=== PATIENT | female | born 1940 | race Caucasian/White ===

== ENCOUNTER 2018-02-20 18:04 | Emergency (ER) | payer OTHER ==
--- NOTE | 2018-02-20 20:07 | ER ---
Nurse's Notes [facility] Name: Faiza Pete Age: 77 yrs Sex: Female : 1940 Arrival Date: 02/20/2018 Time: 18:07 Bed 17 Private MD: Debbie Bah Diagnosis: Extended spectrum beta lactamase (ESBL) resistance;Acute cystitis Presentation: 02/20 18:13 Presenting complaint: Child states: she had a SOB last Friday and its getting worse; hj Rx with amoxycillin for UTI and culture showed E coli; denies fever and chills;. Transition of care: patient was not received from another setting of care. Onset of symptoms was February 20, 2018. Initial Sepsis Screen: Does the patient meet any 2 criteria? No. Patient's initial sepsis screen is negative. Does the patient have a suspected source of infection? No. Patient's initial sepsis screen is negative. Care prior to arrival: None. 18:13 Method Of Arrival: Ambulatory 18:13 Acuity: KATHI 3 hj Triage Assessment: 18:19 General: Appears in no apparent distress. uncomfortable, Behavior is calm, cooperative, hj appropriate for age. Pain: Denies pain. Respiratory: Reports shortness of breath Onset: The symptoms/episode began/occurred the patient has moderate shortness of breath. Historical: - Allergies: 18:19 Macrobid; hj 18:19 Bactrim; hj - Home Meds: 18:19 montelukast 10 mg oral tab 1 tab once daily [Active]; pantoprazole 40 mg oral TbEC 1 hj tab once daily [Active]; Lexapro 20 mg Oral tab 1 tab once daily [Active]; carvedilol 25 mg oral tab 1 tab 2 times per day [Active]; Lipitor 10 mg Oral tab 1 tab once daily [Active]; Diovan HCT 80-12.5 mg Oral tab 1 tab once daily [Active]; aspirin 81 mg Oral TbEC 1 tab once daily [Active]; Potassium Chloride Oral [Active]; lorazepam 0.5 mg Oral tab 1 tab 3 times per day [Active]; Claritin 10 mg Oral tab 1 tab once daily [Active]; Advair Diskus 100-50 mcg/dose Inhl dsdv 1 puff 2 times per day [Active]; levabuterol [Active]; - PMHx: 18:19 Aneurysm; Cancer, Breast; COPD; hemmorhoids; Hyperlipidemia; Hypertension; SVT; hj - PSHx: 18:19 Lumpectomy; heart cath-07/04/15; - Immunization history:: Adult Immunizations unknown. - Social history:: Smoking status: unknown. Screenin:43 Abuse screen: Denies threats or abuse. Nutritional screening: No deficits noted. jd3 Tuberculosis screening: No symptoms or risk factors identified. Fall Risk Ambulatory Aid- Crutches/Cane/Walker (15 pts). Mental Status- Oriented to own ability (0 pts). Total Quintana Fall Scale indicates No Risk (0-24 pts). Assessment: 18:19 Cardiovascular: Rhythm is. Respiratory: Airway is patent Respiratory effort is even, hj unlabored, Respiratory pattern is regular, 19:42 General: Appears in no apparent distress. uncomfortable, Behavior is calm, cooperative, jd3 appropriate for age. Pain: Denies pain. Neuro: Level of Consciousness is awake, alert, obeys commands, Oriented to person, place, time, situation. Cardiovascular: Capillary refill < 3 seconds Patient's skin is warm and dry. Respiratory: Airway is patent Respiratory effort is even, unlabored, Respiratory pattern is regular, symmetrical, Breath sounds are clear bilaterally. GI: Abdomen is round Patient currently denies nausea, vomiting. : Reports burning with urination. EENT: No signs and/or symptoms were reported regarding the EENT system. Derm: Skin is intact, Skin is dry, Skin is normal, Skin temperature is warm. Musculoskeletal: Circulation, motion, and sensation intact. Range of motion: intact in all extremities. 20:20 Reassessment: Patient appears in no apparent distress at this time. Patient and/or jd3 family updated on plan of care and expected duration. Pain level reassessed. Patient is alert, oriented x 3, equal unlabored respirations, skin warm/dry/pink. pt reported understanding of discharge instructions. Vital Signs: 18:20 BP 128 / 116; Pulse 74; Resp 18; Temp 97.9(TE); Pulse Ox 94% on R/A; Weight 79.38 kg; hj Height 5 ft. 9 in. (175.26 cm); Pain 0/10; 18:20 Body Mass Index 25.84 (79.38 kg, 175.26 cm) ED Course: 18:07 Patient arrived in ED. mr 18:07 Debbie Bah MD is Private Physician. mr 18:16 Triage completed. hj 18:20 Arm band placed on right wrist. hj 19:29 Alex Singleton MD is Attending Physician. ps1 19:41 Tony Hurt RN is Primary Nurse. jd3 19:44 Patient has correct armband on for positive identification. Bed in low position. Call jd3 light in reach. Adult w/ patient. 20:06 Debbie Bah MD is Referral Physician. ps1 20:19 No provider procedures requiring assistance completed. Patient did not have IV access jd3 during this emergency room visit. Administered Medications: No medications were administered Outcome: 20:07 Discharge ordered by MD. ps1 20:19 Discharged to home ambulatory, with family. jd3 20:19 Condition: stable 20:19 Discharge instructions given to patient, family, Instructed on discharge instructions, follow up and referral plans. medication usage, Demonstrated understanding of instructions, follow-up care, medications, Prescriptions given X 1. 20:20 Patient left the ED. jd3 Signatures: Marilynn Sampson AddisonJoselito, RN RN Tony Deng, JESÚS RN Alex Bass MD MD ps1
--- NOTE | 2018-02-20 20:07 | EDPHYS ---
Physician Documentation [facility] Name: Faiza Pete Age: 77 yrs Sex: Female : 1940 Arrival Date: 02/20/2018 Time: 18:07 Bed 17 Private MD: Debbie Bah ED Physician Alex Singleton HPI: 02/20 20:00 This 77 yrs old Female presents to ER via Ambulatory with complaints of ps1 Shortness Of Breath, Urinary Problem. 20:00 The patient has shortness of breath chronic hx of COPD. Onset: The symptoms/episode ps1 began/occurred 10 year(s) ago. Duration: The symptoms are continuous, are intermittent. The patient's shortness of breath is alleviated by inhaler, nebulizer treatment. Associated signs and symptoms: The patient has no apparent associated signs or symptoms. Associated signs and symptoms: Pertinent positives: urinary frequency. not really here for shortness of breath. Attests to it as she has COPD. States that it is otherwise well managed at home. Went to urgent care on Friday and was called 2/2 antibiotic resistant. Sensitivity report demonstrated ESBL and E.coli. Sensitivity to cipro but patient had it listed as an allergy because she said it didn't work, not a true physiologic allergy. . Historical: - Allergies: 18:19 Macrobid; hj 18:19 Bactrim; hj - Home Meds: 18:19 montelukast 10 mg oral tab 1 tab once daily [Active]; pantoprazole 40 mg oral TbEC 1 hj tab once daily [Active]; Lexapro 20 mg Oral tab 1 tab once daily [Active]; carvedilol 25 mg oral tab 1 tab 2 times per day [Active]; Lipitor 10 mg Oral tab 1 tab once daily [Active]; Diovan HCT 80-12.5 mg Oral tab 1 tab once daily [Active]; aspirin 81 mg Oral TbEC 1 tab once daily [Active]; Potassium Chloride Oral [Active]; lorazepam 0.5 mg Oral tab 1 tab 3 times per day [Active]; Claritin 10 mg Oral tab 1 tab once daily [Active]; Advair Diskus 100-50 mcg/dose Inhl dsdv 1 puff 2 times per day [Active]; levabuterol [Active]; - PMHx: 18:19 Aneurysm; Cancer, Breast; COPD; hemmorhoids; Hyperlipidemia; Hypertension; SVT; hj - PSHx: 18:19 Lumpectomy; heart cath-07/04/15; hj - Immunization history:: Adult Immunizations unknown. - Social history:: Smoking status: unknown. ROS: 20:00 Constitutional: Negative for fever, chills, and weight loss, Eyes: Negative for injury, ps1 pain, redness, and discharge, ENT: Negative for injury, pain, and discharge, Cardiovascular: Negative for chest pain, palpitations, and edema. 20:00 Abdomen/GI: Negative for abdominal pain, nausea, vomiting, diarrhea, and constipation, Back: Negative for injury and pain. 20:00 MS/Extremity: Negative for injury and deformity, Skin: Negative for injury, rash, and discoloration, Neuro: Negative for headache, weakness, numbness, tingling, and seizure. 20:00 Respiratory: Positive for shortness of breath, at rest. 20:00 : Positive for urinary symptoms. Exam: 20:00 Constitutional: This is a well developed, well nourished patient who is awake, alert, ps1 and in no acute distress. Head/Face: Normocephalic, atraumatic. Eyes: Pupils equal round and reactive to light, extra-ocular motions intact. Lids and lashes normal. Conjunctiva and sclera are non-icteric and not injected. Neck: Trachea midline, no thyromegaly or masses palpated, and no cervical lymphadenopathy. Supple, full range of motion without nuchal rigidity, or vertebral point tenderness. No Meningismus. Chest/axilla: Normal chest wall appearance and motion. Nontender with no deformity. No lesions are appreciated. Cardiovascular: Regular rate and rhythm. No gallops, murmurs, or rubs. Normal PMI, no JVD. No pulse deficits. 20:00 Abdomen/GI: Soft, non-tender, with normal bowel sounds. No distension or tympany. No guarding or rebound. No evidence of tenderness throughout. Skin: Warm, dry with normal turgor. Normal color with no rashes, no lesions, and no evidence of cellulitis. MS/ Extremity: Pulses equal, no cyanosis. Neurovascular intact. Full, normal range of motion. Neuro: Awake and alert, GCS 15, oriented to person, place, time, and situation. Cranial nerves II-XII grossly intact. Sensory grossly intact. 20:00 Respiratory: the patient does not display signs of respiratory distress, Respirations: normal, Breath sounds: bronchial sounds, that are mild, wheezing: that is mild, is heard in the left posterior lower lobe and right posterior lower lobe. Vital Signs: 18:20 BP 128 / 116; Pulse 74; Resp 18; Temp 97.9(TE); Pulse Ox 94% on R/A; Weight 79.38 kg; hj Height 5 ft. 9 in. (175.26 cm); Pain 0/10; 18:20 Body Mass Index 25.84 (79.38 kg, 175.26 cm) hj MDM: 20:00 Data reviewed: vital signs, nurses notes, diagnostic data from outside facility, ps1 urinalysis, bacteruria, culture. ED course: patient to be started on cipro as it is sensitive on both e.coli and e.faecalis. Will have patient follow up with PCP for recheck and consideration of other medication regimens. . 20:07 Patient medically screened. ps1 Administered Medications: No medications were administered Disposition: 02/20/18 20:07 Discharged to Home. Impression: Extended spectrum beta lactamase (ESBL) resistance, Acute cystitis. - Condition is Stable. - Discharge Instructions: Antibiotic Resistance. - Prescriptions for Cipro 500 mg Oral Tablet - take 1 tablet by ORAL route every 12 hours for 10 days; 20 tablet. - Medication Reconciliation Form, Thank You Letter, Antibiotic Education, Prescription Opioid Use form. - Follow up: Debbie Bah MD; When: 5 - 6 days; Reason: Recheck today's complaints, Continuance of care. Follow up: Emergency Department; When: As needed; Reason: Fever > 102 F, Worsening of condition. - Problem is an ongoing problem. - Symptoms are unchanged. Signatures: Joselito Jaime RN Tony Chu RN RN Alex Bass MD MD ps1
[2018-02-20 20:30] VITALS: BP 128/116; TEMP 97.9; O2SAT 94
== END 2018-02-20 20:20 | disposition home or self-care (01) ==
LOC: ER 18:04
DX: N30.00 Acute cystitis without hematuria (principal); E78.5 Hyperlipidemia, unspecified; I10 Essential (primary) hypertension; J44.9 Chronic obstructive pulmonary disease, unspecified; Z88.1 Allergy status to other antibiotic agents; Z16.12 Extended spectrum beta lactamase (ESBL) resistance
CPT/HCPCS: 99282

== ENCOUNTER 2020-03-26 09:55 | Observation (INO) | payer OTHER ==
--- OUTSIDE RECORDS SUMMARY | 2020-03-26 10:04 | XMS REPORT ---
:1940 Author Organization [facility] t Address [address] [place] [address] [address] [place] [address] Care Team Providers Name Role Phone Unavailable Unavailable Unavailable Problems Condition Condition Condition Status Onset Resolution Last Treating Co mments Source Name Details Category Date Date Treatment Clinician Date HTN HTN Problem Active [facility] (hypertens (hypertens Catrachita kes - ion), ion), Memoria benign benign l [facility] Mixed Mixed Problem Active [facility] hyperlipid hyperlipid Cat[facility]achita kes - emia emia Memoria l [facility] Urinary Urinary Problem Active [facility] tract tract [facility] - infection, infection, Me moria site not site not l specified specified Outp ati ent Clinics Chronic Chronic Problem Active [facility] bronchitis bronchitis Catrachita kes - , , Memoria unspecifie unspecifie l d chronic d chronic Outp ati bronchitis bronchitis en t type type Clinics Dysuria Dysuria Problem Active [facility] Anxiety Anxiety Problem Active [facility] Seasonal Seasonal Problem [facility] allergic allergic [facility] - rhinitis, rhinitis, Lino samaria unspecifie unspecifie l d trigger d trigger Outp ati ent Clinics Primary Primary Problem Active [facility] insomnia insomnia [facility]ics Mild Mild Problem Active [facility] intermitte intermitte Catrachita kes - nt asthma nt asthma Lino samaria without without l complicati complicati Ou tpati on on ent Clinics Other Other Problem Active [facility] chronic chronic [facility] - pain pain [facility] Vitamin D Vitamin D Problem Active [facility] deficiency deficiency [facility]ita kes - [facility]oria l [facility] Other Other Problem Active [facility] specified specified Luke s - bacterial bacterial Lino samaria agents as agents as l the cause the cause Outp ati of of ent diseases diseases Clinic s classified classified elsewhere elsewhere Acute Acute Problem Active [facility] bacterial bacterial Luke s - conjunctiv conjunctiv Me moria itis of itis of l left eye left eye Outpat i ent Clinics Acute Acute Problem Active [facility] sinusitis, sinusitis, Catrachita kes - unspecifie unspecifie Me moria d d [facility] CKD CKD Problem Active [facility] (chronic (chronic [facility] - kidney kidney [facility] disease), disease), l stage III stage III Outp ati ent Clinics Encounter Encounter Problem Active [facility] for for [facility] adult adult l medical medical [facility] examinatio examinatio en t n with n with Clinics abnormal abnormal findings findings Mucopurule Mucopurule Problem Active [facility] nt chronic nt chronic Catrachita kes - bronchitis bronchitis Me moria l [facility] Clinics Allergies, Adverse Reactions, Alerts Allergy Allergy Status Severity Reaction(s) Onset Inactive Treating Comm ents Source Name Type Date Date Clinician Nitrofur Adverse Active Info Not [facility] Macrobid Adverse Active Info Not [facility] Reaction Available [facility] Bactrim Adverse Active Info Not [facility] Reaction Available [facility] Levaquin Adverse Active Info Not [facility] Reaction Available [facility] Medications Ordered Filled Start Stop Current Ordering Indication Dosage Frequency Signature Comments Components Source Medication Medication Date Date Medication? Clinician (SIG) Name Name Benzonatate Benzonatate 2019- No Na Bah [address] [facility] 2-05 03-06 as needed [facility] - 00:00: 00:00 Memoria 00 :00 [facility] Cefdinir Cefdinir 2019- No Na Bah [address] [facility] 2-05 02-15 [facility] - 00:[facility]: 00:00 Memoria 00 :00 [facility] Trimethopri Trimethopri 2018-10- No Na Bah [address] [facility] m m 0-28 04-25 [facility] - 00:[facility]: 00:00 Memoria 00 :00 [facility] Tobramycin Tobramycin Yes Na Bah [address] [facility] 8-21 into [facility] - 00:00: affected Memoria 00 eye [facility] Singulair Singulair Yes Na Bah TAKE [address] [facility] TABLET BY [facility] - MOUTH Memoria EVERY DAY [facility] Loratadine Loratadine Yes Na Bah [address] [facility] Protonix Protonix Yes Na Bah TAKE [address] TABLET BY [facility] - MOUTH [facility]oria EVERY DAY l [facility] Lisinopril- Lisinopril- Yes Na Bah [address] [facility] Hydrochloro Hydrochloro L ukes - thiazide thiazide [facility]oria l [facility] Montelukast Montelukast Yes Na Bah [address] [facility] Sodium Sodium in the [facility] - evening [facility]oria l [facility] Combivent Combivent Yes Na Bah [address] [facility] Respimat Respimat [facility] - [facility] Levalbutero Levalbutero Yes Na Bah [address] [facility] l HCl l HCl [facility] Flonase Flonase Yes Na Bah [address] [facility] each [facility] - nostril [facility] Aspir-81 Aspir-81 Yes Na Bah [address] [facility] Lipitor Lipitor Yes Na Bah [address] [facility] Lexapro Lexapro Yes Na Bah [address] [facility] Ativan Ativan Yes Na Bah [address] [facility] as needed [facility] Loratadine Loratadine Yes Na Bah [address] [facility] Symbicort Symbicort Yes Na Bah [address] [facility] Coreg Coreg Yes Na Bah [address] [facility] Escitalopra Escitalopra Yes Na Bah TAKE [facility] m Oxalate m Oxalate TABLET BY [facility] - MOUTH Memoria EVERY DAY l [facility] Potassium Potassium Yes Na Bah [address] [facility] Coreg Coreg Yes Na Bah TAKE [address] [facility] TABLET BY [facility] - MOUTH Memoria TWICE A l DAY [facility] Atorvastati Atorvastati Yes Na Bah TAKE [address] [facility] n Calcium n Calcium TABLET BY [facility] - MOUTH Memoria EVERY DAY l [facility] Trimethopri Trimethopri Yes Na Bah [address] [facility] m [facility] Outpati ent Clinics Folic Acid Folic Acid Yes Na Bah [address] [facility] Pantoprazol Pantoprazol Yes Na Bah TAKE [address] [facility] e Sodium e Sodium TABLET BY Catrachita kes - MOUTH Memoria EVERY DAY l Outpati ent Clinics Losartan Losartan Yes Na Bah [address] [facility] Potassium-H Potassium-H L ukes - CTZ CTZ Memoria l Outpati ent Clinics Doxycycline Doxycycline 2019- No Na Bah [address] [facility] Hyclate Hyclate 02-15 [facility] - 00:00 Memoria :00 l Outpati ent Clinics PredniSONE PredniSONE 2019- Na Bah [address] [facility] 02-15 daily x 5 [facility] - 00:00 days then Memoria :00 one tablet l daily x 5 Outpati days ent Clinics Immunizations Ordered Filled Immunization Date Status Comments Sour e Immunization Name Name Prevnar 13 Prevnar 13 2019-07-[address] [facility] - -Pneumonia Vaccine -Pneumonia Vaccine 00:00:00 [facility] FluAD FluAD 2019-07-[address] [facility] - 00:[facility]00 [facility] Procedures This patient has no known procedures. Encounters Start End Encounter Admission Attending Care Care Encounter Source Date/Time Date/Time Type Type Clinicians Facility Department ID 2020-03-22 2020-03-22 Outpatient Renetta Jacksont [id number] [address] 09:29:00 09:29:00 t [employer] [facility] Medicine Outpati ent Clinics 2020-02-14 2020-02-14 [facility] [id number] 08:52:00 08:52:00 t [employer] [facility] Medicine Medicine Outpati ent Clinics 2019-12-22 2019-12-22 [facility] [id number] 09:00:00 09:00:00 t Specialty/U Catrachita kes - Specialty rology [facility] a /Urology Clinic l Clinic Outpati ent Clinics 2019-12-01 2019-12-01 [facility] [id number] 10:00:00 10:00:00 t [employer] [facility] Medicine Medicine Outpati ent Clinics 2019-09-20 2019-09-20 [facility] [id number] [facility] 15:55:00 15:55:00 t [place] [employer] - Drive [facility] Medicine Outpati ent Clinics 2019-09-08 2019-09-08 [facility] [id number] 09:00:00 09:00:00 t [place] [employer] - Drive [facility] Medicine Outpati ent Clinics 2019-08-23 2019-08-23 [facility] [id number] 09:28:00 09:28:00 t Specialty/U Catrachita kes - Specialty rology Memori a /Urology Clinic l Clinic Outpati ent Clinics 2019-07-28 2019-07-28 [facility] [id number] 09:00:00 09:00:00 t [place] [employer] - Drive [facility] Medicine Outpati ent Clinics 2019-06-22 2019-06-22 [facility] [id number] [address] 08:45:00 08:45:00 t Specialty/U Catrachita kes - Specialty rology Memori a /Urology Clinic l Clinic Outpati ent Clinics 2019-06-16 2019-06-16 [facility] [id number] 09:00:00 09:00:00 t [place] [employer] - Drive [facility] Medicine Outpati ent Clinics 2019-06-15 2019-06-15 [facility] [id number] 10:34:00 10:34:00 t [place] [employer] s - Drive [facility] Medicine Outpati ent Clinics 2019-03-24 2019-03-24 [facility] [id number] [address] 10:40:00 10:40:00 t [place] [employer] s - Drive [facility] Medicine Outpati ent Clinics 2019-03-09 2019-03-09 [facility] [id number] 10:08:00 10:08:00 t Specialty/U Catrachita kes - Specialty rology Memori a /Urology Clinic l Clinic Outpati ent Clinics 2018-12-24 2018-12-24 [facility] [id number] [address] 09:45:00 09:45:00 t Specialty/U Catrachita kes - Specialty rology Mem[facility] a /Urology Clinic l Clinic Outpati ent Clinics 2018-12-17 2018-12-17 [facility] [id number] 08:30:00 08:30:00 t [place] [employer] [facility] Medicine Outpati ent Clinics 2018-11-17 2018-11-17 [facility] [id number] 11:32:00 11:32:00 t [place] [employer] - [employer] [facility] Medicine Outpati ent Clinics 2018-10-14 2018-10-14 [facility] [id number] 09:44:00 09:44:00 t [employer] [facility] Outpati ent Clinics 2018-09-10 2018-09-10 [facility] [id number] [facility] 08:30:00 08:30:00 t [employer] [facility] Outpati ent Clinics 2018-08-04 2018-08-04 [facility] [id number] 09:30:00 09:30:00 t Specialty/U Catrachita kes - Specialty rology Memori a /Urology Clinic l Clinic Outpati ent Clinics 2018-07-30 2018-07-30 [facility] [id number] 09:15:00 09:15:00 t Specialty/U Catrachita kes - Specialty rology Mem[facility] a /Urology Clinic l Clinic Outpati ent Clinics 2018-07-01 2018-07-01 [facility] [id number] 09:45:00 09:45:00 t Specialty/U Catrachita kes - Specialty rology Memori a /Urology Clinic l Clinic Outpati ent Clinics 2018-06-18 2018-06-18 [facility] [id number] 09:00:00 09:00:00 t [employer] [facility] Medicine Outpati ent Clinics 2018-06-17 2018-06-17 [facility] [id number] [address] 08:15:00 08:15:00 t [employer] [facility] ent [facility] 2018-05-28 2018-05-28 Outpatient Renetta Jacksont [id number] 09:46:00 09:46:00 t [employer] [facility] ent [facility] 2018-03-17 2018-03-17 Outpatient Braz[facility]a Jacksont [id number] [facility] 09:30:00 09:30:00 [employer] [facility] Results This patient has no known results.
--- OUTSIDE RECORDS SUMMARY | 2020-03-26 10:04 | XMS REPORT ---
:1940 Author Organization [employer] Care Team Providers Name Role Phone Bah, Na Provider Role Unavailable Allergies No Known Allergies Problems Problem Type Condition Code Onset Dates Condition Statu s Problem Urinary tract infection, site not N39.0 Active specified Problem Other chronic pain G89.29 Active Problem Mild intermittent asthma without J45.20 Active complication Problem Encounter for general adult medical Z00.01 Active examination with abnormal findings Problem CKD (chronic kidney disease), stage N18.3 Active III Problem Mucopurulent chronic bronchitis J41.1 Active Problem Acute bacterial conjunctivitis of H10.32 Active left eye Problem Vitamin D deficiency E55.9 Active Problem Other specified bacterial agents as B96.89 Active the cause of diseases classified elsewhere Problem Acute sinusitis, unspecified J01.90 Active Problem Mixed hyperlipidemia E78.2 Active Problem Seasonal allergic rhinitis, J30.2 Active unspecified trigger Problem Primary insomnia F51.01 Active Problem HTN (hypertension), benign I10 A ctive Problem Chronic bronchitis, unspecified J42 Active chronic bronchitis type Problem Anxiety F41.9 Active Problem Dysuria R30.0 Active Medications No Known Medications Results No Known Results Summary Purpose eClinicalWorks Submission
--- OUTSIDE RECORDS SUMMARY | 2020-03-26 10:04 | XMS REPORT ---
:1940 Author Organization [employer] Care Team Providers Name Role Phone Bah, Na Provider Role Unavailable Allergies, Adverse Reactions, Alerts Substance Reaction Event Type Nitrofurantoin Info Not Available Drug Allergy Macrobid Info Not Available Drug Allergy Levaquin Info Not Available Drug Allergy Bactrim Info Not Available Drug Allergy Problems Problem Type Condition Code Onset Dates Condition Statu s Problem Urinary tract infection, site not N39.0 Active specified Problem Other chronic pain G89.29 Active Problem Mild intermittent asthma without J45.20 Active complication Problem Encounter for general adult medical Z00.01 Active examination with abnormal findings Assessment Mucopurulent chronic bronchitis J41.1 Active Problem CKD (chronic kidney disease), stage N18.3 Active III Assessment Cough productive of yellow sputum R05 Active Assessment Acute allergic rhinitis J30.9 Acti ve Problem Mucopurulent chronic bronchitis J41.1 Active Problem Acute bacterial conjunctivitis of H10.32 Active left eye Problem Vitamin D deficiency E55.9 Active Problem Other specified bacterial agents as B96.89 Active the cause of diseases classified elsewhere Problem Acute sinusitis, unspecified J01.90 Active Problem Mixed hyperlipidemia E78.2 Active Assessment Acute sinusitis, unspecified J01.90 Active Assessment Acute bronchitis, unspecified J20.9 Active organism Problem Seasonal allergic rhinitis, J30.2 Active unspecified trigger Problem Primary insomnia F51.01 Active Problem HTN (hypertension), benign I10 A ctive Problem Chronic bronchitis, unspecified J42 Active chronic bronchitis type Assessment Other specified bacterial agents as B96.89 Active the cause of diseases classified elsewhere Problem Anxiety F41.9 Active Problem Dysuria R30.0 Active Medications Medication Code Code Instructions Start End Date Status Dosage System Date Benzonatate [facility] 17840055459 100 MG Orally Dec 01December Active 1 capsule two times a day 2019 as need ed prn cough Losartan ND 12610455412 50-12.5 MG Active 1 tablet Potassium-HCTZ Orally Once a day Cefdinir ND 71392689339 300 MG Orally Dec 01, Dec 11, Active 1 cap anastacio every 12 hours 2019 2019 Tobramycin [facility] 04889699932 0.3 % Jun 16, Active 1 drop in to Ophthalmic 2018 affected every 4 hrs eye Atorvastatin [facility] 64042716097 10 MG Active TAKE 1 Calcium TABLET BY MOUTH EVERY DAY Escitalopram [facility] 72948088821 20 MG Active TAKE 1 Oxalate TABLET BY MOUTH EVERY DAY Lisinopril-Hydr [facility] 42734913117 10-12.5 MG Active 1 tablet ochlorothiazide Orally Once a day Potassium [facility] 37897683942 99 MG Orally Active 1 tab let Once a day Coreg [facility] 48928992468 25 MG Active TAKE 1 TABLET BY MOUTH TWICE A DAY Flonase [facility] 00186772446 50 MCG/ACT Active 2 spray i n Nasally Once a each day nostril Ativan [facility] 76776785065 0.5 MG Orally Active 1 tabl et as once a day needed Levalbuterol [facility] 47376843806 1.25 MG/3ML Active 3 m l HCl Inhalation every 8 hrs Protonix [facility] 38832568717 40 MG Active TAKE 1 TABLET BY MOUTH EVERY DAY Loratadine [facility] 13040855703 10 MG Orally Active 1 ta blet Once a day Doxycycline ND 93557602069 100 MG Orally Dec 11, Active 1 capsule Hyclate twice a day 2019 Pantoprazole [facility] 85631382230 40 MG Active TAKE 1 Sodium TABLET BY MOUTH EVERY DAY Folic Acid [facility] 41396623558 1 MG Orally Active 1 tab let twice a day Loratadine [facility] 17079970803 10 MG Orally Active 1 ta blet Once a day Symbicort [facility] 33196994420 160-4.5 MCG/ACT Active TA KE 2 PUFFS BY MOUTH TWICE A DAY Trimethoprim [facility] 08471951204 100 mg Orally Active 1 tablet Once a day PredniSONE ND 00778289400 20 MG Orally Dec 11, Active 2 ta blet Once a day 2019 daily x 5 days then one tablet daily x 5 days Trimethoprim [facility] 90803613630 100 MG Orally Aug 23January Active 1 tablet Once a day 2018 Montelukast [facility] 99967099777 10 MG Orally Active 1 t ablet in Sodium Once a day the evening Singulair [facility] 29615730320 10 MG Active TAKE 1 TABLET BY MOUTH EVERY DAY Aspir-81 [facility] 88836329501 81 MG Orally Active 1 tabl et Once a day Symbicort [facility] 15479614439 160-4.5 MCG/ACT Active 2 puffs Inhalation Twice a day Coreg [facility] 62612655209 25 MG Orally Active 1 table t twice a day Lexapro [facility] 55988512623 20 MG Orally Active 1 tabl et Once a day Lipitor [facility] 18192242990 10 MG Orally Active 1 table t Once a day Combivent [facility] 40905266604 20MCG /100 MCG Active 1 p uff Respimat Oral Inhalation 4 times daily, not to exceed 6 in 24 hrs Results Name Result Date Reference Range Unit Abnormali ty Flag FLU TEST A/B ----A neg [id number] ----B neg [id number] Summary Purpose eClinicalWorks Submission
[2020-03-26] MEDS ORDERED: predniSONE 20 MG TAB ONE (11:26)
--- NOTE | 2020-03-26 11:53 | RAD REPORT ---
EXAM DESCRIPTION: RAD - Chest Single View - 03/26/2020 11:40 am CLINICAL HISTORY: Chest pain COMPARISON: 2017 FINDINGS: The left base is hazy compatible with a diaphragmatic hernia Lungs appear clear of acute infiltrate. The heart is normal size IMPRESSION: No acute abnormality displayed
[2020-03-26 12:00] LABS: Absolute Lymphocytes (CBC) 1.1 K/uL (0.7-4.9); Basophils % 0.3 % (0-1.3); Hematocrit 39.6 % (36.0-45.0); Lymphocytes % 11.3 % (15.3-44.8); MPV 9.1 fL (7.6-11.3); RBC Red Blood Cell Count 4.32 M/uL (3.86-4.86)
[2020-03-26 12:20] LABS: ALT/SGPT 25 U/L (12-78); AST/SGOT 20 U/L (15-37); Albumin 3.8 g/dL (3.4-5.0); Alkaline Phosphatase 54 U/L (45-117); BUN Blood Urea Nitrogen 17 mg/dL (7-18); Bicarbonate 28 mmol/L (21-32); Bilirubin Direct 0.2 mg/dL (0-0.2); Bilirubin Total 0.5 mg/dL (0.2-1.0); Glucose Level 95 mg/dL (74-106); NT PRO-BNP 1115 pg/mL (<450); Potassium 4.2 mmol/L (3.5-5.1); Protein, Total 7.7 g/dL (6.4-8.2); Sodium Level 141 mmol/L (136-145); Troponin (Emerg Dept Use Only) < 0.02 ng/mL (0.0-0.045)
[2020-03-26] MEDS ORDERED: ESCITALOPRAM 20 MG TAB PO ONE (13:00)
[2020-03-26] MEDS ORDERED: hydroCHLOROthiazide 25 MG TAB ONE (13:05)
[2020-03-26] MEDS ORDERED: lisinopriL 10 MG TAB ONE (13:05)
[2020-03-26] MEDS ORDERED: ONDANSETRON 4 MG/2 ML VIAL ONE (13:16)
--- NOTE | 2020-03-26 13:58 | RAD REPORT ---
EXAM DESCRIPTION: CT - Chest Abd Pelvis Wo Con - 03/26/2020 1:42 pm CLINICAL HISTORY: Cough and abdominal pain COMPARISON: 2016 CT chest TECHNIQUE: Computed axial tomography of the chest, abdomen and pelvis was obtained. Oral contrast wa s given. IV contrast was not requested. All CT scans are performed using dose optimization technique as appropriate and may include automated exposure control or mA/KV adjustment according to patient size. FINDINGS: The evaluation of mediastinum, claudy, vessels and solid organs is limited secondary to the lack of IV contrast administration Mild tree-in-bud opacities right middle lobe Mild additional chronic lung opacities bilaterally. No mediastinal or hilar lymphadenopathy is seen. A pleural effusion is not present. A pericardial effusion is not seen. Large left diaphragmatic hernia contains nondilated bowel. The gastric body lies superior to the tami erika fundus within the hernia. It is unchanged in appearance from the prior exam. There is no strandin g within the adjacent fat to suggest inflammation. Hepatic granulomata. Pancreas, adrenals and kidneys appear grossly normal Diverticula stem from the colon without evidence of diverticulitis. 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
[2020-03-26] MEDS ORDERED: ACETAMINOPHEN 500 MG TAB PO PRN (14:26)
[2020-03-26] MEDS: D5 0.45 NS 1,000 ML IV SCH (15:00)
[2020-03-26] MEDS ORDERED: IBUPROFEN 400 MG TAB ONE (16:18)
[2020-03-26] MEDS: ALBUTEROL 2.5 MG/3 ML NEB SOL IH SCH ×2 (16:19→20:00)
[2020-03-26] MEDS ORDERED: CEFTRIAXONE/SWI 1gm 1 GM/10 ML SYR ONE (16:19)
[2020-03-26] MEDS: IPRATROPIUM BROM 0.5MG/2.5ML NEB SCH ×2 (16:19→20:00)
--- NOTE | 2020-03-26 16:19 | P.HP ---
Certification for Inpatient Patient admitted to: Observation Patient will require the following post-hospital care: None Practitioner: I am a practitioner with admitting privileges, knowledge of patient current condition, hospital course, and medical plan of care. Services: Services provided to patient in accordance with Admission requirements found in Title 42 Section 412.3 of the Code of Federal Regulations Patient History Date of Service: 03/26/20 Reason for admission: Shortness of breath cough congestion History of Present Illness: Patient is 80 years of age with a history of COPD although she has never smoked has been sick for the past 3 weeks complaining of cough congestion worsening shortness of breath denies any fever chills chest pain patient uses Combivent and Xopenex at home Symbicort often makes her worse she has not followed up with me for a number of years denies any chest pain has some nausea vomiting not eating very well in very weak Allergies levofloxacin [From Levaquin] Allergy (Verified 03/04/16 21:48) Itching/Hives/Rash sulfamethoxazole [From Bactrim] Allergy (Unverified 02/20/18 20:24) Unknown trimethoprim [From Bactrim] Allergy (Unverified 02/20/18 20:24) Unknown nitrofurantoin macrocrystal [From Macrobid] Adverse Reaction (Intermediate, Verified 03/04/16 21:48) vomiting nitrofurantoin [From Macrobid] Adverse Reaction (Verified 03/04/16 21:48) vomiting Home Medications: Atorvastatin Calcium [Lipitor] 10 mg PO DAILY 03/25/12 Folic Acid 1 mg PO BID 03/25/12 Aspirin 81 mg PO DAILY #90 tab.chew 06/30/14 Budesonide/Formoterol Fumarate [Symbicort 160-4.5 Mcg Inhaler] 2 puff IH BID 07/12/15 Cyanocobalamin [Vitamin B-12] 1,000 mcg PO DAILY 07/12/15 Esomeprazole Mag Trihydrate [Nexium] 40 mg PO DAILY 07/12/15 Pnv95/Ferrous Fumarate/FA [ Tablet] 1 each PO DAILY 07/12/15 Valsartan/Hydrochlorothiazide [Diovan Hct 80-12.5 mg Tablet] 1 each PO DAILY 07/12/15 LORazepam [Lorazepam] 1 tab PO DAILY PRN 03/04/16 Amox/Clavulanate [Augmentin 500-125 mg Tab*] 500 mg PO BID #30 tab 03/05/16 Escitalopram [Lexapro*] 60 mg PO DAILY 03/05/16 Levalbuterol [Xopenex*] 0.63 mg NEB [id number] #90 vial 03/05/16 carvediloL [Coreg] 25 mg PO BID #60 tab 03/05/16 - Past Medical/Surgical History Diabetic: No -: Brain aneurysm -: HTN -: History of Breast Cancer -: Hyperlipidemia -: Depression with anxiety -: Diverticulosis -: GERD with hiatal hernia -: History of back pain and possible DDD/DJD. -: History of TIAs -: lumpectomy Psychosocial/ Personal History: unknown - Social History Alcohol use: No CD- Drugs: No Caffeine use: No Review of Systems 10-point ROS is otherwise unremarkable General: Weakness ENT: As per HPI Respiratory: Cough, Shortness of Breath Physical Examination - Physical Exam General: Alert, Oriented x3, Cachectic Neck: Supple Respiratory: Expiratory wheezes Cardiovascular: No edema, Regular rate/rhythm, Normal S1 S2 Gastrointestinal: Normal bowel sounds, Soft and benign Musculoskeletal: No clubbing, No swelling, No warmth Integumentary: No breakdown - Studies Laboratory Data (last 24 hrs) 03/26/20 11:52: WBC 9.8, Hgb 13.1, Hct 39.6, Plt Count 222 03/26/20 11:52: Sodium 141, Potassium 4.2, BUN 17, Creatinine 1.56 H, Glucose 95, Magnesium 2.0, Total Bilirubin 0.5, AST 20, ALT 25, Alkaline Phosphatase 54 Assessment and Plan - Problems (Diagnosis) (1) COPD (chronic obstructive pulmonary disease) Current Visit: Yes Status: Acute Plan: Patient is 80 years of age admitted with cough congestion shortness of breath the past 3 weeks most likely COPD exacerbation chest x-ray shows chronic gastric volvulus elevated lie left hemidiaphragm chest x-rays clear admit for observation treat with bronchodilators steroids send some sputum off for cultures check room air saturation can be discharged home probably tomorrow on prednisone 10 mg twice a day for 10 days consider an Anoro or trilogy follow with me in 2 weeks (2) Renal failure Current Visit: Yes Status: Acute Plan: Patient's kidney function is elevated start on IV fluids check urinalysis Qualifiers: Chronic kidney disease stage: unspecified stage (3) Chronic gastric volvulus Current Visit: Yes Status: Acute Plan: Patient has a chronic gastric volvulus Consul general surgery Discharge Plan: Home Plan to discharge in: 24 Hours - Advance Directives Does patient have a Living Will: Yes Does patient have a Durable POA for Healthcare: Yes
[2020-03-26 17:20] VITALS: BMI 25.1
[2020-03-26] MEDS: HYDROCODONE/APAP 5/325 MG TAB PO PRN (20:55)
[2020-03-26] MEDS: predniSONE 20 MG TAB PO SCH (20:55)
[2020-03-27] MEDS: D5 0.45 NS 1,000 ML IV SCH ×3 (00:11→20:50)
[2020-03-27] MEDS: ALBUTEROL 2.5 MG/3 ML NEB SOL IH SCH ×3 (00:59→14:00)
[2020-03-27] MEDS: IPRATROPIUM BROM 0.5MG/2.5ML NEB SCH ×3 (00:59→14:00)
[2020-03-27] MEDS: HYDROCODONE/APAP 5/325 MG TAB PO PRN ×4 (02:57→20:51)
[2020-03-27 06:46] LABS: Absolute Lymphocytes (CBC) 1.3 K/uL (0.7-4.9); Basophils % 0.2 % (0-1.3); Hematocrit 37.6 % (36.0-45.0); MPV 9.2 fL (7.6-11.3); RBC Red Blood Cell Count 4.06 M/uL (3.86-4.86)
[2020-03-27 07:05] LABS: Albumin 3.7 g/dL (3.4-5.0); Bilirubin Total 0.3 mg/dL (0.2-1.0); Potassium 4.1 mmol/L (3.5-5.1); Protein, Total 7.7 g/dL (6.4-8.2)
[2020-03-27] MEDS ORDERED: LORAZEPAM 0.5 MG TABLET PO PRN (07:38)
[2020-03-27] MEDS: ASPIRIN 81 MG CHEWABLE TABLET PO SCH (08:31)
[2020-03-27] MEDS: lisinopriL 10 MG TAB PO SCH (08:32)
[2020-03-27] MEDS: carvediloL 25 MG TAB PO SCH (08:32)
[2020-03-27] MEDS: PANTOPRAZOLE 40MG TABLET PO SCH (08:32)
[2020-03-27] MEDS: ESCITALOPRAM 20 MG TAB PO SCH (08:33)
[2020-03-27] MEDS: LORATADINE 10 MG TAB PO SCH (08:33)
[2020-03-27] MEDS: ATORVASTATIN 10 MG TAB PO SCH (08:33)
[2020-03-27] MEDS: predniSONE 20 MG TAB PO SCH ×2 (08:33→20:51)
[2020-03-27] MEDS: hydroCHLOROthiazide 12.5 MG CAP PO SCH (08:34)
[2020-03-27] MEDS: CEFTRIAXONE/SWI 1gm 1 GM/10 ML SYR IV SCH (08:34)
[2020-03-27] MEDS: AZITHROMYCIN IV 500 MG in NA CHLORIDE 0.9% 250 ML IVPB SCH (08:50)
[2020-03-27] MEDS ORDERED: HOME MED 1 EA UNK (Lisinopril/Hydrochlorothiazide [Lisinopril-Hctz 10-12.5 Mg Tab] 1 TAB) PO SCH (09:00)
[2020-03-27] MEDS ORDERED: HOME MED 1 EA UNK (Budesonide/Formoterol Fumarate [Symbicort 160-4.5 Mcg Inhaler] 2 PUFF) IH SCH (09:00)
[2020-03-27] MEDS: CYCLOSPORINE OP SCH ×2 (09:00→20:52)
--- NOTE | 2020-03-27 18:55 | ER ---
Nurse's Notes [facility] Name: Faiza Pete Age: 80 yrs Sex: Female : 1940 Arrival Date: 03/26/2020 Time: 09:[address] Private MD: Diagnosis: Weakness;Dehydration;Vomiting;Adult failure to thrive;Pneumonia, unspecified organism Presentation: 03/26 10:25 Chief complaint: Patient states: just feels real bad, daughter states on Fri she called iw Dr. Bah bc her mom said she had fever, cough, ear pain, had a COVID test done but was told she probably has allergies, daughter states pain comes and goes, has pain behind eyes, has hx of COPD , COVID results pending. Coronavirus screen: Surgical mask placed on patient. Patient moved to private room, placed in contact and droplet isolation with eye protection until further assessment. Patient reports a cough. Patient reports shortness of breath or difficulty breathing. Patient denies measured and/or subjective temperature greater than 100.4F prior to today's visit. Patient denies travel on a cruise ship or to a country the [facility] currently lists as an affected area. Patient denies contact with known and/or suspected case of COVID-19. Ebola Screen: Patient negative for fever greater than or equal to 101.5 degrees Fahrenheit, and additional compatible Ebola Virus Disease symptoms Patient denies exposure to infectious person. Patient denies travel to an Ebola-affected area in the 21 days before illness onset. No symptoms or risks identified at this time. Initial Sepsis Screen: Does the patient meet any 2 criteria? No. Patient's initial sepsis screen is negative. Does the patient have a suspected source of infection? No. Patient's initial sepsis screen is negative. Risk Assessment: Do you want to hurt yourself or someone else? Patient reports no desire to harm self or others. Onset of symptoms was February 2020. 10:25 Method Of Arrival: Ambulatory iw 10:25 Acuity: KATHI 3 iw Historical: - Allergies: 10:32 Bactrim; iw 10:32 Macrobid; iw - Home Meds: 10:32 Symbicort 80-4.5 mcg/actuation inhalation HFAA 2 puffs 2 times per day [Active]; iw loratadine 10 mg oral tab 1 tab once daily [Active]; trimethoprim 100 mg Oral tab once daily [Active]; carvedilol 25 mg oral tab daily [Active]; pantoprazole 40 mg oral TbEC 1 tab once daily [Active]; lisinopril-hydrochlorothiazide 10-12.5 mg oral tab 1 tab once daily [Active]; atorvastatin 10 mg oral tab 1 tab once daily [Active]; AREDS [Active]; aspirin 81 mg Oral TbEC 1 tab once daily [Active]; Restasis 0.05 % ophthalmic dpet 1 drop every 12 hours [Active]; lorazepam 0.5 mg Oral tab daily [Active]; levalbuterol HCl inhalation inhalation every 6 hours [Active]; - PMHx: 10:32 Aneurysm; Cancer, Breast; COPD; hemmorhoids; Hyperlipidemia; Hypertension; SVT; iw - PSHx: 10:32 Lumpectomy; heart cath-07/04/15; iw - Immunization history:: Adult Immunizations up to date. - Social history:: Smoking status: Patient denies any tobacco usage or history of. Screenin:45 Abuse screen: Denies threats or abuse. Denies injuries from another. Nutritional ca1 screening: No deficits noted. Tuberculosis screening: No symptoms or risk factors identified. Fall Risk Fall in past 12 months (25 points). IV access (20 points). Ambulatory Aid- Crutches/Cane/Walker (15 pts). Total Quintana Fall Scale indicates High Risk Score (45 or more points). Fall prevention measures have been instituted. Side Rails Up X 2 As available patient and family educated on Fall Prevention Program and Strategies. Assessment: 10:45 General: Appears in no apparent distress. uncomfortable, Behavior is calm, cooperative, ca1 appropriate for age. General: Reports chills for >3 days. Pain: Denies pain. Neuro: Level of Consciousness is awake, alert, obeys commands, Oriented to person, place, time, situation. Cardiovascular: Heart tones S1 S2 present Capillary refill < 3 seconds Patient's skin is warm and dry. Rhythm is sinus rhythm. Respiratory: Reports shortness of breath on exertion cough that is productive, since a week ago Airway is patent Respiratory effort is even, unlabored, Respiratory pattern is regular, symmetrical, Breath sounds are clear bilaterally. GI: Abdomen is round non-distended, Bowel sounds present X 4 quads. Abd is soft and non tender X 4 quads. : No signs and/or symptoms were reported regarding the genitourinary system. EENT: No signs and/or symptoms were reported regarding the EENT system. Derm: Skin is intact, is healthy with good turgor, Skin is pink, warm \\T\\ dry. Musculoskeletal: Circulation, motion, and sensation intact. Capillary refill < 3 seconds. 12:25 Reassessment: Patient appears in no apparent distress at this time. Family at the [facility] bedside Patient denies pain at this time. 12:51 Reassessment:. General: Behavior is anxious, pt states, "I am not in pain but I can't ca1 get comfortable. I did not take my Escitalopram this morning". Notified provider. VO to give med.. 13:15 Reassessment: Pt coughed and reported nausea. Notified provider. VO med and given. ca1 13:37 Reassessment: Patient appears in no apparent distress at this time. Patient is alert, ca1 oriented x 3, equal unlabored respirations, skin warm/dry/pink. PT wheeled to CT via stretcher. 14:30 Reassessment: Patient appears in no apparent distress at this time. Patient and/or ls4 family updated on plan of care and expected duration. Pain level reassessed. Patient is alert, oriented x 3, equal unlabored respirations, skin warm/dry/pink. 15:30 Reassessment: Patient appears in no apparent distress at this time. Patient and/or ls4 family updated on plan of care and expected duration. Pain level reassessed. Patient is alert, oriented x 3, equal unlabored respirations, skin warm/dry/pink. DR RAZO IN ROOM. . 16:15 Reassessment: Patient appears in no apparent distress at this time. Patient and/or ls4 family updated on plan of care and expected duration. Pain level reassessed. Patient is alert, oriented x 3, equal unlabored respirations, skin warm/dry/pink. FAMILY AT BEDSIDE. D5 1/2 NS AND IBUPROFEN GIVEN TO PATIENT. D51/2 CHARTED IN Apos Therapy. PT IN NO DISTRESS. Vital Signs: 10:25 BP 158 / 109; Pulse 84; Resp 18 S; Temp 97.7; Pulse Ox 94% on R/A; Weight 77.11 kg; iw 11:41 BP 152 / 91; Pulse 73; Resp 20; Pulse Ox 93% on R/A; mh5 12:00 BP 161 / 74; Pulse 76; Resp 15 S; Pulse Ox 93% on R/A; ca1 13:00 BP 164 / 92; Pulse 76; Resp 16 S; Pulse Ox 94% on R/A; ca1 13:15 Pulse Ox 88% on R/A; ca1 13:17 Pulse Ox 97% on 2 lpm NC; ca1 ED Course: 09:57 Patient arrived in ED. as 10:10 Cheko Marroquin MD is Attending Physician. kdr 10:29 Triage completed. iw 10:32 Arm band placed on. iw 10:36 Melania Posada, JESÚS is Primary Nurse. ca1 10:45 No provider procedures requiring assistance completed. ca1 11:40 Patient has correct armband on for positive identification. Bed in low position. Call mh5 light in reach. Side rails up X2. Adult w/ patient. Warm blanket given. electronic data interchange specialist on. Pulse ox on. NIBP on. 11:40 EKG done, by ED staff, reviewed by Cheko Marroquin MD. mh5 11:41 XRAY Chest (1 view) In Process Unspecified. EDMS 11:45 Missed attempt(s): 22 gauge in right antecubital area. Bleeding controlled, band aid ca1 applied, catheter tip intact. 11:52 Initial lab(s) drawn, by me, sent to lab. Inserted saline lock: 22 gauge in right ca1 forearm, using aseptic technique. Blood collected. 13:13 Jorge Calero MD is Hospitalizing Provider. kdr 13:25 Asad Feliz is Hospitalizing Provider. kdr 13:42 CT Chest Abdomen Pelvis W/O Contrast In Process Unspecified. EDMS 13:43 CT completed. Patient tolerated procedure well. Patient moved back from CT. bq 14:00 Report given to JESÚS [place]. ca1 14:16 Rivera Razo MD is Hospitalizing Provider. kdr 16:23 Patient admitted, IV remains in place. ls4 Administered Medications: 11:22 Drug: predniSONE 40 mg Route: PO; ca1 12:42 Follow up: Response: No adverse reaction ca1 13:00 Drug: Lisinopril 10 mg Route: PO; ca1 15:46 Follow up: Response: No adverse reaction; Blood pressure is lowered ca1 13:02 Drug: Hydrochlorothiazide 12.5 mg Route: PO; ca1 14:00 Follow up: Response: No adverse reaction; Blood pressure is lowered ca1 13:20 Drug: Zofran (Ondansetron) 4 mg Route: IVP; Site: right forearm; ca1 14:00 Follow up: Response: No adverse reaction; Nausea is decreased ca1 13:29 Drug: Escitalopram 20 mg Route: PO; ca1 15:00 Follow up: Response: No adverse reaction; Marked relief of symptoms ca1 16:15 Drug: Rocephin - (cefTRIAXone) 1 grams Route: IVPB; Infused Over: 10 mins; Site: right ls4 antecubital; 16:25 Follow up: Response: No adverse reaction ls4 16:15 Drug: Ibuprofen 400 mg Route: PO; ls4 16:30 Follow up: Response: No adverse reaction; Marked relief of symptoms ls4 Outcome: 13:15 Decision to Hospitalize by Provider. kdr 16:23 Patient left the ED. ls4 16:23 Condition: stable ls4 16:23 Admitted to accompanied by tech, family with patient, via stretcher, with chart, Report ls4 called to ROSALBA ESPINOSA 16:23 Instructed on the need for admit. Signatures: Dispatcher [employer] EDMS Cheko Marroquin MD MD kdr Quilty, Betty bq Martinez, Amelia as Mitzi Thacker RN RN Venecia Agee, JESÚS RN Marilynn Isaac Padmini Roman RN RN ls4 Melania Posada RN RN ca1 Corrections: (The following items were deleted from the chart) 13:36 13:15 Reassessment: Pt coughed and reported nausea. Notified provider. VO med and ca1 given. ca1 15:01 13:15 Reassessment: Pt coughed and reported nausea. Notified provider. VO med and ca1 given. ca1
--- NOTE | 2020-03-27 18:55 | EDPHYS ---
Physician Documentation [facility] Name: Faiza Pete Age: 80 yrs Sex: Female : 1940 Arrival Date: 03/26/2020 Time: 09:[address] Private MD: ED Physician Cheko Marroquin HPI: 03/26 11:42 This 80 yrs old Female presents to ER via Ambulatory with complaints of kdr Shortness Of Breath, Congestion, Cough. 11:42 The patient has shortness of breath at rest, with light activity. Onset: The kdr symptoms/episode began/occurred gradually, 1 week(s) ago. Duration: The symptoms are continuous, and are steadily getting worse. The patient's shortness of breath is aggravated by exertion, light activity, talking. Associated signs and symptoms: Pertinent positives: productive cough, WEAKNESS. Severity of symptoms: At their worst the symptoms were mild moderate just prior to arrival, in the emergency department the symptoms are unchanged. The patient has experienced similar episodes in the past, a few times. The patient has been recently seen by a physician: Spoke with Dr. Bah's office on Friday about the same. She had a COVID test at that time - result is unknown. The patient is otherwise without focal c/o. Historical: - Allergies: 10:32 Bactrim; iw 10:32 Macrobid; iw - Home Meds: 10:32 Symbicort 80-4.5 mcg/actuation inhalation HFAA 2 puffs 2 times per day [Active]; iw loratadine 10 mg oral tab 1 tab once daily [Active]; trimethoprim 100 mg Oral tab once daily [Active]; carvedilol 25 mg oral tab daily [Active]; pantoprazole 40 mg oral TbEC 1 tab once daily [Active]; lisinopril-hydrochlorothiazide 10-12.5 mg oral tab 1 tab once daily [Active]; atorvastatin 10 mg oral tab 1 tab once daily [Active]; AREDS [Active]; aspirin 81 mg Oral TbEC 1 tab once daily [Active]; Restasis 0.05 % ophthalmic dpet 1 drop every 12 hours [Active]; lorazepam 0.5 mg Oral tab daily [Active]; levalbuterol HCl inhalation inhalation every 6 hours [Active]; - PMHx: 10:32 Aneurysm; Cancer, Breast; COPD; hemmorhoids; Hyperlipidemia; Hypertension; SVT; iw - PSHx: 10:32 Lumpectomy; heart cath-07/04/15; iw - Immunization history:: Adult Immunizations up to date. - Social history:: Smoking status: Patient denies any tobacco usage or history of. ROS: 11:42 Constitutional: Negative for fever, chills, and weight loss, (The patient had kdr repoerted an fever (99.6) earlier in the week) Eyes: Negative for injury, pain, redness, and discharge, ENT: Negative for injury, pain, and discharge, Neck: Negative for injury, pain, and swelling, Cardiovascular: Negative for chest pain, palpitations, and edema, Abdomen/GI: Negative for abdominal pain, nausea, vomiting, diarrhea, and constipation, Back: Negative for injury and pain, : Negative for injury, bleeding, discharge, and swelling, MS/Extremity: Negative for injury and deformity, Skin: Negative for injury, rash, and discoloration, Neuro: Negative for headache, weakness, numbness, tingling, and seizure activity. Psych: Negative for depression, anxiety, suicide ideation, homicidal ideation, and hallucinations, Allergy/Immunology: Negative for hives, rash, and allergies, Endocrine: Negative for neck swelling, polydipsia, polyuria, polyphagia, and marked weight changes, Hematologic/Lymphatic: Negative for swollen nodes, abnormal bleeding, and unusual bruising. 11:42 Respiratory: Positive for cough, with clear sputum, Negative for dyspnea on exertion, hemoptysis, orthopnea, pleurisy, shortness of breath, sputum production, wheezing. Exam: 11:42 Constitutional: This is a well developed, well nourished patient who is awake, alert, kdr and in no acute distress. Head/Face: Normocephalic, atraumatic. Eyes: Pupils equal round and reactive to light, extra-ocular motions intact. Lids and lashes normal. Conjunctiva and sclera are non-icteric and not injected. Cornea within normal limits. Periorbital areas with no swelling, redness, or edema. Neck: Trachea midline, no thyromegaly or masses palpated, and no cervical lymphadenopathy. Supple, full range of motion without nuchal rigidity, or vertebral point tenderness. No Meningismus. Chest/axilla: Normal chest wall appearance and motion. Nontender with no deformity. No lesions are appreciated. Cardiovascular: Regular rate and rhythm with a normal S1 and S2. No gallops, murmurs, or rubs. Normal PMI, no JVD. No pulse deficits. Respiratory: Lungs have equal breath sounds bilaterally, clear to auscultation and percussion. No rales, rhonchi or wheezes noted. No increased work of breathing, no retractions or nasal flaring. Abdomen/GI: Soft, non-tender, with normal bowel sounds. No distension or tympany. No guarding or rebound. No evidence of tenderness throughout. Back: No spinal tenderness. No costovertebral tenderness. Full range of motion. Skin: Warm, dry with normal turgor. Normal color with no rashes, no lesions, and no evidence of cellulitis. MS/ Extremity: Pulses equal, no cyanosis. Neurovascular intact. Full, normal range of motion. Neuro: Awake and alert, GCS 15, oriented to person, place, time, and situation. Cranial nerves II-XII grossly intact. Motor strength 5/5 in all extremities. Sensory grossly intact. Cerebellar exam normal. Normal gait. Psych: Awake, alert, with orientation to person, place and time. Behavior, mood, and affect are within normal limits. Vital Signs: 10:25 BP 158 / 109; Pulse 84; Resp 18 S; Temp 97.7; Pulse Ox 94% on R/A; Weight 77.11 kg; iw 11:41 BP 152 / 91; Pulse 73; Resp 20; Pulse Ox 93% on R/A; mh5 12:00 BP 161 / 74; Pulse 76; Resp 15 S; Pulse Ox 93% on R/A; ca1 13:00 BP 164 / 92; Pulse 76; Resp 16 S; Pulse Ox 94% on R/A; ca1 13:15 Pulse Ox 88% on R/A; ca1 13:17 Pulse Ox 97% on 2 lpm NC; ca1 MDM: 13:15 Patient medically screened. kdr 13:16 Data reviewed: vital signs, nurses notes, lab test result(s), radiologic studies. kdr Counseling: I had a detailed discussion with the patient and/or guardian regarding: the historical points, exam findings, and any diagnostic results supporting the discharge/admit diagnosis, lab results, radiology results, the need for further work-up and treatment in the hospital. 03/26 11:10 Order name: Basic Metabolic Panel; Complete Time: 12:39 [facility] 03/26 12:46 Interpretation: GFR 32. kdr 03/26 11:10 Order name: CBC with Diff; Complete Time: 12:39 [facility] 03/26 11:10 Order name: LFT's; Complete Time: 12:39 [facility] 03/26 11:10 Order name: Magnesium; Complete Time: 12:39 [facility] 03/26 11:10 Order name: NT PRO-BNP; Complete Time: 12:39 [facility] 03/26 11:10 Order name: Troponin (emerg Dept Use Only); Complete Time: 12:39 [facility] 03/26 11:10 Order name: XRAY Chest (1 view); Complete Time: 12:39 [facility] 03/26 13:19 Order name: CT Chest Abdomen Pelvis W/O Contrast; Complete Time: 15:49 [facility] 03/26 14:30 Order name: CBC with Automated Diff [facility] 03/26 14:30 Order name: CBC with Automated Diff [facility] 03/26 14:30 Order name: Comprehensive Metabolic Panel [facility] 03/26 14:30 Order name: Comprehensive Metabolic Panel [facility] 03/26 11:10 Order name: EKG; Complete Time: 11:11 [facility] 03/26 11:10 Order name: Cardiac monitoring; Complete Time: 11:40 [facility] 03/26 11:10 Order name: EKG - Nurse/Tech; Complete Time: 11:41 [facility] 03/26 11:10 Order name: IV Saline Lock; Complete Time: 11:54 [facility] 03/26 11:10 Order name: Labs collected and sent; Complete Time: 11:54 [facility] 03/26 11:10 Order name: O2 Per Protocol; Complete Time: 11:54 [facility] 03/26 11:10 Order name: O2 Sat Monitoring; Complete Time: 11:54 [facility] 03/26 14:30 Order name: CONS Pharmacy Consult [facility] 03/26 14:30 Order name: Regular EDMS Administered Medications: 11:22 Drug: predniSONE 40 mg Route: PO; ca1 12:42 Follow up: Response: No adverse reaction ca1 13:00 Drug: Lisinopril 10 mg Route: PO; ca1 15:46 Follow up: Response: No adverse reaction; Blood pressure is lowered ca1 13:02 Drug: Hydrochlorothiazide 12.5 mg Route: PO; ca1 14:00 Follow up: Response: No adverse reaction; Blood pressure is lowered ca1 13:20 Drug: Zofran (Ondansetron) 4 mg Route: IVP; Site: right forearm; ca1 14:00 Follow up: Response: No adverse reaction; Nausea is decreased ca1 13:29 Drug: Escitalopram 20 mg Route: PO; ca1 15:00 Follow up: Response: No adverse reaction; Marked relief of symptoms ca1 16:15 Drug: Rocephin - (cefTRIAXone) 1 grams Route: IVPB; Infused Over: 10 mins; Site: right ls4 antecubital; 16:25 Follow up: Response: No adverse reaction ls4 16:15 Drug: Ibuprofen 400 mg Route: PO; ls4 16:30 Follow up: Response: No adverse reaction; Marked relief of symptoms ls4 Disposition: 03/26/20 13:15 Hospitalization ordered by Rivera Razo for Observation. Preliminary diagnosis are Weakness, Dehydration, Vomiting, Adult failure to thrive, Pneumonia, unspecified organism. - Bed requested for Telemetry/MedSurg (observation). - Status is Observation. ls4 - Condition is Fair. - Problem is new. - Symptoms are unchanged. Signatures: Dispatcher [employer] EDMS Cheko Marroquin MD MD kdr Mitzi Thacker RN RN iw Padmini Agarwal RN RN ls4 Melania Posada RN RN ca1 Corrections: (The following items were deleted from the chart) 13:16 13:15 Hospitalization Ordered by Jorge Calero MD for Observation. Preliminary kdr diagnosis is Weakness; Dehydration; Vomiting. Bed requested for Telemetry/MedSurg (observation). Status is Observation. Condition is Fair. Problem is new. Symptoms are unchanged. kdr 13:25 13:16 03/26/2020 13:15 Hospitalization Ordered by Jorge Calero MD for Observation. kdr Preliminary diagnosis is Weakness; Dehydration; Vomiting; Adult failure to thrive. Bed requested for Telemetry/MedSurg (observation). Status is Observation. Condition is Fair. Problem is new. Symptoms are unchanged. kdr 14:16 13:25 03/26/2020 13:15 Hospitalization Ordered by Asad Feliz for Observation. kdr Preliminary diagnosis is Weakness; Dehydration; Vomiting; Adult failure to thrive. Bed requested for Telemetry/MedSurg (observation). Status is Observation. Condition is Fair. Problem is new. Symptoms are unchanged. kdr 14:52 14:16 03/26/2020 13:15 Hospitalization Ordered by Rivera Razo MD for Observation. iw Preliminary diagnosis is Weakness; Dehydration; Vomiting; Adult failure to thrive. Bed requested for Telemetry/MedSurg (observation). Status is Observation. Condition is Fair. Problem is new. Symptoms are unchanged. kdr 15:21 14:52 03/26/2020 13:15 Hospitalization Ordered by Rivera Razo MD for Observation. ca1 Preliminary diagnosis is Weakness; Dehydration; Vomiting; Adult failure to thrive. Bed requested for Telemetry/MedSurg (observation). Status is Observation. Condition is Fair. Problem is new. Symptoms are unchanged. iw 15:53 15:21 03/26/2020 13:15 Hospitalization Ordered by Rivera Razo MD for Observation. kdr Preliminary diagnosis is Weakness; Dehydration; Vomiting; Adult failure to thrive. Bed requested for Telemetry/MedSurg (observation). Status is Observation. Condition is Fair. Problem is new. Symptoms are unchanged. ca1 16:09 15:53 03/26/2020 13:15 Hospitalization Ordered by Rivera Razo MD for Observation. ls4 Preliminary diagnosis is Weakness; Dehydration; Vomiting; Adult failure to thrive; Pneumonia, unspecified organism. Bed requested for Telemetry/MedSurg (observation). Status is Observation. Condition is Fair. Problem is new. Symptoms are unchanged. kdr 16:23 16:09 03/26/2020 13:15 Hospitalization Ordered by Rivera Razo MD for Observation. ls4 Preliminary diagnosis is Weakness; Dehydration; Vomiting; Adult failure to thrive; Pneumonia, unspecified organism. Bed requested for Telemetry/MedSurg (observation). Status is Observation. Condition is Fair. Problem is new. Symptoms are unchanged. ls4
--- NOTE | 2020-03-27 19:01 | P.PN ---
Subjective Date of Service: 03/27/20 Chief Complaint: Shortness of breath cough congestion Subjective: Improving, Other ( still feels weak.) Physical Examination - Vital Signs Temperature: 98.6 F Blood Pressure: 167/74 Pulse: 18 Respirations: 18 Pulse Ox (%): 95 - Physical Exam General: Alert HEENT: Atraumatic Neck: Supple Respiratory: Expiratory wheezes Cardiovascular: Normal pulses, Regular rate/rhythm Gastrointestinal: Normal bowel sounds, Soft and benign, Non-distended, No tenderness, No masses, No rebound, No guarding Neurological: Normal speech, Normal strength at 5/5 x4 extr, Normal tone, Normal affect Assessment & Plan Discharge Plan: Home Plan to discharge in: 24 Hours Physician Review Additional Text: Impression: COPD exacerbation with possible right-sided pneumonia Acute on chronic renal disease stage III Hypertension Depression with anxiety Plan: Continue antibiotic therapy. Continue COPD treatment. Will monitor renal function closely. Continue IV fluids. Will have physical therapy assess ambulation. Patient may require oxygen at discharge. Will also evaluate for home health and physical therapy. Will recheck tomorrow. Obtain and restart home medication. Time Spent Managing Pts Care (In Minutes): 55
[2020-03-27] MEDS: HEPARIN 5000 UNIT/ML 1 ML VIAL SQ SCH (20:51)
[2020-03-28] MEDS: IPRATROPIUM BROM 0.5MG/2.5ML NEB PRN ×2 (02:40→08:36)
[2020-03-28] MEDS: ALBUTEROL 2.5 MG/3 ML NEB SOL IH PRN ×2 (02:40→08:36)
[2020-03-28 08:23] LABS: Absolute Lymphocytes (CBC) 0.8 K/uL (0.7-4.9); Basophils % 0.3 % (0-1.3); Lymphocytes % 8.2 % (15.3-44.8); RBC Red Blood Cell Count 3.77 M/uL (3.86-4.86)
[2020-03-28 08:35] LABS: Magnesium 2.2 mg/dL (1.8-2.4); Potassium 4.3 mmol/L (3.5-5.1)
[2020-03-28] MEDS: ESCITALOPRAM 20 MG TAB PO SCH (08:41)
[2020-03-28] MEDS: LORATADINE 10 MG TAB PO SCH (08:41)
[2020-03-28] MEDS: CEFTRIAXONE/SWI 1gm 1 GM/10 ML SYR IV SCH (08:41)
[2020-03-28] MEDS: carvediloL 25 MG TAB PO SCH (08:42)
[2020-03-28] MEDS: ASPIRIN 81 MG CHEWABLE TABLET PO SCH (08:42)
[2020-03-28] MEDS: lisinopriL 10 MG TAB PO SCH (08:43)
[2020-03-28] MEDS: hydroCHLOROthiazide 12.5 MG CAP PO SCH (08:43)
[2020-03-28] MEDS: predniSONE 20 MG TAB PO SCH (08:43)
[2020-03-28] MEDS: PANTOPRAZOLE 40MG TABLET PO SCH (08:43)
[2020-03-28] MEDS: ATORVASTATIN 10 MG TAB PO SCH (08:44)
[2020-03-28] MEDS: HEPARIN 5000 UNIT/ML 1 ML VIAL SQ SCH (08:44)
[2020-03-28] MEDS: CYCLOSPORINE OP SCH (08:48)
[2020-03-28] MEDS: FLUTICASONE 50MCG NASAL SPRAY NAS SCH ×2 (09:00→14:13)
[2020-03-28] MEDS: AZITHROMYCIN IV 500 MG in NA CHLORIDE 0.9% 250 ML IVPB SCH (09:09)
[2020-03-28] MEDS: D5 0.45 NS 1,000 ML IV SCH (09:20)
--- NOTE | 2020-03-28 11:08 | P.DS ---
Admission Date: 03/26/20 Discharge Date: 03/28/20 Primary Care Provider: Dr. Bah Disposition: ROUTINE DISCHARGE Discharge Condition: GOOD Reason for Admission: Shortness of breath cough congestion Consultations: Pulmonary-Dr. Razo Procedures: CT Scan: FINDINGS: The evaluation of mediastinum, claudy, vessels and solid organs is limited secondary to the lack of IV contrast administration Mild tree-in-bud opacities right middle lobe Mild additional chronic lung opacities bilaterally. No mediastinal or hilar lymphadenopathy is seen. A pleural effusion is not present. A pericardial effusion is not seen. Large left diaphragmatic hernia contains nondilated bowel. The gastric body lies superior to the gastric fundus within the hernia. It is unchanged in appearance from the prior exam. There is no stranding within the adjacent fat to suggest inflammation. Hepatic granulomata. Pancreas, adrenals and kidneys appear grossly normal Diverticula stem from the colon without evidence of diverticulitis. 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 Patient found have COPD exacerbation with right middle lobe pneumonia. Patient was admitted for further evaluation and treatment. Hospital Course: Patient presented with shortness of breath secondary to COPD exacerbation with right middle lobe atypical pneumonia. Patient was admitted for treatment. During the course of her stay, condition improved. Patient seen by pulmonology who has seen her in the past. Patient reported that her Symbicort was causing some cough and congestion. Patient was given steroids and COPD treatment. At discharge his without significant shortness of breath. Pulmonology recommended changes in her medication. At discharge patient will continue with prednisone 20 mg 1 pill twice daily for 5 days then 1 pill once daily for 5 days. For her COPD patient will discontinue Symbicort. She will continue with new medication- Anoro 1 puff daily and Xopenex 1 unit dose 3 times a day as needed for shortness of breath. If she is not able to take Anoro in the future then will need to consider Brovana or Performist in the future. For her pneumonia are patient will continue with Augmentin 500 mg 1 pill twice daily for 7 days. Recommend to recheck chest x-ray in 2-4 weeks to monitor resolution. Patient will follow up with pulmonology in 1 week to fall was hospitalization. Further adjustment in medication can be done by pulmonology. Patient also had acute on chronic renal disease stage III with mild dehydration. Patient was given IV fluids. Her condition improved. Patient now back to baseline. Recommend no further use of nonsteroidal anti-inflammatories. Future medications will need to be renally dosed. Recommend follow up with Nephrology in the future to monitor her progress. Recommend recheck BMP in 1 week to further monitor. Patient with hypertension. This has remained stable. At discharge she will continue with her medications including carvedilol 25 mg 1 pill twice daily and lisinopril hydrochlorothiazide 10/12.5 mg daily. Recommend to maintain blood pressure last 150/80. Further adjustment to be done by her PCP. The patient has underlying depression with anxiety. This has remained stable. At discharge she will continue with Lexapro 20 mg daily and lorazepam 0.5 mg at bedtime as needed for anxiety. Further adjustment can be done by her PCP. Patient with GERD. At discharge she will continue with Protonix 40 mg daily. Patient with chronic nasal allergies. At discharge she will continue with Claritin 10 mg daily and Flonase 1 spray per nostril daily. Patient may benefit with consultation with learning coordinator as an outpatient to further address. 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 This can be further monitored by surgery. Recommend follow up with surgery to further address. Patient with hyperlipidemia. At discharge she will continue with Lipitor 10 mg daily. Prior to discharge patient will be evaluated by physical therapy. Will help arrange for home health and physical therapy at discharge. Patient may also virgen efit with caregiver services. This will be also arranged. Vital Signs/Physical Exam: Temp Pulse Resp BP Pulse Ox 97.5 F 91 H 21 H 180/77 H 94 03/28/20 08:00 03/28/20 08:43 03/28/20 08:00 03/28/20 08:43 03/28/20 08:00 General: Alert, In no apparent distress, Oriented x3, Cooperative HEENT: Atraumatic Neck: Supple Respiratory: Clear to auscultation bilaterally, Normal air movement Cardiovascular: Normal pulses, Regular rate/rhythm Gastrointestinal: Normal bowel sounds, Soft and benign, Non-distended, No tenderness, No masses, No rebound, No guarding Musculoskeletal: No erythema, No tenderness, No warmth Integumentary: No tenderness/swelling, No erythema, No warmth, No cyanosis Neurological: Normal speech, Normal strength at 5/5 x4 extr, Normal tone, Normal affect Laboratory Data at Discharge: WBC 10.0 K/uL (4.3-10.9) D 03/28/20 07:58 Hgb 11.4 g/dL (12.0-15.0) L 03/28/20 07:58 Hct 35.0 % (36.0-45.0) L 03/28/20 07:58 Plt Count 184 K/uL (152-406) 03/28/20 07:58 Sodium 140 mmol/L (136-145) 03/28/20 07:58 Potassium 4.3 mmol/L (3.5-5.1) 03/28/20 07:58 BUN 14 mg/dL (7-18) 03/28/20 07:58 Creatinine 1.21 mg/dL (0.55-1.3) 03/28/20 07:58 Glucose 125 mg/dL (74-106) H 03/28/20 07:58 Magnesium 2.2 mg/dL (1.8-2.4) 03/28/20 07:58 Total Bilirubin 0.3 mg/dL (0.2-1.0) 03/27/20 06:05 AST 29 U/L (15-37) 03/27/20 06:05 ALT 26 U/L (12-78) 03/27/20 06:05 Alkaline Phosphatase 48 U/L (45-117) 03/27/20 06:05 Home Medications: Atorvastatin Calcium [Lipitor] 10 mg PO DAILY 03/25/12 Aspirin 81 mg PO DAILY #90 tab.chew 06/30/14 LORazepam [Lorazepam] 1 tab PO DAILY PRN 03/04/16 Escitalopram [Lexapro*] 20 mg PO DAILY 03/05/16 Ascorbic Acid [Vitamin C*] 500 mg PO DAILY 03/26/20 Calcium Carbonate [Calcium] 500 mg PO DAILY 03/26/20 Cholecalciferol (Vitamin D3) [Vitamin D3] 1,000 unit PO DAILY 03/26/20 Cyclosporine [Restasis Multidose] 2 drop OP BID 03/26/20 Lisinopril/Hydrochlorothiazide [Lisinopril-Hctz 10-12.5 mg Tab] 1 tab PO DAILY 03/26/20 Loratadine [Claritin*] 10 mg PO DAILY 03/26/20 Multivitamin [Daily Multiple Vitamin] 1 each PO DAILY 03/26/20 Pantoprazole [Protonix Tab*] 40 mg PO DAILY 03/26/20 Vitc/E/Zinc/Copper/Lutein/Zeax [Icaps Areds2 Tablet] 2 each PO DAILY 03/26/20 carvediloL [Coreg*] 25 mg PO DAILY 03/26/20 Amoxicillin/Potassium Clav [Augmentin 500-125 Tablet] 1 each PO BID #14 tablet 03/28/20 Fluticasone [Flonase 50MCG Nasal [place]*] 1 sprays SB BID #1 btl 03/28/20 Levalbuterol [Xopenex*] 3 ml IH TID PRN #90 vial 03/28/20 Umeclidinium Brm/Vilanterol Tr [Anoro Ellipta 62.5-25 Mcg INH] 1 each IH DAILY #1 blst.w.dev 03/28/20 predniSONE [Prednisone*] 20 mg PO SEECOM #15 tab 03/28/20 New Medications: Umeclidinium Brm/Vilanterol Tr [Anoro Ellipta 62.5-25 Mcg INH] 1 each IH DAILY #1 blst.w.dev Amoxicillin/Potassium Clav [Augmentin 500-125 Tablet] 1 each PO BID #14 tablet Fluticasone [Flonase 50MCG Nasal [place]*] 1 sprays SB BID #1 btl predniSONE [Prednisone*] 20 mg PO SEECOM #15 tab Levalbuterol [Xopenex*] 3 ml IH TID PRN #90 vial PRN Reason: Shortness Of Breath Patient Discharge Instructions: 1. Recommend follow up with PCP in 1 week to follow up this hospitalization. 2. Patient presented with shortness of breath secondary to COPD exacerbation with right middle lobe atypical pneumonia. Patient was admitted for treatment. During the course of her stay, condition improved. Patient seen by pulmonology who has seen her in the past. Patient reported that her Symbicort was causing some cough and congestion. Patient was given steroids and COPD treatment. At discharge his without significant shortness of breath. Pulmonology recommended changes in her medication. At discharge patient will continue with prednisone 20 mg 1 pill twice daily for 5 days then 1 pill once daily for 5 days. For her COPD patient will discontinue Symbicort. She will continue with new medication-Anoro 1 puff daily and Xopenex 1 unit dose 3 times a day as needed for shortness of breath. If she is not able to take Anoro in the future then will need to consider Brovana or Performist in the future. For her pneumonia are patient will continue with Augmentin 500 mg 1 pill twice daily for 7 days. Recommend to recheck chest x-ray in 2-4 weeks to monitor resolution. Patient will follow up with pulmonology in 1 week to fall was hospitalization. Further adjustment in medication can be done by pulmonology. 3. Patient also had acute on chronic renal disease stage III with mild dehydration. Patient was given IV fluids. Her condition improved. Patient now back to baseline. Recommend no further use of nonsteroidal anti- inflammatories. Future medications will need to be renally dosed. Recommend follow up with Nephrology in the future to monitor her progress. Recommend recheck BMP in 1 week to further monitor. 4. Patient with hypertension. This has remained stable. At discharge she will continue with her medications in cluding carvedilol 25 mg 1 pill twice daily and lisinopril hydrochlorothiazide 10/12.5 mg daily. Recommend to maintain blood pressure last 150/80. Further adjustment to be done by her PCP. 5. The patient has underlying depression with anxiety. This has remained stable. At discharge she will continue with Lexapro 20 mg daily and lorazepam 0.5 mg at bedtime as needed for anxiety. Further adjustment can be done by her PCP. 6. Patient with GERD. At discharge she will continue with Protonix 40 mg daily. 7. Patient with chronic nasal allergies. At discharge she will continue with Claritin 10 mg daily and Flonase 1 spray per nostril daily. Patient may benefit with consultation with learning coordinator as an outpatient to further address. 8. 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 This can be further monitored by surgery. Recommend follow up with surgery to further address. 9. Patient with hyperlipidemia. At discharge she will continue with Lipitor 10 mg daily. 10. Prior to discharge patient will be evaluated by physical therapy. Will help arrange for home health and physical therapy at discharge. Patient may also benefit with caregiver services. This will be also arranged. Diet: AHA Activity: Fall precautions Time spent managing pt's care (in minutes): 55
[2020-03-28 11:49] VITALS: O2SAT 92
[2020-03-28 12:09] VITALS: BP 126/79; TEMP 97.6
--- NOTE | 2020-03-28 14:05 | CON ---
Date of Consultation: 03/27/2020 Reason For Consultation: Possible gastric volvulus. Brief History Of Present Illness: Patient is an 80-year-old female with a history of COPD and chroni c paraesophageal hernia with large hiatal hernia component known for many years. She has been compla ining of cough and congestion and worsening shortness of breath for the past 3 weeks, as such came to the emergency room with the above stated complaint. She states she has known she has had a large hi atal hernia. She denies any chest pain. She has had shortness of breath. She denies any gastrointe stinal symptoms. No epigastric abdominal pain. No difficulty with meals or swallowing. No nausea, vomiting, constipation, diarrhea, abdominal bloating, or chronic abdominal pain. Past Medical History: Significant for hiatal hernia as well as brain aneurysm, hypertension, breast cancer, hyperlipidemia, depression, anxiety, diverticulosis, GERD, history of back pain, possible deg enerative disk disease, degenerative joint disease, history of TIAs. Past Surgical History: Includes a lumpectomy. Habits: She denies smoking, alcohol, or recreational drug use her. Home Medications: Include Diovan, lorazepam, Augmentin, Lexapro, Xopenex, Coreg, Lipitor, folic acid , aspirin, Symbicort, B12, omeprazole, vitamin. Allergies: LEVAQUIN, BACTRIM, MACROBID. Review of Systems: Ten-point review of systems other than HPI, denies. Physical Examination: Vital Signs: Her blood pressure at the time of my examination was 141/80, pulse 91, respiratory rate 22, temperature was 99.61. General: At the time of my examination, she is awake, alert, oriented. Psychiatric: She is appropriate conversive. HEENT: She is normocephalic. Sclerae icteric. Mucous membranes are moist. Oropharynx clear. Neck: Supple. No JVD. Chest: Normal expansion and excursion. Cardiovascular: Regular rate and rhythm. Pulmonary: Clear to auscultation bilaterally. Abdomen: Soft, nontender, nondistended. No rebound. No guarding. No focal peritonitis. Extremities: No clubbing, cyanosis, or edema. Skin: Warm and dry. Laboratory Data: At the time of my examination was a white blood count of 12.6, hemoglobin is 12.3 o eva hematocrit 37.6, platelet count is 228, neutrophils are 84%. Her sodium was 137, potassium 4.1, chloride 103, carbon dioxide 28, BUN 17, creatinine 1.5, glucose is 126, magnesium was not checked. Total bilirubin 0.3, AST was 29, ALT 26, alkaline phosphatase is 48. She had imaging performed which included a CT chest and pelvis, which showed a large left diaphragmat ic hernia containing a chronic gastric volvulus and mild tree-in-bud opacities right middle lobe may indicate a mild atypical pneumonia. Assessment And Plan: This is an 80-year-old woman with a known history of a large hiatal hernia. 1.Continue medical management. 2.This is a nonemergent finding as this patient has had this for a long period of time and does not have any symptomatology which could be attributable to this, however, with her respiratory concerns, a large hiatal hernia can contribute to an overall pulmonary condition, as such I do recommend workup in an outpatient setting for possible hiatal hernia repair to help improve her lung capacity going f orward should this continue to be a problem. I have explained the risks, benefits, and alternatives of the above stated plan, the patient agrees to proceed as indicated. EMILE/BARB Voice ID: [id number] Report ID: [id number]
== END 2020-03-28 16:21 | disposition home health service (06) ==
LOC: ER 09:55 → SUPCPDRO 09:55 → ERHOLD 14:28 → 4TH 16:09
PROVIDERS: ADMIT Internal Medicine Sleep Medicine; ATTEND Family Medicine
DX: J44.1 Chronic obstructive pulmonary disease with (acute) exacerbation (principal); J44.0 Chronic obstructive pulmonary disease with (acute) lower respiratory infection; J18.9 Pneumonia, unspecified organism; N17.9 Acute kidney failure, unspecified; E86.0 Dehydration; R62.7 Adult failure to thrive; K31.89 Other diseases of stomach and duodenum; I12.9 Hypertensive chronic kidney disease with stage 1 through stage 4 chronic kidney disease, or unspecified chronic kidney disease; N18.3 Chronic kidney disease, stage 3 (moderate); E78.5 Hyperlipidemia, unspecified; F41.8 Other specified anxiety disorders; K57.90 Diverticulosis of intestine, part unspecified, without perforation or abscess without bleeding; K21.9 Gastro-esophageal reflux disease without esophagitis; K44.9 Diaphragmatic hernia without obstruction or gangrene; J30.1 Allergic rhinitis due to pollen; Z85.3 Personal history of malignant neoplasm of breast; Z68.25 Body mass index [BMI] 25.0-25.9, adult
CPT/HCPCS: 93005; 85025 ×3; 80048 ×2; 36415 ×2; 83735 ×2; 82947 ×8; 80076; 84484; 80053; 83880; 71250; 74176; 71045; 97116; 97161; 94640; 99285; J1644 ×2; J0456 ×2; J0696 ×3; G0378 ×5; J7799 ×4; J7030 ×2; J2405; J7512

== ENCOUNTER 2021-04-26 10:46 | Inpatient (IN) | payer OTHER ==
--- OUTSIDE RECORDS SUMMARY | 2021-04-26 10:52 | XMS REPORT | Continuity of Care Document ---
:1940 Author Organization [facility] t Address [address] [place] [address] Care Team Providers Name Role Phone Jaison STEVE Attending Clinician Problems This patient has no known problems. Allergies, Adverse Reactions, Alerts Allergy Allergy Status Severity Reaction(s) Onset Inactive Treating Comm ents Source Name Type Date Date Clinician Nitrofur Adverse Active Info Not [facility] Available [facility] Macrobid Adverse Active Info Not [facility] Reaction Available [facility] Bactrim Adverse Active Info Not [facility] Reaction Available [facility] Levaquin Adverse Active Info Not [facility] Reaction Available [facility] Medications Ordered Filled Start Stop Current Ordering Indication Dosage Frequency Signature Comments Components Source Medication Medication Date Date Medication? Clinician (SIG) Name Name Geovany Armenta Yes Lucie [address] [facility] [place] as needed [facility] ent Clinics Tobramycin Tobramycin Yes Lucie [address] [facility] [place] into [facility]: affected [facility] 00 eye [facility] Singulair Singulair Yes Lucie TAKE [address] [facility] TABLET BY [facility] M[facility]TH [facility] EVERY DAY l [facility] Protonix Protonix Yes Lucie TAKE [facility] [place] TABLET BY [facility] EVERY DAY [facility] Yes Lucie [address] [facility] Sodium Sodium [place] in the [facility] evening [facility] Combivent Combivent Yes Lucie [address] Respimat Respimat [facility] Levalbutero Levalbutero Yes Lucie [address] [facility] l HCl l HCl [facility] Aspir-81 Aspir-81 Yes Lucie [address] [facility] Lipitor Lipitor Yes Lucie [address] [facility] Lexapro Lexapro Yes Lucie [address] [facility] Ativan Ativan Yes Lucie [address] [facility] [place] [facility] needed [facility] Loratadine Loratadine Yes Lucie [address] [facility] Symbicort Symbicort Yes Lucie [address] [facility] Coreg Coreg Yes Lucie [address] [facility] [place] [facility] Escitalopra Escitalopra Yes Lucie TAKE [facility] Oxalate m Oxalate [facility] TABLET BY [facility] EVERY DAY [facility] Potassium Potassium Yes Lucie [address] [facility] Coreg Coreg Yes Lucie TAKE [address] [facility] [place] TABLET BY [facility] - M[facility]TH [facility] TWICE A l DAY Outpati ent Clinics Folic Acid Folic Acid Yes Lucie [address] [facility] Pantoprazol Pantoprazol Yes Lucie TAKE [address] [facility] [facility] e Sodium e Sodium Kendra TABLET BY [facility] EVERY DAY l [facility] Trimethopri Trimethopri Yes Lucie [address] [facility] [address] m m [facility]ra [facility] Flonase Flonase Yes Lucie [address] [facility] each [facility] - nostril [facility] Amoxicillin Amoxicillin Yes Lucie [address] [facility] -Pot -Pot [place] [facility] - Clavulanate Clavulanate M emoria l [facility] PredniSONE PredniSONE Yes Lucie [address] [facility] [place] [facility] Spiriva Spiriva Yes Lucie 2 puffs [facility] Respimat Respimat [facility] Losartan Losartan Yes Lucie TAKE [address] [facility] Potassium-H Potassium-H Kendra TABLET BY [facility] - CTZ CTZ MOUTH Memoria EVERY DAY l [facility] Atorvastati Atorvastati Yes Lucie TAKE [address] [facility] n Calcium n Calcium [place] TABLET BY [facility] M[facility]TH [facility] EVERY DAY l [facility] Immunizations Ordered Filled Immunization Date Status Comments [facility] Immunization Name Name Prevnar 13 Prevnar 13 2019-07-[address] [facility] - -Pneumonia Vaccine -Pneumonia Vaccine 00:00:[address] [facility] FluAD FluAD 2019-07-[address] [facility] [facility] Procedures This patient has no known procedures. Encounters Start End Encounter Admission Attending Care Care Encounter Source Date/Time Date/Time Type Type Clinicians Facility Department ID 2021-02-22 2021-02-22 Office [facility] [id number] 10:20:08 11:21:56 Visit Victoria Vega [id number] Sheryl [id number] Radha [id number] [address] 2021-02-12 2021-02-12 Outpatient [facility] [id number] [facility] 2021-01-26 2021-01-26 Outpatient [facility] [id number] [facility] 2020-12-27 2020-12-27 Out[facility] [id number] [facility] 2020-12-07 2020-12-07 Outpatient [facility] [id number] [facility] 2020-11-14 2020-11-14 Outpatient [facility] [id number] [facility] 2020-10-06 2020-10-06 Outpatient [facility] [id number] [facility] 2020-09-13 2020-09-13 Outpatient [facility] [id number] [facility] 2020-07-07 2020-07-07 [facility] [id number] 10[facility]30:00 10:30:00 t Specialty/U [facility] - Specialty rology [facility] /Urology Clinic l Clinic Outpati ent Clinics 2020-05-02 2020-05-02 [facility] [id number] 15:08:00 15:08:00 t [employer] [facility] Medicine l Medicine Outpati ent Clinics 2020-04-10 2020-04-10 [facility] [id number] 10:30:00 10:30:00 t Specialty/U [facility] - Specialty rology Memori a /Urology Clinic l Clinic Outpati ent Clinics 2020-04-04 2020-04-04 [facility] [id number] 14:03:00 14:03:00 t [employer] [facility] Medicine l Medicine Outpati ent Clinics 2020-04-03 2020-04-03 [facility] [id number] 10:00:00 10:00:00 t [employer] [facility] Family Medicine l Medicine Outpati ent Clinics 2020-03-29 2020-03-29 [facility] [id number] 10:30:00 10:30:00 t Specialty/U [facility] kes - Specialty rology Memori a /Urology Clinic l Clinic Outpati ent Clinics 2020-03-27 2020-03-27 [facility] [id number] 15:47:00 15:47:00 t [facility] Language[employer] [facility] Medicine l Medicine Outpati ent Clinics 2020-03-27 2020-03-27 [facility] [id number] 11:08:00 11:08:00 t [place] tread[employer] s - Drive [facility] Medicine Outpati ent Clinics 2020-03-22 2020-03-22 [facility] [id number] 14:20:00 14:20:00 t [facility] [address] [facility] Medicine Outpati ent Clinics 2020-03-22 2020-03-22 [facility] [id number] 09:29:00 09:29:00 t [place] [employer] - DGTS [facility] Medicine Outpati ent Clinics 2020-02-14 2020-02-14 [facility] [id number] 08:52:00 08:52:00 t [employer] s - Drive [facility] Medicine Outpati ent Clinics 2019-12-22 2019-12-22 [facility] [id number] [address] 09:00:00 09:00:00 t Specialty/U [facility] kes - Specialty rology Memori a /Urology Clinic l Clinic Outpati ent Clinics 2019-12-01 2019-12-01 [facility] [id number] 10:00:00 10:00:00 t [employer] - DGTS [facility] Medicine Outpati ent Clinics 2019-09-20 2019-09-20 [facility] [id number] 15:55:00 15:55:00 t [place] tread[employer] s - Drive [facility] Medicine l Medicine Outpati ent Clinics 2019-09-08 2019-09-08 [facility] [id number] 09:00:00 09:00:00 t [employer] s - Drive [facility] Medicine Outpati ent Clinics 2019-08-23 2019-08-23 [facility] [id number] 09:28:00 09:28:00 t Specialty/[facility] - Specialty rology Memori a /Urology Clinic l Clinic Outpati ent Clinics 2019-07-28 2019-07-28 [facility] [id number] 09:00:00 09:00:00 t [place] tread[employer] s - Drive [facility] Medicine l Medicine Outpati ent Clinics 2019-06-22 2019-06-22 [facility] [id number] 08:45:00 08:45:00 t Specialty/U [facility] kes - Specialty rology Memori a /Urology Clinic l Clinic Outpati ent Clinics 2019-06-16 2019-06-16 [facility] [id number] 09:00:00 09:00:00 t [place] tread[employer] s - Drive [facility] Medicine Outpati ent Clinics 2019-06-15 2019-06-15 [facility] [id number] 10:34:00 10:34:00 t [place] tread[employer] s - Drive [facility] Medicine Outpati ent Clinics 2019-03-24 2019-03-24 [facility] [id number] 10:40:00 10:40:00 t [place] [employer] s - Drive [facility] Medicine Outpati ent Clinics 2019-03-09 2019-03-09 [facility] [id number] 10:08:00 10:08:00 t Specialty/U [facility] kes - Specialty rology Memori a /Urology Clinic l Clinic Outpati ent Clinics 2018-12-24 2018-12-24 [facility] [id number] 09:45:00 09:45:00 t Specialty/U [facility] kes - Specialty rology Memori a /Urology Clinic l Clinic Outpati ent Clinics 2018-12-17 2018-12-17 [facility] [id number] 08:30:00 08:30:00 t [place] tread[employer] s - Drive [facility] Medicine Outpati ent Clinics 2018-11-17 2018-11-17 [facility] [id number] 11[facility]32:00 11:32:00 t [place] [employer] [facility] Medicine Outpati ent Clinics 2018-10-14 2018-10-14 [facility] [id number] 09:44:00 09:44:00 t [place] [employer] [address] [facility] Medicine Medicine Outpati ent Clinics 2018-09-10 2018-09-10 [facility] [id number] 08:30:00 08:30:00 t [place] [employer] - Drive [facility] Medicine Outpati ent Clinics 2018-08-04 2018-08-04 [facility] [id number] 09:30:00 09:30:00 t Specialty/U [facility] kes - Specialty rology Memori a /Urology Clinic l Clinic Outpati ent Clinics 2018-07-30 2018-07-30 [facility] [id number] 09:15:00 09:15:00 t Specialty/U [facility] kes - Specialty rology Memori a /Urology Clinic l Clinic Outpati ent Clinics 2018-07-01 2018-07-01 [facility] [id number] 09:45:00 09:45:00 t Specialty/U [facility] kes - Specialty rology Memori a /Urology Clinic l Clinic Outpati ent Clinics 2018-06-18 2018-06-18 [facility] [id number] 09:00:00 09:00:00 t [employer] - DGTS [facility] Medicine Outpati ent Clinics 2018-06-17 2018-06-17 [facility] [id number] 08:15:00 08:15:00 t [employer] - DGTS [facility] Medicine Outpati ent Clinics 2018-05-28 2018-05-28 [facility] [id number] 09:46:00 09:46:00 t [employer] - DGTS [facility] Medicine Outpati ent Clinics 2018-03-17 2018-03-17 [facility] [id number] 09:30:00 09:30:00 t [employer] - DGTS [facility] Medicine Outpati ent Clinics Results This patient has no known results.
[2021-04-26 11:30] LABS: Absolute Lymphocytes (CBC) 1.3 K/uL (0.7-4.9)
[2021-04-26] MEDS ORDERED: METOPROLOL TARTRATE 5 MG/5 ML INJ IV ONE (11:36)
[2021-04-26] MEDS ORDERED: dilTIAZem HCL 25 MG/5 ML VIAL IV ONE (11:37)
[2021-04-26 11:39] LABS: Basophils % 0.3 % (0-1.3); Hematocrit 37.5 % (36.0-45.0); Lymphocytes % 10.3 % (15.3-44.8); MPV 9.8 fL (7.6-11.3); RBC Red Blood Cell Count 4.11 M/uL (3.86-4.86)
[2021-04-26 11:53] LABS: ALT/SGPT 19 U/L (12-78); AST/SGOT 16 U/L (15-37); Albumin 3.7 g/dL (3.4-5.0); Alkaline Phosphatase 57 U/L (45-117); BUN Blood Urea Nitrogen 18 mg/dL (7-18); Bicarbonate 30 mmol/L (21-32); Bilirubin Direct 0.3 mg/dL (0-0.2); Bilirubin Total 1.1 mg/dL (0.2-1.0); Glucose Level 111 mg/dL (74-106); Magnesium 1.9 mg/dL (1.8-2.4); NT PRO-BNP 5492 pg/mL (<450); Potassium 3.8 mmol/L (3.5-5.1); Protein, Total 7.5 g/dL (6.4-8.2); Sodium Level 143 mmol/L (136-145); Troponin (Emerg Dept Use Only) < 0.02 ng/mL (0.0-0.045)
--- NOTE | 2021-04-26 11:56 | RAD REPORT ---
EXAM DESCRIPTION: RAD - Chest Single View - 04/26/2021 11:48 am CLINICAL HISTORY: SOB Chest pain. COMPARISON: Chest Single View dated 03/26/2020; Chest Pa And Lat (2 Views) dated 11/05/2016; Chest Sin gle View dated 03/04/2016; CHEST SINGLE VIEW dated 10/04/2015 FINDINGS: Portable technique limits examination quality. Chronic elevation of the left hemidiaphragm likely related to a large diaphragmatic hernia. Mild inte rstitial pulmonary edema suspected with this trace bilateral pleural effusions. The heart is likely m ildly enlarged. IMPRESSION: Mild CHF.
[2021-04-26 12:02] LABS: Protime INR 1.25
--- NOTE | 2021-04-26 12:10 | EDPHYS ---
Physician Documentation [facility] Name: Faiza Pete Age: 81 yrs Sex: Female : 1940 Arrival Date: 04/26/2021 Time: 10:48 Bed 19 Private MD: ED Physician Rasta Diggs HPI: 04/26 11:05 This 81 yrs old Female presents to ER via Wheelchair with complaints of jmm Breathing Difficulty. 11:05 The patient has shortness of breath at rest. Onset: The symptoms/episode began/occurred jmm this morning. Duration: The symptoms are continuous. The patient's shortness of breath is aggravated by nothing, is alleviated by nothing. This is an 81 year old female with a history of breast cancer, COPD, hemorrhoids, that presents to the ED with complaints of shortness of breath beginning earlier this morning around 1 am. Denies chest pain. Denies cough. . Historical: - Allergies: 11:05 Bactrim; ph 11:05 Macrobid; ph 11:05 Levaquin; ph - PMHx: 11:05 Aneurysm; Cancer, Breast; COPD; hemmorhoids; Hyperlipidemia; Hypertension; SVT; ph - Immunization history:: Client reports receiving the 2nd dose of the Covid vaccine. - Social history:: Smoking status: Patient denies any tobacco usage or history of. ROS: 11:05 Constitutional: Negative for fever, chills, and weight loss, Cardiovascular: Negative jmm for chest pain, palpitations, and edema. 11:05 Respiratory: Positive for shortness of breath. 11:05 All other systems are negative. Exam: 11:05 Head/Face: atraumatic. Eyes: EOMI, no conjunctival erythema appreciated ENT: Moist jmm Mucus Membranes Neck: Trachea midline, Supple Chest/axilla: Normal chest wall appearance and motion. 11:05 Abdomen/GI: Non distended, soft Back: Normal ROM Skin: General appearance color normal MS/ Extremity: Moves all extremities, no obvious deformities appreciated, no edema noted to the lower extremities Neuro: Awake and alert, normal gait Psych: Behavior is normal, Mood is normal, Patient is cooperative and pleasant 11:05 Constitutional: The patient appears alert, anxious, uncomfortable. 11:05 Cardiovascular: Rate: tachycardic. 11:05 Respiratory: mild respiratory distress is noted, Respirations: tachypnea. Vital Signs: 11:04 BP 132 / 120; Pulse 153; Resp 24; Temp 97.7; Pulse Ox 98% on 3 lpm NC; Weight 78.93 kg; ph Height 5 ft. 7 in. (170.18 cm); 12:00 BP 94 / 83; Pulse 74; Resp 17; Pulse Ox 97% ; rb3 13:00 BP 137 / 99; Pulse 114; Resp 21; Pulse Ox 97% on 3 lpm NC; rb3 14:00 BP 105 / 56; Pulse 94; Resp 21; Pulse Ox 99% ; rb3 15:00 BP 119 / 80; Pulse 115; Resp 23; Pulse Ox 97% on 3 lpm NC; rb3 16:00 BP 144 / 82; Pulse 109; Resp 22; Pulse Ox 99% on 3 lpm NC; rb3 17:40 BP 131 / 97; Pulse 91; Resp 19; Temp 98.0; Pulse Ox 95% on 4 lpm NC; rb3 11:04 Body Mass Index 27.25 (78.93 kg, 170.18 cm) ph MDM: 11:05 Patient medically screened. [facility] 04/26 11:05 Order name: Basic Metabolic Panel; Complete Time: 11:58 [facility] 04/26 11:05 Order name: CBC with Diff; Complete Time: 11:49 [facility] 04/26 11:05 Order name: LFT's; Complete Time: 11:58 [facility] 04/26 11:05 Order name: Magnesium; Complete Time: 11:58 [facility] 04/26 11:05 Order name: NT PRO-BNP; Complete Time: 11:58 [facility] 04/26 11:05 Order name: PT-INR; Complete Time: 12:03 [facility] 04/26 11:05 Order name: Troponin (emerg Dept Use Only); Complete Time: 11:58 [facility] 04/26 11:05 Order name: XRAY Chest (1 view); Complete Time: 11:58 [facility] 04/26 12:31 Order name: Ptt, Activated ph 04/26 12:32 Order name: PTT, Activated Partial Thromb; Complete Time: 12:51 [facility] 04/26 14:12 Order name: COVID-19 : Document "Date of Symptom Onset" if Symptomatic. iw 04/26 16:13 Order name: Ptt, Activated: Draw at 1630 rb3 04/26 17:57 Order name: PTT, Activated Partial Thromb; Complete Time: 18:10 [facility] 04/26 11:05 Order name: EKG; Complete Time: 11:06 [facility] 04/26 11:05 Order name: Cardiac monitoring; Complete Time: 11:16 [facility] 04/26 11:05 Order name: EKG - Nurse/Tech; Complete Time: 11:16 [facility] 04/26 11:05 Order name: IV Saline Lock; Complete Time: 11: [facility] 04/26 11:05 Order name: Labs collected and sent; Complete Time: : [facility] 04/26 11:05 Order name: O2 Per Protocol; Complete Time: 11: [facility] 04/26 11:05 Order name: O2 Sat Monitoring; Complete Time: : [facility] 04/26 17:07 Order name: Labs - recollect needed: blue top only please; Complete Time: 17:40 em1 Administered Medications: 11:29 Drug: Metoprolol 5 mg Route: IVP; Site: right forearm; rb3 12:00 Follow up: Response: Blood pressure is lowered; Heart rate decreased rb3 11:29 Drug: Diltiazem 20 mg Route: IVP; Site: right forearm; rb3 12:00 Follow up: Response: No adverse reaction; Blood pressure is lowered rb3 12:05 Drug: SOLU-Medrol (methylPrednisoLONE) 125 mg Route: IVP; Site: right wrist; rb3 12:30 Follow up: Response: No adverse reaction rb3 12:05 Drug: NS 0.9% 1000 ml Route: IV; Rate: 75 ml/hr; Site: right wrist; rb3 18:04 Follow up: IV Status: Infusion continued upon admission rb3 12:35 Drug: Heparin (DVT/PE- Bolus per protocol) - HEParin 80 units/kg {Co-Signature: ph rb3 (Dinorah Zavala RN).} Route: IVP; Site: right forearm; 12:50 Follow up: Response: No adverse reaction rb3 12:38 Drug: Heparin (DVT/PE Drip) 18 units/kg/hr - (HEParin 53830 units, D5W 500 ml) rb3 {Co-Signature: ph (Dinorah Zavala RN).} Route: IV; Rate: calculated rate; Site: right wrist; 18:03 Follow up: Rate change Titrate; PTT = 225.5, infusion stopped for 60 minutes. rb3 18:04 Follow up: Heparin drip was sent to the floor with pt. Stopped at 1755 for 60 minutes. rb3 Disposition: 04/27 07:34 Co-signature as Attending Physician, Rasta Diggs MD I agree with the assessment and verito plan of care. Disposition Summary: 04/26/21 12:09 Hospitalization Ordered Hospitalization Status: Observation [facility] Provider: Asad Feliz Location: Telemetry/MedSurg (observation) jm Condition: Stable jmm Problem: new jmm Symptoms: have improved jmm Bed/Room Type: Standard [facility] Room Assignment: 216(04/26/21 16:48) iw Diagnosis - Unspecified atrial fibrillation jmm - Dyspnea [facility] Forms: - Medication Reconciliation Form jmm - SBAR form jmm Signatures: Dispatcher [employer] EDRasta Martinez MD MD cha Mickail, Joel, PA PA m Mitzi Thacker RN RN iw Ben Mahajan em1 Dinorah Zavala RN RN ph Venecia Agee RN RN rb3 Dinorah Zavala RN ph Corrections: (The following items were deleted from the chart) 04/26 16:48 12:09 [facility] iw
--- NOTE | 2021-04-26 12:10 | ER ---
Nurse's Notes [facility] Name: Faiza Pete Age: 81 yrs Sex: Female : 1940 Arrival Date: 04/26/2021 Time: 10:48 Bed 19 Private MD: Diagnosis: Unspecified atrial fibrillation;Dyspnea Presentation: 04/26 10:54 Chief complaint: Patient states: Difficulty breathing since early this morning, hx of ph COPD, on 3L NC, SpO2 99%, labored breathing noted, denies fever. 11:04 Coronavirus screen: At this time, the client does not indicate any symptoms associated ph with coronavirus-19. Ebola Screen: No symptoms or risks identified at this time. Initial Sepsis Screen: Does the patient meet any 2 criteria? RR > 20 per min. HR > 90 bpm. Does the patient have a suspected source of infection? No. Patient's initial sepsis screen is negative. Risk Assessment: Do you want to hurt yourself or someone else? Patient reports no desire to harm self or others. Onset of symptoms was April 26, 2021. 11:04 Method Of Arrival: Wheelchair ph 11:04 Acuity: KATHI 2 ph Triage Assessment: 11:00 Respiratory: Onset: The symptoms/episode began/occurred this morning, the patient has rb3 moderate shortness of breath. Historical: - Allergies: 11:05 Bactrim; ph 11:05 Macrobid; ph 11:05 Levaquin; ph - PMHx: 11:05 Aneurysm; Cancer, Breast; COPD; hemmorhoids; Hyperlipidemia; Hypertension; SVT; ph - Immunization history:: Client reports receiving the 2nd dose of the Covid vaccine. - Social history:: Smoking status: Patient denies any tobacco usage or history of. Screenin:00 Abuse screen: Denies threats or abuse. Nutritional screening: No deficits noted. rb3 Tuberculosis screening: No symptoms or risk factors identified. Fall Risk None identified. Assessment: 11:00 General: Appears in no apparent distress. Behavior is calm, cooperative. Neuro: Level rb3 of Consciousness is awake, alert, obeys commands, Oriented to person, place, time, situation. Cardiovascular: Patient's skin is warm and dry. Rhythm is atrial fibrillation. Respiratory: Airway is patent Respiratory effort is even, labored, Respiratory pattern is regular. GI: No signs and/or symptoms were reported involving the gastrointestinal system. : No signs and/or symptoms were reported regarding the genitourinary system. Musculoskeletal: Range of motion: intact in all extremities. 11:00 Respiratory: Reports shortness of breath. rb3 12:00 Reassessment: Patient appears in no apparent distress at this time. Patient and/or rb3 family updated on plan of care and expected duration. Pain level reassessed. Patient is alert, oriented x 3, equal unlabored respirations, skin warm/dry/pink. 13:00 Reassessment: Patient appears in no apparent distress at this time. No changes from rb3 previously documented assessment. Family at the bedside. 14:00 Reassessment: Patient appears in no apparent distress at this time. Patient and/or rb3 family updated on plan of care and expected duration. Pain level reassessed. Patient is alert, oriented x 3, equal unlabored respirations, skin warm/dry/pink. Assisted to the BSC. 15:00 Reassessment: Patient appears in no apparent distress at this time. No changes from rb3 previously documented assessment. 16:00 Reassessment: Patient appears in no apparent distress at this time. Patient and/or rb3 family updated on plan of care and expected duration. Pain level reassessed. Patient is alert, oriented x 3, equal unlabored respirations, skin warm/dry/pink. Patient denies pain at this time. 17:00 Reassessment: Patient appears in no apparent distress at this time. No changes from rb3 previously documented assessment. Family at the bedside. 17:47 Reassessment: Gave report to JESÚS Guajardo. Information from the SBAR was given. Informed rb3 that a PTT has been sent to lab and to be watching for the results to determine if the Heparin Drip needs to be titrated. Verbalized understanding. All questions asked and answered. 18:08 Reassessment: Called JESÚS Guajardo to inform her of a PTT 225.5, and that the Heparin rb3 Drip was stopped at 1755 for 60 minutes. Verbalized understanding. Sent a copy of the Heparin protocol to the floor with the pt. Vital Signs: 11:04 BP 132 / 120; Pulse 153; Resp 24; Temp 97.7; Pulse Ox 98% on 3 lpm NC; Weight 78.93 kg; ph Height 5 ft. 7 in. (170.18 cm); 12:00 BP 94 / 83; Pulse 74; Resp 17; Pulse Ox 97% ; rb3 13:00 BP 137 / 99; Pulse 114; Resp 21; Pulse Ox 97% on 3 lpm NC; rb3 14:00 BP 105 / 56; Pulse 94; Resp 21; Pulse Ox 99% ; rb3 15:00 BP 119 / 80; Pulse 115; Resp 23; Pulse Ox 97% on 3 lpm NC; rb3 16:00 BP 144 / 82; Pulse 109; Resp 22; Pulse Ox 99% on 3 lpm NC; rb3 17:40 BP 131 / 97; Pulse 91; Resp 19; Temp 98.0; Pulse Ox 95% on 4 lpm NC; rb3 11:04 Body Mass Index 27.25 (78.93 kg, 170.18 cm) ph ED Course: 10:48 Patient arrived in ED. wm 10:56 Mynor Donovan PA is PHCP. jmm 10:56 Rasta Diggs MD is Attending Physician. jmm 11:00 Arm band placed on right wrist. rb3 11:05 Triage completed. ph 11:05 Patient has correct armband on for positive identification. Placed in gown. Bed in low mh5 position. Call light in reach. Side rails up X 1. Adult w/ patient. Pillow given. patient monitor on. Pulse ox on. NIBP on. 11:06 EKG done, by ED staff, reviewed by Mynor COLLINS. mh5 11:19 Venecia Agee, RN is Primary Nurse. rb3 11:48 XRAY Chest (1 view) In Process Unspecified. EDMS 12:08 Asad Feliz is Hospitalizing Provider. [facility] 13:56 Inserted saline lock: 18 gauge in right forearm, using aseptic technique. tr6 13:56 Inserted saline lock: 20 gauge in right hand, using aseptic technique. tr6 14:17 COVID-19 : Document "Date of Symptom Onset" if Symptomatic. Sent. 5 14:17 COVID swab sent to lab. 5 17:46 Ptt, Activated: Draw at 1630 Sent. rb3 17:55 No provider procedures requiring assistance completed. Patient admitted, IV remains in rb3 place. Administered Medications: 11:29 Drug: Metoprolol 5 mg Route: IVP; Site: right forearm; rb3 12:00 Follow up: Response: Blood pressure is lowered; Heart rate decreased rb3 11:29 Drug: Diltiazem 20 mg Route: IVP; Site: right forearm; rb3 12:00 Follow up: Response: No adverse reaction; Blood pressure is lowered rb3 12:05 Drug: SOLU-Medrol (methylPrednisoLONE) 125 mg Route: IVP; Site: right wrist; rb3 12:30 Follow up: Response: No adverse reaction rb3 12:05 Drug: NS 0.9% 1000 ml Route: IV; Rate: 75 ml/hr; Site: right wrist; rb3 18:04 Follow up: IV Status: Infusion continued upon admission rb3 12:35 Drug: Heparin (DVT/PE- Bolus per protocol) - HEParin 80 units/kg {Co-Signature: ph rb3 (Dinorah Zavala RN).} Route: IVP; Site: right forearm; 12:50 Follow up: Response: No adverse reaction rb3 12:38 Drug: Heparin (DVT/PE Drip) 18 units/kg/hr - (HEParin 72217 units, D5W 500 ml) rb3 {Co-Signature: ph (Dinorah Zavala RN).} Route: IV; Rate: calculated rate; Site: right wrist; 18:03 Follow up: Rate change Titrate; PTT = 225.5, infusion stopped for 60 minutes. rb3 18:04 Follow up: Heparin drip was sent to the floor with pt. Stopped at 1755 for 60 minutes. rb3 Intake: Output: 14:00 Urine: 1ml (Voided); Total: 1ml. rb3 Outcome: 12:09 Decision to Hospitalize by Provider. shaq 18:04 Admitted to Med/surg accompanied by tech, family with patient, via wheelchair, room rb3 216, with oxygen, with chart, Report called to JESÚS Guajardo. 18:04 Condition: stable 18:04 Instructed on the need for admit. 18:10 Patient left the ED. rb3 Signatures: Dispatcher [employer] EDMS Mynor Donovan PA PA jmm Hall, Patricia, RN RN ph Marilynn Mahajan [facility] Venecia Agee RN RN rb3 Edith Cheatham RN RN 6 Sheri Leon Dinorah Zavala RN ph
[2021-04-26] MEDS ORDERED: METHYLPREDNISOLONE 125 MG INJ ONE (12:22)
[2021-04-26] MEDS ORDERED: NA CHLORIDE 0.9% 1,000 ML ONE (12:22)
[2021-04-26] MEDS ORDERED: HEPARIN/D5W 25,000 UNIT/500 ML BAG IV ONE (12:38)
[2021-04-26] MEDS ORDERED: HEPARIN 5000 UNIT/ML 1 ML VIAL ONE (12:46)
--- NOTE | 2021-04-26 17:35 | P.HP ---
Certification for Inpatient Patient admitted to: Inpatient With expected LOS: >2 Midnights Practitioner: I am a practitioner with admitting privileges, knowledge of patient current condition, hospital course, and medical plan of care. Services: Services provided to patient in accordance with Admission requirements found in Title 42 Section 412.3 of the Code of Federal Regulations Patient History Date of Service: 04/26/21 Reason for admission: Shortness of breath History of Present Illness: 81-year-old woman with a history of SVT, follows with Dr. Wood and on Coreg presented to the emergency department due to sudden onset of shortness of breath last night. Patient stated she has experienced SVT for close to 1 year now. She also endorsed palpitation and chest tightness. She denied any fever or nausea or vomiting. Patient noted to be in rapid atrial fibrillation in the ED with heart rate as high as 150. He was given a dose of Cardizem and metoprolol which brought her heart rate down to the high 90s but remained in AFib. Initial troponin is negative, BNP is elevated. Chest x-ray shows mild CHF. Creatinine mildly elevated. Patient hospitalized for further management. Allergies levofloxacin [From Levaquin] Allergy (Verified 03/26/20 18:24) Itching/Hives/Rash sulfamethoxazole [From Bactrim] Allergy (Verified 03/26/20 18:24) Unknown trimethoprim [From Bactrim] Allergy (Verified 03/26/20 18:24) Unknown nitrofurantoin macrocrystal [From Macrobid] Adverse Reaction (Intermediate, Verified 03/26/20 18:24) vomiting nitrofurantoin [From Macrobid] Adverse Reaction (Verified 03/26/20 18:24) vomiting Home Medications: Atorvastatin Calcium [Lipitor] 10 mg PO DAILY 03/25/12 Aspirin 81 mg PO DAILY #90 tab.chew 06/30/14 LORazepam [Lorazepam] 1 tab PO DAILY PRN 03/04/16 Escitalopram [Lexapro*] 20 mg PO DAILY 03/05/16 Ascorbic Acid [Vitamin C*] 500 mg PO DAILY 03/26/20 Calcium Carbonate [Calcium] 500 mg PO DAILY 03/26/20 Cholecalciferol (Vitamin D3) [Vitamin D3] 1,000 unit PO DAILY 03/26/20 Cyclosporine [Restasis Multidose] 2 drop OP BID 03/26/20 Lisinopril/Hydrochlorothiazide [Lisinopril-Hctz 10-12.5 mg Tab] 1 tab PO DAILY 03/26/20 Loratadine [Claritin*] 10 mg PO DAILY 03/26/20 Multivitamin [Daily Multiple Vitamin] 1 each PO DAILY 03/26/20 Pantoprazole [Protonix Tab*] 40 mg PO DAILY 03/26/20 Vitc/E/Zinc/Copper/Lutein/Zeax [Icaps Areds2 Tablet] 2 each PO DAILY 03/26/20 carvediloL [Coreg*] 25 mg PO DAILY 03/26/20 Amoxicillin/Potassium Clav [Augmentin 500-125 Tablet] 1 each PO BID #14 tablet 03/28/20 Fluticasone [Flonase 50MCG Nasal [place]*] 1 sprays SB BID #1 btl 03/28/20 Levalbuterol [Xopenex*] 3 ml IH TID PRN #90 vial 03/28/20 Umeclidinium Brm/Vilanterol Tr [Anoro Ellipta 62.5-25 Mcg INH] 1 each IH DAILY #1 blst.w.dev 03/28/20 predniSONE [Prednisone*] 20 mg PO SEECOM #15 tab 03/28/20 - Past Medical/Surgical History Diabetic: No -: Brain aneurysm -: HTN -: History of Breast Cancer -: Hyperlipidemia -: Depression with anxiety -: Diverticulosis -: GERD with hiatal hernia -: History of back pain and possible DDD/DJD. -: History of TIAs -: SVT -: hemmorhoids -: lumpectomy Psychosocial/ Personal History: unknown - Family History Father -: Heart disease Mother -: Heart disease - Social History Smoking Status: Never smoker Alcohol use: No CD- Drugs: No Caffeine use: No Review of Systems Other: Except as documented, all other systems reviewed and negative. Physical Examination - Physical Exam General: Alert, Oriented x3, Mild distress (Respiratory distress) HEENT: Atraumatic, Normocephalic, PERRLA, Mucous membr. moist/pink Neck: Supple, JVD not distended Respiratory: Normal air movement, Other (Mild bibasilar crackles) Cardiovascular: No edema, Normal S1 S2, Irregular heart rate/rhythm Gastrointestinal: Normal bowel sounds, Soft and benign, Non-distended, No tenderness Musculoskeletal: No swelling, No erythema Integumentary: No rashes, No erythema Neurological: Normal strength at 5/5 x4 extr, Cranial nerves 3-12 intact Lymphatics: No axilla or inguinal lymphadenopathy - Studies Laboratory Data (last 24 hrs) 04/26/21 11:42: PT 14.4 H, INR 1.25 04/26/21 11:17: APTT 23.2 L 04/26/21 11:17: WBC 12.60 H, Hgb 12.3, Hct 37.5, Plt Count 205 04/26/21 11:17: Sodium 143, Potassium 3.8, BUN 18, Creatinine 1.38 H, Glucose 111 H, Magnesium 1.9, Total Bilirubin 1.1 H, AST 16, ALT 19, Alkaline Phosphatase 57 Assessment and Plan - Problems (Diagnosis) (1) Rapid atrial fibrillation Current Visit: Yes Status: Acute (2) Acute diastolic heart failure Current Visit: Yes Status: Acute (3) Chronic kidney disease, stage 3 Current Visit: Yes Status: Acute (4) History of GI bleed Current Visit: Yes Status: Acute (5) COPD exacerbation Current Visit: Yes Status: Acute (6) Chronic respiratory failure with hypoxia Current Visit: Yes Status: Acute - Plan Admit patient to the medical floor. Continue to trend troponin. Obtain echocardiogram Atrial fibrillation rate controlled with Coreg. Will increase her home dose from 25 mg daily to 25 mg b.i.d. Check TSH. Consult to cardiology Treat acute diastolic heart failure with IV Lasix. Treat COPD exacerbation with scheduled bronchodilators and IV steroid. No indication for antibiotics. Monitor intake and output. Check stool for occult blood. Anticoagulation per Cardiology. - Advance Directives Does patient have a Living Will: No Does patient have a Durable POA for Healthcare: Yes
[2021-04-26] MEDS ORDERED: ONDANSETRON 4 MG/2 ML VIAL IV PRN (18:11)
[2021-04-26] MEDS: carvediloL 25 MG TAB PO SCH (19:00)
[2021-04-26] MEDS: HEPARIN/D5W 25,000 UNIT/500 ML BAG IV SCH (19:00)
[2021-04-26] MEDS: METHYLPREDNISOLONE 40 MG INJ IV SCH (19:00)
[2021-04-26 19:27] LABS: Urine Appearance CLEAR (Clear); Urine Bilirubin NEGATIVE (Negative); Urine Blood NEGATIVE (Negative); Urine Color YELLOW (Yellow); Urine Glucose NEGATIVE (Negative); Urine Protein NEGATIVE (Negative); Urine Specific Gravity 1.025 (1.005-1.030); Urine Urobilinogen 0.2 mg/dL (0.2-1.0); Urine pH 5.5 (5.0-7.0)
[2021-04-26 19:28] LABS: Urine Microscopic Reflex NO UMIC
[2021-04-26] MEDS ORDERED: LEVALBUTEROL 0.63 MG/3 ML NEB NEB SCH (20:00)
[2021-04-26] MEDS ORDERED: ALBUTEROL 2.5 MG/3 ML NEB SOL NEB SCH (20:00)
[2021-04-26] MEDS: LEVALBUTEROL 0.63 MG/3 ML NEB NEB SCH (20:02)
[2021-04-26] MEDS: IPRATROPIUM BROM 0.5MG/2.5ML NEB SCH (20:02)
[2021-04-27] MEDS: IPRATROPIUM BROM 0.5MG/2.5ML NEB SCH ×4 (02:20→19:40)
[2021-04-27] MEDS: LEVALBUTEROL 0.63 MG/3 ML NEB NEB SCH ×4 (02:20→19:40)
[2021-04-27 04:21] LABS: Absolute Lymphocytes (CBC) 0.6 K/uL (0.7-4.9); Basophils % 0.1 % (0-1.3); Hematocrit 36.5 % (36.0-45.0); Lymphocytes % 7.1 % (15.3-44.8); MPV 10.3 fL (7.6-11.3); RBC Red Blood Cell Count 3.97 M/uL (3.86-4.86)
[2021-04-27 04:47] LABS: Magnesium 1.9 mg/dL (1.8-2.4); Phosphorus 4.4 mg/dL (2.5-4.9); Potassium 3.6 mmol/L (3.5-5.1); Thyroid Stimulating Hormone 0.193 uIU/mL (0.360-3.740)
[2021-04-27 04:54] VITALS: BMI 27.2
[2021-04-27] MEDS: METHYLPREDNISOLONE 40 MG INJ IV SCH ×4 (06:05→17:49)
[2021-04-27] MEDS: carvediloL 25 MG TAB PO SCH ×2 (06:05→17:50)
--- NOTE | 2021-04-27 06:20 | EKG ---
Test Date: 2021-04-26 Test Time: 11:12:44 Assembly Lead Person: TED MEASUREMENT RESULTS: Intervals: Rate: 141 WY: QRSD: 68 QT: 318 QTc: 487 [place]: P: [place]: QRS: 56 T: 50 INTERPRETIVE STATEMENTS: Atrial fibrillation with rapid ventricular response Septal infarct, age undetermined Abnormal ECG Compared to ECG 03/26/2020 11:35:44 Sinus rhythm no longer present Myocardial infarct finding still present Electronically Signed On 04-27-21 06:17:51 CDT by Wally Wood
--- NOTE | 2021-04-27 08:14 | CON ---
Date of Consultation: 04/27/2021 Reason For Consultation: New-onset atrial fibrillation. History Of Present Illness: Ms. Pete is an 81-year-old, has had a history of abdominal aortic aneur ysm in the past. Details are unavailable. She has had a history of COPD, SVT, status post what soun ded like an ablation or cardioversion in the past. That was about 6 years ago. She has a history of hypertension, dyslipidemia, and history of remote breast cancer. She comes in with atrial fibrillat ion, rapid ventricular response, heart rate of 133 with shortness of breath and chest pain, but no na usea, vomiting, diaphoresis, PND, orthopnea, or syncope. Denied any fever or chills. Past Medical History: As stated above. Allergies: SHE IS ALLERGIC TO BACTRIM AND LEVAQUIN. Review of Systems: Negative. Social History: Negative. Family History: Noncontributory. Medications: At home include aspirin, Lipitor, inhalers, Coreg, losartan with hydrochlorothiazide, P rotonix, potassium, and Lexapro. Physical Examination: General: She appeared her stated age, alert and oriented x3. Vital Signs: Stable. Atrial fibrillation at 130. Afebrile. HEENT: Negative. Neck: Supple. No bruit. Chest: Clear. Cardiac: Atrial fibrillation. No murmurs, gallops, or rubs. Abdomen: Benign. Extremities: Trace edema. Neurologic: She was nonfocal. Skin: Dry and intact. Pulses were present distally bilaterally. Diagnostic Data: Chest x-ray showed mild CHF. EKG showed rapid atrial fibrillation. Creatinine is 1.38. BNP was 5492. TSH was 0.193. Impression And Plan: Recurrent atrial fibrillation with rapid ventricular response. She is on hepar in. She is on carvedilol. I think we need to add Betapace 80 mg 1 p.o. b.i.d. to her regimen. I th ink we need to assess her thyroid status. Echocardiogram is pending. Continue her inhalers and ster oids for now. I agree with IV Lasix. I agree with heparin drip. Ms. Pete may need to have a cardi oversion sometime down the road, but I would wait at least 3 weeks on anticoagulants such as Xarelto or Eliquis and we will deal with that depending how she does with the Betapace in [facility]. She nee ds to have at least 3 dosages of the Betapace before she goes home. I would still continue the Coreg considering her heart rate still being fast. Her other problems including hypertension, dyslipidemi a, chronic obstructive pulmonary disease, history of abdominal aortic aneurysm, and breast cancer see m to be stable at this point. JAZLYN/BARB Voice ID: [id number] Report ID: [id number]
[2021-04-27] MEDS: FUROSEMIDE 40 MG/4 ML VIAL IV SCH ×2 (08:44→16:46)
[2021-04-27] MEDS ORDERED: POTASSIUM CL SA 10 MEQ TAB PO ONE (09:00)
--- NOTE | 2021-04-27 14:24 | P.PN ---
Subjective Date of Service: 04/27/21 Chief Complaint: Shortness of breath Patient states she feels a lot better. Heart rate is still rapid. She stated shortness of breath has significantly improved. Physical Examination - Vital Signs Temperature: 97.2 F Blood Pressure: 127/85 Pulse: 128 Respirations: 19 Pulse Ox (%): 95 - Physical Exam General: Alert, In no apparent distress, Oriented x3 HEENT: Mucous membr. moist/pink Neck: JVD not distended Respiratory: Clear to auscultation bilaterally, Normal air movement Cardiovascular: No edema, Normal S1 S2, Irregular heart rate/rhythm Gastrointestinal: Normal bowel sounds, Soft and benign, Non-distended, No tenderness Musculoskeletal: No swelling Integumentary: No rashes Neurological: Normal speech, Normal strength at 5/5 x4 extr, Cranial nerves 3-12 intact - Studies Laboratory Data (last 24 hrs) 04/26/21 10:55: APTT Cancelled Assessment And Plan - Current Problems (Diagnosis) (1) Rapid atrial fibrillation Current Visit: Yes Status: Acute (2) Acute diastolic heart failure Current Visit: Yes Status: Acute (3) Chronic kidney disease, stage 3 Current Visit: Yes Status: Acute (4) History of GI bleed Current Visit: Yes Status: Acute (5) COPD exacerbation Current Visit: Yes Status: Acute (6) Chronic respiratory failure with hypoxia Current Visit: Yes Status: Acute - Plan Troponin trended negative. Echocardiogram is pending. Cardiology input appreciated. Dr. Wood recommend adding sotalol to Coreg. Continue Coreg 25 mg b.i.d. TSH is slightly low. Check free T4 Continue IV Lasix for CHF. Treat COPD exacerbation with scheduled bronchodilators and IV steroid. No indication for antibiotics. Monitor intake and output. Start Eliquis 2.5 mg b.i.d. and Dc heparin drip. Monitor for active bleeding. Monitor hemoglobin.
[2021-04-27 15:44] LABS: T3 Free 2.09 pg/mL (2.18-3.98)
[2021-04-27] MEDS: HEPARIN/D5W 25,000 UNIT/500 ML BAG IV SCH (16:48)
[2021-04-27] MEDS: SOTALOL HCL 80 MG TAB PO SCH (17:49)
[2021-04-27] MEDS: GUAIFENESIN 600 MG SA TAB PO SCH (20:02)
[2021-04-27] MEDS: APIXABAN 2.5 MG TABLET PO SCH (20:02)
[2021-04-27] MEDS ORDERED: ACETAMINOPHEN 500 MG TAB PO PRN (21:29)
[2021-04-28] MEDS: LEVALBUTEROL 0.63 MG/3 ML NEB NEB SCH ×2 (01:15→08:45)
[2021-04-28] MEDS: IPRATROPIUM BROM 0.5MG/2.5ML NEB SCH ×2 (01:15→08:45)
[2021-04-28] MEDS: carvediloL 25 MG TAB PO SCH (05:28)
[2021-04-28] MEDS: SOTALOL HCL 80 MG TAB PO SCH (05:29)
[2021-04-28] MEDS: METHYLPREDNISOLONE 40 MG INJ IV SCH ×3 (05:29→11:36)
[2021-04-28 07:10] LABS: Absolute Lymphocytes (CBC) 0.5 K/uL (0.7-4.9); Hematocrit 33.6 % (36.0-45.0); Lymphocytes % 3.7 % (15.3-44.8); MPV 9.8 fL (7.6-11.3); RBC Red Blood Cell Count 3.68 M/uL (3.86-4.86)
[2021-04-28 07:28] LABS: Potassium 3.9 mmol/L (3.5-5.1)
[2021-04-28] MEDS ORDERED: POTASSIUM CL SA 10 MEQ TAB PO ONE (09:00)
[2021-04-28] MEDS: FUROSEMIDE 40 MG/4 ML VIAL IV SCH (09:28)
[2021-04-28] MEDS: GUAIFENESIN 600 MG SA TAB PO SCH (09:28)
[2021-04-28] MEDS: APIXABAN 2.5 MG TABLET PO SCH (09:29)
[2021-04-28 09:48] LABS: Blood Morphology Comment NOT SEEN (NOT SEEN); Platelet Estimate ADEQ; White Blood Cell Scan OK (OK)
--- NOTE | 2021-04-28 10:30 | EKG ---
Test Date: 2021-04-26 Test Time: 11:14:01 Special Effects Makeup Artist: TED MEASUREMENT RESULTS: Intervals: Rate: 147 WY: QRSD: 78 QT: 314 QTc: 491 [place]: P: WY: QRS: 63 T: 55 INTERPRETIVE STATEMENTS: Atrial fibrillation with rapid ventricular response Abnormal ECG Compared to ECG 04/26/2021 11:12:44 Myocardial infarct finding no longer present Electronically Signed On 04-28-21 10:26:01 CDT by Wally Wood
--- NOTE | 2021-04-28 10:30 | EKG ---
Test Date: 2021-04-26 Test Time: 11:28:56 Dental Equipment Repairer: TED MEASUREMENT RESULTS: Intervals: Rate: 67 [place]: QRSD: 72 QT: 408 QTc: 431 [place]: P: [place]: QRS: 47 T: 59 INTERPRETIVE STATEMENTS: Atrial fibrillation with premature ventricular or aberrantly conducted complexes Septal infarct, age undetermined Abnormal ECG Compared to ECG 04/26/2021 11:14:01 Ventricular premature complex(es) now present Myocardial infarct finding now present Electronically Signed On 04-28-21 10:26:00 CDT by Wally Wood
--- NOTE | 2021-04-28 11:03 | PN ---
The patient has been seen and followed for atrial fibrillation. She was on carvedilol at home. We a dded sotalol. Today, remains in atrial fibrillation rate of 90, has received a total of 3 doses of s otalol. I am comfortable with her going home on carvedilol and sotalol and a low-dose Eliquis 2.5 mg b.i.d. I will see her in the office in the near future. She will need a Lexiscan eventually. If s he remains in atrial fibrillation for the next 2 weeks or so, we will schedule a cardioversion. JAZLYN/BARB Voice ID: [id number] Report ID: [id number]
--- NOTE | 2021-04-28 12:00 | P.DS ---
Admission Date: 04/26/21 Discharge Date: 04/28/21 Disposition: [place]/HOME HEALTH CARE Discharge Condition: FAIR Reason for Admission: Shortness of breath - Problems (1) Rapid atrial fibrillation Current Visit: Yes Status: Acute (2) Acute diastolic heart failure Current Visit: Yes Status: Acute (3) Chronic kidney disease, stage 3 Current Visit: Yes Status: Acute (4) History of GI bleed Current Visit: Yes Status: Acute (5) COPD exacerbation Current Visit: Yes Status: Acute (6) Chronic respiratory failure with hypoxia Current Visit: Yes Status: Acute Brief History of Present Illness: 81-year-old woman with a history of SVT, follows with Dr. Wood and on Coreg presented to the emergency department due to sudden onset of shortness of breath last night. Patient stated she has experienced SVT for close to 1 year now. She also endorsed palpitation and chest tightness. She denied any fever or nausea or vomiting. Patient noted to be in rapid atrial fibrillation in the ED with heart rate as high as 150. He was given a dose of Cardizem and metoprolol which brought her heart rate down to the high 90s but remained in AFib. Initial troponin is negative, BNP is elevated. Chest x-ray shows mild CHF. Creatinine mildly elevated. Patient hospitalized for further management. Hospital Course: Patient admitted to the medical floor, placed on Coreg 25 mg b.i.d. Her heart rate was still rapid on the Coreg. She was seen by cardiology-Dr. Wood recommended adding sotalol. Her heart rate is now controlled with Coreg 25 mg b.i.d. and sotalol 80 mg b.i.d. she was also treated for COPD exacerbation with IV steroids, scheduled bronchodilators, no antibiotics. Also given a couple of dose of IV Lasix for CHF exacerbation. Patient symptoms has significantly improved. Her TSH was low indicating hyperthyroid state but free T4 and free T3 were all in normal range. She was also placed on Eliquis 2.5 mg b.i.d. she has a history of melena, has anemia and then maybe risk of bleeding. Aspirin has been discontinued. Patient is discharged to follow with Dr. Wood within 1 week. Vital Signs/Physical Exam: Temp Pulse Resp BP Pulse Ox 97.0 F 94 H 20 132/93 H 99 04/28/21 08:00 04/28/21 09:28 04/28/21 08:00 04/28/21 09:28 04/28/21 08:00 General: Alert, In no apparent distress, Oriented x3 HEENT: Mucous membr. moist/pink Neck: JVD not distended Respiratory: Clear to auscultation bilaterally, Normal air movement Cardiovascular: No edema, Normal S1 S2, Irregular heart rate/rhythm Gastrointestinal: Normal bowel sounds, Soft and benign, Non-distended, No tenderness Musculoskeletal: No swelling Integumentary: No rashes Neurological: Normal strength at 5/5 x4 extr Laboratory Data at Discharge: WBC 14.60 K/uL (4.3-10.9) H D 04/28/21 06:57 Hgb 11.0 g/dL (12.0-15.0) L 04/28/21 06:57 Hct 33.6 % (36.0-45.0) L 04/28/21 06:57 Plt Count 170 K/uL (152-406) 04/28/21 06:57 PT 14.4 SECONDS (9.5-12.5) H 04/26/21 11:42 INR 1.25 04/26/21 11:42 APTT 27.3 SECONDS (24.3-36.9) 04/28/21 06:57 Sodium 140 mmol/L (136-145) 04/28/21 06:57 Potassium 3.9 mmol/L (3.5-5.1) 04/28/21 06:57 BUN 30 mg/dL (7-18) H 04/28/21 06:57 Creatinine 1.40 mg/dL (0.55-1.3) H 04/28/21 06:57 Glucose 135 mg/dL (74-106) H 04/28/21 06:57 Phosphorus 4.4 mg/dL (2.5-4.9) 04/27/21 03:49 Magnesium 1.9 mg/dL (1.8-2.4) 04/27/21 03:49 Total Bilirubin 1.1 mg/dL (0.2-1.0) H 04/26/21 11:17 AST 16 U/L (15-37) 04/26/21 11:17 ALT 19 U/L (12-78) 04/26/21 11:17 Alkaline Phosphatase 57 U/L (45-117) 04/26/21 11:17 Troponin I < 0.02 ng/mL (0.0-0.045) 04/26/21 22:10 Triglycerides 84 mg/dL (<150) 04/27/21 03:49 Cholesterol 118 mg/dL (<200) 04/27/21 03:49 HDL Cholesterol 53 mg/dL (40-60) 04/27/21 03:49 Cholesterol/HDL Ratio 2.23 04/27/21 03:49 Home Medications: Atorvastatin Calcium [Lipitor*] 10 mg PO BEDTIME 04/26/21 Budesonide/Formoterol Fumarate [Symbicort 160-4.5 Mcg Inhaler] 2 puff IH BID 04/26/21 Cyclosporine [Restasis] 2 drop EACH EYE BID 04/26/21 Escitalopram [Lexapro*] 20 mg PO DAILY 04/26/21 Levalbuterol [Xopenex*] 1 puff IH Q6H PRN 04/26/21 Loratadine [Claritin*] 10 mg PO DAILY 04/26/21 Pantoprazole [Protonix Tab*] 40 mg PO DAILY 04/26/21 Potassium Gluconate [Potassium] 99 mg PO SEECOM 04/26/21 Trimethoprim [Primsol] 50 mg PO DAILY 04/26/21 Apixaban [Eliquis *] 2.5 mg PO BID #60 tablet 04/28/21 Ipratropium Neb [Atrovent*] 0.5 mg NEB [id number] #120 amp 04/28/21 Levalbuterol [Xopenex*] 0.63 mg NEB [id number] #120 vial 04/28/21 Nebulizer [Truneb Nebulizer] 1 each MC Q6H #1 each 04/28/21 Sotalol HCl [Betapace*] 80 mg PO BID 6AM 6PM #60 tab 04/28/21 carvediloL [Coreg*] 25 mg PO BID 6AM 6PM #60 tab 04/28/21 predniSONE [Deltasone] 40 mg PO DAILY #5 tab 04/28/21 New Medications: Ipratropium Neb [Atrovent*] 0.5 mg NEB [id number] #120 amp Levalbuterol [Xopenex*] 0.63 mg NEB [id number] #120 vial Sotalol HCl [Betapace*] 80 mg PO BID 6AM 6PM #60 tab carvediloL [Coreg*] 25 mg PO BID 6AM 6PM #60 tab Apixaban [Eliquis *] 2.5 mg PO BID #60 tablet predniSONE [Deltasone] 40 mg PO DAILY #5 tab Nebulizer [Truneb Nebulizer] 1 each MC Q6H #1 each Diet: AHA Activity: Ad christ Followup: Wally Wood MD [ACTIVE - CAN ADMIT] - 1 Week Debbie Bah DO [Primary Care Provider] - 1-2 Weeks Time spent managing pt's care (in minutes): 36
[2021-04-28 12:58] VITALS: BP 133/80; TEMP 97.5
[2021-04-28 13:20] VITALS: O2SAT 93
[2021-04-28] MEDS ORDERED: FAMOTIDINE 20 MG TAB PO SCH (21:29)
--- NOTE | 2021-05-01 08:58 | ECHO ---
HEIGHT: 5 ft 7 in WEIGHT: 174 lb 0 oz DATE OF STUDY: 04/27/[address]: oscar curry 2-DIMENSIONAL: YES M.MODE: YES DOPPLER: YES COLOR FLOW: YES TDS: NO PORTABLE: NO DEFINITY: NO BUBBLE STUDY: NO DIAGNOSIS: ATRIAL FIBRILLATION WITH RAPID VENTRICULAR RESPONSE CARDIAC HISTORY: CATHERIZATION: NO SURGERY: NO PROSTHETIC VALVE: NO PACEMAKER: NO MEASUREMENTS (cm) DIASTOLIC (NORMALS) SYSTOLIC (NORMALS) IVSd 0.9 (0.6-1.2) LA Diam 2.5 (1.9-4.0) LVEF 58% LVIDd 3.7 (3.5-5.7) LVIDs 2.6 (2.0-3.5) %FS 30% LVPWd 1.0 (0.6-1.2) Ao Diam 2.1 (2.0-3.7) 2 DIMENSIONAL ASSESSMENT: RIGHT ATRIUM: NORMAL LEFT ATRIUM: NORMAL RIGHT VENTRICLE: NORMAL LEFT VENTRICLE: NORMAL TRICUSPID VALVE: NORMAL MITRAL VALVE: NORMAL PULMONIC VALVE: NORMAL AORTIC VALVE: NORMAL PERICARDIAL EFFUSION: NONE AORTIC ROOT: NORMAL LEFT VENTRICULAR WALL MOTION: NORMAL LEFT VENTRICULAR EJECTION FRACTION. DOPPLER/COLOR FLOW: MILD TRICUSPID REGURGITATION. COMMENTS: ATRIAL FIBRILLATION WITH RAPID VENTRICULAR RESPONSE. NORMAL LEFT VENTRICULAR SIZE AND FUNCTION. NO THROMBUS. NORMAL LEFT ATRIAL SIZE. TECHNOLOGIST: Stacey ATWOOD
== END 2021-04-28 14:15 | disposition home or self-care (01) | DRG 308 ==
LOC: ER 10:46 → ERHOLD 14:02 → 2ND 17:50
PROVIDERS: ADMIT Internal Medicine; ATTEND Internal Medicine
DX: I48.91 Unspecified atrial fibrillation (principal); I50.31 Acute diastolic (congestive) heart failure; I13.0 Hypertensive heart and chronic kidney disease with heart failure and stage 1 through stage 4 chronic kidney disease, or unspecified chronic kidney disease; J44.1 Chronic obstructive pulmonary disease with (acute) exacerbation; J96.11 Chronic respiratory failure with hypoxia; I47.1 Supraventricular tachycardia; N18.30 Chronic kidney disease, stage 3 unspecified; E78.5 Hyperlipidemia, unspecified; F41.8 Other specified anxiety disorders; K57.90 Diverticulosis of intestine, part unspecified, without perforation or abscess without bleeding; K21.9 Gastro-esophageal reflux disease without esophagitis; K44.9 Diaphragmatic hernia without obstruction or gangrene; Z86.73 Personal history of transient ischemic attack (TIA), and cerebral infarction without residual deficits; Z85.3 Personal history of malignant neoplasm of breast; Z20.828 Contact with and (suspected) exposure to other viral communicable diseases
CPT/HCPCS: 36415; 71045; 80048; 80061; 80076; 81003; 83735; 83880; 84100; 84439; 84443; 84481; 84484; 85025; 85610; 85730; 93005; 93306; 94760; 99285; J1644; J1940; J2920; J2930; J7030; U0003

== ENCOUNTER 2021-06-27 12:14 | Observation (INO) | payer OTHER ==
--- OUTSIDE RECORDS SUMMARY | 2021-06-27 12:17 | XMS REPORT | Continuity of Care Document ---
:1940 Author Organization [facility] t Address [address] [place] [address] Care Team Providers Name Role Phone [place] Attending Clinician Problems This patient has no known problems. Allergies, Adverse Reactions, Alerts Allergy Allergy Status Severity Reaction(s) Onset Inactive Treating Comm ents Source Name Type Date Date Clinician Nitrofur Adverse Active Info Not [facility] Reaction Available [facility] Macrobid Adverse Active Info Not [facility] Reaction Available [facility] Bactrim Adverse Active Info Not [facility] Reaction Available [facility] Levaquin Adverse Active Info Not [facility] Reaction Available [facility] Medications Ordered Filled Start Stop Current Ordering Indication Dosage Frequency Signature Comments Components Source Medication Medication Date Date Medication? Clinician (SIG) Name Name Geovany Geovany Yes Lucie [address] [facility] Tobramycin Tobramycin Yes Lucie [address] [facility] into [facility] affected [facility] 00 eye l [facility] Singulair Singulair Yes Lucie TAKE [address] Kendra TABLET BY [facility] Protonix Protonix Yes Lucie TAKE [address] [facility] Kamaili TABLET BY [facility] Lucie [address] [facility] Sodium Sodium Kendra in the [facility] evening [facility] Combivent Combivent Yes Lucie [address] Respimat Respimat Kendra Pr[facility]anna es - [facility] Levalbutero Levalbutero Yes Lucie [address] [facility] l HCl l HCl [facility] Aspir-81 Aspir-81 Yes Lucie [address] [facility] Lipitor Lipitor Yes Lucie [address] [facility] Lexapro Lexapro Yes Lucie [address] [facility] Ativan Ativan Yes Lucie [address] [facility] Kamaili as needed [facility] Loratadine Loratadine Yes Lucie [address] [facility] Symbicort Symbicort Yes Lucie [address] [facility] Coreg Coreg Yes Lucie [address] [facility]ra [facility] Escitalopra Escitalopra Yes Lucie TAKE [address] [facility] m Oxalate m Oxalate Kamaili TABLET BY [facility] EVERY DAY [facility] Potassium Potassium Yes Lucie [address] [facility] Coreg Coreg Yes Lucie TAKE [address] [facility] Kendra TABLET BY [facility] TWICE A l DAY [facility] Folic Acid Folic Acid Yes Lucie [address] [facility] Pantoprazol Pantoprazol Yes Lucie TAKE [address] [facility] Sodium e Sodium Kamaili TABLET BY [facility] EVERY DAY [facility] Trimethopri Trimethopri Yes Lucie [address] [facility] m m Kendra [facility] Flonase Flonase Yes Lucie [address] [facility] each [facility] nostril [facility] Amoxicillin Amoxicillin Yes Lucie [address] [facility] -Pot -Pot Kendra [facility] - Clavulanate Clavulanate M [facility] PredniSONE PredniSONE Yes Lucie [address] [facility]ra [facility] Spiriva Spiriva Yes Lucie [facility]uffs [facility] Respimat Respimat Kendra Prasanna es - Memoria l [facility] Losartan Losartan Yes Lucie TAKE [address] [facility] Potassium-H Potassium-H Kamaili TABLET BY [facility] - CTZ CTZ MOUTH [facility] EVERY DAY l [facility] Atorvastati Atorvastati Yes Lucie TAKE [address] [facility] n Calcium n Calcium Kamaili TABLET BY [facility] Immunizations Ordered Filled Immunization Date Status Comments [facility] e Immunization Name Name Prevnar 13 Prevnar 13 2019-07-[address] [facility] - -Pneumonia Vaccine -Pneumonia Vaccine 00:00:00 [facility] FluAD FluAD 2019-07-[address] [facility]00 [facility] Procedures This patient has no known procedures. Encounters Start End Encounter Admission Attending Care Care Encounter Source Date/Time Date/Time Type Type Clinicians Facility Department ID 2021-06-12 2021-06-12 [facility] [id number] 2021-05-30 2021-05-30 [facility] [id number] [facility] 2021-05-24 2021-05-24 [facility] [id number] [facility] 2021-05-15 2021-05-15 [facility] [id number] 2021-05-03 2021-05-03 [facility] [id number] [facility] 2021-02-22 2021-02-22 Office Jaison CODARIN [id number] 10:20:08 11:21:56 Visit Victoria Vega [id number] [place] [phone] [address] 2021-02-12 2021-02-12 [facility] [id number] [facility] 2021-01-26 2021-01-26 [facility] [id number] [facility] 2020-12-27 2020-12-27 [facility] [id number] [facility] 2020-12-07 2020-12-07 [facility] [id number] [facility] 2020-11-14 2020-11-14 Out[facility] [id number] [facility] 2020-10-06 2020-10-06 [facility] [id number] [facility] 2020-09-13 2020-09-13 Out[facility] [id number] [facility] 2020-07-07 2020-07-07 [facility] [id number] 10:30:00 10:30:00 t Specialty/U Cat[place] kes - Specialty rology [facility] a /Urology Clinic l Clinic Outpati ent Clinics 2020-05-02 2020-05-02 [facility] [id number] 15:08:00 15:08:00 t [facility] l Medicine Outpati ent Clinics 2020-04-10 2020-04-10 [facility] [id number] 10:30:00 10:30:00 t Specialty/U Catr[place] kes - Specialty rology [facility] /Urology Clinic l Clinic Outpati ent Clinics 2020-04-04 2020-04-04 [facility] [id number] [address] 14:03:00 14:03:00 t [place] [facility] Medicine l Medicine Outpati ent Clinics 2020-04-03 2020-04-03 [facility] [id number] 10:00:00 10:00:00 t [place] [facility] Medicine l Medicine Outpati ent Clinics 2020-03-29 2020-03-29 [facility] [id number] 10:30:00 10:30:00 t Specialty/U [place] kes - Specialty rology [facility] a /Urology Clinic l Clinic Outpati ent Clinics 2020-03-27 2020-03-27 [facility] [id number] 15:47:00 15:47:00 [facility] [employer] [facility] l Medicine Outpati ent Clinics 2020-03-27 2020-03-27 [facility] [id number] 11:08:00 11:08:00 [facility] l Medicine Outpati ent Clinics 2020-03-22 2020-03-22 [facility] [id number] 14:20:00 14:20:00 [facility] [employer] [facility] Medicine Outpati ent Clinics 2020-03-22 2020-03-22 [facility] [id number] 09:29:00 09:29:00 [facility] Medicine Outpati ent Clinics 2020-02-14 2020-02-14 [facility] [id number] 08:52:00 08:52:00 [facility] Medicine Outpati ent Clinics 2019-12-22 2019-12-22 [facility] [id number] 09:00:00 09:00:00 t Specialty/U [place] kes - Specialty rology [facility] a /Urology Clinic l Clinic Outpati ent Clinics 2019-12-01 2019-12-01 [facility] [id number] [address] 10:00:00 10:00:00 [place] [employer] [place] [facility] Medicine l Medicine Outpati ent Clinics 2019-09-20 2019-09-20 [facility] [id number] 15:55:00 15:55:00 [place] [employer] [facility] l Medicine Outpati ent Clinics 2019-09-08 2019-09-08 [facility] [id number] 09:00:00 09:00:00 [place] [facility] l Medicine Outpati ent Clinics 2019-08-23 2019-08-23 [facility] [id number] 09:28:00 09:28:00 t Specialty/U [place] kes - Specialty rology [facility] a /Urology Clinic l Clinic Outpati ent Clinics 2019-07-28 2019-07-28 [facility] [id number] 09:00:00 09:00:00 [place] [facility] l Medicine Outpati ent Clinics 2019-06-22 2019-06-22 [facility] [id number] 08:45:00 08:45:00 t Specialty/U [place] kes - Specialty rology [facility] /Urology Clinic l Clinic Outpati ent Clinics 2019-06-16 2019-06-16 [facility] [id number] 09:00:00 09:00:00 [place] [facility] l Medicine Outpati ent Clinics 2019-06-15 2019-06-15 [facility] [id number] 10:34:00 10:34:00 [place] [address] [facility] l Medicine Outpati ent Clinics 2019-03-24 2019-03-24 [facility] [id number] 10:40:00 10:40:00 [place] [facility] l Medicine Outpati ent Clinics 2019-03-09 2019-03-09 [facility] [id number] 10:08:00 10:08:00 t Specialty/U [place] kes - Specialty rology [facility] a /Urology Clinic l Clinic Outpati ent Clinics 2018-12-24 2018-12-24 [facility] [id number] [address] 09:45:00 09:45:00 t Specialty/U [place] kes - Specialty rology [facility] /Urology Clinic l Clinic Outpati ent Clinics 2018-12-17 2018-12-17 [facility] [id number] [address] 08:30:00 08:30:00 t [place] [facility] Medicine Medicine Outpati ent Clinics 2018-11-17 2018-11-17 [facility] [id number] 11:32:00 11:32:00 t [facility] [facility] Outpati ent Clinics 2018-10-14 2018-10-14 [facility] [id number] 09:44:00 09:44:00 t [place] [facility] Medicine Outpati ent Clinics 2018-09-10 2018-09-10 [facility] [id number] [address] 08:30:00 08:30:00 t [place] [facility] Medicine Outpati ent Clinics 2018-08-04 2018-08-04 [facility] [id number] 09:30:00 09:30:00 t Specialty/U [place] kes - Specialty rology Mem[facility] a /Urology Clinic l Clinic Outpati ent Clinics 2018-07-30 2018-07-30 [facility] [id number] 09:15:00 09:15:00 t Specialty/U [place] kes - Specialty rology Mem[facility] a /Urology Clinic l Clinic Outpati ent Clinics 2018-07-01 2018-07-01 [facility] [id number] 09:45:00 09:45:00 t Specialty/U [place] kes - Specialty rology [facility] /Urology Clinic l Clinic Outpati ent Clinics 2018-06-18 2018-06-18 [facility] [id number] [address] 09:00:00 09:00:00 t [place] [facility] Outpati ent Clinics 2018-06-17 2018-06-17 [facility] [id number] 08:15:00 08:15:00 t [facility] [facility] Outpati ent Clinics 2018-05-28 2018-05-28 [facility] [id number] 09:46:00 09:46:00 t [place] [facility] Outpati ent Clinics 2018-03-17 2018-03-17 [facility] [id number] 09:30:00 09:30:00 t [facility] Results This patient has no known results.
--- NOTE | 2021-06-27 13:09 | RAD REPORT ---
EXAM DESCRIPTION: CT - Head Brain Wo Cont - 06/27/2021 12:59 pm CLINICAL HISTORY: speech problem, fall, head injury, slurred speech COMPARISON: HEAD BRAIN W O CONTRAST dated 07/07/2015 TECHNIQUE: Axial 5 mm thick images of the head were obtained without IV contrast. All CT scans are performed using dose optimization technique as appropriate and may include automated exposure control or mA/KV adjustment according to patient size. FINDINGS: No intracranial hemorrhage, mass, edema or shift of mid-line structures. No acute cortical based infarction identifiable. No cortical edema or sulcal effacement. Mild to moderate atrophy nova ges are present showing mild progression from 2014. Moderate chronic ischemic change in the cerebral white matter are also show similar progression. No abnormal extra-axial fluid collections. Ventricles are in proportion to volume loss. Arterial and physiologic calcifications are present. Mastoid air cells and visualized portions of the paranasal sinuses are clear. No acute bony findings. IMPRESSION: Atrophy and chronic ischemic changes are present showing progression from 2014 compariso n. No acute intracranial finding identifiable.
[2021-06-27 13:27] LABS: Absolute Lymphocytes (CBC) 1.4 K/uL (0.7-4.9); Basophils % 0.9 % (0-1.3); Hematocrit 39.2 % (36.0-45.0); Lymphocytes % 17.4 % (15.3-44.8); MPV 8.9 fL (7.6-11.3); RBC Red Blood Cell Count 4.31 M/uL (3.86-4.86)
[2021-06-27 13:31] LABS: Protime INR 1.38
[2021-06-27 13:39] LABS: Potassium 3.8 mmol/L (3.5-5.1)
[2021-06-27 13:49] LABS: Urine Blood Trace-intact (Negative); Urine Glucose Negative (Negative); Urine Protein 1+ (Negative); Urine Specific Gravity 1.025 (1.005-1.030)
[2021-06-27 14:04] LABS: Urine Bacteria 20-50 /HPF (<20); Urine Mucus MOD /HPF (NONE SEEN)
--- NOTE | 2021-06-27 14:19 | RAD REPORT ---
EXAM DESCRIPTION: RAD - Chest Single View - 06/27/2021 1:51 pm CLINICAL HISTORY: fall, left rib pain COMPARISON: Portable April 26 TECHNIQUE: AP portable chest image was obtained 06/27/2021 1:51 pm . FINDINGS: Lung volumes are normal. Baseline interstitial pattern matches the comparison. Left base p leural effusion is present obscuring the left hemidiaphragm and portions of the left heart border. Le ft base atelectasis is present. Lung base mass or infiltrate could be masked. No gross change from e April imaging. Heart and vasculature are normal. No pneumothorax is present. No gross left-side rib abnormality see n. No acute aortic findings suspected. IMPRESSION: Left-side pleural effusion without pneumothorax. Left base atelectasis and/or infiltrate unchanged from April 26. No gross rib abnormality seen. Concerns for rib fracture can be further addressed with dedicated rib films as warranted.
--- NOTE | 2021-06-27 15:15 | RAD REPORT ---
EXAM DESCRIPTION: MRI - Brain Wo Cont - 06/27/2021 2:40 pm CLINICAL HISTORY: SLURRED SPEECH COMPARISON: MRI BRAIN WITHOUT CONTRAST dated 07/07/2015; Head Brain Wo Cont dated 06/27/2021 TECHNIQUE: Sagittal T1-weighted images were obtained along with axial PD, heavily T2-weighted and T2 -FLAIR images. Axial DWI and ADC mapping sequences were also obtained along with coronal heavily T2-w eighted images. FINDINGS: Diffusion sequence shows no acute infarction. Intracranial hemorrhage is not suspected. Th e punctate T1 hyperintensity in the right-sided ari is not believed to be a brainstem hemorrhage. No mass lesion or edema identified. No shift of midline structures. Moderate severity atrophy changes a re present progressive from 2014. Ventricles are in proportion to the amount of volume loss. Prominen t chronic ischemic changes in the cerebral white matter are present also progressive. Punctate brains tem chronic ischemic changes are seen. Curry-matter/white matter junction is preserved. Signal voids a re seen as a normal finding in the major intracranial vessels. No globe or orbital content abnormality. Mastoid air cells are clear. Mucosal thickening is seen in the left side sphenoid sinus. No air-fluid level. IMPRESSION: No intracranial hemorrhage is confirmed. No acute infarction, mass or other abnormality that may be a trigger for fall. Chronic ischemic change and atrophy changes are present, moderate in severity and progressive from .
[2021-06-27] MEDS ORDERED: CEFTRIAXONE/SWI 1gm 1 GM/10 ML SYR ONE (15:49)
[2021-06-27] MEDS ORDERED: NA CHLORIDE 0.9% 500 ML ONE (15:49)
--- NOTE | 2021-06-27 15:50 | EDPHYS ---
[facility] Name: Faiza Pete Age: 81 yrs Sex: Female : 1940 Arrival Date: 06/27/2021 Time: 12:24 Bed 25 Private MD: ED Physician Jose J Love HPI: 06/27 13:10 This 81 yrs old Female presents to ER via EMS with complaints of Slurred rn speech. 13:10 The patient presents to the emergency department with a speech or higher order brain rn function problem. Onset: The symptoms/episode began/occurred 2 day(s) ago. Context: occurred at home, occurred while the patient was at rest. Associated signs and symptoms: Pertinent positives: Slurred speech, Pertinent negatives: fever, headache, neck stiffness, seizure, syncope, loss of vision. Severity of symptoms: At their worst the symptoms were mild in the emergency department the symptoms are unchanged. Current symptoms: Slurred speech. The patient has not experienced similar symptoms in the past. The patient has not recently seen a physician. Patient and family report 2 days of slurred speech, not improving, not related with any focal neurological deficits otherwise. Also reports fall today thinks hit head, on anticoagulation. Denies loss of consciousness or vomiting. No seizure. Historical: - Allergies: 12:27 Bactrim; kg 12:27 Levaquin; kg 12:27 Macrobid; kg - Home Meds: 12:27 Advair Diskus 100-50 mcg/dose Inhl dsdv 1 puff 2 times per day [Active]; atorvastatin kg 10 mg Oral tab 1 tab once daily [Active]; carvedilol 25 mg Oral tab daily [Active]; Claritin 10 mg Oral tab 1 tab once daily [Active]; Lexapro 20 mg Oral tab 1 tab once daily [Active]; pantoprazole 40 mg Oral TbEC 1 tab once daily [Active]; Potassium Chloride Oral [Active]; Symbicort 80-4.5 mcg/actuation inhalation HFAA 2 puffs 2 times per day [Active]; trimethoprim 100 mg Oral tab once daily [Active]; Lexapro Oral [Active]; Eliquis oral [Active]; clonazepam Oral [Active]; - PMHx: 12:35 Aneurysm; Cancer, Breast; COPD; hemmorhoids; Hyperlipidemia; Hypertension; SVT; TIA; kg - Immunization history:: Adult Immunizations up to date, Client reports receiving the 2nd dose of the Covid vaccine, Date received: December 22, 2020 [employer] Client reports receiving the 1st dose of the Covid vaccine, November 24, 2020 [employer]. - Social history:: Smoking status: Patient/guardian denies using tobacco, but has a distant history of tobacco abuse. - Family history:: not pertinent. - Hospitalizations: : No recent hospitalization is reported. ROS: 13:10 Constitutional: Negative for fever, chills, and weight loss, Eyes: Negative for injury, rn pain, redness, and discharge, ENT: Negative for injury, pain, and discharge, Neck: Negative for injury, pain, and swelling, Cardiovascular: Negative for chest pain, palpitations, and edema, Respiratory: Negative for shortness of breath, cough, wheezing, and pleuritic chest pain, Abdomen/GI: Negative for abdominal pain, nausea, vomiting, diarrhea, and constipation, Back: Negative for injury and pain, : Negative for injury, bleeding, discharge, and swelling, MS/Extremity: Negative for injury and deformity, Skin: Negative for injury, rash, and discoloration, Neuro: Negative for snumbness, tingling, and seizure. Exam: 13:10 Constitutional: This is a well developed, well nourished patient who is awake, alert, rn and in no acute distress. Head/Face: Normocephalic, atraumatic. Eyes: Periorbital areas with no swelling, redness, or edema. ENT: Moist mucous membranes Cardiovascular: Regular rate and rhythm. No pulse deficits. Respiratory: No increased work of breathing, no retractions or nasal flaring. Abdomen/GI: Soft, non-tender Skin: Warm, dry MS/ Extremity: Pulses equal, no cyanosis. Neuro: Awake and alert, GCS 15, oriented to person, place, time, and situation. Cranial nerves II-XII grossly intact. Motor strength 4/5 in all extremities. Sensory grossly intact. Cerebellar exam normal. Positive slurred speech 17:14 ECG was reviewed by the Attending Physician. rn Vital Signs: 12:25 BP 141 / 78; Pulse 88; Resp 20; Temp 97.7(TE); Pulse Ox 99% on 4 lpm NC; Weight 77.11 kg kg (R); Height 5 ft. 7 in. (170.18 cm) (R); Pain 0/10; 12:41 BP 96 / 82; Pulse 83; Resp 20; Temp 99.0(O); Pulse Ox 100% on 3 lpm NC; vg1 13:15 BP 141 / 82; Pulse 75; Resp 18; Pulse Ox 100% on 3 lpm NC; vg1 14:54 BP 136 / 86; Pulse 78; Resp 20; Pulse Ox 100% on 3 lpm NC; vg1 15:45 BP 111 / 76; Pulse 86; Resp 22; Pulse Ox 100% on 3 lpm NC; vg1 16:30 BP 161 / 97; Pulse 75; Resp 22; Pulse Ox 100% ; vg1 19:30 BP 153 / 77; Pulse 76; Resp 20; Pulse Ox 100% ; vg1 20:00 BP 161 / 79; Pulse 75; Resp 22; Pulse Ox 100% ; vg1 12:25 Body Mass Index 26.63 (77.11 kg, 170.18 cm) kg MDM: 12:26 Patient medically screened. rn 15:47 Data reviewed: vital signs, nurses notes, lab test result(s), EKG, radiologic studies, rn CT scan, MRI, plain films, and as a result, I will admit patient. Data interpreted: mine foreman: rate is 78 beats/min, rhythm is normal sinus rhythm, regular, with no ectopy, Interpretation: normal rate, normal rhythm, Pulse oximetry: on room air is 100 %. Interpretation: normal. Test interpretation: by ED physician or midlevel provider: ECG, plain radiologic studies, Chest x-ray with pleural effusion and mild pulmonary edema, no pneumothorax or pneumonia. Counseling: I had a detailed discussion with the patient and/or guardian regarding: the historical points, exam findings, and any diagnostic results supporting the discharge/admit diagnosis, lab results, radiology results, the need for further work-up and treatment in the hospital. Response to treatment: the patient's symptoms have mildly improved after treatment, and as a result, I will admit patient. Admission orders: after a detailed discussion of the patient's condition and case, the admit orders are written by me. ED course: Patient seems okay, CT no acute findings MRI without contrast without evidence of acute infarction. Daughter here states still acting confused and not at baseline. Diagnosed with possible UTI and dehydration here, daughter not comfortable taking her home at this point because not at baseline, will admit to hospitalist service.. 06/27 12:32 Order name: CBC with Diff; Complete Time: 15:21 rn 06/27 12:32 Order name: Basic Metabolic Panel; Complete Time: 15:21 rn 06/27 12:32 Order name: Protime (+inr); Complete Time: 15:21 rn 06/27 12:32 Order name: Ptt, Activated; Complete Time: 15:21 rn 06/27 12:32 Order name: Urine Microscopic Only; Complete Time: 15:21 rn 06/27 13:48 Order name: Urine Dipstick-Ancillary; Complete Time: 15:21 EDWI 06/27 12:30 Order name: CT Head Brain wo Cont; Complete Time: 15:21 rn 06/27 12:32 Order name: MRI - Brain Wo Cont; Complete Time: 15:21 rn 06/27 13:10 Order name: XRAY Chest (1 view); Complete Time: 15:21 rn 06/27 14:05 Order name: Urine Culture [facility] 06/27 17:57 Order name: SARS-COV-2 RT PCR EDWI 06/27 12:32 Order name: IV Start; Complete Time: 13:18 rn 06/27 12:32 Order name: Urine Dipstick-Ancillary (obtain specimen); Complete Time: 15:34 rn 06/27 12:32 Order name: EKG; Complete Time: 12:32 rn 06/27 12:32 Order name: EKG - Nurse/Tech; Complete Time: 13:27 rn EC:14 Rate is 75 beats/min. Rhythm is regular. QRS [place] is Normal. GA interval is normal. QRS rn interval is normal. QT interval is prolonged at 500 msec. No Q waves. T waves are Normal. No ST changes noted. Clinical impression: NSR w/ Non-specific ST/T Changes and Prolonged QT, PVCs. Interpreted by me. Reviewed by me. Administered Medications: 15:28 Drug: NS 0.9% 500 ml Route: IV; Rate: bolus; Site: right wrist; vg1 16:15 Follow up: IV Status: Completed infusion; IV Intake: 500ml vg1 15:29 Drug: Rocephin (cefTRIAXone) 1 grams Route: IV; Rate: calculated rate; Site: right vg1 wrist; 16:00 Follow up: IV Status: Completed infusion vg1 15:35 CANCELLED (Physician Discretion): NS 0.9% 500 ml IV at bolus once vg1 Disposition Summary: 06/27/21 15:49 Hospitalization Ordered Hospitalization Status: Observation rn Provider: Vipul Ordonez rn Condition: Stable rn Problem: new rn Symptoms: have improved rn Bed/Room Type: Standard rn Location: Telemetry/MedSurg (observation)(06/27/21 19:58) tl1 Room Assignment: 202(06/27/21 20:35) tl1 Diagnosis - Slurred speech rn - Altered mental status, unspecified rn - UTI/ Urinary tract infection, site not specified rn - Dehydration rn Forms: - Medication Reconciliation Form rn - SBAR form rn Signatures: Dispatcher [employer] EDMS Lorene Jimenes Roman, MD MD rn [place]agna, Tonya RN RN tl1 Tonia Brown RN RN vg1 Ingrid Hughes, RN RN kg Corrections: (The following items were deleted from the chart) 15:35 15:34 NS 0.9% 500 ml IV at bolus once ordered. rn vg1 15:35 15:35 NS 0.9% 500 ml IV at bolus once ordered. vg1 vg1 16:57 15:48 CORONAVIRUS+MR.LAB.BRZ ordered. EDMS EDMS 18:35 15:49 Telemetry/MedSurg (observation) rn bd 18:35 15:49 rn bd 19:58 18:35 [facility] ER HOLD bd tl1 19:58 18:35 ERHOLD- bd tl1 20:35 19:58 231 tl1 tl1
--- NOTE | 2021-06-27 15:50 | ER ---
Nurse's Notes [facility] Name: Faiza Pete Age: 81 yrs Sex: Female : 1940 Arrival Date: 06/27/2021 Time: 12:24 Bed 25 Private MD: Diagnosis: Slurred speech;Altered mental status, unspecified;UTI/ Urinary tract infection, site not specified;Dehydration Presentation: 06/27 12:25 Chief complaint: EMS states: Slurred speech x 2 days per son. Pt feel and hit her head kg this morning and is on Eliquis. Coronavirus screen:. Ebola Screen: Patient negative for fever greater than or equal to 101.5 degrees Fahrenheit, and additional compatible Ebola Virus Disease symptoms Patient denies exposure to infectious person. Patient denies travel to an Ebola-affected area in the 21 days before illness onset. Initial Sepsis Screen: Does the patient meet any 2 criteria? No. Patient's initial sepsis screen is negative. Does the patient have a suspected source of infection? No. Patient's initial sepsis screen is negative. Risk Assessment: Do you want to hurt yourself or someone else? Patient reports no desire to harm self or others. Onset of symptoms was June 25, 2021. 12:25 Method Of Arrival: EMS: [facility] kg 12:25 Acuity: KATHI 3 kg Triage Assessment: 12:33 General: Appears in no apparent distress. Behavior is calm, cooperative, appropriate kg for age, quiet. Pain: Denies pain. Historical: - Allergies: 12:27 Bactrim; kg 12:27 Levaquin; kg 12:27 Macrobid; kg - Home Meds: 12:27 Advair Diskus 100-50 mcg/dose Inhl dsdv 1 puff 2 times per day [Active]; atorvastatin kg 10 mg Oral tab 1 tab once daily [Active]; carvedilol 25 mg Oral tab daily [Active]; Claritin 10 mg Oral tab 1 tab once daily [Active]; Lexapro 20 mg Oral tab 1 tab once daily [Active]; pantoprazole 40 mg Oral TbEC 1 tab once daily [Active]; Potassium Chloride Oral [Active]; Symbicort 80-4.5 mcg/actuation inhalation HFAA 2 puffs 2 times per day [Active]; trimethoprim 100 mg Oral tab once daily [Active]; Lexapro Oral [Active]; Eliquis oral [Active]; clonazepam Oral [Active]; - PMHx: 12:35 Aneurysm; Cancer, Breast; COPD; hemmorhoids; Hyperlipidemia; Hypertension; SVT; TIA; kg - Immunization history:: Adult Immunizations up to date, Client reports receiving the 2nd dose of the Covid vaccine, Date received: December 22, 2020 [employer] Client reports receiving the 1st dose of the Covid vaccine, November 24, 2020 [employer]. - Social history:: Smoking status: Patient/guardian denies using tobacco, but has a distant history of tobacco abuse. - Family history:: not pertinent. - Hospitalizations: : No recent hospitalization is reported. Screenin:40 Abuse screen: Denies threats or abuse. Denies injuries from another. Nutritional kg screening: No deficits noted. Tuberculosis screening: No symptoms or risk factors identified. Fall Risk None identified. Assessment: 12:39 General: Appears in no apparent distress. uncomfortable, Behavior is calm, cooperative. vg1 Pain: Complains of pain in head and lower back Pain currently is 3 out of 10 on a pain scale. Pain began earlier this morning Noted to be grimacing. Neuro: Level of Consciousness is awake, alert, obeys commands, Oriented to person, place, time, situation, [employer] are equal bilaterally Facial symmetry appears normal, Intact Reports slurred speech for a couple of days. Cardiovascular: Patient's skin is warm and dry. Respiratory: Airway is patent Respiratory effort is even, unlabored. GI: Reports nausea. : No signs and/or symptoms were reported regarding the genitourinary system. EENT: No signs and/or symptoms were reported regarding the EENT system. Derm: Skin is intact, Skin is pink, warm \T\ dry. No bruising noted on pt back. No bruising on pt forehead nor laceration. Musculoskeletal: Circulation, motion, and sensation intact. 13:33 Reassessment: Patient appears in no apparent distress at this time. No changes from vg1 previously documented assessment. Patient and/or family updated on plan of care and expected duration. Pain level reassessed. Patient is alert, oriented x 3, equal unlabored respirations, skin warm/dry/pink. 14:03 Reassessment: pt transported via stretcher to MRI. vg1 14:54 Reassessment: Patient appears in no apparent distress at this time. No changes from vg1 previously documented assessment. Patient and/or family updated on plan of care and expected duration. Pain level reassessed. Patient is alert, oriented x 3, equal unlabored respirations, skin warm/dry/pink. 15:52 Reassessment: Patient appears in no apparent distress at this time. Patient and/or vg1 family updated on plan of care and expected duration. Pain level reassessed. Patient is alert, oriented x 3, equal unlabored respirations, skin warm/dry/pink. 17:00 Reassessment: Patient appears in no apparent distress at this time. Patient and/or vg1 family updated on plan of care and expected duration. Pain level reassessed. Patient is alert, oriented x 3, equal unlabored respirations, skin warm/dry/pink. Patient denies pain at this time. 18:00 Reassessment: Patient appears in no apparent distress at this time. No changes from vg1 previously documented assessment. Patient is alert, oriented x 3, equal unlabored respirations, skin warm/dry/pink. Pt requesting to sit in bedside recliner. Pt assisted to chair. 19:15 Reassessment: Patient appears in no apparent distress at this time. Patient and/or vg1 family updated on plan of care and expected duration. Pain level reassessed. Patient is alert, oriented x 3, equal unlabored respirations, skin warm/dry/pink. Pt placed back into bed with assistance. Patient denies pain at this time. 20:24 Reassessment: attempted to call report. vg1 Vital Signs: 12:25 BP 141 / 78; Pulse 88; Resp 20; Temp 97.7(TE); Pulse Ox 99% on 4 lpm NC; Weight 77.11 kg kg (R); Height 5 ft. 7 in. (170.18 cm) (R); Pain 0/10; 12:41 BP 96 / 82; Pulse 83; Resp 20; Temp 99.0(O); Pulse Ox 100% on 3 lpm NC; vg1 13:15 BP 141 / 82; Pulse 75; Resp 18; Pulse Ox 100% on 3 lpm NC; vg1 14:54 BP 136 / 86; Pulse 78; Resp 20; Pulse Ox 100% on 3 lpm NC; vg1 15:45 BP 111 / 76; Pulse 86; Resp 22; Pulse Ox 100% on 3 lpm NC; vg1 16:30 BP 161 / 97; Pulse 75; Resp 22; Pulse Ox 100% ; vg1 19:30 BP 153 / 77; Pulse 76; Resp 20; Pulse Ox 100% ; vg1 20:00 BP 161 / 79; Pulse 75; Resp 22; Pulse Ox 100% ; vg1 12:25 Body Mass Index 26.63 (77.11 kg, 170.18 cm) kg ED Course: 12:24 Patient arrived in ED. kg 12:26 Jose J Love MD is Attending Physician. rn 12:27 Triage completed. kg 12:33 Arm band placed on left wrist. kg 12:34 Maintain EMS IV. Dressing intact. Good blood return noted. Site clean \T\ dry. Gauge \T\ kg site: 20 Right wrist. 12:38 Tonia Brown, RN is Primary Nurse. vg1 12:40 Patient has correct armband on for positive identification. kg 12:58 CT Head Brain wo Cont In Process Unspecified. EDMS 13:19 Initial lab(s) drawn, by nd, sent to lab. vg1 13:51 XRAY Chest (1 view) In Process Unspecified. EDMS 14:40 MRI - Brain Wo Cont In Process Unspecified. EDMS 15:49 Vipul Ordonez DO is Hospitalizing Provider. rn 15:52 COVID swab sent to lab. vg1 18:04 No provider procedures requiring assistance completed. Patient admitted, IV remains in vg1 place. Administered Medications: 15:28 Drug: NS 0.9% 500 ml Route: IV; Rate: bolus; Site: right wrist; vg1 16:15 Follow up: IV Status: Completed infusion; IV Intake: 500ml vg1 15:29 Drug: Rocephin (cefTRIAXone) 1 grams Route: IV; Rate: calculated rate; Site: right vg1 wrist; 16:00 Follow up: IV Status: Completed infusion vg1 15:35 CANCELLED (Physician Discretion): NS 0.9% 500 ml IV at bolus once vg1 Intake: 16:15 IV: 500ml; Total: 500ml. vg1 Outcome: 15:49 Decision to Hospitalize by Provider. rn 18:04 Admitted to ER Hold. Please see [facility] for further documentation. vg1 18:04 Condition: stable 18:04 Instructed on the need for admit. 20:52 Admitted to Tele accompanied by tech, via stretcher, room 202, with oxygen, with chart, vg1 Report called to Anusha ESPINOSA 20:52 Condition: stable 20:52 Instructed on the need for admit. 21:46 Patient left the ED. mw2 Signatures: Dispatcher [employer] EDMS Jose J Love MD MD rn [place], MyKena mw2 Tonia Brown RN RN vg1 Ingrid Hughes RN RN kg Corrections: (The following items were deleted from the chart) 20:13 18:00 Reassessment: Patient appears in no apparent distress at this time. No changes vg1 from previously documented assessment. Patient is alert, oriented x 3, equal unlabored respirations, skin warm/dry/pink. vg1 20:13 20:12 Reassessment: Patient appears in no apparent distress at this time. Patient vg1 and/or family updated on plan of care and expected duration. Pain level reassessed. Patient is alert, oriented x 3, equal unlabored respirations, skin warm/dry/pink. vg1
--- NOTE | 2021-06-27 18:26 | P.HP ---
Certification for Inpatient Patient admitted to: Observation With expected LOS: <2 Midnights Patient will require the following post-hospital care: Home Health Services Practitioner: I am a practitioner with admitting privileges, knowledge of patient current condition, hospital course, and medical plan of care. Services: Services provided to patient in accordance with Admission requirements found in Title 42 Section 412.3 of the Code of Federal Regulations Patient History Date of Service: 06/27/21 Primary Care Provider: Dr. Bah Reason for admission: slurred speech, UTI, delirium History of Present Illness: This is a 81 y/o F with history of afib, TIA, COPD, HTN, breast cancer s/p lumpectomy, chronic UTI on trimethoprim, who presents today with worsening confusion and slurred speech. Patient reports falling into a wall today and hitting her rib cage. Denies hitting head or falling to floor or loss of consciousness. Daughter is at beside and reports patient has been confused for the past several days and started slurring her speech today. head CT: IMPRESSION: Atrophy and chronic ischemic changes are present showing progression from 2015 comparison. No acute intracranial finding identifiable. brain MRI: IMPRESSION: No intracranial hemorrhage is confirmed. No acute infarction, mass or other abnormality that may be a trigger for fall. Chronic ischemic change and atrophy changes are present, moderate in severity and progressive from 2015. CXR: IMPRESSION: Left-side pleural effusion without pneumothorax. Left base atelectasis and/or infiltrate unchanged from April 26. No gross rib abnormality seen. Concerns for rib fracture can be further addressed with dedicated rib films as warranted. Allergies levofloxacin [From Levaquin] Allergy (Verified 04/26/21 23:07) Itching/Hives/Rash sulfamethoxazole [From Bactrim] Allergy (Verified 04/26/21 23:07) Unknown trimethoprim [From Bactrim] Allergy (Verified 04/26/21 23:07) Unknown nitrofurantoin macrocrystal [From Macrobid] Adverse Reaction (Intermediate, Verified 04/26/21 23:07) vomiting nitrofurantoin [From Macrobid] Adverse Reaction (Verified 04/26/21 23:07) vomiting Home Medications: Atorvastatin Calcium [Lipitor*] 10 mg PO BEDTIME 04/26/21 Budesonide/Formoterol Fumarate [Symbicort 160-4.5 Mcg Inhaler] 2 puff IH BID 04/26/21 Cyclosporine [Restasis] 2 drop EACH EYE BID 04/26/21 Escitalopram [Lexapro*] 20 mg PO DAILY 04/26/21 Levalbuterol [Xopenex*] 1 puff IH Q6H PRN 04/26/21 Loratadine [Claritin*] 10 mg PO DAILY 04/26/21 Pantoprazole [Protonix Tab*] 40 mg PO DAILY 04/26/21 Potassium Gluconate [Potassium] 99 mg PO SEECOM 04/26/21 Trimethoprim [Primsol] 50 mg PO DAILY 04/26/21 Apixaban [Eliquis *] 2.5 mg PO BID #60 tablet 04/28/21 Ipratropium Neb [Atrovent*] 0.5 mg NEB [id number] #120 amp 04/28/21 Levalbuterol [Xopenex*] 0.63 mg NEB [id number] #120 vial 04/28/21 Nebulizer [Truneb Nebulizer] 1 each MC Q6H #1 each 04/28/21 Sotalol HCl [Betapace*] 80 mg PO BID 6AM 6PM #60 tab 04/28/21 carvediloL [Coreg*] 25 mg PO BID 6AM 6PM #60 tab 04/28/21 predniSONE [Deltasone] 40 mg PO DAILY #5 tab 04/28/21 - Past Medical/Surgical History Diabetic: No -: Brain aneurysm -: HTN -: History of Breast Cancer -: Hyperlipidemia -: Depression with anxiety -: Diverticulosis -: GERD with hiatal hernia -: History of back pain and possible DDD/DJD. -: History of TIAs -: SVT -: hemmorhoids -: lumpectomy Psychosocial/ Personal History: unknown - Family History Father -: Heart disease Mother -: Heart disease - Social History Alcohol use: No CD- Drugs: No Caffeine use: No Review of Systems 10-point ROS is otherwise unremarkable Physical Examination - Physical Exam General: Alert, In no apparent distress, Oriented x3, Cooperative HEENT: Atraumatic, Normocephalic, EOMI Neck: Supple Respiratory: Diminished, Inspiratory wheezes Cardiovascular: No edema, Regular rate/rhythm Capillary refill: <2 Seconds Gastrointestinal: Normal bowel sounds, Soft and benign, Non-distended Musculoskeletal: No swelling, No warmth Integumentary: No erythema, No cyanosis Neurological: Normal speech, Normal tone, Normal affect - Studies Laboratory Data (last 24 hrs) 06/27/21 13:15: PT 15.9 H, INR 1.38, APTT 23.7 L 06/27/21 13:15: Sodium 143, Potassium 3.8, BUN 15, Creatinine 0.96, Glucose 130 H 06/27/21 13:15: WBC 7.80, Hgb 12.9, Hct 39.2, Plt Count 204 Assessment and Plan - Plan impression: slurred speech and confusion likely secondary to UTI afib, on chronic anticoagulation history of TIA HTN GERD COPD plan: -pt alert and oriented with clear speech on exam today -daughter remains concerned that patient has not returned to baseline -will admit for observation -imaging negative for acute processes -UA positive. cultures pending -IV antibiotics -monitor on telemetry -PT consult -SW consult -restart home meds -anticipate improvement in 24h DVT prophylaxis: eliquis Discharge Plan: Home Plan to discharge in: 24 Hours - Advance Directives Does patient have a Living Will: No Does patient have a Durable POA for Healthcare: Yes Time Spent Managing Pts Care (In Minutes): 70
[2021-06-27] MEDS ORDERED: ACETAMINOPHEN 500 MG TAB PO PRN (19:56)
[2021-06-27] MEDS ORDERED: clonazePAM 0.5 MG TAB PO PRN (19:56)
[2021-06-27] MEDS ORDERED: ATORVASTATIN 10 MG TAB PO SCH (21:00)
[2021-06-27] MEDS: DULERA 100/5 (MOMETASONE/FORMOTEROL) INHALER IH SCH (21:00)
[2021-06-27] MEDS: IPRATROPIUM BROM 0.5MG/2.5ML NEB SCH (21:17)
[2021-06-27] MEDS: ALBUTEROL 2.5 MG/3 ML NEB SOL NEB SCH (21:17)
[2021-06-27] MEDS ORDERED: ALBUTEROL 2.5 MG/3 ML NEB SOL ONE (21:35)
[2021-06-27] MEDS ORDERED: IPRATROPIUM BROM 0.5MG/2.5ML ONE (21:36)
[2021-06-27 21:54] VITALS: BMI 25.1
[2021-06-27] MEDS: APIXABAN 2.5 MG TABLET PO SCH (22:44)
[2021-06-27] MEDS: SOTALOL HCL 80 MG TAB PO SCH (22:44)
[2021-06-28 00:25] LABS: Urine Appearance CLEAR (Clear); Urine Blood TRACE (Negative); Urine Color DK YELLOW (Yellow); Urine Glucose NEGATIVE (Negative); Urine Protein 1+ (Negative); Urine Urobilinogen 0.2 mg/dL (0.2-1.0); Urine pH 5.5 (5.0-7.0)
[2021-06-28 00:33] LABS: Urine Microscopic Reflex ORDER UMIC
[2021-06-28 00:50] LABS: Urine Bilirubin NEGATIVE (Negative)
[2021-06-28 00:57] LABS: Urine Bacteria <20 /HPF (<20); Urine RBC <5 /HPF (NONE SEEN)
[2021-06-28] MEDS: IPRATROPIUM BROM 0.5MG/2.5ML NEB SCH ×2 (01:25→08:00)
[2021-06-28] MEDS: ALBUTEROL 2.5 MG/3 ML NEB SOL NEB SCH ×2 (01:25→08:00)
[2021-06-28] MEDS: SOTALOL HCL 80 MG TAB PO SCH (05:33)
--- NOTE | 2021-06-28 05:54 | P.PN ---
Subjective Date of Service: 06/28/21 Primary Care Provider: Dr. Bah Chief Complaint: slurred speech, UTI, delirium Subjective: Improving (Patient doing well. No slurred speech noted.) Physical Examination - Vital Signs Temperature: 97.6 F Blood Pressure: 157/70 Pulse: 74 Respirations: 16 Pulse Ox (%): 96 - Studies Laboratory Data (last 24 hrs) 06/27/21 13:15: PT 15.9 H, INR 1.38, APTT 23.7 L 06/27/21 13:15: Sodium 143, Potassium 3.8, BUN 15, Creatinine 0.96, Glucose 130 H 06/27/21 13:15: WBC 7.80, Hgb 12.9, Hct 39.2, Plt Count 204 Assessment & Plan Discharge Plan: Home (With home health and physical therapy) Plan to discharge in: 24 Hours Physician Review Additional Text: COVID: Negative CT Head: IMPRESSION: Atrophy and chronic ischemic changes are present showing progression from 2015 comparison. No acute intracranial finding identifiable. Brain MRI: IMPRESSION: No intracranial hemorrhage is confirmed. No acute infarction, mass or other abnormality that may be a trigger for fall. Chronic ischemic change and atrophy changes are present, moderate in severity and progressive from 2015. CXR: IMPRESSION: Left-side pleural effusion without pneumothorax. Left base atelectasis and/or infiltrate unchanged from April 26. No gross rib abnormality seen. Concerns for rib fracture can be further addressed with dedicated rib films as warranted. Physical exam: General: Alert, In no apparent distress, Oriented x3, Cooperative HEENT: Atraumatic, Normocephalic, EOMI Neck: Supple Respiratory: Diminished, Inspiratory wheezes Cardiovascular: No edema, Regular rate/rhythm Capillary refill: <2 Seconds Gastrointestinal: Normal bowel sounds, Soft and benign, Non-distended Musculoskeletal: No swelling, No warmth Integumentary: No erythema, No cyanosis Neurological: Normal speech, Normal tone, Normal affect Impression: Slurred speech with acute encephalopathy secondary to UTI and possible TIA with history of TIA Atrial fibrillation on chronic anticoagulation HTN GERD COPD Plan: Patient remained stable. Patient alert and with clear speech. Patient appears to be at her baseline level. While physical therapy assess ambulation. Social work to help arrange for home health and physical therapy at discharge. Continue antibiotic. Await urine culture results. Likely discharge as early as today with oral antibiotics. UTI prevention will be provided. Continue medication for atrial fibrillation, hypertension, GERD, and COPD. This includes Eliquis 2.5 mg 1 pill twice daily, Lipitor 10 mg daily, sotalol 80 mg 1 pill twice daily, Lexapro 20 mg daily, clonazepam 0.5 mg at bedtime, Protonix 40 mg daily, folic acid daily, thiamine daily, and Dulera. Patient takes Symbicort at home. Wean off oxygen. Patient may require home oxygen at discharge. Will help arrange. Will discuss with patient and family about plan of care. DVT prophylaxis: eliquis Code Status: Full code Discharge Plan: Home with home health Time Spent Managing Pts Care (In Minutes): 55
[2021-06-28 06:09] LABS: Absolute Lymphocytes (CBC) 1.4 K/uL (0.7-4.9); Basophils % 0.8 % (0-1.3); Hematocrit 35.3 % (36.0-45.0); Lymphocytes % 20.3 % (15.3-44.8); MPV 8.7 fL (7.6-11.3); RBC Red Blood Cell Count 3.87 M/uL (3.86-4.86)
[2021-06-28 06:21] LABS: Phosphorus 4.5 mg/dL (2.5-4.9)
[2021-06-28] MEDS ORDERED: PANTOPRAZOLE 40MG TABLET PO SCH (06:30)
[2021-06-28 06:33] LABS: Potassium 3.9 mmol/L (3.5-5.1); Thyroid Stimulating Hormone 0.439 uIU/mL (0.360-3.740)
[2021-06-28] MEDS ORDERED: IPRATROPIUM BROM 0.5MG/2.5ML NEB PRN (08:17)
[2021-06-28] MEDS ORDERED: THIAMINE HCL 100 MG TABLET PO SCH (09:00)
[2021-06-28] MEDS ORDERED: FOLIC ACID 1 MG TABLET PO SCH (09:00)
[2021-06-28] MEDS ORDERED: CEFTRIAXONE 1 GM/NS 50 ML 1 GM/50 ML BAG IV SCH (09:00)
[2021-06-28] MEDS ORDERED: CEFTRIAXONE/SWI 1gm 1 GM/10 ML SYR IV SCH (09:00)
[2021-06-28] MEDS ORDERED: ESCITALOPRAM 20 MG TAB PO SCH (09:00)
[2021-06-28] MEDS: DULERA 100/5 (MOMETASONE/FORMOTEROL) INHALER IH SCH (09:00)
[2021-06-28] MEDS: APIXABAN 2.5 MG TABLET PO SCH (10:34)
[2021-06-28 12:18] VITALS: O2SAT 95
--- NOTE | 2021-06-28 12:51 | P.DS ---
Admission Date: 06/27/21 Discharge Date: 06/28/21 Primary Care Provider: Dr. Bah Disposition: ROUTINE DISCHARGE Discharge Condition: GOOD Reason for Admission: slurred speech, UTI, delirium Consultations: none Procedures: COVID: Negative CT Head: IMPRESSION: Atrophy and chronic ischemic changes are present showing progression from 2015 comparison. No acute intracranial finding identifiable. Brain MRI: IMPRESSION: No intracranial hemorrhage is confirmed. No acute infarction, mass or other abnormality that may be a trigger for fall. Chronic ischemic change and atrophy changes are present, moderate in severity and progressive from 2014. CXR: IMPRESSION: Left-side pleural effusion without pneumothorax. Left base atelectasis and/or infiltrate unchanged from April 26. No gross rib abnormality seen. Concerns for rib fracture can be further addressed with dedicated rib films as warranted. Medical problem list: Slurred speech with acute encephalopathy secondary to UTI and possible TIA with history of TIA Atrial fibrillation on chronic anticoagulation HTN GERD COPD on chronic home oxygen Vascular dementia Brief History of Present Illness: 81-year-old female with history of atrial fibrillation on chronic anticoagulation therapy, history of TIA, COPD, hypertension, chronic UTI. Patient came in with some mild confusion and slurred speech. Patient also had reported a fall. The patient was evaluated in the emergency room. Patient appeared to be at her baseline. Initial CT head unremarkable. MRI unremarkable. Patient found to have mild UTI. Patient admitted for observation. Hospital Course: Patient presented with confusion and slurred speech. By the time she arrived at the hospital this appeared to be unremarkable. Patient was admitted for observation. CT head showed no acute changes. MRI brain showed no acute changes. Chronic ischemic changes noted. Patient with history of TIA and likely underlying vascular dementia. Patient also found to have a UTI. Patient with history of chronic UTIs on chronic antibiotic therapytrimethoprim. Patient is seen by urology as an outpatient. The patient was observed overnight. Patient has done well. Physical therapy evaluated the patient. Physical therapy recommends to continue home health and physical therapy at discharge. No evidence of severe infection at this time. White count within normal range. Patient afebrile. Patient appears to be at her baseline level. At discharge patient will continue with home health and physical therapy. This will be arranged. Recommend caregiver services which licensed clinical social worker will provide information on. Spoke to the daughter at length concerning the possibility of future long-term placement carenursing home for the patient. For her UTI will recommend to discontinue trimethoprim. Will discharge home with Ceftin 250 mg 1 pill twice daily for 7 days. Recommend to follow-up with urology within 1 week. Recommend to recheck urine culture at that time to monitor resolution. Recommend follow-up with PCP within 1 week to follow-up urine culture and to follow-up this hospitalization. Patient with history of TIA. CT head and MRI shows no acute changes. Chronic ischemic changes noted. Likely underlying vascular dementia. As recommended above recommend daughter to look into the possibility of long-term placement care for the patient. For now home health and physical therapy with caregiver services. Recommend to continue folic acid 1 mg daily. Patient with underlying atrial fibrillation on chronic anticoagulation therapy and CAD. At discharge patient will continue with her medications including Eliquis 2.5 mg 1 pill twice daily, Lipitor 10 mg daily, sotalol 80 mg 1 pill twice daily. Follow-up with cardiology as directed. Patient with depression with anxiety. At discharge she will continue with Lexapro 20 mg daily and clonazepam 0.5 mg at bedtime. May need to hold clonazepam if with increase sedation. Patient with GERD. At discharge patient will continue with Protonix 40 mg daily. Patient with COPD on chronic oxygen. Patient will continue with oxygen to maintain sats above 93%. Patient has home oxygen. Currently on 3 L per nasal cannula. Patient will continue with her medications at home including Symbicort 2 puffs twice daily. Recommend follow-up with pulmonology to further monitor. Vital Signs/Physical Exam: Temp Pulse Resp BP Pulse Ox 97.6 F 74 16 157/70 H 96 06/28/21 08:16 06/28/21 08:16 06/28/21 08:16 06/28/21 08:16 06/28/21 08:16 General: Alert, In no apparent distress, Cooperative, Other (Patient cooperative and follows commands. No slurred speech noted) HEENT: Atraumatic Neck: Supple Respiratory: Clear to auscultation bilaterally, Normal air movement Cardiovascular: Normal pulses, Regular rate/rhythm Gastrointestinal: Normal bowel sounds, No tenderness, No masses, No rebound, No guarding Musculoskeletal: No erythema, No tenderness, No warmth Integumentary: No tenderness/swelling Neurological: Normal speech, Normal strength at 5/5 x4 extr, Normal tone, Normal affect Laboratory Data at Discharge: WBC 6.90 K/uL (4.3-10.9) 06/28/21 05:54 Hgb 11.8 g/dL (12.0-15.0) L 06/28/21 05:54 Hct 35.3 % (36.0-45.0) L 06/28/21 05:54 Plt Count 179 K/uL (152-406) 06/28/21 05:54 PT 15.9 SECONDS (9.5-12.5) H 06/27/21 13:15 INR 1.38 06/27/21 13:15 APTT 23.7 SECONDS (24.3-36.9) L 06/27/21 13:15 Sodium 143 mmol/L (136-145) 06/28/21 05:54 Potassium 3.9 mmol/L (3.5-5.1) 06/28/21 05:54 BUN 17 mg/dL (7-18) 06/28/21 05:54 Creatinine 0.87 mg/dL (0.55-1.3) 06/28/21 05:54 Glucose 96 mg/dL (74-106) 06/28/21 05:54 Phosphorus 4.5 mg/dL (2.5-4.9) 06/28/21 05:54 Magnesium 2.0 mg/dL (1.8-2.4) 06/28/21 05:54 Triglycerides 94 mg/dL (<150) 06/28/21 05:54 Cholesterol 135 mg/dL (<200) 06/28/21 05:54 HDL Cholesterol 43 mg/dL (40-60) 06/28/21 05:54 Cholesterol/HDL Ratio 3.14 06/28/21 05:54 Home Medications: Cefuroxime [Ceftin] 250 mg PO BID #14 tab 06/28/21 New Medications: Cefuroxime [Ceftin] 250 mg PO BID #14 tab Physician Discharge Instructions: Patient presented with confusion and slurred speech. By the time she arrived at the hospital this appeared to be unremarkable. Patient was admitted for observation. CT head showed no acute changes. MRI brain showed no acute changes. Chronic ischemic changes noted. Patient with history of TIA and likely underlying vascular dementia. Patient also found to have a UTI. Patient with history of chronic UTIs on chronic antibiotic therapytrimethoprim. Patient is seen by urology as an outpatient. The patient was observed overnight. Patient has done well. Physical therapy evaluated the patient. Physical therapy recommends to continue home health and physical therapy at discharge. No evidence of severe infection at this time. White count within normal range. Patient afebrile. Patient appears to be at her baseline level. At discharge patient will continue with home health and physical therapy. This will be arranged. Recommend caregiver services which licensed clinical social worker will provide information on. Spoke to the daughter at length concerning the possibility of future long-term placement carenursing home for the patient. For her UTI will recommend to discontinue trimethoprim. Will discharge home with Ceftin 250 mg 1 pill twice daily for 7 days. Recommend to follow-up with urology within 1 week. Recommend to recheck urine culture at that time to monitor resolution. Recommend follow-up with PCP within 1 week to follow-up urine culture and to follow-up this hospitalization. Patient with history of TIA. CT head and MRI shows no acute changes. Chronic ischemic changes noted. Likely underlying vascular dementia. As recommended above recommend daughter to look into the possibility of long-term placement care for the patient. For now home health and physical therapy with caregiver services. Recommend to continue folic acid 1 mg daily. Patient with underlying atrial fibrillation on chronic anticoagulation therapy and CAD. At discharge patient will continue with her medications including Eliquis 2.5 mg 1 pill twice daily, Lipitor 10 mg daily, sotalol 80 mg 1 pill twice daily. Follow-up with cardiology as directed. Patient with depression with anxiety. At discharge she will continue with Lexapro 20 mg daily and clonazepam 0.5 mg at bedtime. May need to hold clonazepam if with increase sedation. Patient with GERD. At discharge patient will continue with Protonix 40 mg daily. Patient with COPD on chronic oxygen. Patient will continue with oxygen to maintain sats above 93%. Patient has home oxygen. Currently on 3 L per nasal cannula. Patient will continue with her medications at home including Symbicort 2 puffs twice daily. Recommend follow-up with pulmonology to further monitor. Diet: AHA Activity: Fall precautions Followup: Unknown,U [Primary Care Provider] - Time spent managing pt's care (in minutes): 55
[2021-06-28 17:38] VITALS: BP 178/88; TEMP 97.7
== END 2021-06-28 17:25 | disposition home health service (06) ==
LOC: ER 12:14 → ERHOLD 17:56 → 2ND 20:53
PROVIDERS: ADMIT Family Medicine; ATTEND Family Medicine
DX: N39.0 Urinary tract infection, site not specified (principal); G93.40 Encephalopathy, unspecified; R47.81 Slurred speech; I48.91 Unspecified atrial fibrillation; I10 Essential (primary) hypertension; K21.9 Gastro-esophageal reflux disease without esophagitis; J44.9 Chronic obstructive pulmonary disease, unspecified; F01.50 Vascular dementia, unspecified severity, without behavioral disturbance, psychotic disturbance, mood disturbance, and anxiety; E86.0 Dehydration; F41.8 Other specified anxiety disorders; Z79.01 Long term (current) use of anticoagulants; Z86.73 Personal history of transient ischemic attack (TIA), and cerebral infarction without residual deficits; Z85.3 Personal history of malignant neoplasm of breast; Z88.3 Allergy status to other anti-infective agents; Z20.822 Contact with and (suspected) exposure to COVID-19
CPT/HCPCS: 96365; 93005; 87088; 85025 ×2; 87086; 80048 ×2; 36415; 83735; 84100; 85610; 80061; 85730; 84443; 87077; 87186; 84439; 70450; 71045; 70551; 97112; 97162; 97530; 94640; 99285; U0003; J0696 ×2; J7040; G0378 ×3; 81003; 81015; J7606

== ENCOUNTER 2021-11-02 15:55 | Emergency (ER) | payer OTHER ==
--- OUTSIDE RECORDS SUMMARY | 2021-11-02 16:00 | XMS REPORT | Continuity of Care Document ---
:1940 Author Organization [facility] t Address [address] [place] [place] [address] Care Team Providers Name Role Phone Sandi Bah Primary Care Physician ISABEL Attending Clinician Unavailable BRENNA Attending Clinician Unavailable BRENNA Attending Clinician Unavailable Doctor Unassigned, Name Attending Clinician Unavailable Brenna STEVE Attending Clinician Mariya GARRISON Attending Clinician Unavailable Bobbi ESPINOSA, A Attending Clinician Unavailable Isabel GONZALEZ Attending Clinician ISABEL Admitting Clinician Unavailable Isabel GONZALEZ Admitting Clinician Payers Payer Name Policy Type Policy Number Effective Date Expiration Date S ourpriscilla [employer] MEDICARE ADV [id number] 2019 00:00:00 Problems Condition Condition Condition Status Onset Resolution Last Treating Co mments Source Name Details Category Date Date Treatment Clinician Date Acute Acute Disease Active 2019-10 [facility] diastolic diastolic 1-13 [place] [place] congestive [place]ive [place] heart heart 00 Medical failure failure Branch COPD COPD Disease Active 2019-10 Univers exacerbati exacerbati 1-12 it y of on on 00:00: [place] 00 Medical Branch Elevated Elevated Disease Active 2019-10 Unive rs brain brain 1-12 ity of natriureti natriureti 00:[place] c peptide c peptide 00 Medi mari (BNP) (BNP) Branch level level SVT 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 Univers (supravent (supravent 1-12 it y of ricular ricular 00:00: [place] tachycardi tachycardi 00 Me dical a) a) Branch Essential Essential Disease Active 2019-10 Uni vers hypertensi hypertensi -12 it y of on on 00:00: [place] 00 Medical Branch Dyslipidem Dyslipidem Disease Active 2019-10 U nivers ia ia 11-07 ity of 00:00: [place] 00 Medical Branch Allergies, Adverse Reactions, Alerts Allergy Allergy Status Severity Reaction(s) Onset Inactive Treating Comm ents Source Name Type Date Date Clinician Levoflox Propensi Active Shortness of 2019-10 Univers acin ty to Breath 11-07 ity of adverse 00:00: [place] reaction 00 Medical s Branch Nitrofur Propensi Active Unknown - 2019-10 Uni vers antoin ty to See comments 11-07 ity of Monohyd/ adverse 00:00: [place] M-Cryst reaction 00 Medical s Branch Nitrofur Propensi Active Unknown - 2019-10 Uni vers antoin ty to See comments 11-07 ity of adverse 00:00: [place] reaction 00 Medical s Branch LEVOFLOX DRUG Active SOB 2019-10 Univers ACIN INGREDI 11-07 ity of 00:00: [place] 00 Medical Branch NITROFUR DRUG Active Unknown-Cmnt 2019-10 Un [facility] ANTOIN 11-07 ity of MONOHYD/ 00:00: [place] M-CRYST 00 Medical Branch NITROFUR DRUG Active Unknown-Cmnt 2019-10 [place] ANTOIN INGREDI 11-07 ity of 00:00: [place] 00 Medical Branch Nitrofur Adverse Active Info Not [facility] Macrobid Adverse Active Info Not [facility] Reaction Available [facility] Bactrim Adverse Active Info Not [facility] Reaction Available [facility] Levaquin Adverse Active Info Not [facility] Reaction Available [facility] Social History Social Habit Start Date Stop Date Quantity Comments Source Exposure to Not sure [facility] SARS-CoV-2 (event) Medica l Branch Tobacco use and 2020-11-24 2020-11-24 Never used [facility] exposure 00:00:00 00:00:00 Medical Branch Sex Ass[birth year] At [birth year] [facility] 00:00:00 00:00:00 Medical Branch Smoking Status Start Date Stop Date Source Unknown if ever smoked [facility] Never smoker [facility] Medications Ordered Filled Start Stop Current Ordering Indication Dosage Frequency Signature Comments Components Source Medication Medication Date Date Medication? Clinician (SIG) Name Name budesonide/ Yes Inhale. Uni vers formoterol 4-29 ity of fumarate 15:56: [place] (SYMBICORT 16 Medical INHALE) [place] budesonide/ Yes Inhale. Uni vers formoterol 4-29 ity of fumarate 15:56: [place] (SYMBICORT 16 Medical INHALE) [place] budesonide/ Yes Inhale. Uni vers formoterol 4-29 ity of fumarate 15:56: [place] (SYMBICORT 16 Medical INHALE) [place] budesonide/ Yes Inhale. Uni vers formoterol 4-29 ity of fumarate 10:56: [place] (SYMBICORT 16 Medical INHALE) [place] ASPIRIN Yes 81mg Take 81 mg Univ ers ORAL 1-29 by mouth ity of 17:20: daily. [address] atorvastati Yes 10mg Take 10 mg Univers n calcium 1-29 by mouth ity of (ATORVASTAT 17:20: [place] [address] [place] [address] MULTIVITAMI Yes Take by Un jessica N ORAL 1-29 mouth ity of 17:20: daily. [address] POTASSIUM Yes 99mg Take 99 mg [place] ORAL 1-29 by mouth ity of 17:20: every [place] [address] Friday, Medical Friday Branch and Friday. cyclosporin Yes 2[drp] Place 2 U nivers e (RESTASIS 1-29 Drops in ity of OPHTHALMIC) 17:20: each eye 2 [place] [address] (two) Medical times Branch daily. calcium Yes 1{capsu Take 1 Unive rs carbonate/v 1-29 le} capsule by it y of itamin D3 17:20: mouth [place] (CALCIUM 56 daily. Medical 600 + D,3, Branch ORAL) ASPIRIN Yes 81mg Take 81 mg Univ ers ORAL 1-29 by mouth ity of 17:20: daily. [address] atorvastati Yes 10mg Take 10 mg Univers n calcium 1-29 by mouth ity of (ATORVASTAT 17:20: [place]. [place] [address] [place] [address] MULTIVITAMI Yes Take by Un jess[place] N ORAL 1-29 mouth ity of 17:20: daily. [address] POTASSIUM Yes 99mg Take 99 mg [place] ORAL 1-29 by mouth ity of 17:20: every [place] [address] Friday, Medical Friday Branch and Friday. cyclosporin Yes 2[drp] Place 2 U nivers e (RESTASIS 1-29 Drops in ity of OPHTHALMIC) 17:20: each eye 2 [place] [address] (two) Medical times [place] daily. calcium 0 Yes 1{capsu Take 1 Unive rs carbonate/v 1-29 le} capsule by it y of itamin D3 17:20: mouth [place] (CALCIUM 56 daily. Medical 600 + D,3, Branch ORAL) ASPIRIN Yes 81mg Take 81 mg Univ ers ORAL 1-29 by mouth ity of 17:20: daily. [address] atorvastati Yes 10mg Take 10 mg Univers n calcium 1-29 by mouth ity of (ATORVASTAT 17:20: [place]. [place] [address] [place] [address] MULTIVITAMI Yes Take by Un jessica N ORAL 1-29 mouth ity of 17:20: daily. [address] POTASSIUM Yes 99mg Take 99 mg Un [place] ORAL 1-29 by mouth ity of 17:20: every [place] [address] Friday, Medical Friday Branch and Friday. cyclosporin Yes 2[drp] Place 2 U nivers e (RESTASIS 1-29 Drops in ity of OPHTHALMIC) 17:20: each eye 2 [place] [address] (two) Medical times [place] daily. calcium 0 Yes 1{capsu Take 1 Unive rs carbonate/v 1-29 le} capsule by it y of itamin D3 17:20: mouth [place] (CALCIUM 56 daily. Medical 600 + D,3, Branch ORAL) ASPIRIN 0 Yes 81mg Take 81 mg Univ ers ORAL 1-29 by mouth ity of 17:20: daily. [address] atorvastati Yes 10mg Take 10 mg Univers n calcium 1- by mouth ity of (ATORVASTAT 17:20: [place]. [place] [address] [place] [address] MULTIVITAMI Yes Take by Un jessica N ORAL - mouth ity of 17:20: daily. [address] POTASSIUM Yes 99mg Take 99 mg Un [place] ORAL 1-29 by mouth ity of 17:20: every [place] [address] Friday, Medical Friday Branch and Friday. cyclosporin Yes 2[drp] Place 2 U nivers e (RESTASIS 1-29 Drops in ity of OPHTHALMIC) 17:20: each eye 2 [place] [address] (two) Medical times [place] daily. calcium 0 Yes 1{capsu Take 1 Unive rs carbonate/v 1-29 le} capsule by it y of itamin D3 17:20: mouth [place] (CALCIUM 56 daily. Medical 600 + D,3, Branch ORAL) ASPIRIN 0 Yes 81mg Take 81 mg Univ ers ORAL 1- by mouth ity of 17:20: daily. [address] atorvastati Yes 10mg Take 10 mg Univers n calcium 11-24 by mouth ity of (ATORVASTAT 17:20: [place]. [place] [address] [place] [address] MULTIVITAMI Yes Take by Un jessica N ORAL - mouth ity of 17:20: daily. [address] POTASSIUM Yes 99mg Take 99 mg Un j[place] ORAL 1-29 by mouth ity of 17:20: every [place] [address] Friday, Medical Friday Branch and Friday. cyclosporin Yes 2[drp] Place 2 U nivers e (RESTASIS 1-29 Drops in ity of OPHTHALMIC) 17:20: each eye 2 [place] [address] (two) Medical times Branch daily. calcium 0 Yes 1{capsu Take 1 Unive rs carbonate/v 1-29 le} capsule by it y of itamin D3 17:20: mouth [place] (CALCIUM 56 daily. Medical 600 + D,3, Branch ORAL) escitalopra 0 Yes 20mg Take 20 mg Univers m oxalate 1-29 by mouth ity of (LEXAPRO 17:20: daily. [place] ORAL) Medical Branch loratadine/ 0 Yes 10mg Take 10 mg Univers pseudoephed 1-29 by mouth ity of rine 17:20: daily. [place] (LORATADINE 03 Medical -D ORAL) Branch pantoprazol 0 Yes 40mg Take 40 mg Univers e sodium 1-29 by mouth ity of (PANTOPRAZO 17:20: daily. [place] LE ORAL) Medical Branch TRIMETHOPRI 0 Yes 100mg Take 100 U nivers M ORAL 1-29 mg by ity of 17:20: mouth [place] 03 daily. Medical Takes 1/2 Branch tablet daily for frequent UTI's carvediloL 0 Yes 25mg Take 25 mg U nivers 25 mg 1-29 by mouth 2 ity of tablet 17:20: (two) [place] 03 times Medical daily. Branch escitalopra 0 Yes 20mg Take 20 mg Univers m oxalate 1-29 by mouth ity of (LEXAPRO 17:20: daily. [place] ORAL) Medical Branch loratadine/ 0 Yes 10mg Take 10 mg Univers pseudoephed 1-29 by mouth ity of rine 17:20: daily. [place] (LORATADINE Medical -D ORAL) Branch pantoprazol Yes 40mg Take 40 mg Univers e sodium 1-29 by mouth ity of (PANTOPRAZO 17:20: daily. [place] LE ORAL) Medical Branch TRIMETHOPRI 0 Yes 100mg Take 100 U nivers M ORAL 1-29 mg by ity of 17:20: mouth [place] 03 daily. Medical Takes 1/2 Branch tablet daily for frequent UTI's carvediloL 0 Yes 25mg Take 25 mg U nivers 25 mg 1-29 by mouth 2 ity of tablet 17:20: (two) [place] 03 times Medical daily. Branch escitalopra 0 Yes 20mg Take 20 mg Univers m oxalate 1-29 by mouth ity of (LEXAPRO 17:20: daily. [place] ORAL) 03 Medical Branch loratadine/ 0 Yes 10mg Take 10 mg Univers pseudoephed 1-29 by mouth ity of rine 17:20: daily. [place] (LORATADINE Medical -D ORAL) Branch pantoprazol Yes 40mg Take 40 mg Univers e sodium 1-29 by mouth ity of (PANTOPRAZO 17:20: daily. [place] LE ORAL) Medical Branch TRIMETHOPRI Yes 100mg Take 100 U nivers M ORAL 1-29 mg by ity of 17:20: mouth [place] 03 daily. Medical Takes 1/2 Branch tablet daily for frequent UTI's carvediloL Yes 25mg Take 25 mg U nivers 25 mg 1-29 by mouth 2 ity of tablet 17:20: (two) [place] 03 times Medical daily. Branch escitalopra Yes 20mg Take 20 mg Univers m oxalate 1-29 by mouth ity of (LEXAPRO 17:20: daily. [place] ORAL) Medical Branch loratadine/ Yes 10mg Take 10 mg Univers pseudoephed 1- by mouth ity of rine 17:20: daily. [place] (LORATADINE Medical -D ORAL) Branch pantoprazol Yes 40mg Take 40 mg Univers e sodium 1-29 by mouth ity of (PANTOPRAZO 17:20: daily. [place] LE ORAL) Medical Branch TRIMETHOPRI Yes 100mg Take 100 U nivers M ORAL 1-29 mg by ity of 17:20: mouth [place] daily. Medical Takes 1/2 Branch tablet daily for frequent UTI's carvediloL Yes 25mg Take 25 mg U nivers 25 mg 1-29 by mouth 2 ity of tablet 17:20: (two) [place] 03 times Medical daily. Branch escitalopra Yes 20mg Take 20 mg Univers m oxalate 1-29 by mouth ity of (LEXAPRO 17:20: daily. [place] ORAL) Medical Branch loratadine/ Yes 10mg Take 10 mg Univers pseudoephed 1-29 by mouth ity of rine 17:20: daily. [place] (LORATADINE Medical -D ORAL) Branch pantoprazol Yes 40mg Take 40 mg Univers e sodium 1-29 by mouth ity of (PANTOPRAZO 17:20: daily. [place] LE ORAL) Medical Branch TRIMETHOPRI Yes 100mg Take 100 U nivers M ORAL 1-29 mg by ity of 17:20: mouth [place] 03 daily. Medical Takes 1/2 Branch tablet daily for frequent UTI's carvediloL Yes 25mg Take 25 mg U nivers 25 mg - by mouth 2 ity of tablet 17:20: (two) [place] 03 times Medical daily. Branch ASPIRIN Yes 81mg Take 81 mg Univ ers ORAL - by mouth ity of 11:20: daily. [place] [address] Medical Branch atorvastati Yes 10mg Take 10 mg Univers n calcium 11-24 by mouth ity of (ATORVASTAT 11:20: daily. [place] IN ORAL) Medical Branch MULTIVITAMI Yes Take by Un jessica N ORAL 11-24 mouth ity of 11:20: daily. [place] [address] Medical Branch POTASSIUM Yes 99mg Take 99 mg Un jess[place] ORAL - by mouth ity of 11:20: every [place] [address] Friday, Medical Friday Branch and Friday. cyclosporin Yes 2[drp] Place 2 U nivers e (RESTASIS - Drops in ity of OPHTHALMIC) 11:20: each eye 2 [place] [address] (two) Medical times Branch daily. calcium Yes 1{capsu Take 1 Unive rs carbonate/v 11-24 le} capsule by it y of itamin D3 11:20: mouth [place] (CALCIUM 56 daily. Medical 600 + D,3, Branch ORAL) escitalopra Yes 20mg Take 20 mg Univers m oxalate 11-24 by mouth ity of (LEXAPRO 11:20: daily. [place] ORAL) 03 Medical Branch loratadine/ Yes 10mg Take 10 mg Univers pseudoephed 11-24 by mouth ity of rine 11:20: daily. [place] (LORATADINE 03 Medical -D ORAL) Branch pantoprazol Yes 40mg Take 40 mg Univers e sodium 11-24 by mouth ity of (PANTOPRAZO 11:20: daily. [place] LE ORAL) 03 Medical Branch TRIMETHOPRI Yes 100mg Take 100 U nivers M ORAL 1-29 mg by ity of 11:20: mouth [place] 03 daily. Medical Takes 1/2 Branch tablet daily for frequent UTI's carvediloL Yes 25mg Take 25 mg U nivers 25 mg 1-29 by mouth 2 ity of tablet 11:20: (two) [place] 03 times Medical daily. Branch losartan-hy 2019-10 Yes 1{tbl} Take 1 Un jessica drochloroth 2-01 tablet by ity of iazide 00:00: mouth [place] 50-12.5 mg 00 daily. Medical per tablet Branch losartan-hy 2019-10 Yes 1{tbl} Take 1 Un [place] drochloroth 2-01 tablet by ity of iazide 00:00: mouth [place] 50-12.5 mg 00 daily. Medical per tablet Branch losartan-hy 2019-10 Yes 1{tbl} Take 1 Un [place] drochloroth 2-01 tablet by ity of iazide 00:00: mouth [place] 50-12.5 mg 00 daily. Medical per tablet Branch losartan-hy 2019-10 Yes 1{tbl} Take 1 Un [place] drochloroth 2-01 tablet by ity of iazide 00:00: mouth [place] 50-12.5 mg 00 daily. Medical per tablet Branch losartan-hy 2019-10 Yes 1{tbl} Take 1 Un [place] drochloroth 2-01 tablet by ity of iazide 00:00: mouth [place] 50-12.5 mg 00 daily. Medical per tablet Branch losartan-hy 2019-10 Yes 1{tbl} Take 1 Un [place] drochloroth 2-01 tablet by ity of iazide 00:00: mouth [place] 50-12.5 mg 00 daily. Medical per tablet Branch predniSONE 2019-10 2020- No [id number] 40mg Take 2 Univers 20 mg 1-14 11-20 tablets by ity of tablet 00:00: 05:59 mouth [place] 00 :00 daily for Medical 5 days. Branch predniSONE 2019-10 2020- No [id number] 40mg Take 2 Univers 20 mg 1-14 11-20 tablets by ity of tablet 00:00: 05:59 mouth [place] 00 :00 daily for Medical 5 days. Branch atorvastati 2019-10 Yes 10mg Take 10 mg Univers n calcium 1-13 by mouth ity of (ATORVASTAT 22:36: daily. [place] IN ORAL) Medical Branch escitalopra 2020-1 Yes 20mg Take 20 mg Univers m oxalate 1-13 by mouth ity of (LEXAPRO 22:36: daily. [place] ORAL) Medical Branch loratadine/ 2019-10 Yes 10mg Take 10 mg Univers pseudoephed 1-13 by mouth ity of rine 22:36: daily. [place] (LORATADINE 01 Medical -D ORAL) Branch MULTIVITAMI 2019-10 Yes Take by Un jessica N ORAL 1-13 mouth ity of 22:36: daily. [place] Medical Branch pantoprazol 2019-10 Yes 40mg Take 40 mg Univers e sodium 1-13 by mouth ity of (PANTOPRAZO 22:36: daily. [place] LE ORAL) Medical Branch POTASSIUM 2019-10 Yes 99mg Take 99 mg Un [place] ORAL 1-13 by mouth ity of 22:36: every Friday, Medical Friday Branch and Friday. cyclosporin 2019-10 Yes 2[drp] Place 2 U nivers e (RESTASIS 1-13 Drops in ity of OPHTHALMIC) 22:36: each eye 2 (two) Medical times Branch daily. TRIMETHOPRI 2019-10 Yes 100mg Take 100 U nivers M ORAL 1-13 mg by ity of 22:36: mouth [place] daily. Medical Takes 1/2 Branch tablet daily for frequent UTI's calcium 2019-10 Yes 1{capsu Take 1 Unive rs carbonate/v 1-13 le} capsule by it y of itamin D3 22:36: mouth [place] (CALCIUM daily. Medical 600 + D,3, Branch ORAL) carvediloL 2019-10 Yes 25mg Take 25 mg U nivers 25 mg 1-13 by mouth 2 ity of tablet 22:36: (two) [place] times Medical daily. Branch ASPIRIN 2019-10 Yes 81mg Take 81 mg Univ ers ORAL 1-13 by mouth ity of 22:36: daily. [place] Medical Branch atorvastati 2019-10 Yes 10mg Take 10 mg Univers n calcium 1-13 by mouth ity of (ATORVASTAT 22:36: daily. [place] IN ORAL) Medical Branch escitalopra 2019-10 Yes 20mg Take 20 mg Univers m oxalate 1-13 by mouth ity of (LEXAPRO 22:36: daily. [place] ORAL) Medical Branch loratadine/ 2020-1 Yes 10mg Take 10 mg Univers pseudoephed 1-13 by mouth ity of rine 22:36: daily. [place] (LORATADINE Medical -D ORAL) Branch MULTIVITAMI 2019-10 Yes Take by Un jessica N ORAL 1-13 mouth ity of 22:36: daily. Medical Branch pantoprazol 2019-10 Yes 40mg Take 40 mg Univers e sodium 1-13 by mouth ity of (PANTOPRAZO 22:36: daily. [place] LE ORAL) Medical Branch POTASSIUM 2019-10 Yes 99mg Take 99 mg Un [place] ORAL 1-13 by mouth ity of 22:36: every Friday, Medical Friday Branch and Friday. cyclosporin 2019-10 Yes 2[drp] Place 2 U nivers e (RESTASIS 1-13 Drops in ity of OPHTHALMIC) 22:36: each eye 2 (two) Medical times Branch daily. TRIMETHOPRI 2019-10 Yes 100mg Take 100 U nivers M ORAL 1-13 mg by ity of 22:36: mouth [place] daily. Medical Takes 1/2 Branch tablet daily for frequent UTI's calcium 2019-10 Yes 1{capsu Take 1 Unive rs carbonate/v 1-13 le} capsule by it y of itamin D3 22:36: mouth [place] (CALCIUM daily. Medical 600 + D,3, Branch ORAL) carvediloL 2019-10 Yes 25mg Take 25 mg U nivers 25 mg 1-13 by mouth 2 ity of tablet 22:36: (two) [place] times Medical daily. Branch ASPIRIN 2019-10 Yes 81mg Take 81 mg Univ ers ORAL 1-13 by mouth ity of 22:36: daily. [place] Medical Branch atorvastati 2019-10 Yes 10mg Take 10 mg Univers n calcium 1-13 by mouth ity of (ATORVASTAT 22:36: daily. [place] IN [place]AL) Medical Branch escitalopra 2019-10 Yes 20mg Take 20 mg Univers m oxalate 1-13 by mouth ity of (LEXAPRO 22:36: daily. [place] ORAL) Medical Branch loratadine/ 2019-10 Yes 10mg Take 10 mg Univers pseudoephed 1-13 by mouth ity of rine 22:36: daily. [place] (LORATADINE Medical -D ORAL) Branch MULTIVITAMI 2019-10 Yes Take by Un jessica N ORAL 1-13 mouth ity of 22:36: daily. [place] Medical Branch pantoprazol 2019-10 Yes 40mg Take 40 mg Univers e sodium 1-13 by mouth ity of (PANTOPRAZO 22:36: daily. [place] LE ORAL) Medical Branch POTASSIUM 2019-10 Yes 99mg Take 99 mg Un [place]ess[place] ORAL 1-13 by mouth ity of 22:36: every [place] Friday, Medical Friday Branch and Friday. cyclosporin 2019-10 Yes 2[drp] Place 2 U nivers e (RESTASIS 1-13 Drops in ity of OPHTHALMIC) 22:36: each eye 2 (two) Medical times Branch daily. TRIMETHOPRI 2019-10 Yes 100mg Take 100 U nivers M ORAL 1-13 mg by ity of 22:36: mouth [place] daily. Medical Takes 1/2 Branch tablet daily for frequent UTI's calcium 2019-10 Yes 1{capsu Take 1 Unive rs carbonate/v 1-13 le} capsule by it y of itamin D3 22:36: mouth [place] (CALCIUM daily. Medical 600 + D,3, Branch ORAL) carvediloL 2019-10 Yes 25mg Take 25 mg U nivers 25 mg 1-13 by mouth 2 ity of tablet 22:36: (two) [place] times Medical daily. Branch ASPIRIN 2019-10 Yes 81mg Take 81 mg Univ ers ORAL 1-13 by mouth ity of 22:36: daily. [place] Medical Branch levalbutero 2019-10 2020- No Inhale Uni vers l 1.25 mg/3 -13 11-13 every 6 ity of mL 16:53: 00:00 (six) [place] nebulizer 14 :00 hours as Medica l solution needed Branch (SOB). acetaminoph 2019-10 Yes 650mg 650 mg, Un jessica en 1-13 Oral, ity of (TYLENOL) 05:27: Q4HPRN, [place] tablet 650 45 Starting Medic al mg Yesi Branch 09/07/20 at 2327, Until Discontinu ed, Routine, Pain (scale 1-3), or SANTOS atorvastati 2019-10 Yes 10mg 10 mg, Univ ers n (LIPITOR) 1-13 Oral, QHS, it y of tablet 10 03:00: First dose [place] mg 00 on [facility] Medical 09/07/20 Branch at 2100, Until Discontinu ed levalbutero 2019-10 Yes [id number] .63mg Inhale Univers l 1.25 mg/3 1-13 0.63 mg ity o f mL 00:00: every 4 [place] nebulizer 00 (four) Medical solution hours as Branch needed for Wheezing or Shortness of Breath (SOB). acidophilus 2019-10 Yes [id number] 1g Take 1 Univers 100 million 1-13 tablet by ity of cell tablet 00:00: mouth 2 [place] 00 (two) Medical times Branch daily. levalbutero 2019-10 Yes [id number] .63mg Inhale Univers l 1.25 mg/3 1-13 0.63 mg ity o f mL 00:00: every 4 [place] nebulizer 00 (four) Medical solution hours as Branch needed for Wheezing or Shortness of Breath (SOB). acidophilus 2019-10 Yes [id number] 1g Take 1 Univers 100 million 1-13 tablet by ity of cell tablet 00:00: mouth 2 [place] as 00 (two) Medical times Branch daily. levalbutero 2019-10 Yes [id number] .63mg Inhale Univers l 1.25 mg/3 1-13 0.63 mg ity o f mL 00:00: every 4 [place] nebulizer 00 (four) Medical solution hours as Branch needed for Wheezing or Shortness of Breath (SOB). acidophilus 2019-10 Yes [id number] 1g Take 1 Univers 100 million 1-13 tablet by ity of cell tablet 00:00: mouth 2 [place] as 00 (two) Medical times Branch daily. levalbutero 2019-10 Yes [id number] .63mg Inhale Univers l 1.25 mg/3 1-13 0.63 mg ity o f mL 00:00: every 4 [place] nebulizer 00 (four) Medical solution hours as Branch needed for Wheezing or Shortness of Breath (SOB). acidophilus 2019-10 Yes [id number] 1g Take 1 Univers 100 million 1-13 tablet by ity of cell tablet 00:00: mouth 2 [place] 00 (two) Medical times Branch daily. levalbutero 2019-10 Yes [id number] .63mg Inhale Univers l 1.25 mg/3 1-13 0.63 mg ity o f mL 00:00: every 4 [place] nebulizer 00 (four) Medical solution hours as Branch needed for Wheezing or Shortness of Breath (SOB). acidophilus 2020-1 Yes [id number] 1g Take 1 Univers 100 million 1-13 tablet by ity of cell tablet 00:00: mouth 2 [place] as 00 (two) Medical times Branch daily. levalbutero 2020- Yes [id number] .63mg Inhale Univers l 1.25 mg/3 1-13 0.63 mg ity o f mL 00:00: every 4 [place] nebulizer 00 (four) Medical solution hours as Branch needed for Wheezing or Shortness of Breath (SOB). acidophilus 2020-1 Yes [id number] 1g Take 1 Univers 100 million 1-13 tablet by ity of cell tablet 00:00: mouth 2 [place] as 00 (two) Medical times Branch daily. levalbutero 2020- Yes [id number] .63mg Inhale Univers l 1.25 mg/3 1-13 0.63 mg ity o f mL 00:00: every 4 [place] nebulizer 00 (four) Medical solution hours as Branch needed for Wheezing or Shortness of Breath (SOB). acidophilus 2019-1 Yes [id number] 1g Take 1 Univers 100 million 1-13 tablet by ity of cell tablet 00:00: mouth 2 [place] as 00 (two) Medical times Branch daily. levalbutero 2020-1 Yes [id number] .63mg Inhale Univers l 1.25 mg/3 1-13 0.63 mg ity o f mL 00:00: every 4 [place] nebulizer 00 (four) Medical solution hours as Branch needed for Wheezing or Shortness of Breath (SOB). acidophilus 2020-1 Yes [id number] 1g Take 1 Univers 100 million 1-13 tablet by ity of cell tablet 00:00: mouth 2 [place] 00 (two) Medical times Branch daily. levalbutero 2020-1 Yes [id number] .63mg Inhale Univers l 1.25 mg/3 1-13 0.63 mg ity o f mL 00:00: every 4 [place] nebulizer 00 (four) Medical solution hours as Branch needed for Wheezing or Shortness of Breath (SOB). acidophilus 2020-1 Yes [id number] 1g Take 1 Univers 100 million 1-13 tablet by ity of cell tablet 00:00: mouth 2 [place] 00 (two) Medical times Branch daily. doxycycline 2019-10- No [id number] 100mg Take 1 Univers hyclate 100 11-08 capsule by i ty of mg capsule 00:00: 05:59 mouth 2 [place] 00 :00 (two) Medical times Branch daily for 5 days. doxycycline 2019-10- No [id number] 100mg Take 1 Univers hyclate 100 11-08 capsule by i ty of mg capsule 00:00: 05:59 mouth 2 [place] as 00 :00 (two) Medical times Branch daily for 5 days. sulfur 2019-10- No 5mL 5 mL, Univers hexafluorid 11-07 Intravenou i ty of e microsphr 23:45: 22:10 s, ONCE, 1 [place] (LUMASON) 00 :00 dose, Yesi Medic al injection 5 09/07/20 Bran ch mL at 1745, Routine
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 Restricted medication : TODD YEN enoxaparin 2019-10 Yes 40mg 40 mg, Unive rs (LOVENOX) 11-07 Subcutaneo ity of injection 23:00: [place], DAILY, [place] 40 mg 00 First dose Medical on Yesi Branch 09/07/20 at 1700, Until Discontinu ed, Routine furosemide 2019-10 Yes 20mg 20 mg, Unive rs (LASIX) 11-07 Slow IV ity of injection 22:45: Push, [place] 20 mg 00 DAILY, Medical First dose Branch on Yesi 09/07/20 at 1645, Until Discontinu ed, Routine levalbutero 2019-10 Yes .63mg 0.63 mg, U nivers l (XOPENEX) 11-07 Inhalation it y of nebulizer 22:45: , Q4H, [place] solution 00 First dose Medic al 0.63 mg on [facility] Branch 09/07/20 at 1645, Until Discontinu ed, Routine
Approved by: ADC PROVIDER iohexol 2019-10- No 100mL 100 mL, Unive rs (OMNIPAQUE 11-07 Intravenou it y of 350 19:45: 19:36 s, ONCE, 1 [place] BULK-100 00 :00 dose, Yesi Medica l mL) 09/07/20 Branch injection at 1345, 100 mL Routine carvediloL 2019-10 Yes 25mg 25 mg, Unive rs (COREG) 1-12 Oral, BID, ity of tablet 25 15:15: [place] mg 00 (after Medical last Branch modificati on) on [facility] 09/07/20 at 0915, Until Discontinu ed, Routine aspirin 2019-10 Yes 81mg 81 mg, Univers chewable 12 Oral, ity of tablet 81 15:00: DAILY, [place] mg 00 First dose Medical on [facility] 09/07/20 at 0900, Until Discontinu ed pantoprazol 2019-10 Yes 40mg 40 mg, Univ ers e 12 Oral, ity of (PROTONIX) 15:00: DAILY, [place] EC tablet 00 First dose Medi mari [address] [facility] 09/07/20 at 0900, Until Discontinu ed escitalopra 2019-10 Yes 20mg 20 mg, Univ ers m oxalate 12 Oral, ity of (LEXAPRO) 15:00: DAILY, [place] tablet 20 00 First dose Medi mari mg on [facility] 09/07/20 at 0900, Until Discontinu ed predniSONE 2019-10 Yes 50mg 50 mg, Unive rs (DELTASONE) 12 Oral, ity of tablet 50 15:00: DAILY, [place] mg 00 First dose Medical on [facility] 09/07/20 at 0900, Until Discontinu ed, Routine cetirizine 2019-10 Yes 5mg 5 mg, Univer s (ZYRTEC) 12 Oral, ity of tablet 5 mg 15:00: [place]ILY, [place] 00 First dose Medical on [facility] 09/07/20 at 0900, Until Discontinu ed, Routine CALCIUM 2019-10 2020- No Take by Unive rs ORAL 11-07 mouth. ity of 14:17: 00:00 [place] 24 :00 Medical Branch ipratropium 2019-10 2020- No 3mL 3 mL, Univ ers -albuteroL 11-07 Inhalation it y of (DUONEB) 14:00: 22:40 , QID, [place] 0.5 mg-3 00 :35 First dose Medic al mg(2.[address] [facility] base)/3 mL 09/07/20 nebulizer at 0800, solution 3 Until mL Discontinu ed, Routine methylpredn 2019-10 2020- No 40mg 40 mg, Uni vers isolone sod -12 11-12 Slow IV ity of succ 12:00: 14:15 Push, Q6H, [place] (SOLU-MEDRO 00 :43 First dose Me dical L) on [facility] Branch injection 09/07/20 40 mg at 0600, Until Discontinu ed, Routine guaiFENesin 2019-10 Yes 200mg 200 mg, Un jessica 100 mg/5 mL 12 Oral, ity of solution 10:47: Q4HPRN, [place] 200 mg 26 Starting Medical [facility] 09/07/20 at 0447, Until Discontinu ed, Routine, Cough ipratropium 2019-10 Yes 3mL 3 mL, Unive rs -albuteroL 12 Inhalation ity of (DUONEB) 10:46: , QIDPRN, [place] 0.5 mg-3 50 Starting Medical mg(2.5 mg [facility] base)/3 mL 09/07/20 nebulizer at 0446, solution 3 Until mL Discontinu ed, Routine, Wheezing, Shortness of Breath, Bronchospa sm, Chest tightness glucagon 2019-10 Yes 1mg 1 mg, Univers (GLUCAGEN 12 Intramuscu ity of DIAGNOSTIC 10:43: [place]N, [place] KIT) 53 Starting Medical injection 1 [facility] mg 09/07/20 at 0443, Until Discontinu ed, BASIM, Blood Glucose < or = 70 mg/dL and patient is unable to swallow or has mental changes. dextrose 50 2019-10 Yes 25mL 25 mL, Univ ers % in water 12 Slow IV ity of (D50W) 10:43: Push, PRN, [place] injection 53 Starting Medica l 25 mL [facility] 09/07/20 at 0443, Until Discontinu ed, BASIM, Blood Glucose < or = 70 mg/dL and patient is unable to swallow or has mental status changes. Zofran Zofran Yes Lucie [address] [facility] [place] as needed [facility] 00 l Outpati ent Clinics Tobramycin Tobramycin Yes Lucie [address] [facility] [place] into [facility] 00:[facility]: affected [facility] Singulair Singulair Yes Lucie TAKE [address] [place] TABLET BY [facility] - MOUTH [facility] EVERY DAY l [facility]ics Protonix Protonix Yes Lucie TAKE [address] [facility] [place] TABLET BY [facility] - MOUTH [facility] EVERY DAY l [facility] Montekast Monte Yes Lucie [address] [facility] [facility] Sodium Sodium [place] in the [facility] - evening [facility] Combivent Combivent Yes Lucie [address] Respimat Respimat [place]ra Prasanna es - [facility] Levalbutero Levalbutero Yes Lucie [address] l HCl l HCl [place] [facility] Aspir-81 Aspir-81 Yes Lucie [address] [place] [facility] Lipitor Lipitor Yes Lucie [address] [facility] [place] [facility] Lexapro Lexapro Yes Lucie [address] [facility] [place] [facility] Ativan Ativan Yes Lucie [address] [facility] [place] as needed [facility] Loratadine Loratadine Yes Lucie [address] [facility] [facility] Symbicort Symbicort Yes Lucie [address] [place] [facility] Coreg Coreg Yes Lucie [address] [facility] [place] [facility] Escitalopra Escitalopra Yes Lucie TAKE [address] [facility] m Oxalate m Oxalate [place] TABLET BY [facility] M[facility]TH [facility] EVERY DAY l [facility] Potassium Potassium Yes Lucie [address] [facility] [facility] Coreg Coreg Yes Lucie TAKE [address] [facility] [place] TABLET BY [facility] - MOUTH Memoria TWICE A l DAY [facility] Folic Acid Folic Acid Yes Lucie [address] [facility] [facility] Pantoprazol Pantoprazol Yes Lucie TAKE [address] [facility] e Sodium e Sodium [place] TABLET BY [facility] - MOUTH Memoria EVERY DAY l Outpati ent Clinics Trimethopri Trimethopri Yes Lucie [address] m m [place] [facility] Flonase Flonase Yes Lucie [address] [facility] [place] each [facility] - nostril Memoria l Outpati ent Clinics Amoxicillin Amoxicillin Yes Lucie [address] -Pot -Pot [place] [facility] - Clavulanate Clavulanate M emoria l Outpati ent Clinics PredniSONE PredniSONE Yes Lucie [address] [facility]ics Spiriva Spiriva Yes Lucie 2 puffs [facility] Respimat Respimat [place] Prasanna es - Memoria l Outpati ent Clinics Losartan Losartan Yes Lucie TAKE [address] [facility] Potassium-H Potassium-H [place] TABLET BY [facility] - CTZ CTZ MOUTH Memoria EVERY DAY l Outpati ent Clinics Atorvastati Atorvastati Yes Lucie TAKE [address] [facility] n Calcium n Calcium [place] TABLET BY [facility] - MOUTH [facility]oria EVERY DAY l [facility] Immunizations Ordered Filled Immunization Date Status Comments Sour e Immunization Name Name SARS-COV-2 COVID-19 2020-12-22 Completed Unive rsity of PFIZER VACCINE 00:00:00 [facility] [place] SARS-COV-2 COVID-19 2020-12-22 Completed Unive rsity of PFIZER VACCINE 00:00:00 [facility] [place] SARS-COV-2 COVID-19 2020-12-22 Completed Unive rsity of PFIZER VACCINE 00:00:00 [facility] [place] SARS-COV-2 COVID-19 2020-12-22 Completed Unive rsity of PFIZER VACCINE 00:00:00 [facility] [place] SARS-COV-2 COVID-19 2020-11-24 Completed Unive rsity of PFIZER VACCINE 00:00:00 [facility] [place] SARS-COV-2 COVID-19 2020-11-24 Completed Unive rsity of PFIZER VACCINE 00:00:00 [facility] [place] SARS-COV-2 COVID-19 2020-11-24 Completed Unive rsity of PFIZER VACCINE 00:00:00 [facility] [place] SARS-COV-2 COVID-19 2020-11-24 Completed Unive rsity of PFIZER VACCINE 00:00:00 [facility] [place] Influenza High Dose 2020-07-31 Completed Unive rsity of 00:00:00 [facility] [place] [facility] Influenza High Dose 2020-07-31 Completed Unive rsity of 00:00:00 [facility] [place] [facility] Influenza High Dose 2020-07-31 Completed Unive rsity of 00:00:00 [facility] [place] [facility] Influenza High Dose 2020-07-31 Completed Unive rsity of 00:00:00 [facility] [place] [facility] Influenza High Dose 2020-07-31 Completed Unive rsity of 00:00:00 [facility] [place] [facility] Influenza High Dose 2020-07-31 Completed Unive rsity of 00:00:00 [facility] [place] [facility] Prevnar 13 Prevnar 13 2019-07-[address] [facility] - -Pneumonia Vaccine -Pneumonia Vaccine 00:00:00 [facility] FluAD FluAD 2019-07-[address] [facility] 00:[facility]00 [facility] Vital Signs Vital Name Observation Time Observation Value Comments Source Systolic blood 2021-02-22 15:54:00 110 mm[Hg] Univer sity of [place] Diastolic blood 2021-02-22 15:54:00 70 mm[Hg] Unive rsity of [place] Heart rate 2021-02-22 15:54:00 84 /min Universi ty [facility] Body height 2021-02-22 15:54:[address] [facility] Body weight 2021-02-22 15:54:[address] [facility] BMI 2021-02-22 15:54:00 26.46 kg/m2 [facility] Oxygen saturation in 2021-02-22 15:54:00 97 /min 3 l o2 University of Arterial blood by [facility] Pulse oximetry Branch Systolic blood 2021-02-22 15:54:00 110 mm[Hg] Univer sity of pressure [facility] [place] [facility] Diastolic blood 2021-02-22 15:54:00 70 mm[Hg] Unive rsity of [place] Heart rate 2021-02-22 15:54:00 84 /min Universi ty [facility] Body height 2021-02-22 15:54:00 172.7 cm Universi [facility] Body weight 2021-02-22 15:54:[address] [facility] BMI 2021-02-22 15:54:00 26.46 kg/m2 [facility]i ty [facility] [place] [facility] Oxygen saturation in 2021-02-22 15:54:00 97 /min 3 l o2 University of Arterial blood by [facility] Pulse oximetry Branch Systolic blood 2020-11-24 17:19:00 117 mm[Hg] Univer sity of pressure [place] [facility] Diastolic blood 2020-11-24 17:19:00 74 mm[Hg] Unive rsity of pressure [place] [facility] Heart rate 2020-11-24 17:19:00 85 /min [facility]i [facility] [place] [facility] Respiratory rate 2020-11-24 17:19:00 21 /min Univ ersity [facility] [place] [facility] Body height 2020-11-24 17:19:00 175.3 cm [facility] [place] [facility] Body weight 2020-11-24 17:19:00 78.926 kg [facility] [place] [facility] BMI 2020-11-24 17:19:00 25.70 kg/m2 [facility] [place] [facility] Oxygen saturation in 2020-11-24 17:19:00 97 /min University of Arterial blood by [facility] Pulse oximetry Branch Systolic blood 2020-09-08 21:00:00 148 mm[Hg] Univer sity of pressure [place] [facility] Diastolic blood 2020-09-08 21:00:00 69 mm[Hg] Unive rsity of pressure [place] [facility] Heart rate 2020-09-08 21:00:00 72 /min [facility] [place] [facility] Body temperature 2020-09-08 18:00:00 36.5 Laura Univ ersity [facility] [place] [facility] Respiratory rate 2020-09-08 18:00:00 21 /min Univ ersity [facility] [place] [facility] Oxygen saturation in 2020-09-08 18:00:00 92 /min University of Arterial blood by [facility] Pulse oximetry Branch Body height 2020-09-07 10:45:00 172.7 cm [facility] [place] [facility] Body weight 2020-09-07 07:00:00 82.555 kg [facility] [place] [facility] BMI 2020-09-07 07:00:00 27.67 kg/m2 [facility] [place] [facility] Procedures Procedure Date / Time Performing Clinician Source Performed DME/SUPPLY JUSTIFICATION 2021-07-26 05:01:00 Doctor Unassigned, No [facility] ASSIGNMENT OF BENEFITS 2020-11-24 17:03:27 Doctor Unassigned, No [facility] BASIC METABOLIC PANEL 2020-09-08 10:31:00 [facility] (NA, K, CL, CO2, [facility] Branch GLUCOSE, BUN, CREATININE, CA) CBC WITH DIFF 2020-09-08 10:31:00 [facility] ECHO ROUTINE W/DOPPLER 2020-09-07 21:33:02 Dane Landeros [facility] COLOR [facility] CT CHEST PULMONARY 2020-09-07 19:39:15 Tig[facility] ANGIOGRAM [facility] XR CHEST 1 VW 2020-09-07 14:45:54 Tigre [facility] TROPONIN I 2020-09-07 11:26:00 [facility] COMP. METABOLIC PANEL 2020-09-07 11:26:00 [facility] ([id number]) [facility] CBC WITH DIFF 2020-09-07 11:26:00 [facility] GLYCOSYLATED HEMOGLOBIN 2020-09-07 11:26:00 Tigre Dane [facility] (A1C) [facility] N-TERMINAL PRO-BNP 2020-09-07 11:26:00 Landon [facility] Encounters Start End Encounter Admission Attending Care Care Encounter Source Date/Time Date/Time Type Type Clinicians Facility Department ID 2020-09-07 Inpatient U ISABEL [facility] [id number] [facility] 00:52:00 [facility] 2021-10-08 2021-10-08 ambulatory [facility]LMLC [facility] [id number] [facility] 2021-10-04 2021-10-04 ambulatory STLMLC [facility]LML[facility] [id number] [facility] 2021-10-04 2021-10-04 ambulatory STLMLC [facility]LMLC [id number] [facility] 2021-10-03 2021-10-03 ambulatory [facility]LMLC STLC [id number] [facility] 2021-09-27 2021-09-27 ambulatory STLMLC [facility]C [id number] [facility] 2021-09-13 2021-09-13 ambulatory [facility]LMLC STLC [id number] [facility] 2021-09-05 2021-09-05 ambulatory [facility]LMLC [facility] [id number] [facility] 2021-08-30 2021-08-30 Outpatient R RAPHAEL CEJA [facility] [id number] Univers 11:30:00 11:30:00 RAPHAEL CEJA [id number] i ty [facility] 2021-08-24 2021-08-24 Outpatient R RAPHAEL CEJA [facility] [id number] Univers 09:30:00 09:30:00 RAPHAEL CEJA [id number] i [facility] 2021-07-26 2021-07-26 Orders Doctor ERWIN [id number] Univers 00:00:00 00:00:00 Only Unassigned, TUCKER [id number] ity of [place] [facility] [id number] Oneal as [phone] [address] 2021-07-13 2021-07-13 Outpatient [facility]LMLC ST[facility] [id number] [facility] 2021-07-04 2021-07-04 Outpatient [facility]LMLC [facility] [id number] [facility] 2021-06-29 2021-06-29 Outpatient [facility]LMLC [facility] [id number] [facility] 2021-06-27 2021-06-27 Outpatient [facility]LMLC [facility] [id number] [facility] 2021-06-12 2021-06-12 Outpatient [facility] [id number] [facility] 2021-05-30 2021-05-30 Outpatient [facility] [id number] [facility] 2021-05-24 2021-05-24 Out[facility] [id number] [facility] 2021-05-15 2021-05-15 Outpatient [facility] [id number] [facility] 2021-05-03 2021-05-03 Telephone [facility] [id number] Univers 00:00:00 00:00:00 Shiwan Warren [id number] i ty [id number] Profess[place] [phone] [facility] 059 [facility] 2021-05-03 2021-05-03 Outpatient [facility] [id number] [facility] 2021-02-22 2021-02-22 Office [facility] [id number] Univers 10:20:08 11:21:56 Visit Shiwan Warren [id number] i [id number] [id number] [facility] 085 [facility] 2021-02-22 2021-02-22 Office [facility] [id number] 10:20:08 11:21:56 Visit Shiwan Warren [id number] [place] [id number] Radha [phone] [facility] 085 Building 2021-02-22 2021-02-22 Outpatient R RAPHAEL CEJA [facility] [id number] Univers 10:30:00 10:30:00 RAPHAEL CEJA [id number] i ty [facility] 2021-02-22 2021-02-22 Outpatient R RAPHAEL CEJA [facility] [id number] Univers 10:30:00 10:30:00 RAPHAEL CEJA i ty [facility] 2021-02-12 2021-02-12 Outpatient [facility]LMLC [facility] [id number] [facility] 2021-01-26 2021-01-26 Outpatient [facility]LMLC [facility] [id number] [facility] 2020-12-27 2020-12-27 Outpatient [facility]LMLC [facility] [id number] [facility] 2020-12-22 2020-12-22 Outpatient R [facility] [id number] Univers 11:30:00 11:30:00 [id number] [facility] 2020-12-22 2020-12-22 Outpatient R BLADIMIR [facility] [id number] Univers 11:30:00 11:30:00 CHIDI [facility] 2020-12-15 2020-12-15 Outpatient R BLADIMIR [facility] [id number] Univers 11:30:00 11:30:00 CHIDI [id number] [facility] 2020-12-15 2020-12-15 Outpatient R BLADIMIR [facility] [id number] Univers 11:30:00 11:30:00 CHIDI [facility] 2020-12-07 2020-12-07 Outpatient STLMLC [facility] [id number] [facility] 2020-11-24 2020-11-24 Outpatient R BLADIMIR [facility] [id number] Univers 12:50:00 12:50:00 CHIDI [id number] ity of [facility] [place] [facility] 2020-11-24 2020-11-24 Office Brenna [facility] [id number] Univers 11:04:15 11:59:09 Visit Raphael Vega [id number] i [id number] [phone] Dc dical nal 085 [facility] 2020-11-24 2020-11-24 Outpatient R RAPHAEL CEJA [facility] [id number] Univers 11:00:00 11:00:00 RAPHAEL CEJA i ty of [facility] [place] [facility] 2020-11-24 2020-11-24 Orders Doctor HOOD [id number] Univers 00:00:00 00:00:00 Only Unassigned, TUCKER [id number] [facility] [id number] Oneal as [phone] [facility] 009 Branch 2020-11-14 2020-11-14 Outpatient [facility] [id number] [facility] 2020-10-06 2020-10-06 Outpatient [facility] [id number] [facility] 2020-09-13 2020-09-13 Outpatient [facility] [id number] [facility] 2020-09-11 2020-09-11 Transition Brittny Martinesadriana [id number] Univers 00:00:00 00:00:00 of Care Alfredo Cox [id number] ity of [id number] [phone] [facility] 403 Branch 2020-09-07 2020-09-08 [facility] [id number] Univers 00:52:00 16:32:00 Encounter Sarah Vega [id number] [place] [id number] [facility] [id number] [facility] 080 Branch 2020-07-07 2020-07-07 [facility] [id number] 10:30:00 10:30:00 t Specialty/U [place] kes - Specialty rology Memori a /Urology Clinic l Clinic Outpati ent Clinics 2020-05-02 2020-05-02 [facility] [id number] 15:08:00 15:08:00 t [employer] [facility] Family Medicine l Medicine Outpati ent Clinics 2020-04-10 2020-04-10 [facility] [id number] 10:30:00 10:30:00 t Specialty/U [place] kes - Specialty rology Memori a /Urology Clinic l Clinic Outpati ent Clinics 2020-04-04 2020-04-04 [facility] [id number] 14:03:00 14:03:00 t [employer] [facility] Family Medicine l Medicine Outpati ent Clinics 2020-04-03 2020-04-03 [facility] [id number] 10:00:00 10:00:00 t [employer] [facility] Family Medicine l Medicine Outpati ent Clinics 2020-03-29 2020-03-29 [facility] [id number] 10:30:00 10:30:00 t Specialty/U [place] kes [facility] Clin[facility] 2020-03-27 2020-03-27 [facility] [id number] 15:47:00 15:47:00 t [email or web address] [facility] Family Medicine l Medicine Outpati ent Clinics 2020-03-27 2020-03-27 [facility] [id number] 11:08:00 11:08:00 t [employer] [facility] Family Medicine l Medicine Outpati ent Clinics 2020-03-22 2020-03-22 [facility] [id number] 14:20:00 14:20:00 t [email or web address] [facility] Medicine Outpati ent Clinics 2020-03-22 2020-03-22 [facility] [id number] 09:29:00 09:29:00 t Misticom s - [employer] [facility] Medicine Outpati ent Clinics 2020-02-14 2020-02-14 [facility] [id number] 08:52:00 08:52:00 t [employer] [facility] Medicine Outpati ent Clinics 2019-12-22 2019-12-22 [facility] [id number] 09:00:00 09:00:00 t Specialty/U [place] kes - Specialty rology Memori a /Urology Clinic l Clinic Outpati ent Clinics 2019-12-01 2019-12-01 [facility] [id number] 10:00:00 10:00:00 t [employer] [facility] Medicine Outpati ent Clinics 2019-09-20 2019-09-20 [facility] [id number] 15:55:00 15:55:00 t Misticom s [employer] [facility] Medicine Outpati ent Clinics 2019-09-08 2019-09-08 [facility] [id number] 09:00:00 09:00:00 t Misticom s [employer] [facility] Medicine Outpati ent Clinics 2019-08-23 2019-08-23 [facility] [id number] 09:28:00 09:28:00 t Specialty/U [place] kes - Specialty rology Memori a /Urology Clinic l Clinic Outpati ent Clinics 2019-07-28 2019-07-28 [facility] [id number] 09:00:00 09:00:00 t [employer] [facility] Medicine Outpati ent Clinics 2019-06-22 2019-06-22 [facility] [id number] 08:45:00 08:45:00 t Specialty/U [place] kes - Specialty rology Memori a /Urology Clinic l Clinic Outpati ent Clinics 2019-06-16 2019-06-16 [facility] [id number] 09:00:00 09:00:00 t Schuyler Schuyler [employer] [place] [facility] - [facility] Medicine l Medicine Outpati ent Clinics 2019-06-15 2019-06-15 [facility] [id number] 10:34:00 10:34:00 t Schuyler Sch[employer]yler [employer] Luke s - Drive [facility] l Medicine Outpati ent Clinics 2019-03-24 2019-03-24 [facility] [id number] 10:40:00 10:40:00 t Schuyler Schuyler [employer] Luke s - Drive [facility] Medicine l Medicine Outpati ent Clinics 2019-03-09 2019-03-09 [facility] [id number] 10:08:00 10:08:00 t Specialty/U [place] kes - Specialty rology Memori a /Urology Clinic l Clinic Outpati ent Clinics 2018-12-24 2018-12-24 [facility] [id number] 09:45:00 09:45:00 t Specialty/U [place] kes - [facility] Outpat[facility] ent Clinics 2018-12-17 2018-12-17 [facility] [id number] [facility] 08:30:00 08:30:00 t Schuyler Schuyler [employer] Luke s - Drive [facility] Medicine l Medicine Outpati ent Clinics 2018-11-17 2018-11-17 [facility] [id number] [facility] 11:32:00 11:32:00 t Schuyler Sch[employer]yler [employer] s - Drive [facility] Medicine l Medicine Outpati ent Clinics 2018-10-14 2018-10-14 [facility] [id number] [facility] 09:44:00 09:44:00 t Schuyler Schuyler [employer] Luke s - Drive [facility] Medicine l Medicine Outpati ent Clinics 2018-09-10 2018-09-10 [facility] [id number] [facility] [address] 08:30:00 08:30:00 t Schuyler Sch[employer]yler [employer] s - Drive [facility] Medicine l Medicine Outpati ent Clinics 2018-08-04 2018-08-04 [facility] [id number] [facility] 09:30:00 09:30:00 t Specialty/U Catr[place]ita kes - Specialty rology [facility] Clinic Outpati ent Clinics 2018-07-30 2018-07-30 [facility] [id number] [facility] 09:15:00 09:15:00 t Specialty/U Catrachita kes - [facility] Outpat[facility] Clinics 2018-07-01 2018-07-01 [facility] [id number] [address] 09:45:00 09:45:00 t Specialty/U Catrachita kes - Specialty rology [facility] a /Urology Clinic l Clinic Outpati ent Clinics 2018-06-18 2018-06-18 [facility] [id number] [address] 09:00:00 09:00:00 t Misticom s - Drive [facility] 2018-06-17 2018-06-17 [facility] [id number] [address] 08:15:00 08:15:00 t Misticom s - [employer] [facility] 2018-05-28 2018-05-28 [facility] [id number] [facility] 09:46:00 09:46:00 t Misticom s - [employer] [facility] 2018-03-17 2018-03-17 [facility] [id number] 09:30:00 09:30:00 t Misticom s - [employer] [facility] Results Test Description Test Time Test Comments Results Result Comments Source BASIC METABOLIC PANEL (NA, K, CL, CO2, GLUCOSE, BUN, 2020-08 12:16:00 CREATININE, CA) Test Item Value Reference Range Interpretation Comme nts NA (test code = 0067311096) 138 mmol/L 135-145 K (test code = 5767204396) 4.0 mmol/L 3.5-5 CL (test code = 5207418454) 99 mmol/L 98-108 CO2 TOTAL (test code = 7038774488) 34 mmol/L 23-31 H AGAP (test code = 1034931428) 2-16 BUN (test code = 4879526532) 25 mg/dL 7-23 H GLUCOSE (test code = 2776578227) 117 mg/dL 70-110 H CREATININE (test code = 1.20 mg/dL 0.5-1.04 H 8833401558) CALCIUM (test code = 3046978274) 9.1 mg/dL 8.6-10.6 eGFR Calculation (Non- mL/min/1.73m2 [place]) (test code = 5150202066) eGFR Calculation ( mL/min/1.73m2 [place]) (test code = 9052884709) PATRICIO (test code = PATRICIO) Association of Glomerular Filtration Rate (GFR) and Staging of Kidney Disease* + +-------- + ------+| GFR (mL/min/1.73 m2) ?| With Kidney Damage ?| ?Without Kidney Damage+ +-- + +| ?>90 ?| ?Stage one ?| ? Normal ?+ +------- + -------+| ?60-89 ?| ?Stage two ?| ? Decreased GFR ? + +-------- + ------+| ?30-59 ?| ?Stage three ?| ? Stage three ? + +-------- + ------+| ?15-29 ?| ?Stage four ? | ? Stage four ?+ +------- + -------+| ?<15 (or dialysis) ? ?| ?Stage five ? | ? Stage five ?+ +------- + -------+ *Each stage assumes the associated GFR level has been in effect for at least three months. ?Stages 1 to 5, with or without kidney disease, indicate chronic kidney disease. Notes: Determination of stages one and two (with eGFR >59mL/min/1.73 m2) requires estimation of kidney damage for at least three months as defined by structural or functional abnormalities of the kidney, manifested by either:Pathological abnormalities or Markers of kidney damage (including abnormalities in the composition of the blood or urine or abnormalities in imaging tests). Lab Interpretation (test code = Abnormal 74223-8) [facility] WITH [id number] 11:18:00 Test Item Value Reference Range Interpretation Comments WBC (test code = See_Comment H [Automated 6690-2) message] The system which generated this result transmit augustina reference range : 4.30 - 11.10 10*3/?L. The reference range was not used to interpret this result as normal/abnormal . RBC (test code = See_Comment L [Automated 789-8) message] The system which generated this result transmit augustina reference range : 3.93 - 5.25 10*6/?L. The reference range was not used to interpret this result as normal/abnormal . HGB (test code = 11.1 g/dL 11.6-15 L 718-7) HCT (test code = 33.8 % 35.7-45.2 L 4544-3) MCV (test code = 92.3 fL 80.6-95.5 787-2) MCH (test code = 30.3 pg 25.9-32.8 785-6) MCHC (test code = 32.8 g/dL 31.6-35.1 786-4) RDW-SD (test code = 43.0 fL 39-49.9 77554-9) RDW-CV (test code = 12.8 % 12-15.5 788-0) PLT (test code = See_Comment [Automated 777-3) message] The system which generated this result transmit augustina reference range : 166 - 358 10*3/ ?L. The reference range was not u sed to interpret th is result as normal/abnormal . MPV (test code = 10.7 fL 9.5-12.9 96841-0) NRBC/100 WBC (test See_Comment [Automat ed code = 4342814924) message] The system which generated this result transmit augsutina reference range : 0.0 - 10.0 /100 WBCs. The reference range was not used to interpret this result as normal/abnormal . NRBC x10^3 (test code <0.01 See_Comment [Auto mated = 9565320208) message] The system which generated this result transmit augustina reference range : 10*3/?L. The reference range was not used to interpret this result as normal/abnormal . GRAN MAT (NEUT) % 83.2 % (test code = 770-8) IMM GRAN % (test code 0.50 % = 7228120501) LYMPH % (test code = 7.7 % 736-9) MONO % (test code = 8.5 % 5905-5) EOS % (test code = 0.0 % 713-8) BASO % (test code = 0.1 % 706-2) GRAN MAT x10^3(ANC) 10.82 10*3/uL 1.88-7.09 H (test code = 5704647564) IMM GRAN x10^3 (test 0.07 10*3/uL 0-0.06 H code = 1494531614) LYMPH x10^3 (test code 1.00 10*3/uL 1.32-3.29 L = 731-0) MONO x10^3 (test code 1.11 10*3/uL 0.33-0.92 H = 742-7) EOS x10^3 (test code = <0.03 0.03-0.39 L 711-2) BASO x10^3 (test code <0.03 0.01-0.07 = 704-7) Lab Interpretation Abnormal (test code = 65602-2) [facility] CHEST PULMONARY [id number] 20:20:03HISTORY: Positive d-dimer, rule out P.E. TECHNIQUE: Contrast-enhanced 64-[facility]idetector [facility] was[facility] with intravenous injection of ?non ionic contrast medium.Subsequently numerous sagittal, coronal and MIP reformations weregenerated. FINDINGS: No focal lesions appreciated in the thyr oid gland. Trachea andcentral bronchial airways appear unremarkable. No acute pulmonary thromboembolism detected. No aortic aneurysm or aorticdissection. Minimal congestion noted in the right middle lobe. 3 mm nodule noted in the right lower lung (180:5). Otherwise right lung isclear. No right-sided pleural effusion. Left diaphragm is significantly elevated into the chest and, as a result,there is herniation of the entire stomach into left side of the chest andcompression atelectatic changes in the left posterior basal lower lung. Noleft pleural effusion. Minimal focal atherosclerosis noted in LAD coronary artery and its diagonalbranch as well as in mid segment of right coronary artery. Lower thoracic and upper lumbar multilevel degenerative disc disease withkyphosis and levoscoliosis noted. CONCLUSIONS:1. No acute pulmonary thromboembolism.2. 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 Minimal congestion in the right middle lobe.4. Asymmetrical soft tissue changes are seen in the upper outer leftbreast. Diagnostic mammography with left breast ultrasound recommendedwhich can be obtained as nonemergent outpatient studies. [facility], Radiant Results Inft User - 09/07/2020 2:21 PM CSTHISTORY: Positive d- dimer, rule out P.E.TECHNIQUE: Contrast-enhanced 64-mutidetector CT scan of the chest wascompleted with intravenous injection of non ionic contrast medium.Subsequently numerous sagittal, coronal and MIP reformations wereg enerated.FINDINGS: No focal lesions appreciated in the thyroid gland. Trachea andcentral bronchial airways appear unremarkable.No acute pulmonary thromboembolism detected. No aortic aneurysm or aorticdissection.Minimal congestion noted in the right middle lobe.3 mm nodule noted in the right lower lung(180:5). Otherwise right lung isclear. No right-sided pleural effusion.Left diaphragm is significantly elevated into the chest and, as a result,there is herniation of the entire stomach into left side of the chest andcompression atelectatic changes in the left posterior basal lower lung. Noleft pleural effusion.Minimal focal atherosclerosis noted in LAD coronary artery and its diagonalbranch as well as in mid segment of right coronary artery.Lower thoracic and upper lumbar multilevel degenerative disc disease withkyphosis and levoscoliosis noted.CONCLUSIONS:1. No acute pulmonary thromboembolism.2. 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 Minimal congestion in the right middle lobe.4. Asymmetrical soft tissue changes are seen in the upper outer leftbreast. Diagnostic mammography with left breast ultrasound recommendedwhich can be obtained as nonemergent outpatient studies.[facility] [id number] 14:55:22HISTORY: Dyspnea. TECHNIQUE: Portable AP erect view of the chest is obtained. No prior cheststudy available for comparison. FINDINGS: Left hemidiaphragm is moderately elevated into the chestresulting into congestion/atelectatic changes in the left lung base.Right lung is clear. Left upper lung is clear. Mild cardiomegaly suspected.Incidental note of angular thoracolumbar dextroscoliosis. CONCLUSIONS:Moderately elevated left hemidiaphragm without any apparentcause. Congestion/atelectatic changes are seen in the left lung base.[facility], Radiant Results Inft User - 09/07/2020 8:56 AM CSTHISTORY: Dyspnea.TECHNIQUE: Portable AP erect view of the chest is obtained. No prior cheststudy available for comparison.FINDINGS: Left hemidiaphragm is moderately elevated into the chestresulting into congestion/atelectatic changes in the left lung base.Right lung is clear. Left upper lung is clear. Mild cardiomegaly suspected.Incidental note of angular thoracolumbar dextroscoliosis.CONCLUSIONS: Moderately elevatedleft hemidiaphragm without any apparentcause. Congestion/atelectatic changes are seen in the left lung base. [facility] (A1C)2020-09-07 14:45:00 Test Item Value Reference Range Interpretation Comments HGB A1C (test code = 5.6 % 4-6 4548-4) PATRICIO (test code = PATRICIO) %A1C (NGSP) Interpretation (ADA)4.8-5.6 ? ? Normal or (Non-Diabetic Range)5.7-6.4 ? ? Increased Risk (Pre-Diabetic)>6.5 ?Diabetes Indicated Lab Interpretation Normal (test code = 15187-8) [facility] [id number] 14:44:00 Test Item Value Reference Range Interpretation Comments NT-proBNP (test code 1180 pg/mL See_Comment H [Autom ated = 1599424577) message] The system which generated this result transmitted reference range : <=450. The reference range was not used to interpret this result as normal/abnormal . PATRICIO (test code = PATRICIO) Biotin has been reported to cause a negative bias, interpret results relative to patient's use of biotin. Lab Interpretation Abnormal (test code = 33357-5) [facility] [id number] 12:14:00 Test Item Value Reference Range Interpretation Comments TROPONIN I (test <0.012 See_Comment [Automated code = 9320545582) message] The system which generated this result transmitted reference range : <=0.034 ng/mL. The reference range was not used to interpr et this result as normal/abnormal . PATRICIO (test code = Equal or Less than PATRICIO) 0.034 ng/ml---Normal ?Note: Cardiac troponin begins to rise 3-4 hours after the onset of ischemia. Repeat in 4-6 hours if the sample was drawn within 3-4 hours of the onset of the symptom and found normal. Between 0.035 and 0.120 ng/mL--- Borderline. Questionable myocardial injury or necrosis ? ?Note: Serial measurement may be necessary to confirm or exclude the diagnosis of myocardial injury or necrosis; Clinical correlation (symptoms, EKGs, imaging studies, and others) required; Repeat in 4-6 hours if clinically indicated. ? Equal or Higher than 0.121 ng/mL---Abnormal. Myocardial Injury or Necrosis Likely ? Biotin has been reported to cause a negative bias, interpret results relative to patient's use of biotin. ? Lab Interpretation Normal (test code = 51785-1) [facility] WITH [id number] 12:11:00 Test Item Value Reference Range Interpretation Comments WBC (test code = See_Comment [Automated 4726-2) message] The sy stem which generated this result transmitted reference range : 4.30 - 11.10 10*3/?L. The reference range was not used to interpret this result as normal/abnormal . RBC (test code = See_Comment [Automated 137-8) message] The sy stem which generated this result transmitted reference range : 3.93 - 5.25 10*6/?L. The reference range was not used to interpret this result as normal/abnormal . HGB (test code = 12.4 g/dL 11.6-15 718-7) HCT (test code = 38.1 % 35.7-45.2 4544-3) MCV (test code = 93.6 fL 80.6-95.5 787-2) MCH (test code = 30.5 pg 25.9-32.8 785-6) MCHC (test code = 32.5 g/dL 31.6-35.1 786-4) RDW-SD (test code = 43.8 fL 39-49.9 65658-5) RDW-CV (test code = 12.7 % 12-15.5 788-0) PLT (test code = See_Comment [Automated 777-3) message] The sy stem which generated this result transmitted reference range : 166 - 358 10*3/ ?L. The reference r [place] was not used to interpret this result as normal/abnormal . MPV (test code = 10.5 fL 9.5-12.9 17959-3) NRBC/100 WBC (test See_Comment [Automat ed code = 5727790678) message] The system which generated this result transmitted reference range : 0.0 - 10.0 /100 WBCs. The refer ence range was not u sed to interpret th is result as normal/abnormal . NRBC x10^3 (test code <0.01 See_Comment [Auto mated = 3602362528) message] The s ystem which generated this result transmitted reference range : 10*3/?L. The reference range was not used to interpret this result as normal/abnormal . GRAN MAT (NEUT) % 89.8 % (test code = 770-8) IMM GRAN % (test code 0.30 % = 9371275805) LYMPH % (test code = 9.1 % 736-9) MONO % (test code = 0.7 % 5905-5) EOS % (test code = 0.0 % 713-8) BASO % (test code = 0.1 % 706-2) GRAN MAT x10^3(ANC) 6.01 10*3/uL 1.88-7.09 (test code = 7968127590) IMM GRAN x10^3 (test <0.03 0-0.06 code = 5524049628) LYMPH x10^3 (test code 0.61 10*3/uL 1.32-3.29 L = 731-0) MONO x10^3 (test code 0.05 10*3/uL 0.33-0.92 L = 742-7) EOS x10^3 (test code = <0.03 0.03-0.39 L 711-2) BASO x10^3 (test code <0.03 0.01-0.07 = 704-7) Lab Interpretation Abnormal (test code = 42492-0) [facility]. METABOLIC PANEL (78926)2020-09-07 12:08:00 Test Item Value Reference Range Interpretation Comments NA (test code = 140 mmol/L 135-145 7651802378) K (test code = 4.0 mmol/L 3.5-5 5779494085) CL (test code = 103 mmol/L 98-108 5194305101) CO2 TOTAL (test code = 32 mmol/L 23-31 H 9795012120) AGAP (test code = 2-16 6880280404) BUN (test code = 15 mg/dL 7-23 9339940811) GLUCOSE (test code = 146 mg/dL 70-110 H 8081012472) CREATININE (test code = 1.11 mg/dL 0.5-1.04 H 3825902680) TOTAL BILI (test code = 0.5 mg/dL 0.1-1.4 9655071553) CALCIUM (test code = 9.4 mg/dL 8.6-10.6 0273059451) T PROTEIN (test code = 6.9 g/dL 6.3-8.2 9478309915) ALBUMIN (test code = 3.9 g/dL 3.5-5 5071875018) ALK PHOS (test code = 60 U/L 34-122 8990643201) ALTv (test code = 15 U/L 5-35 1742-6) AST(SGOT) (test code = 23 U/L 13-40 2469295481) eGFR Calculation mL/min/1.73m2 (Non-) (test code = 0305036022) eGFR Calculation mL/min/1.73m2 () (test code = 5175347914) PATRICIO (test code = PATRICIO) Association of Glomerular Filtration Rate (GFR) and Staging of Kidney Disease* + --+ --+ ------+| GFR (mL/min/1.73 m2) ?| With Kidney Damage ?| ?Without Kidney Damage+ --------+ --------+ +| ?>90 ?| ?Stage one ?| ? Normal ?+ ---+ ---+ -------+| ?60-89 ?| ?Stage two ?| ? Decreased GFR ? + --+ --+ ------+| ?30-59 ?| ?Stage three ?| ? Stage three ? + --+ --+ ------+| ?15-29 ?| ?Stage four ? | ? Stage four ?+ ---+ ---+ -------+| ?<15 (or dialysis) ? ?| ?Stage five ? | ? Stage five ?+ ---+ ---+ -------+ *Each stage assumes the associated GFR level has been in effect for at least three months. ?Stages 1 to 5, with or without kidney disease, indicate chronic kidney disease. Notes: Determination of stages one and two (with eGFR >59mL/min/1.73 m2) requires estimation of kidney damage for at least three months as defined by structural or functional abnormalities of the kidney, manifested by either:Pathological abnormalities or Markers of kidney damage (including abnormalities in the composition of the blood or urine or abnormalities in imaging tests). Lab Interpretation Abnormal (test code = 05302-4) [facility]"
[2021-11-02 17:40] LABS: Urine Blood Negative (Negative); Urine Glucose Negative (Negative); Urine Protein Negative (Negative); Urine Specific Gravity 1.025 (1.005-1.030)
--- NOTE | 2021-11-02 17:45 | RAD REPORT ---
EXAM DESCRIPTION: RAD - Chest Single View - 11/02/2021 5:36 pm CLINICAL HISTORY: confusion COMPARISON: Chest Single View dated 06/27/2021; Chest Single View dated 04/26/2021; Chest Single View da augustina 03/26/2020; Chest Pa And Lat (2 Views) dated 11/05/2016Chest Single View dated 06/27/2021; Chest Sing le View dated 04/26/2021; Chest Single View dated 03/26/2020; Chest Pa And Lat (2 Views) dated 11/05/2016 ; Chest Abd Pelvis Wo Con dated 03/26/2020 FINDINGS: Lines: None. Lungs: Similar airspace disease at the left lung base which likely represents atelectasis. Pleural: Blunted left costophrenic angle favored secondary to configuration of the patient's pericard ial fat-pad and large hernia. Cardiac: The heart size is within normal limits. Bones: No acute fractures. Other: Surgical clips in the left axilla. IMPRESSION: Left basilar opacities are chronic and favored to represent a combination of atelectasis , hernia, and configuration of the patient's pericardial fat pad.
--- NOTE | 2021-11-02 17:59 | RAD REPORT ---
EXAM DESCRIPTION: CT - Head Brain Wo Cont - 11/02/2021 5:41 pm CLINICAL HISTORY: CONFUSED COMPARISON: Head Brain Wo Cont dated 06/27/2021; HEAD BRAIN W O CONTRAST dated 07/07/2015 TECHNIQUE: All CT scans are performed using dose optimization technique as appropriate and may inclu de automated exposure control or mA/KV adjustment according to patient size. FINDINGS: No intracranial hemorrhage, hydrocephalus or extra-axial fluid collection.No areas of brai n edema or evidence of midline shift. Mild chronic small vessel ischemic changes. Left sphenoid sinus opacification. The calvarium is intact. IMPRESSION: No acute intracranial abnormality.
[2021-11-02] MEDS ORDERED: NA CHLORIDE 0.9% 1,000 ML ONE (18:09)
[2021-11-02 18:50] LABS: Absolute Lymphocytes (CBC) 1.8 K/uL (0.7-4.9); Hematocrit 39.1 % (36.0-45.0); Lymphocytes % 23.2 % (15.3-44.8); MPV 9.4 fL (7.6-11.3); RBC Red Blood Cell Count 4.24 M/uL (3.86-4.86)
[2021-11-02 18:53] LABS: Protime INR 1.27
[2021-11-02 18:56] LABS: Urine Bacteria <20 /HPF (<20); Urine RBC <5 /HPF (NONE SEEN)
[2021-11-02 19:09] LABS: ALT/SGPT 16 U/L (12-78); AST/SGOT 16 U/L (15-37); Albumin 3.4 g/dL (3.4-5.0); Alkaline Phosphatase 70 U/L (45-117); Amylase 35 U/L (25-115); BUN Blood Urea Nitrogen 9 mg/dL (7-18); Bicarbonate 32 mmol/L (21-32); Bilirubin Direct 0.1 mg/dL (0-0.2); Bilirubin Total 0.5 mg/dL (0.2-1.0); CKMB Creatine Kinase MB < 1.0 ng/mL (1.0-3.6); Creatine Phosphokinase 48 U/L (26-192); Glucose Level 100 mg/dL (74-106); Lipase 150 U/L (73-393); Potassium 3.5 mmol/L (3.5-5.1); Protein, Total 7.4 g/dL (6.4-8.2); Sodium Level 141 mmol/L (136-145); Troponin (Emerg Dept Use Only) < 0.02 ng/mL (0.0-0.045)
[2021-11-02] MEDS ORDERED: CEFAZOLIN SODIUM 1 GM/VIAL ONE (21:26)
[2021-11-02] MEDS ORDERED: HYDRALAZINE HCL 20 MG/ML VIAL ONE (21:26)
--- NOTE | 2021-11-02 23:35 | ER ---
Nurse's Notes [facility] Name: Faiaz Pete Age: 81 yrs Sex: Female : 1940 Arrival Date: 11/02/2021 Time: 15:57 Bed 19 Private MD: Diagnosis: Altered mental status, unspecified;Hypertensive heart disease without heart failure Presentation: 11/02 16:05 Chief complaint: Patient's son or daughter states: she called me this morning and said tw2 there was 3 people in her home that wouldn't leave and they were taking showers and using her washing machine. we went there and no one was there. she had all the doors open in the house. she normally uses a walker and had got to the garage. we were thinking a UTI. i called [facility] for an order. Dr. Bah said to bring her because she was ok yesterday but then so off today. it happened before in June and off an on that she has the bouts of hallucinations. i dont know if its dementia or what. i have been trying to get her in to [facility]. [facility] started because [facility] said the insurance needed them to evaluate her. but the insurance company is horrible to deal with and we are still waiting. Chief complaint: Patient's son or daughter states: also some of her medicines was on the floor. i dont know what she took or didn't take today. Coronavirus screen: At this time, the client does not indicate any symptoms associated with coronavirus-19. Ebola Screen: Patient denies travel to an Ebola-affected area in the 21 days before illness onset. Initial Sepsis Screen: Does the patient meet any 2 criteria? No. Patient's initial sepsis screen is negative. Does the patient have a suspected source of infection? No. Patient's initial sepsis screen is negative. Risk Assessment: Do you want to hurt yourself or someone else? Patient reports no desire to harm self or others. Onset of symptoms was November 02, 2021. 16:05 Method Of Arrival: Wheelchair tw2 16:05 Acuity: KATHI 3 tw2 20:00 Risk Assessment: Do you want to hurt yourself or someone else? Patient reports no st1 desire to harm self or others. Triage Assessment: 16:19 General: Appears in no apparent distress. slender, Behavior is cooperative. Pain: tw2 Denies pain. Neuro: Level of Consciousness is awake, obeys commands, Oriented to person, place, daughter reports "she just doesn't know whey we are here today". Historical: - Allergies: 16:13 Bactrim; tw2 16:13 Levaquin (Hives); swelling; tw2 16:13 Macrobid; tw2 16:13 Nitrofurantoin; tw2 - Home Meds: 16:13 pantoprazole 40 mg Oral TbEC 1 tab once daily [Active]; sotalol 80 mg Oral tab 1 tab 2 tw2 times per day [Active]; Eliquis 2.5 mg oral tab 1 tab 2 times per day [Active]; escitalopram oxalate 20 mg oral tab 1 tab once daily [Active]; atorvastatin 10 mg Oral tab 1 tab once daily [Active]; Advair Diskus 100-50 mcg/dose Inhl dsdv 1 puff 2 times per day [Active]; Potassium Chloride 99 mg Oral 1 cap once daily [Active]; clonazepam 0.5 mg Oral TbDi 1 tab at bedtime [Active]; Symbicort 160-4.5 mcg/actuation inhalation HFAA 2 puffs 2 times per day [Active]; levalbuterol HCl 0.63 mg/3 mL inhalation nebu 3 mL every 8 hours [Active]; - PMHx: 16:13 SVT; hemmorhoids; COPD; Hypertension; Hyperlipidemia; Aneurysm; Cancer, Breast; TIA; tw2 - Immunization history:: Client reports receiving the 2nd dose of the Covid vaccine. - Social history:: Smoking status: Patient denies any tobacco usage or history of. Screenin:11 Abuse screen: Denies threats or abuse. Denies injuries from another. Nutritional bp screening: No deficits noted. Tuberculosis screening: No symptoms or risk factors identified. Fall Risk None identified. Assessment: 17:00 General: SEE TRIAGE NOTE. bp 17:31 Reassessment: Assisted patient to bedside commode. Pt gait unsteady. Now back in bed, ss XRAY at bedeside. Overdose: 11/03 00:13 [place] Suicide Severity Screening:. [place] Suicide Severity Screening: "In the past st1 month, have you actually had any thoughts of killing yourself?" Patient responds "no.". Vital Signs: 11/02 16:05 BP 151 / 60; Pulse 65; tw2 16:12 Resp 17; Temp 97.7(TE); Pulse Ox 96% on 3 lpm NC; Weight 70.31 kg; bp 18:30 BP 187 / 84; Pulse 64; Resp 16; Pulse Ox 100% ; bp 21:15 BP 194 / 96; Pulse 66; Resp 16; Pulse Ox 100% ; st1 22:20 BP 94 / 71; Pulse 71; Resp 18; Pulse Ox 95% ; st1 23:00 BP 196 / 87; Pulse 67; Resp 18; Pulse Ox 98% ; st1 23:29 BP 185 / 62; Pulse 66; Resp 18; Pulse Ox 97% ; st1 16:12 pts daughter states she uses 3L nc at home bp ED Course: 15:57 Patient arrived in ED. as 16:12 Triage completed. tw2 16:12 Arm band placed on. tw2 16:56 Socorro Weinberg MD is Attending Physician. sp3 17:10 Oziel Smith, RN is Primary Nurse. bp 17:11 Patient has correct armband on for positive identification. Bed in low position. Call bp light in reach. Side rails up X2. Adult w/ patient. 17:36 Chest Single View XRAY In Process Unspecified. EDMS 17:41 CT Head Brain wo Cont In Process Unspecified. EDMS 18:30 Inserted saline lock: 22 gauge in right forearm, using aseptic technique. Blood bp collected. 18:45 Attending Physician role handed off by Socorro Weinberg MD kdr 18:45 Cheko Marroquin MD is Attending Physician. kdr 18:46 Amylase, Serum Sent. bp 18:46 Basic Metabolic Panel Sent. bp 18:46 Blood Culture Adult (2) Sent. bp 18:47 CBC with Diff Sent. bp 19:08 Primary Nurse role handed off by Oziel Smith, JESÚS eb 20:10 Katty Eagle, JESÚS is Primary Nurse. st1 23:31 No provider procedures requiring assistance completed. st1 11/03 00:15 IV discontinued, intact, bleeding controlled, No redness/swelling at site. Pressure st1 dressing applied. Administered Medications: 11/02 18:30 Drug: NS 0.9% (30 ml/kg) 30 ml/kg Route: IV; Rate: bolus; Site: right forearm; bp 21:28 Drug: hydrALAZINE 5 mg Route: IVP; Site: right hand; st1 21:55 CANCELLED (Physician Discretion): Augmentin (Amoxicillin-Clavulanate) 500 mg PO once bb 21:56 CANCELLED (Physician Discretion): Ancef (cefazolin) 1 grams IM once bb Outcome: 23:34 Discharge ordered by . kdr 11/03 00:09 Discharged to home with crutches, with family. st1 Condition: stable Discharge instructions given to patient, family, Instructed on follow up and referral plans. Demonstrated understanding of instructions, follow-up care, medications. 00:17 Patient left the ED. st1 Signatures: Dispatcher [employer] EDMS Cheko Marroquin MD MD kdr Martinez, Amelia as Smirch, Shelby, RN RN ss Melba Humphrey RN RN tw2 Oziel Smith RN RN Lenore Santana Setul, MD MD sp3 Katty Eagle RN RN st1 Nedra Tay RN bb Corrections: (The following items were deleted from the chart) 11/02 17:50 16:12 Resp 17bpm; Pulse Ox 96% 3 lpm Nasal Cannula; Temp 97.7F Temporal; pts daughter bp states she uses 3L nc at home; tw2 23:29 23:00 BP 185 / 62; Pulse 66bpm; Resp 18bpm; Pulse Ox 97%; st1 st1 23:32 21:33 [place] Suicide Severity Screening: "In the past month, have you wished you were st1 or wished you could go to sleep and not wake up?" Patient responds "no." Patient responds "yes." Based off client's responses, additional C-SSRS screening questions required. "In the past month, have you actually had any thoughts of killing yourself?" Patient responds "no." "In your lifetime, have you ever done anything, started to do anything, or prepared to do anything to end your life?" Patient responds "no." st1 11/03 00:10 11/02 23:32 [place] Suicide Severity Screening: "In the past month, have you wished st1 you were or wished you could go to sleep and not wake up?" Patient responds "no." Patient responds "yes." Based off client's responses, additional C-SSRS screening questions required. "In the past month, have you actually had any thoughts of killing yourself?" Patient responds "no." "In your lifetime, have you ever done anything, started to do anything, or prepared to do anything to end your life?" Patient responds "no." st1 11/03 00:14 00:10 [place] Suicide Severity Screening: "In the past month, have you actually had st1 any thoughts of killing yourself?" Patient responds "no." st1 00:14 00:12 [place] Suicide Severity Screening: "In the past month, have you wished you were st1 or wished you could go to sleep and not wake up?" Patient responds "no." "In the past month, have you actually had any thoughts of killing yourself?" Patient responds "no." "In your lifetime, have you ever done anything, started to do anything, or prepared to do anything to end your life?" Patient responds "no." st1
--- NOTE | 2021-11-02 23:35 | EDPHYS ---
Physician Documentation [facility] Name: Faiza Pete Age: 81 yrs Sex: Female : 1940 Arrival Date: 11/02/2021 Time: 15:57 Bed 19 Private MD: ED Physician Cheko Marroquin HPI: 11/02 17:15 This 81 yrs old Female presents to ER via Wheelchair with complaints of Possible sp3 Overdose, Hallucinations. 17:15 81-year-old female with a history of COPD, hypertension, hyperlipidemia, longstanding sp3 dementia presents to the ED for continued confusion and hallucinations that occurred today where patient thought that there were strangers in her home and had all of the windows and doors open. When family arrived, patient continued to be confused and they called their home health team to obtain a urine sample in case it was a urine infection. Home health nurse never showed up and so patient called PCP Dr. Bah who advised to come to the ED for further work-up. Family and patient deny fever, headache, cough, URI symptoms, known COVID-19 contacts, or any other review of systems at this time.. Historical: - Allergies: 16:13 Bactrim; tw2 16:13 Levaquin (Hives); swelling; tw2 16:13 Macrobid; tw2 16:13 Nitrofurantoin; tw2 - Home Meds: 16:13 pantoprazole 40 mg Oral TbEC 1 tab once daily [Active]; sotalol 80 mg Oral tab 1 tab 2 tw2 times per day [Active]; Eliquis 2.5 mg oral tab 1 tab 2 times per day [Active]; escitalopram oxalate 20 mg oral tab 1 tab once daily [Active]; atorvastatin 10 mg Oral tab 1 tab once daily [Active]; Advair Diskus 100-50 mcg/dose Inhl dsdv 1 puff 2 times per day [Active]; Potassium Chloride 99 mg Oral 1 cap once daily [Active]; clonazepam 0.5 mg Oral TbDi 1 tab at bedtime [Active]; Symbicort 160-4.5 mcg/actuation inhalation HFAA 2 puffs 2 times per day [Active]; levalbuterol HCl 0.63 mg/3 mL inhalation nebu 3 mL every 8 hours [Active]; - PMHx: 16:13 SVT; hemmorhoids; COPD; Hypertension; Hyperlipidemia; Aneurysm; Cancer, Breast; TIA; tw2 - Immunization history:: Client reports receiving the 2nd dose of the Covid vaccine. - Social history:: Smoking status: Patient denies any tobacco usage or history of. ROS: 17:19 Unable to obtain ROS due to baseline dementia. sp3 11/03 00:26 Constitutional: Negative for fever, chills, and weight loss. kdr Exam: 11/02 17:19 Constitutional: This is a well developed, well nourished patient who is awake, alert, sp3 and in no acute distress. Head/Face: Normocephalic, atraumatic. Eyes: Pupils equal round and reactive to light, extra-ocular motions intact. Lids and lashes normal. Conjunctiva and sclera are non-icteric and not injected. Cornea within normal limits. Periorbital areas with no swelling, redness, or edema. ENT: Nares patent. No nasal discharge, no septal abnormalities noted. External auditory canals are clear. Oropharynx with no redness, swelling, or masses, exudates, or evidence of obstruction, uvula midline. Mucous membranes moist. Neck: Trachea midline, no thyromegaly or masses palpated, and no cervical lymphadenopathy. Supple, full range of motion without nuchal rigidity, or vertebral point tenderness. No Meningismus. Chest/axilla: Normal chest wall appearance and motion. Nontender with no deformity. No lesions are appreciated. Cardiovascular: Regular rate and rhythm with a normal S1 and S2. No gallops, murmurs, or rubs. Normal PMI, no JVD. No pulse deficits. Respiratory: Lungs have equal breath sounds bilaterally, clear to auscultation and percussion. No rales, rhonchi or wheezes noted. No increased work of breathing, no retractions or nasal flaring. Abdomen/GI: Soft, non-tender, with normal bowel sounds. No distension or tympany. No guarding or rebound. No evidence of tenderness throughout. Back: No spinal tenderness. No costovertebral tenderness. Full range of motion. Skin: Warm, dry with normal turgor. Normal color with no rashes, no lesions, and no evidence of cellulitis. MS/ Extremity: Pulses equal, no cyanosis. Neurovascular intact. Full, normal range of motion. Neuro: Neurologically patient has no deficits including cranial nerves II through XII, sensory/pain in temperature, motor, speech, mentation, mental status, gait. Patient does recall that she was hallucinating and calls it "sad".. 17:57 ECG was reviewed by the Attending Physician. Demonstrates normal sinus rhythm at 63 bpm sp3 with normal intervals, normal QRS, normal axis, nonspecific diffuse ST/T changes without evidence of ischemia. Vital Signs: 16:05 BP 151 / 60; Pulse 65; tw2 16:12 Resp 17; Temp 97.7(TE); Pulse Ox 96% on 3 lpm NC; Weight 70.31 kg; bp 18:30 BP 187 / 84; Pulse 64; Resp 16; Pulse Ox 100% ; bp 21:15 BP 194 / 96; Pulse 66; Resp 16; Pulse Ox 100% ; st1 22:20 BP 94 / 71; Pulse 71; Resp 18; Pulse Ox 95% ; st1 23:00 BP 196 / 87; Pulse 67; Resp 18; Pulse Ox 98% ; st1 23:29 BP 185 / 62; Pulse 66; Resp 18; Pulse Ox 97% ; st1 16:12 pts daughter states she uses 3L nc at home bp MDM: 17:20 Data reviewed: vital signs, nurses notes. ED course: 81-year-old female likely with sp3 dementia and hallucinations. Will obtain septic work-up to assess for any possible external source for her symptoms including infection. CT scan of the head, chest x-ray, laboratory values will be obtained. If work-up is negative I have told patient and daughter that they will be discharged and will need to have somebody staying with her until proper [facility] placement can be obtained. They are in the process of obtaining such services with a local [facility]. If there is a clinical reason to admit patient then patient will be admitted. This patient's care will occur in transition over change of physician shift. Dr. Cheko Marroquin will graciously and kindly take over this patient for final disposition.. 17:22 Patient medically screened. sp3 11/02 17:15 Order name: Amylase, Serum sp3 11/02 17:15 Order name: Basic Metabolic Panel sp3 11/02 17:15 Order name: Blood Culture Adult (2) sp3 11/02 17:15 Order name: CBC with Diff sp3 11/02 17:15 Order name: CPK; Complete Time: 20:59 sp3 11/02 17:15 Order name: Ckmb; Complete Time: 20:59 sp3 11/02 17:15 Order name: LFT's; Complete Time: 20:59 sp3 11/02 17:15 Order name: Lactate; Complete Time: 19:09 sp3 11/02 17:15 Order name: Lipase; Complete Time: 20:59 sp3 11/02 17:15 Order name: Procalcitonin; Complete Time: 20:59 sp3 11/02 17:15 Order name: Protime (+inr); Complete Time: 19:09 sp3 11/02 17:15 Order name: Ptt, Activated; Complete Time: 19:09 sp3 11/02 17:15 Order name: Troponin (emerg Dept Use Only); Complete Time: 20:59 sp3 11/02 17:15 Order name: Urine Microscopic Only; Complete Time: 19:09 sp3 11/02 17:15 Order name: Chest Single View XRAY; Complete Time: 17:57 sp3 11/02 17:15 Order name: Accucheck; Complete Time: 17:51 sp3 11/02 17:15 Order name: Cardiac monitoring; Complete Time: 17:51 sp3 11/02 17:15 Order name: EKG - Nurse/Tech; Complete Time: 17:51 sp3 11/02 17:15 Order name: IV Saline Lock - Large Bore; Complete Time: 18:46 sp3 11/02 17:15 Order name: CT Head Brain wo Cont; Complete Time: 18:47 sp3 11/02 17:16 Order name: Amylase; Complete Time: 20:59 EDMS 11/02 17:16 Order name: Basic Metabolic Panel; Complete Time: 19:57 EDMS 11/02 17:16 Order name: Blood Culture EDMS 11/02 17:16 Order name: CBC with Automated Diff; Complete Time: 19:09 EDMS 11/02 17:18 Order name: SARS-COV-2 RT PCR (Document "Date of Onset" if Symptomatic); Complete Time: eb 20:59 11/02 17:40 Order name: Urine Dipstick-Ancillary EDMS 11/02 17:15 Order name: Labs collected and sent; Complete Time: 18:46 sp3 11/02 17:15 Order name: O2 Per Protocol; Complete Time: 17:51 sp3 11/02 17:15 Order name: O2 Sat Monitoring; Complete Time: 17:51 sp3 11/02 17:15 Order name: Urine Dipstick-Ancillary (obtain specimen); Complete Time: 17:51 sp3 Administered Medications: 18:30 Drug: NS 0.9% (30 ml/kg) 30 ml/kg Route: IV; Rate: bolus; Site: right forearm; bp 21:28 Drug: hydrALAZINE 5 mg Route: IVP; Site: right hand; st1 21:55 CANCELLED (Physician Discretion): Augmentin (Amoxicillin-Clavulanate) 500 mg PO once bb 21:56 CANCELLED (Physician Discretion): Ancef (cefazolin) 1 grams IM once bb Disposition Summary: 11/02/21 23:34 Discharge Ordered Location: Home kdr Problem: new kdr Symptoms: have improved kdr Condition: Stable kdr Diagnosis - Altered mental status, unspecified kdr - Hypertensive heart disease without heart failure kdr Followup: kdr - With: Private Physician - When: 2 - 3 days - Reason: If symptoms return, Further diagnostic work-up, Recheck today's complaints, Continuance of care, Re-evaluation by your physician Discharge Instructions: - Discharge Summary Sheet kdr - Confusion kdr - Hypertension, Adult, [id number] kdr Forms: - Medication Reconciliation Form kdr - Thank You Letter kdr Signatures: Dispatcher [employer] EDMS Cheko Marroquin MD MD kdr Leah, Mahesh, FURNACE MECHANIC HELPER-C FURNACE MECHANIC HELPER-Cla1 Melba Humphrey RN RN tw2 Oziel Smith RN RN bp Socorro Weinberg MD MD sp3 Katty Eagle RN RN st1 Nedra Tay RN bb Corrections: (The following items were deleted from the chart) 21:55 20:59 Augmentin (Amoxicillin-Clavulanate) 500 mg PO once ordered. kdr bb 21:56 20:59 Ancef (cefazolin) 1 grams IM once ordered. kdr bb
[2021-11-03 00:39] VITALS: TEMP 97.7
[2021-11-03 00:47] VITALS: BP 185/62; O2SAT 97
== END 2021-11-03 00:17 | disposition home or self-care (01) ==
LOC: ER 15:55
DX: I11.9 Hypertensive heart disease without heart failure (principal); I10 Essential (primary) hypertension; J44.9 Chronic obstructive pulmonary disease, unspecified; F03.90 Unspecified dementia, unspecified severity, without behavioral disturbance, psychotic disturbance, mood disturbance, and anxiety; Z79.01 Long term (current) use of anticoagulants; Z88.1 Allergy status to other antibiotic agents; Z85.3 Personal history of malignant neoplasm of breast; Z20.822 Contact with and (suspected) exposure to COVID-19
CPT/HCPCS: 93005; 87040 ×2; 85025; 80048; 36415; 82150; 82550; 85610; 80076; 83605; 85730; 84484; 82553; 83690; 84145; 70450; 71045; 99284; U0003; J0360; J7030; J0690; 81003; 81015

== ENCOUNTER 2022-01-31 13:50 | Observation (INO) | payer OTHER ==
--- OUTSIDE RECORDS SUMMARY | 2022-01-31 13:56 | XMS REPORT | Continuity of Care Document ---
:1940 Author Organization [facility] t Address [address] [place] [place] [address] Care Team Providers Name Role Phone Sandi Bah Primary Care Physician Lucy Bah Attending Clinician Unavailable ISABEL Attending Clinician Unavailable BRENNA Attending Clinician Unavailable BRENNA Attending Clinician Unavailable Doctor Unassigned, Name Attending Clinician Unavailable Brenna STEVE Attending Clinician Mariya GARRISON Attending Clinician Unavailable Bobbi ESPINOSA, A Attending Clinician Unavailable Isabel GONZALEZ Attending Clinician ISABEL Admitting Clinician Unavailable Isabel GONZALEZ Admitting Clinician Payers Payer Name Policy Type Policy Number Effective Date Expiration Date S ource [employer] MEDICARE ADV [id number] 2019 00:00:00 Problems Condition Condition Condition Status [...] Disease Active 2019-10 Uni vers hypertensi hypertensi 12 it y of on on 00:00: [place] [...] antoin Reaction Available [facility] Macrobid Adverse Active Info Not [facility] Bactrim Adverse Active Info Not [facility] Reaction Available [facility] Levaquin Adverse Active Info Not [facility] Reaction Available [facility] Social History Social Habit Start Date Stop Date Quantity Comments Source Exposure to Not sure [facility] SARS-CoV-2 (event) Medica l Branch Tobacco use and 2020-11-24 2020-11-24 Never used [facility] exposure 00:00:00 00:00:00 Medical Branch Sex Ass[birth year] At [birth year] [facility] 00:00:00 00:00:00 Medical Branch Smoking Status Start Date Stop Date Source Unknown if ever smoked [facility] Never smoker [facility] Medications Ordered Filled Start Stop Current Ordering Indication Dosage Frequency Signature Comments Components Source Medication Medication Date Date Medication? Clinician (SIG) Name Name budesonide/ Yes Inhale. Uni vers formoterol 4-29 ity of fumarate 15:56: [place] (SYMBICORT 16 Medical INHALE) Branch budesonide/ Yes Inhale. Uni vers formoterol 4-29 ity of fumarate 15:56: [place] (SYMBICORT 16 Medical INHALE) Branch budesonide/ Yes Inhale. Uni vers formoterol 4-29 ity of fumarate 15:56: [place] (SYMBICORT 16 Medical INHALE) [place] budesonide/ Yes Inhale. Uni vers formoterol 4-29 ity of fumarate 10:56: [place] (SYMBICORT 16 Medical INHALE) [place] ASPIRIN Yes 81mg Take 81 mg Univ ers ORAL 1- by mouth ity of 17:20: daily. [address] atorvastati Yes 10mg Take 10 mg Univers n calcium 1- by mouth ity of (ATORVASTAT 17:[place]: [place] [address] [place] [address] MULTIVITAMI Yes Take by Un jessica N ORAL 1- mouth ity of 17:20: daily. [address] POTASSIUM Yes 99mg Take 99 mg Un jessica ORAL - by mouth ity of 17:20: every [place] [address] Friday, Medical Friday Branch and Friday. cyclosporin Yes 2[drp] Place 2 U nivers e (RESTASIS 1- Drops in ity of OPHTHALMIC) 17:20: each eye 2 [place] [address] (two) Medical times Branch daily. calcium Yes 1{capsu Take 1 Unive rs carbonate/v 1- le} capsule by it y of itamin D3 17:20: mouth [place] (CALCIUM 56 daily. Medical 600 + D,3, Branch ORAL) ASPIRIN Yes 81mg Take 81 mg Univ ers ORAL 1-29 by mouth ity of 17:20: daily. [address] atorvastati Yes 10mg Take 10 mg Univers n calcium 1-29 by mouth ity of (ATORVASTAT 17:[place]: [place] [address] [place] [address] MULTIVITAMI Yes Take by Un jessica N ORAL 1-29 mouth ity of 17:20: daily. [address] POTASSIUM Yes 99mg Take 99 mg Un jessica ORAL 1-29 by mouth ity of 17:20: every [place] [address] Friday, Medical Friday Branch and Friday. cyclosporin Yes 2[drp] Place 2 U nivers e (RESTASIS 1-29 Drops in ity of OPHTHALMIC) 17:20: each eye 2 [place] [address] (two) Medical times [place] daily. calcium 0 Yes 1{capsu Take 1 Unive rs carbonate/v 1-29 le} capsule by it y of itamin D3 17:20: mouth [place] (CALCIUM 56 daily. Medical 600 + D,3, Branch ORAL) ASPIRIN Yes 81mg Take 81 mg Univ ers ORAL 1-29 by mouth ity of 17:20: daily. [address] atorvastati Yes 10mg Take 10 mg Univers n calcium 1-29 by mouth ity of (ATORVASTAT 17:20: [place]. [place] [address] [place] [address] MULTIVITAMI Yes Take by Un jessica N ORAL 1-29 mouth ity of 17:20: daily. [address] POTASSIUM Yes 99mg Take 99 mg Un jessica ORAL 1-29 by mouth ity of 17:20: every [place] [address] Friday, Medical Friday Branch and Friday. cyclosporin Yes 2[drp] Place 2 U nivers e (RESTASIS 1-29 Drops in ity of OPHTHALMIC) 17:20: each eye 2 [place] [address] (two) Medical times [place] daily. calcium 0 Yes 1{capsu Take 1 Unive rs carbonate/v 1-29 le} capsule by it y of itamin D3 17:20: mouth [place] (CALCIUM 56 daily. Medical 600 + D,3, Branch ORAL) ASPIRIN 0 Yes 81mg Take 81 mg Univ ers ORAL 1-29 by mouth ity of 17:20: daily. [address] atorvastati Yes 10mg Take 10 mg Univers n calcium - by mouth ity of (ATORVASTAT 17:20: [place]. [place] [address] [place] [address] MULTIVITAMI Yes Take by Un jessica N ORAL - mouth ity of 17:20: daily. [address] POTASSIUM Yes 99mg Take 99 mg Un jessica ORAL 1- by mouth ity of 17:20: every [place] [address] Friday, Medical Friday Branch and Friday. cyclosporin Yes 2[drp] Place 2 U nivers e (RESTASIS 1-29 Drops in ity of OPHTHALMIC) 17:20: each eye 2 [place] [address] (two) Medical times [place] daily. calcium 0 Yes 1{capsu Take 1 Unive rs carbonate/v 1-29 le} capsule by it y of itamin D3 17:20: mouth [place] (CALCIUM 56 daily. Medical 600 + D,3, Branch ORAL) ASPIRIN 0 Yes 81mg Take 81 mg Univ ers ORAL 1- by mouth ity of 17:20: daily. [address] atorvastati Yes 10mg Take 10 mg Univers n calcium 11-24 by mouth ity of (ATORVASTAT 17:20: [place]. [place] [address] [place] [address] MULTIVITAMI Yes Take by Un jessica N ORAL 1- mouth ity of 17:20: daily. [address] POTASSIUM Yes 99mg Take 99 mg Un jessica ORAL 1- by mouth ity of 17:20: every [place] [address] Friday, Medical Friday Branch and Friday. cyclosporin Yes 2[drp] Place 2 U nivers e (RESTASIS 1-29 Drops in ity of OPHTHALMIC) 17:20: each eye 2 [place] [address] (two) Medical times [place] daily. calcium 0 Yes 1{capsu Take 1 Unive rs carbonate/v 1-29 le} capsule by it y of itamin D3 17:20: mouth [place] (CALCIUM 56 daily. Medical 600 + D,3, Branch ORAL) escitalopra 0 Yes 20mg Take 20 mg Univers m oxalate 1-29 by mouth ity of (LEXAPRO 17:20: daily. [place] ORAL) Medical Branch loratadine/ 0 Yes 10mg Take 10 mg Univers pseudoephed 1-29 by mouth ity of rine 17:20: daily. [place] (LORATADINE 03 Medical -D ORAL) Branch pantoprazol [...] by mouth ity of rine 17:20: daily. [place] (LORATADINE Medical -D ORAL) Branch pantoprazol Yes [...] by mouth ity of rine 17:20: daily. [place] (LORATADINE Medical -D ORAL) Branch pantoprazol Yes [...] mouth 2 ity of tablet 17:20: (two) [place] 03 times Medical daily. Branch escitalopra Yes 20mg Take 20 mg Univers m oxalate 1-29 by mouth ity of (LEXAPRO 17:20: daily. [place] ORAL) Medical Branch loratadine/ Yes 10mg Take 10 mg Univers pseudoephed 1-29 by mouth ity of rine 17:20: daily. [place] (LORATADINE Medical -D ORAL) Branch pantoprazol Yes 40mg Take 40 mg Univers e sodium 1-29 by mouth ity of (PANTOPRAZO 17:20: [place]. [place] LE ORAL) Medical Branch TRIMETHOPRI Yes 100mg Take 100 U nivers M ORAL 1-29 mg by ity of 17:20: mouth [place] daily. Medical Takes 1/2 Branch tablet daily for frequent UTI's carvediloL 0 Yes 25mg Take 25 mg U nivers 25 mg 1-29 by mouth 2 ity of tablet 17:20: (two) [place] 03 times Medical daily. Branch escitalopra 0 Yes 20mg Take 20 mg Univers m oxalate 1-29 by mouth ity of (LEXAPRO 17:20: daily. [place] ORAL) 03 Medical Branch loratadine/ 0 Yes 10mg Take 10 mg Univers pseudoephed 1-29 by mouth ity of rine 17:20: daily. [place] (LORATADINE Medical -D ORAL) Branch pantoprazol Yes 40mg Take 40 mg Univers e sodium 1-29 by mouth ity of (PANTOPRAZO 17:20: daily. [place] LE ORAL) 03 Medical Branch TRIMETHOPRI 2021-0 Yes 100mg Take 100 U nivers M ORAL 1-29 mg by ity of 17:20: mouth [place] 03 daily. Medical Takes 1/2 Branch tablet daily for frequent UTI's carvediloL Yes 25mg Take 25 mg U nivers 25 mg 11-24 by mouth 2 ity of tablet 17:20: (two) [place] 03 times Medical daily. Branch ASPIRIN Yes 81mg Take 81 mg Univ ers ORAL - by mouth ity of 11:20: daily. [place] [address] Medical Branch atorvastati Yes 10mg Take 10 mg Univers n calcium 11-24 by mouth ity of (ATORVASTAT 11:20: [place]. [place] IN [place]) Medical Branch MULTIVITAMI Yes Take by Un jessica N ORAL 11-24 mouth ity of 11:20: daily. [place] [address] Medical Branch POTASSIUM Yes 99mg Take 99 mg Un jessica ORAL - by mouth ity of 11:20: every [place] [address] Friday, Medical Friday Branch and Friday. cyclosporin Yes 2[drp] Place 2 U nivers e (RESTASIS - Drops in ity of OPHTHALMIC) 11:20: each eye 2 [place] [address] (two) Medical times Branch daily. calcium Yes 1{capsu Take 1 Unive rs carbonate/v - le} capsule by it y of itamin D3 11:20: mouth [place] (CALCIUM 56 daily. Medical 600 + D,3, Branch ORAL) escitalopra Yes 20mg Take 20 mg Univers m oxalate 11-24 by mouth ity of (LEXAPRO 11:20: daily. [place] ORAL) 03 Medical Branch loratadine/ Yes 10mg Take 10 mg Univers pseudoephed 11-24 by mouth ity of rine 11:20: daily. [place] (LORATADINE 03 Medical -D ORAL) Branch pantoprazol [...] per tablet Branch predniSONE 2019-10 2020- No [id number] 40mg Take 2 Univers 20 mg 1-14 11-20 tablets by ity of tablet 00:00: 05:59 mouth [place] 00 :00 daily for Medical 5 days. Branch predniSONE 2019-10 2020- No [id number] 40mg Take 2 Univers 20 mg 1-14 [...] by mouth ity of rine 22:36: daily. [place] (LORATADINE 01 Medical -D ORAL) Branch MULTIVITAMI [...] of itamin D3 22:36: mouth [place] (CALCIUM 01 daily. Medical 600 + D,3, Branch ORAL) carvediloL 2019-10 Yes 25mg Take 25 mg U nivers 25 mg 1-13 by mouth 2 ity of tablet 22:36: (two) [place] times Medical daily. Branch ASPIRIN 2019-10 Yes 81mg Take 81 mg Univ ers ORAL 1-13 by mouth ity of 22:36: daily. [place] Medical Branch atorvastati 2019-10 Yes 10mg Take [...] by mouth ity of rine 22:36: daily. [place] (LORATADINE Medical -D ORAL) Branch MULTIVITAMI 2019-10 [...] 1-13 mg by ity of 22:36: mouth daily. Medical Takes 1/2 Branch tablet daily for frequent UTI's calcium 2019-10 Yes 1{capsu Take 1 Unive rs carbonate/v 1-13 le} capsule by it y of itamin D3 22:36: mouth [place] (CALCIUM daily. Medical 600 + D,3, Branch ORAL) carvediloL 2019-10 Yes 25mg Take 25 mg U nivers 25 mg 1-13 by mouth 2 ity of tablet 22:36: (two) [place] times Medical daily. Branch ASPIRIN 2019-10 Yes 81mg Take 81 mg Univ ers ORAL 1-13 by mouth ity of 22:36: daily. Medical Branch atorvastati 2019-10 Yes 10mg Take [...] by mouth ity of rine 22:36: daily. [place] (LORATADINE Medical -D ORAL) Branch MULTIVITAMI 2019-10 [...] 1-13 mg by ity of 22:36: mouth [place] daily. Medical Takes 1/2 Branch tablet daily for frequent UTI's calcium 2019-10 Yes 1{capsu Take 1 Unive rs carbonate/v 1-13 le} capsule by it y of itamin D3 22:36: mouth [place] (CALCIUM daily. Medical 600 + D,3, Branch ORAL) carvediloL 2019-10 Yes 25mg Take 25 mg U nivers 25 mg 1-13 by mouth 2 ity of tablet 22:36: (two) [place] times Medical daily. Branch ASPIRIN 2019-10 Yes 81mg Take 81 mg Univ ers ORAL 1-13 by mouth ity of 22:36: daily. Medical Branch levalbutero 2019-10 2020- No Inhale Uni vers l 1.25 mg/3 - 11-13 every 6 ity of mL 16:53: 00:00 (six) [place] nebulizer 14 :00 hours as Medica l solution needed Branch (SOB). acetaminoph 2019-10 Yes 650mg 650 mg, Un jessica en 1-13 Oral, ity of (TYLENOL) 05:27: Q4HPRN, [place] tablet 650 45 Starting Medic al mg Yesi Branch 09/07/20 at 2327, Until Discontinu ed, Routine, Pain (scale 1-3), or SANTOS atorvastati 2019-10 Yes 10mg 10 mg, Univ ers n (LIPITOR) 1-13 Oral, QHS, it y of tablet 10 03:00: [place] dose [place] mg 00 on [facility] Medical 09/07/20 Branch at 2100, Until Discontinu ed levalbutero 2019- Yes [id number] .63mg Inhale Univers l 1.25 mg/3 1-13 0.63 mg ity o f mL 00:00: every 4 [place] nebulizer 00 (four) Medical solution hours as Branch needed for Wheezing or Shortness of Breath (SOB). acidophilus 2019- Yes [id number] 1g Take 1 Univers 100 million 1-13 tablet by ity of cell tablet 00:00: mouth 2 [place] 00 (two) Medical times Branch daily. levalbutero 2019-10 Yes [id number] .63mg Inhale Univers l 1.25 mg/3 1-13 0.63 mg ity o f mL 00:00: every 4 [place] nebulizer 00 (four) Medical solution hours as Branch needed for Wheezing or Shortness of Breath (SOB). acidophilus 2019-10 Yes [id number] 1g Take 1 Univers 100 million 1-13 tablet by ity of cell tablet 00:00: mouth 2 [place] 00 (two) Medical times Branch daily. levalbutero 2019-10 Yes [id number] .63mg Inhale Univers l 1.25 mg/3 1-13 0.63 mg ity o f mL 00:00: every 4 [place] nebulizer 00 (four) Medical solution hours as Branch needed for Wheezing or Shortness of Breath (SOB). acidophilus 2019-10 Yes [id number] 1g Take 1 Univers 100 million 1-13 tablet by ity of cell tablet 00:00: mouth 2 [place] 00 (two) Medical times Branch daily. levalbutero 2019- Yes [id number] .63mg Inhale Univers l 1.25 mg/3 1-13 0.63 mg ity o f mL 00:00: every 4 [place] nebulizer 00 (four) Medical solution hours as Branch needed for Wheezing or Shortness of Breath (SOB). acidophilus 2019-10 Yes [id number] 1g Take 1 Univers 100 million 1-13 tablet by ity of cell tablet 00:00: mouth 2 [place] 00 (two) Medical times Branch daily. levalbutero 2019- Yes [id number] .63mg Inhale Univers l 1.25 mg/3 1-13 0.63 mg ity o f mL 00:00: every 4 [place] nebulizer 00 (four) Medical solution hours as Branch needed for Wheezing or Shortness of Breath (SOB). acidophilus 2020- Yes [id number] 1g Take 1 Univers 100 million 1-13 tablet by ity of cell tablet 00:00: mouth 2 [place] 00 (two) Medical times Branch daily. levalbutero 2020- Yes [id number] .63mg Inhale Univers l 1.25 mg/3 1-13 0.63 mg ity o f mL 00:00: every 4 [place] nebulizer 00 (four) Medical solution hours as Branch needed for Wheezing or Shortness of Breath (SOB). acidophilus 2019- Yes [id number] 1g Take 1 Univers 100 million 1-13 tablet by ity of cell tablet 00:00: mouth 2 [place] 00 (two) Medical times Branch daily. levalbutero 2019- Yes [id number] .63mg Inhale Univers l 1.25 mg/3 1-13 0.63 mg ity o f mL 00:00: every 4 [place] nebulizer 00 (four) Medical solution hours as Branch needed for Wheezing or Shortness of Breath (SOB). acidophilus 2019- Yes [id number] 1g Take 1 Univers 100 million 1-13 tablet by ity of cell tablet 00:00: mouth 2 [place] 00 (two) Medical times Branch daily. levalbutero 2019- Yes [id number] .63mg Inhale Univers l 1.25 mg/3 1-13 0.63 mg ity o f mL 00:00: every 4 [place] nebulizer 00 (four) Medical solution hours as Branch needed for Wheezing or Shortness of Breath (SOB). acidophilus 2019- Yes [id number] 1g Take 1 Univers 100 million 1-13 tablet by ity of cell tablet 00:00: mouth 2 [place] 00 (two) Medical times Branch daily. levalbutero 2020-1 Yes [id number] .63mg Inhale Univers l 1.25 mg/3 1-13 0.63 mg ity o f mL 00:00: every 4 [place] nebulizer 00 (four) Medical solution hours as Branch needed for Wheezing or Shortness of Breath (SOB). acidophilus 2019-1 Yes [id number] 1g Take 1 Univers 100 million 1-13 tablet by ity of cell tablet 00:00: mouth 2 [place] 00 (two) Medical times Branch daily. doxycycline 2019-10 2020- No [id number] 100mg Take 1 Univers hyclate 100 11-08 capsule by i ty of mg capsule 00:00: 05:59 mouth 2 [place] 00 :00 (two) Medical times Branch daily for 5 days. doxycycline 2019-10 2020- No [id number] 100mg Take 1 Univers hyclate 100 11-08 [...] 09/07/20 Bran ch mL at 1745, Routine
research staff member approving Restricted medication : TODD YEN enoxaparin [...] (after Medical last Branch modificati on) on [facility] 09/07/20 at 0915, Until Discontinu ed, Routine aspirin 2019-10 Yes 81mg 81 mg, Univers chewable 12 Oral, ity of tablet 81 15:00: DAILY, [place] mg 00 First dose Medical on [facility] [place] 09/07/20 at 0900, Until Discontinu ed pantoprazol 2019-10 Yes 40mg 40 mg, Univ ers e 12 Oral, ity of (PROTONIX) 15:00: DAILY, [place] EC tablet 00 First dose Medi mari 40 mg on [facility] [place] 09/07/20 at 0900, Until Discontinu ed escitalopra 2019-10 Yes 20mg 20 mg, Univ ers m oxalate 12 Oral, ity of (LEXAPRO) 15:00: DAILY, [place] tablet 20 00 First dose Medi mari mg on [facility] [place] 09/07/20 at 0900, Until Discontinu ed predniSONE 2019-10 Yes 50mg 50 mg, Unive rs (DELTASONE) 12 Oral, ity of tablet 50 15:00: DAILY, [place] mg 00 First dose Medical on [facility] [place] 09/07/20 at 0900, Until Discontinu ed, Routine cetirizine 2019-10 Yes 5mg 5 mg, Univer s (ZYRTEC) 11-07 Oral, ity of tablet 5 mg 15:00: DAILY, [place] 00 First dose Medical on [facility] [place] 09/07/20 at 0900, Until Discontinu ed, Routine CALCIUM 2019-10 2020- No Take by Unive rs ORAL 11-07 mouth. ity of 14:17: 00:00 [place] 24 :00 Medical Branch ipratropium 2019-10 2020- No 3mL 3 mL, Univ ers -albuteroL -09-07 Inhalation it y of (DUONEB) 14:00: 22:40 , QID, [place] 0.5 mg-3 00 :35 First dose Medic al mg(2.5 mg on [facility] [place] base)/3 mL 09/07/20 nebulizer at 0800, solution 3 Until mL Discontinu ed, Routine methylpredn 2019-10 2020- No 40mg 40 mg, Uni vers isolone sod -12 1112 Slow IV ity of succ 12:00: 14:15 Push, Q6H, [place] (SOLU-MEDRO 00 :43 First dose Me dical L) on Yesi Branch injection 09/07/20 40 mg at 0600, Until Discontinu ed, Routine guaiFENesin 2019-10 Yes 200mg 200 mg, Un jessica 100 mg/5 mL 12 Oral, ity of solution 10:47: Q4HPRN, [place] 200 mg 26 Starting Medical Yesi Branch 09/07/20 at 0447, Until Discontinu ed, Routine, Cough ipratropium 2019-10 Yes 3mL 3 mL, Unive rs -albuteroL 11-07 Inhalation ity of (DUONEB) 10:46: , QIDPRN, [...] IV ity of (D50W) 10:43: Push, PRN, [place] injection 53 Starting Medica l 25 mL Yesi Branch 09/07/20 at 0443, Until Discontinu ed, BASIM, Blood Glucose < or = 70 mg/dL and patient is unable to swallow or has mental status changes. Zofran Zofran Yes [place] [address] [facility] [place] as needed [facility] Tobramycin Tobramycin Yes [place] [address] [facility] [place] into [facility]: affected [facility] 00 eye l [facility] Singulair Singulair Yes [place] TAKE [address] [place] TABLET BY [facility] MOUTH [facility] EVERY DAY l [facility] Protonix Protonix Yes [place] TAKE [address] [facility] [place] TABLET BY [facility] EVERY DAY l [facility] Montelukast Montelukast Yes [place] [address] [facility] Sodium Sodium [place] in the [facility] - evening [facility] Combivent Combivent Yes [place] [address] Respimat Respimat [place] Prasanna es - [facility] Levalbutero Levalbutero Yes [place] [address] [facility] l HCl l HCl [place] [facility] Aspir-81 Aspir-81 Yes [place] [address] [place] [facility] Lipitor Lipitor Yes Lcuie [address] [facility] [place] [facility] Lexapro Lexapro Yes [place] [address] [facility] [place] [facility] Ativan Ativan Yes [place] [address] [facility] [place] as needed [facility] Loratadine Loratadine Yes [place] [address] [facility] [place] [facility] Symbicort Symbicort Yes [place] [address] [place] [facility] Coreg Coreg Yes [place]ie [address] [facility] [place] [facility]ics Escitalopra Escitalopra Yes [place]ie TAKE [address] [facility] m Oxalate m Oxalate [place] TABLET BY [facility] EVERY DAY l [facility] Potassium Potassium Yes [place] [address] [facility] [place] [facility] Coreg Coreg Yes [place] TAKE [address] [facility] [place] TABLET BY [facility]TH [facility]oria TWICE A l DAY [facility] Folic Acid Folic Acid Yes [place] [address] [facility] [place] [facility] Pantoprazol Pantoprazol Yes [place]ie TAKE [address] [facility] e Sodium e Sodium [place] TABLET BY [facility]TH [facility]oria EVERY DAY l Outpati ent Clinics Trimethopri Trimethopri Yes [place]ie [address] [facility] [address] m m [place] [facility] Flonase Flonase Yes [place]ie [address] [facility] [place] each [facility] nostril [facility] Amoxicillin Amoxicillin Yes [place]ie [address] [facility] -Pot -Pot [place] [facility] - Clavulanate Clavulanate M emoria l Outpati ent Clinics PredniSONE PredniSONE Yes [place] [address] [facility] [place] [facility]ics Spiriva Spiriva Yes [place] 2 puffs [facility] Respimat Respimat [place] [facility] - [facility] Losartan Losartan Yes [place]ie TAKE [address] [facility] Potassium-H Potassium-H [place] TABLET BY [facility] - CTZ CTZ MOUTH Memoria EVERY DAY l Outpati ent Clinics Atorvastati Atorvastati Yes [place]ie TAKE [address] [facility] [facility] n Calcium n Calcium [place] TABLET BY [facility]TH [facility]oria EVERY DAY l Outpati ent Clinics Immunizations Ordered Filled Immunization Date Status Comments Sour e Immunization Name Name SARS-COV-2 COVID-19 2020-12-22 Completed Unive rsity of PFIZER VACCINE 00:00:00 [facility] SARS-COV-2 COVID-19 2020-12-22 Completed Unive rsity of PFIZER VACCINE 00:00:00 [facility] SARS-COV-2 COVID-19 2020-12-22 Completed Unive rsity of PFIZER VACCINE 00:00:00 [facility] SARS-COV-2 COVID-19 2020-12-22 Completed Unive rsity of PFIZER VACCINE 00:00:00 [facility] SARS-COV-2 COVID-19 2020-11-24 Completed Unive rsity of PFIZER VACCINE 00:00:00 [facility] SARS-COV-2 COVID-19 2020-11-24 Completed Unive rsity of PFIZER VACCINE 00:00:00 [facility] SARS-COV-2 COVID-19 2020-11-24 Completed Unive rsity of PFIZER VACCINE 00:00:00 [facility] SARS-COV-2 COVID-19 2020-11-24 Completed Unive rsity of PFIZER VACCINE 00:00:00 [facility] Influenza High Dose 2020-07-31 Completed Unive rsity of 00:00:00 [facility] Influenza High Dose 2020-07-31 Completed Unive rsity of 00:00:00 [facility] Influenza High Dose 2020-07-31 Completed Unive rsity of 00:00:00 [facility] Influenza High Dose 2020-07-31 Completed Unive rsity of 00:00:00 [facility] Influenza High Dose 2020-07-31 Completed Unive rsity of 00:00:00 [facility] Influenza High Dose 2020-07-31 Completed Unive rsity of 00:00:00 [facility] Prevnar 13 Prevnar 13 2019-07-[address] [facility] - -Pneumonia Vaccine -Pneumonia Vaccine 00:00:00 [facility] FluAD FluAD 2019-07-[address] [facility] 00[facility]00 [facility] Vital Signs Vital Name Observation Time Observation Value Comments Source Systolic blood 2021-02-22 15:54:00 110 mm[Hg] Univer sity of pressure [facility] Diastolic blood 2021-02-22 15:54:00 70 mm[Hg] Unive rsity of [facility] Heart rate 2021-02-22 15:54:00 84 /min Universi ty [facility] Body height 2021-02-22 15:54:00 172.7 cm [facility] Body weight 2021-02-22 15:54:00 78.926 kg [facility] BMI 2021-02-22 15:54:00 26.46 kg/m2 [facility] Oxygen saturation in 2021-02-22 15:54:00 97 /min 3 l o2 University of Arterial blood by [facility] Pulse oximetry Branch Systolic blood 2021-02-22 15:54:00 110 mm[Hg] Univer sity of [facility] Diastolic blood 2021-02-22 15:54:00 70 mm[Hg] Unive rsity of [facility] Heart rate 2021-02-22 15:54:00 84 /min Universi ty [facility] Body height 2021-02-22 15:54:00 172.7 cm Universi ty [facility] Body weight 2021-02-22 15:54:00 78.926 kg [facility] BMI 2021-02-22 15:54:00 26.46 kg/m2 [facility] Oxygen saturation in 2021-02-22 15:54:00 97 /min 3 l o2 University of Arterial blood by [facility] Pulse oximetry Branch Systolic blood 2020-11-24 17:19:00 117 mm[Hg] Univer sity [facility] Diastolic blood 2020-11-24 17:19:00 74 mm[Hg] Unive rsity [facility] Heart rate 2020-11-24 17:19:00 85 /min [facility] Respiratory rate 2020-11-24 17:19:00 21 /min [facility] Body height 2020-11-24 17:19:00 175.3 cm [facility] Body weight 2020-11-24 17:19:00 78.926 kg [facility] BMI 2020-11-24 17:19:00 25.70 kg/m2 [facility] Oxygen saturation in 2020-11-24 17:19:00 97 /min [facility] of Arterial blood by [facility] Pulse oximetry Branch Systolic blood 2020-09-08 21:00:00 148 mm[Hg] [facility] Diastolic blood 2020-09-08 21:00:00 69 mm[Hg] Unive [facility] Heart rate 2020-09-08 21:00:00 72 /min [facility] Body temperature 2020-09-08 18:00:00 36.5 Laura [facility] Respiratory rate 2020-09-08 18:00:00 21 /min [facility] Oxygen saturation in 2020-09-08 18:00:00 92 /min [facility] of Arterial blood by [facility] Pulse oximetry Branch Body height 2020-09-07 10:45:00 172.7 cm [facility] Body weight 2020-09-07 07:00:00 82.555 kg [facility] BMI 2020-09-07 07:00:00 27.67 kg/m2 [facility] Procedures Procedure Date / Time Performing Clinician Source Performed DME/SUPPLY JUSTIFICATION 2021-07-26 05:01:00 Doctor Unassigned, No [facility] ASSIGNMENT OF BENEFITS 2020-11-24 17:03:27 Doctor Unassigned, No [facility] BASIC METABOLIC PANEL 2020-09-08 10:31:00 [facility] (NA, K, CL, CO2, Medical Branch GLUCOSE, BUN, CREATININE, CA) CBC WITH DIFF 2020-09-08 10:31[facility]PL[facility] 2020-09-07 21:33:02 Dane L[facility] COLOR [facility] Branch CT CHEST PULMONARY 2020-09-07 19:39:15 Tigre [facility] ANGIOGRAM [facility] XR CHEST 1 VW 2020-09-07 14:45:54 Tigre [facility] TROPONIN I 2020-09-07 11:26[facility] COMP. METABOLIC PANEL 2020-09-07 11:26:00 [facility] ([id number]) [facility] CBC WITH DIFF 2020-09-07 11:26:00 [facility] GLYCOSYLATED HEMOGLOBIN 2020-09-07 11:26:00 Tigre Dane [facility] (A1C) [facility] N-TERMINAL PRO-BNP 2020-09-07 11:26:00 Tigre [facility] Encounters Start End Encounter Admission Attending Care Care Encounter Source Date/Time Date/Time Type Type Clinicians Facility Department ID 2021-11-21 Outpatient Bah, Debbie STLMLC [facility] [id number] [facility] 14:36[facility]11 [facility] 2021-11-21 Outpatient Debbie Bah STLMLC STLMLC [id number] [facility] 14:28:57 [facility] 2021-11-21 Outpatient BahDebbie olson STLMLC STLMLC [id number] [facility] 14:22:23 [id number] [facility] 2021-11-21 Outpatient Debbie Bah STLMLC STLMLC [id number] [facility] [address] 13:46:52 [id number] [facility] 2021-11-21 Outpatient Bah, Na STLMLC STLMLC [id number] [facility] 13:27:40 [id number] [facility] 2021-11-21 Outpatient Bah, Na STLMLC STLMLC [id number] [facility] 12:55:52 [id number] [facility] 2021-11-21 Outpatient Bah, Na STLMLC STLMLC [id number] [facility] [address] 12:53:26 [id number] [facility] 2021-11-21 Outpatient Bah, Na STLMLC STLMLC [id number] [facility] [address] 12:52:56 [id number] [facility] 2021-11-21 Outpatient Bah, Na STLMLC STLMLC [id number] [facility] [address] 12:21:39 [id number] [facility] 2021-11-21 Outpatient Bah, Na STLMLC STLMLC [id number] [facility] 12:06:15 [id number] [facility] 2021-11-21 Outpatient Bah, Na STLMLC STLMLC [id number] [facility] 12:05:22 [id number] [facility] 2021-11-21 Outpatient Bah, Na STLMLC STLMLC [id number] [facility] 12:05:06 [id number] [facility] 2021-11-21 Outpatient Bah, Na STLMLC STLMLC [id number] [facility] 11:29:47 [id number] [facility] 2021-11-21 Outpatient Bah, Na STLMLC STLMLC [id number] [facility] 11:23:32 [id number] [facility] 2020-09-07 [facility]patient [facility] [id number] Univers 00[facility]52:00 [facility] 2021-11-14 2021-11-14 ambulatory [facility] [id number] [facility] 2021-11-08 2021-11-08 ambulatory [facility]LMLC [facility] [id number] [facility] 2021-10-08 2021-10-08 ambulatory [facility]LMLC [facility] [id number] [facility]00 [facility] 2021-10-04 2021-10-04 ambulatory [facility]LMLC [facility] [id number] [facility] 2021-10-04 2021-10-04 ambulatory [facility]LMLC [facility] [id number] [facility]00 [facility] 2021-10-03 2021-10-03 ambulatory [facility]LMLC [facility] [id number] [facility] 2021-09-27 2021-09-27 ambulatory [facility]LMLC [facility] [id number] [facility] 2021-09-13 2021-09-13 ambulatory [facility]LMLC [facility] [id number] [facility] 2021-09-05 2021-09-05 ambulatory [facility]LMLC [facility] [id number] [facility] 2021-08-30 2021-08-30 Outpatient R RAPHAEL CEJA [facility] [id number] Univers 11:30:00 11:30:00 RAPHAEL CEJA [id number] i ty [facility] 2021-08-24 2021-08-24 Outpatient R RAPHAEL CEJA [facility] [id number] Univers 09:30:00 09:30:00 RAPHAEL CEJA [id number] i ty of [facility] 2021-07-26 2021-07-26 Orders Doctor HOOD [id number] Univers 00:00:00 00:00:00 Only Unassigned, TUCKER [id number] ity of [facility] [id number] Oneal as [phone] [address] 2021-07-13 2021-07-13 [id number] 2021-07-04 2021-07-04 [facility] [id number] [facility] 2021-06-29 2021-06-29 [facility] [id number] [facility] 2021-06-27 2021-06-27 [facility] [id number] [facility] 2021-06-12 2021-06-12 [facility] [id number] [facility] 2021-05-30 2021-05-30 [facility] [id number] [facility] 2021-05-24 2021-05-24 [facility] [id number] [facility] 2021-05-15 2021-05-15 [facility] [id number] [facility] 2021-05-03 2021-05-03 Telephone JOSE Ceja [id number] Univers 00:00:00 00:00:00 Raphael Vega [id number] i [id number] [phone] Mo dical [address] 2021-05-03 2021-05-03 [facility] [id number] [facility]00 [facility] 2021-02-22 2021-02-22 Office Brenna [facility] [id number] Univers 10:20:08 11:21:56 Visit Raphael Vega [id number] i ty [facility] [id number] [phone] Me dical [address] 2021-02-22 2021-02-22 Office Brenna [facility] [id number] 10:20:08 11:21:56 Visit Raphael [place] [id number] [place] [id number] Professio [phone] [address] 2021-02-22 2021-02-22 Outpatient R RAPHAEL CEJA [facility] [id number] Univers 10:30:00 10:30:00 RAPHAEL CEJA [id number] i ty [facility] 2021-02-22 2021-02-22 Outpatient R RAPHAEL CEJA [facility] [id number] Univers 10:30:00 10:30:00 RAPHAEL CEJA i ty [facility] 2021-02-12 2021-02-12 [facility] [id number] [facility] 2021-01-26 2021-01-26 [facility] [id number] [facility] 2020-12-27 2020-12-27 [facility] [id number] [facility] 2020-12-22 2020-12-22 Outpatient R [facility] [id number] Univers 11:30:00 11:30:00 [id number] ity [facility] 2020-12-22 2020-12-22 [facility] [id number] Univers 11:30:00 11:30:00 CHIDI ity [facility] 2020-12-15 2020-12-15 Outpatient R BLADIMIR [facility] [id number] Univers 11:30:00 11:30:00 CHIDI [id number] ity [facility] 2020-12-15 2020-12-15 Outpatient R BLADIMIR [facility] [id number] Univers 11:30:00 11:30:00 CHIDI ity [facility] 2020-12-07 2020-12-07 Outpatient [facility] [id number] [facility] 2020-11-24 2020-11-24 Outpatient R BLADIMIR [facility] [id number] Univers 12:50:00 12:50:00 [facility] [id number] [facility] 2020-11-24 2020-11-24 Office Brenna [facility] [id number] Univers 11:04:15 11:59:09 Visit Raphael Vega [id number] i ty [facility] [id number] [phone] Mo dical nal [address] [place] [address] 2020-11-24 2020-11-24 Outpatient R RAPHAEL CEJA [facility] [id number] Univers 11:00:00 11:00:00 RAPHAEL CEJA i ty of [facility] 2020-11-24 2020-11-24 Orders Doctor ERWIN [id number] Univers 00:00:00 00:00:00 Only Unassigned, TUCKER [id number] ity [facility] [id number] Oneal as [phone] [address] 2020-11-14 2020-11-14 Outpatient [facility] [id number] [facility] 2020-10-06 2020-10-06 Outpatient [facility] [id number] [facility] 2020-09-13 2020-09-13 Outpatient [facility] [id number] [facility] 2020-09-11 2020-09-11 Transition Stan Martines [id number] Univers 00:00:00 00:00:00 of Care Alfredo Cox [id number] ity of [place] [id number] [facility] [phone] [facility] [address] 2020-09-07 2020-09-08 [facility] [id number] [place] [address] 00:52:00 16:32:00 Encounter Sarah Vega [id number] ity of [place] [id number] [facility] [phone] [facility] [address] 2020-07-07 2020-07-07 [facility] [id number] 10:30:00 10:30:00 t Specialty/U Catr[place]ita kes - Specialty rology Memori a /Urology Clinic l Clinic Outpati ent Clinics 2020-05-02 2020-05-02 [facility] [id number] 15:08:00 15:08:00 t [place] - Drive [facility] l Medicine Outpati ent Clinics 2020-04-10 2020-04-10 [facility] [id number] 10:30:00 10:30:00 t Specialty/U Catr[place]ita kes - Specialty rology Memori a /Urology Clinic l Clinic Outpati ent Clinics 2020-04-04 2020-04-04 [facility] [id number] 14:03:00 14:03:00 t [place] - Drive [facility] l Medicine Outpati ent Clinics 2020-04-03 2020-04-03 [facility] [id number] 10:00:00 10:00:00 t [place] - Drive [facility] l Medicine Outpati ent Clinics 2020-03-29 2020-03-29 [facility] [id number] [facility] 10:30:00 10:30:00 t Specialty/U [place]ita kes - Specialty rology Memori a /Urology Clinic l Clinic Outpati ent Clinics 2020-03-27 2020-03-27 [facility] [id number] 15:47:00 15:47:[address] [facility] l Medicine Outpati ent Clinics 2020-03-27 2020-03-27 [facility] [id number] 11:08:00 11:08:00 t [place] [facility] Medicine l Medicine Outpati ent Clinics 2020-03-22 2020-03-22 [facility] [id number] [address] 14:20:00 14:20:[address] [facility] l Medicine Outpati ent Clinics 2020-03-22 2020-03-22 [facility] [id number] 09:29:00 09:29:00 t Prolebrity [facility] l Medicine Outpati ent Clinics 2020-02-14 2020-02-14 [facility] [id number] [facility] 08:52:00 08:52:00 t Prolebrity [facility] Medicine Outpati ent Clinics 2019-12-22 2019-12-22 [facility] [id number] 09:00:00 09:00:00 t Specialty/U Catr[place]ita kes - Specialty rology Memori a /Urology Clinic l Clinic Outpati ent Clinics 2019-12-01 2019-12-01 [facility] [id number] [facility] 10:00:00 10:00:00 t [place] [facility] Medicine Outpati ent Clinics 2019-09-20 2019-09-20 [facility] [id number] [facility] 15:55:00 15:55:00 t Prolebrity [facility] Medicine Outpati ent Clinics 2019-09-08 2019-09-08 [facility] [id number] 09:00:00 09:00:00 t Prolebrity [facility] l Medicine Outpati ent Clinics 2019-08-23 2019-08-23 [facility] [id number] 09:28:00 09:28:00 t Specialty/U Catr[place]ita kes - Specialty rology Memori a /Urology Clinic l Clinic Outpati ent Clinics 2019-07-28 2019-07-28 [facility] [id number] 09:00:00 09:00:00 t Prolebrity [facility] Medicine Outpati ent Clinics 2019-06-22 2019-06-22 [facility] [id number] [facility] 08:45:00 08:45:00 t Specialty/U [place]ita kes - Specialty rology Memori a /Urology Clinic l Clinic Outpati ent Clinics 2019-06-16 2019-06-16 [facility] [id number] 09:00:00 09:00:00 t Prolebrity [facility] Outpati ent Clinics 2019-06-15 2019-06-15 [facility] [id number] [facility] 10:34:00 10:34:00 t Prolebrity [facility] Medicine Outpati ent Clinics 2019-03-24 2019-03-24 [facility] [id number] [facility] 10:40:00 10:40:00 t Prolebrity [facility] Outpati ent Clinics 2019-03-09 2019-03-09 [facility] [id number] [facility] 10:08:00 10:08:00 t Specialty/U Catr[place]ita kes - Specialty rology Memori a /Urology Clinic l Clinic Outpati ent Clinics 2018-12-24 2018-12-24 [facility] [id number] 09:45:00 09:45:00 t Specialty/U Catrachita kes - Specialty rology Memori a /Urology Clinic l Clinic Outpati ent Clinics 2018-12-17 2018-12-17 [facility] [id number] 08:30:00 08:30:00 t Prolebrity [facility] Medicine Outpati ent Clinics 2018-11-17 2018-11-17 [facility] [id number] [facility] 11:32:00 11:32:00 t [address] Luke s - Drive [facility] l Medicine Outpati ent Clinics 2018-10-14 2018-10-14 [facility] [id number] 09:44:00 09:44:00 t [address] Luke s - Drive [facility] Medicine l Medicine Outpati ent Clinics 2018-09-10 2018-09-10 [facility] [id number] 08:30:00 08:30:00 t [address] Luke s - Drive [facility] l Medicine Outpati ent Clinics 2018-08-04 2018-08-04 [facility] [id number] [facility] 09:30:00 09:30:00 t Specialty/U Catr[place]ita kes - Specialty rology Memori a /Urology Clinic l Clinic Outpati ent Clinics 2018-07-30 2018-07-30 [facility] [id number] 09:15:00 09:15:00 t Specialty/U Catr[place]ita kes - Specialty rology Memori a /Urology Clinic l Clinic Outpati ent Clinics 2018-07-01 2018-07-01 [facility] [id number] 09:45:00 09:45:00 t Specialty/U Catrachita kes - Specialty rology Memori a /Urology Clinic l Clinic Outpati ent Clinics 2018-06-18 2018-06-18 [facility] [id number] [facility] 09:00:00 09:00:00 t [address] Luke s - Drive [facility] Medicine l Medicine Outpati ent Clinics 2018-06-17 2018-06-17 [facility] [id number] 08:15:00 08:15:00 t [address] Luke s - Drive [facility] l Medicine Outpati ent Clinics 2018-05-28 2018-05-28 [facility] [id number] 09:46:00 09:46:00 t [address] Luke s - Drive [facility] Medicine l Medicine Outpati ent Clinics 2018-03-17 2018-03-17 [facility] [id number] 09:30:00 09:30:00 t [address] Luke s - Drive [facility] Medicine l [facility] Results Test Description Test Time Test Comments Results Result Comments Source BASIC METABOLIC PANEL (NA, K, CL, CO2, GLUCOSE, BUN, 2020-08 12:16:00 CREATININE, CA) Test Item Value Reference Range Interpretation Comme nts NA (test code = 7960051850) 138 mmol/L 135-145 K (test code = 7291935284) 4.0 mmol/L 3.5-5 CL (test code = 7803237549) 99 mmol/L 98-108 CO2 TOTAL (test code = 6517751899) 34 mmol/L 23-31 H AGAP (test code = 5581016070) 2-16 BUN (test code = 3163710860) 25 mg/dL 7-23 H GLUCOSE (test code = 0674477419) 117 mg/dL 70-110 H CREATININE (test code = 1.20 mg/dL 0.5-1.04 H 3320158862) CALCIUM (test code = 5306891021) 9.1 mg/dL 8.6-10.6 eGFR Calculation (Non- mL/min/1.73m2 [place]) (test code = 8256942481) eGFR Calculation ( mL/min/1.73m2 [place]) (test code = 4922984288) PATRICIO (test code = PATRICIO) Association of [...] tests). Lab Interpretation (test code = Abnormal 03814-4) [facility] WITH [id number] 11:18:00 Test Item Value Reference Range Interpretation [...] RDW-SD (test code = 43.0 fL 39-49.9 10209-1) RDW-CV (test code = 12.8 % 12-15.5 788-0) PLT (test code = See_Comment [Automated 777-3) message] The system which generated this result transmit augustina reference range : 166 - 358 10*3/ ?L. The reference range was not u sed to interpret th is result as normal/abnormal . MPV (test code = 10.7 fL 9.5-12.9 28908-5) NRBC/100 WBC (test See_Comment [Automat ed code = 3981974829) message] The system which generated this result transmit augustina reference range : 0.0 - 10.0 /100 WBCs. The reference range was not used to interpret this result as normal/abnormal . NRBC x10^3 (test code <0.01 See_Comment [Auto mated = 8176449315) message] The system which generated this result transmit augustina reference range : 10*3/?L. The reference range was not used to interpret this result as normal/abnormal . GRAN MAT (NEUT) % 83.2 % (test code = 770-8) IMM GRAN % (test code 0.50 % = 0310250937) LYMPH % (test code = 7.7 % 736-9) MONO % (test code = 8.5 % 5905-5) EOS % (test code = 0.0 % 713-8) BASO % (test code = 0.1 % 706-2) GRAN MAT x10^3(ANC) 10.82 10*3/uL 1.88-7.09 H (test code = 0133129395) IMM GRAN x10^3 (test 0.07 10*3/uL 0-0.06 H code = 6358978666) LYMPH x10^3 (test code 1.00 10*3/uL 1.32-3.29 L = 731-0) MONO x10^3 (test code 1.11 10*3/uL 0.33-0.92 H = 742-7) EOS x10^3 (test code = <0.03 0.03-0.39 L 711-2) BASO x10^3 (test code <0.03 0.01-0.07 = 704-7) Lab Interpretation Abnormal (test code = 27211-5) [facility] CHEST PULMONARY [id number] 20:20:03HISTORY: Positive d-dimer, rule out P.E. TECHNIQUE: Contrast-enhanced 64-mutidetector CT [facility] wascompleted with intravenous injection of [...] can be obtained as nonemergent outpatient studies. [facility], Radiant Results Inft User - 09/07/2020 2:21 [...] recommendedwhich can be obtained as nonemergent outpatient studies.[facility] 1 [id number] 14:55:22HISTORY: Dyspnea. TECHNIQUE: Portable AP erect view [...] changes are seen in the left lung base.[facility], Radiant Results Inft - 09/07/2020 8:56 AM CSTHISTORY: Dyspnea.TECHNIQUE: Portable [...] are seen in the left lung base. [facility] Station[facility]YCOSYL[facility] HEMOGLOBIN (A1C)2020-09-07 14:45:00 Test Item Value Reference Range Interpretation Comments HGB A1C (test code = 5.6 % 4-6 4548-4) PATRICIO (test code = PATRICIO) %A1C (NGSP) Interpretation (ADA)4.8-5.6 ? ? Normal or (Non-Diabetic Range)5.7-6.4 ? ? Increased Risk (Pre-Diabetic)>6.5 ?Diabetes Indicated Lab Interpretation Normal (test code = 28706-3) [facility] Station[facility]MINAL [id number] 14:44:00 Test Item Value Reference Range Interpretation Comments NT-proBNP (test code 1180 pg/mL See_Comment H [Autom ated = 0663137010) message] The system which generated this result transmitted reference range : <=450. The reference range was not used to interpret this result as normal/abnormal . PATRICIO (test code = PATRICIO) Biotin has been reported to cause a negative bias, interpret results relative to patient's use of biotin. Lab Interpretation Abnormal (test code = 02698-3) [facility] Station[facility] [id number] 12:14:00 Test Item Value Reference Range Interpretation Comments TROPONIN I (test <0.012 See_Comment [Automated code = 4126361449) message] The system which generated this result [...] ? Lab Interpretation Normal (test code = 16923-9) [facility] WITH [id number] 12:11:00 Test Item Value Reference Range Interpretation Comments WBC (test code = See_Comment [Automated 6690-2) message] The sy stem which generated this result transmitted reference range : 4.30 - 11.10 10*3/?L. The reference range was not used to interpret this result as normal/abnormal . RBC (test code = See_Comment [Automated 789-8) message] The sy stem which generated this [...] RDW-SD (test code = 43.8 fL 39-49.9 35154-4) RDW-CV (test code = 12.7 % 12-15.5 788-0) PLT (test code = See_Comment [Automated 777-3) message] The sy stem which generated this result transmitted reference range : 166 - 358 10*3/ ?L. The reference r parish was not used to interpret this result as normal/abnormal . MPV (test code = 10.5 fL 9.5-12.9 62159-7) NRBC/100 WBC (test See_Comment [Automat ed code = [id number]) message] The system which generated this result transmitted reference range : 0.0 - 10.0 /100 WBCs. The refer ence range was not u sed to interpret th is result as normal/abnormal . NRBC x10^3 (test code <0.01 See_Comment [Auto mated = [id number]) message] The s ystem which generated this result transmitted reference range : 10*3/?L. The reference range was not used to interpret this result as normal/abnormal . GRAN MAT (NEUT) % 89.8 % (test code = 770-8) IMM GRAN % (test code 0.30 % = 6115239490) LYMPH % (test code = 9.1 % 736-9) MONO % (test code = 0.7 % 5905-5) EOS % (test code = 0.0 % 713-8) BASO % (test code = 0.1 % 706-2) GRAN MAT x10^3(ANC) 6.01 10*3/uL 1.88-7.09 (test code = 5020678179) IMM GRAN x10^3 (test <0.03 0-0.06 code = 4527909472) LYMPH x10^3 (test code 0.61 10*3/uL 1.32-3.29 L = 731-0) MONO x10^3 (test code 0.05 10*3/uL 0.33-0.92 L = 742-7) EOS x10^3 (test code = <0.03 0.03-0.39 L 711-2) BASO x10^3 (test code <0.03 0.01-0.07 = 704-7) Lab Interpretation Abnormal (test code = 32393-1) [facility]. METABOLIC PANEL (80229)2020-09-07 12:08:00 Test Item Value Reference Range Interpretation Comments NA (test code = 140 mmol/L 135-145 0357748154) K (test code = 4.0 mmol/L 3.5-5 7339982333) CL (test code = 103 mmol/L 98-108 3736415930) CO2 TOTAL (test code = 32 mmol/L 23-31 H 5025485336) AGAP (test code = 2-16 6181668550) BUN (test code = 15 mg/dL 7-23 4351578555) GLUCOSE (test code = 146 mg/dL 70-110 H 7309650659) CREATININE (test code = 1.11 mg/dL 0.5-1.04 H 9449211823) TOTAL BILI (test code = 0.5 mg/dL 0.1-1.3 6602636995) CALCIUM (test code = 9.4 mg/dL 8.6-10.6 1182573490) T PROTEIN (test code = 6.9 g/dL 6.3-8.2 5062532400) ALBUMIN (test code = 3.9 g/dL 3.5-5 1905129092) ALK PHOS (test code = 60 U/L 34-122 6542528236) ALTv (test code = 15 U/L 5-35 1742-6) AST(SGOT) (test code = 23 U/L 13-40 5631937896) eGFR Calculation mL/min/1.73m2 (Non-) (test code = 5873094257) eGFR Calculation mL/min/1.73m2 () (test code = 8250880710) PATRICIO (test code = PATRICIO) Association of [...] tests). Lab Interpretation Abnormal (test code = 78192-6) [facility]"
--- NOTE | 2022-01-31 14:35 | RAD REPORT ---
EXAM DESCRIPTION: CT - Head Brain Wo Cont - 01/31/2022 2:21 pm CLINICAL HISTORY: HEADACHE COMPARISON: Head Brain Wo Cont dated 11/02/2021 TECHNIQUE: Axial 5 mm thick images of the head were obtained without IV contrast. All CT scans are performed using dose optimization technique as appropriate and may include automated exposure control or mA/KV adjustment according to patient size. FINDINGS: No intracranial hemorrhage, mass, edema or shift of mid-line structures. No acute infarcti ons cortical level. No cortical edema or sulcal effacement. Mild to moderate atrophy and moderate chr onic ischemic changes match prior imaging. No abnormal extra-axial fluid collections. Ventricles are in proportion to volume loss. Arterial tree calcifications are present. Mastoid air cells and visualized portions of the paranasal sinuses are clear. No acute bony findings. IMPRESSION: Negative non-contrast CT head examination for acute findings. Atrophy and chronic ischemic change match the October examination. Chronic ischemic changes can mask nonhemorrhagic acute infarction. MR brain followup can be obtained if there is ongoing concern for acute ischemia.
[2022-01-31 14:40] LABS: Absolute Lymphocytes (CBC) 1.6 K/uL (0.7-4.9); Hematocrit 36.8 % (36.0-45.0); Lymphocytes % 17.4 % (15.3-44.8); RBC Red Blood Cell Count 4.05 M/uL (3.86-4.86)
[2022-01-31 14:43] LABS: Protime INR 1.44
--- NOTE | 2022-01-31 15:23 | RAD REPORT ---
EXAM DESCRIPTION: RAD - Chest Single View - 01/31/2022 3:11 pm CLINICAL HISTORY: CHEST PAIN COMPARISON: Portable 11/02/2021 and 06/27/2021 TECHNIQUE: AP portable chest image was obtained 01/31/2022 3:11 pm . FINDINGS: Chronic left base pleural and parenchymal opacification again noted. This is not clearly d ifferent. Patient may have hiatal hernia or prominent pericardial fat. Chronic atelectasis likely pre sent as well. Upper left lung field is clear. No acute right lung field finding. Heart and vasculature are normal. No pneumothorax seen. No measurable right-sided pleural effusion. No acute bony abnormality seen. No acute aortic findings suspected. IMPRESSION: Chronic left base opacification is present not clearly different back to at least Sept2020. No acute chest finding seen.
[2022-01-31 15:57] LABS: Albumin 2.9 g/dL (3.4-5.0); Bilirubin Direct 0.2 mg/dL (0-0.2); Bilirubin Total 0.4 mg/dL (0.2-1.0); Magnesium 1.8 mg/dL (1.8-2.4); Potassium 3.5 mmol/L (3.5-5.1); Protein, Total 6.4 g/dL (6.4-8.2)
--- NOTE | 2022-01-31 16:13 | ER ---
Nurse's Notes [facility] Name: Faiza Pete Age: 81 yrs Sex: Female : 1940 Arrival Date: 01/31/2022 Time: 14:00 Bed 17 Private MD: Diagnosis: Chest pain, unspecified;Transient cerebral ischemic attack, unspecified Presentation: 01/31 14:01 Chief complaint: EMS states: CHEST PAIN SINCE 1245 WITH R SIDED FACIAL DROOP FOR 5 MIN. bp Coronavirus screen: At this time, the client does not indicate any symptoms associated with coronavirus-19. Ebola Screen: No symptoms or risks identified at this time. Initial Sepsis Screen: Does the patient meet any 2 criteria? No. Patient's initial sepsis screen is negative. Does the patient have a suspected source of infection? No. Patient's initial sepsis screen is negative. Risk Assessment: Do you want to hurt yourself or someone else? Patient reports no desire to harm self or others. Onset of symptoms was January 31, 2022 at 12:45. 14:01 Method Of Arrival: EMS: [facility] bp 14:01 Acuity: KATHI 2 bp Triage Assessment: 14:08 General: Appears in no apparent distress. comfortable, Behavior is cooperative, bp anxious. Pain: Complains of pain in chest. EENT: No deficits noted. Neuro: Level of Consciousness is awake, obeys commands, Oriented to person. Cardiovascular: Reports chest pain. Respiratory: Airway is patent. GI: No signs and/or symptoms were reported involving the gastrointestinal system. : No signs and/or symptoms were reported regarding the genitourinary system. Derm: No deficits noted. Musculoskeletal: No deficits noted. Historical: - Allergies: 14:08 Nitrofurantoin; bp 14:08 Bactrim; bp 14:08 Levaquin (Hives); swelling; bp 14:08 Macrobid; bp - Home Meds: 14:08 Abilify 10 mg oral tab 1 tab once daily [Active]; amlodipine 5 mg tab 1 tab once daily bp [Active]; Aricept 10 mg Oral tab 1 tab once daily [Active]; buspirone 5 mg Oral tab 2 tabs 2 times per day [Active]; Eliquis 2.5 mg Oral tab 1 tab 2 times per day [Active]; Lexapro 20 mg Oral tab 1 tab once daily [Active]; Lipitor 10 mg Oral tab 1 tab once daily [Active]; melatonin 3 mg Oral tab 3 mg nightly [Active]; mirtazapine 15 mg Oral TbDi 1 tab once daily [Active]; pantoprazole 40 mg Oral TbEC 1 tab once daily [Active]; sotalol 80 mg Oral tab 1 tab 2 times per day [Active]; Symbicort 160-4.5 mcg/actuation inhalation HFAA 2 puffs 2 times per day [Active]; levalbuterol HCl 0.63 mg/3 mL inhalation nebu 3 mL every 8 hours [Active]; - PMHx: 14:08 COPD; Dementia; Aneurysm; Cancer, Breast; hemmorhoids; Hyperlipidemia; Hypertension; bp SVT; TIA; - Immunization history:: Client reports receiving the 2nd dose of the Covid vaccine. - Social history:: Smoking status: Patient denies any tobacco usage or history of. Screenin:08 Abuse screen: Denies threats or abuse. Denies injuries from another. Nutritional bp screening: No deficits noted. Tuberculosis screening: No symptoms or risk factors identified. Fall Risk No fall in past 12 months (0 pts). Secondary diagnosis (15 points) dementia, TIA, No IV (0 pts). Ambulatory Aid- Crutches/Cane/Walker (15 pts). Gait- Weak (10 pts.). Mental Status- Oriented to own ability (0 pts). Total Quintana Fall Scale indicates Low Risk Score (25-44 pts). Fall prevention measures have been instituted. Side Rails Up X 2 Placed close to Nursing Station Frequent Obs/Assesments occuring Family Present and informed to notify staff if they need to leave bedside As available Patient and Family Educated on Fall Prevention Program and strategies. Assessment: 14:08 General: SEE TRIAGE NOTE. bp 15:10 Reassessment: No changes from previously documented assessment. Patient and/or family bp updated on plan of care and expected duration. Pain level reassessed. 16:00 Reassessment: ADMIT INITIATED. bp 17:00 Reassessment: No changes from previously documented assessment. PT CLEANED OF bp INCONTINENCE. 18:00 Reassessment: No changes from previously documented assessment. Patient and/or family bp updated on plan of care and expected duration. Pain level reassessed. Vital Signs: 14:01 BP 105 / 49; Pulse 60; Resp 14; Temp 97.6; Pulse Ox 100% on 4 lpm NC; bp 14:12 BP 173 / 80; Pulse 60; Temp 97.8; Pulse Ox 100% ; tp1 15:10 BP 140 / 71; Pulse 58; Resp 21; Pulse Ox 100% on 4 lpm NC; bp 16:00 BP 172 / 88; Pulse 66; Resp 24; Pulse Ox 100% ; bp 17:00 BP 158 / 60; Pulse 60; Resp 22; Pulse Ox 100% ; bp 18:00 BP 156 / 67; Pulse 56; Resp 18; Pulse Ox 100% ; bp 19:31 BP 154 / 68; Pulse 56; Resp 17; Pulse Ox 100% on 2 lpm NC; ke1 ED Course: 14:00 Patient arrived in ED. bp 14:04 Mynor Donovan PA is PHCP. jmm 14:04 Cheko Marroquin MD is Attending Physician. jmm 14:05 Triage completed. bp 14:08 Arm band placed on. bp 14:08 Patient has correct armband on for positive identification. Bed in low position. Call bp light in reach. Side rails up X2. Adult w/ patient. playground monitor on. Pulse ox on. NIBP on. 14:08 Oxygen administration via nasal cannula \T\ 4L/min. bp 14:22 CT Head Brain wo Cont In Process Unspecified. EDMS 14:35 Inserted saline lock: 20 gauge in right antecubital area, using aseptic technique. tp1 Blood collected. 14:36 EKG done, by ED staff. tp1 15:10 Oziel Smith, RN is Primary Nurse. bp 15:13 XRAY Chest (1 view) In Process Unspecified. EDMS 16:12 Asad Feliz is Hospitalizing Provider. jmm 22:49 No provider procedures requiring assistance completed. ke1 22:50 Patient admitted, IV remains in place. ke1 Administered Medications: 16:18 Drug: Aspirin Chewable Tablet 324 mg Route: PO; bp 17:06 Follow up: Response: No adverse reaction bp 17:19 Drug: Rocephin (cefTRIAXone) 1 grams Route: IV; Rate: calculated rate; Site: right bp antecubital; 18:12 Follow up: IV Status: Completed infusion; IV Intake: 100ml bp Intake: 18:12 IV: 100ml; Total: 100ml. bp Outcome: 16:13 Decision to Hospitalize by Provider. shaq 22:49 Admitted to Med/surg accompanied by tech. cook 22:49 Condition: stable 22:49 Instructed on the need for admit. 22:50 Patient left the ED. joey Signatures: Dispatcher [employer] EDMS Mynor Donovan PA PA jmm Peltier, Brian, RN Edith Owens tp1 Tyron Gamboa RN RN ke1
--- NOTE | 2022-01-31 16:13 | EDPHYS ---
Physician Documentation [facility] Name: Faiza Pete Age: 81 yrs Sex: Female : 1940 Arrival Date: 01/31/2022 Time: 14:00 Bed 17 Private MD: ED Physician Cheko Marroquin HPI: 01/31 14:06 This 81 yrs old Female presents to ER via EMS with complaints of Chest Pain. [facility] 14:06 The patient or guardian reports chest pain that is located primarily in the substernal [facility] area. Onset: acutely, at 13:00. The pain radiates to left jaw. Associated signs and symptoms: Pertinent negatives: shortness of breath. Is an 81-year-old female with history of COPD, dementia, hypertension, the presents emerged part with complaints of substernal chest pain beginning approximately 1 PM radiated to the left side of the jaw. Patient denies history of coronary artery disease. Daughter states approximately 15 minutes prior patient had right-sided facial droop. Those symptoms of completely resolved per daughter. Historical: - Allergies: 14:08 Nitrofurantoin; bp 14:08 Bactrim; bp 14:08 Levaquin (Hives); swelling; bp 14:08 Macrobid; bp - Home Meds: 14:08 Abilify 10 mg oral tab 1 tab once daily [Active]; amlodipine 5 mg tab 1 tab once daily bp [Active]; Aricept 10 mg Oral tab 1 tab once daily [Active]; buspirone 5 mg Oral tab 2 tabs 2 times per day [Active]; Eliquis 2.5 mg Oral tab 1 tab 2 times per day [Active]; Lexapro 20 mg Oral tab 1 tab once daily [Active]; Lipitor 10 mg Oral tab 1 tab once daily [Active]; melatonin 3 mg Oral tab 3 mg nightly [Active]; mirtazapine 15 mg Oral TbDi 1 tab once daily [Active]; pantoprazole 40 mg Oral TbEC 1 tab once daily [Active]; sotalol 80 mg Oral tab 1 tab 2 times per day [Active]; Symbicort 160-4.5 mcg/actuation inhalation HFAA 2 puffs 2 times per day [Active]; levalbuterol HCl 0.63 mg/3 mL inhalation nebu 3 mL every 8 hours [Active]; - PMHx: 14:08 COPD; Dementia; Aneurysm; Cancer, Breast; hemmorhoids; Hyperlipidemia; Hypertension; bp SVT; TIA; - Immunization history:: Client reports receiving the 2nd dose of the Covid vaccine. - Social history:: Smoking status: Patient denies any tobacco usage or history of. ROS: 14:06 Constitutional: Negative for fever, chills, and weight loss. jmm 14:06 Respiratory: Negative for shortness of breath, cough, wheezing, and pleuritic chest pain, Abdomen/GI: Negative for abdominal pain, nausea, vomiting, diarrhea, and constipation. 14:06 Cardiovascular: Positive for chest pain. 14:06 Neuro: Positive for facial droop. 14:06 Psych: 14:06 All other systems are negative. Exam: 14:06 Constitutional: This is a well developed, well nourished patient who is awake, alert, jmm and in no acute distress. Head/Face: atraumatic. Eyes: EOMI, no conjunctival erythema appreciated ENT: Moist Mucus Membranes Neck: Trachea midline, Supple Chest/axilla: Normal chest wall appearance and motion. 14:06 Abdomen/GI: Non distended, soft Back: Normal ROM Skin: General appearance color normal MS/ Extremity: Moves all extremities, no obvious deformities appreciated, no edema noted to the lower extremities Neuro: Awake and alert Psych: Behavior is normal, Mood is normal, Patient is cooperative and pleasant 14:06 Cardiovascular: Rate: normal, Rhythm: regular. 14:06 Respiratory: the patient does not display signs of respiratory distress, Respirations: normal, Breath sounds: are clear throughout. Vital Signs: 14:01 BP 105 / 49; Pulse 60; Resp 14; Temp 97.6; Pulse Ox 100% on 4 lpm NC; bp 14:12 BP 173 / 80; Pulse 60; Temp 97.8; Pulse Ox 100% ; tp1 15:10 BP 140 / 71; Pulse 58; Resp 21; Pulse Ox 100% on 4 lpm NC; bp 16:00 BP 172 / 88; Pulse 66; Resp 24; Pulse Ox 100% ; bp 17:00 BP 158 / 60; Pulse 60; Resp 22; Pulse Ox 100% ; bp 18:00 BP 156 / 67; Pulse 56; Resp 18; Pulse Ox 100% ; bp 19:31 BP 154 / 68; Pulse 56; Resp 17; Pulse Ox 100% on 2 lpm NC; ke1 MDM: 14:06 Patient medically screened. [facility] 16:11 The patient was given aspirin in the Emergency Department. Data reviewed: vital signs, [facility] nurses notes. Counseling: I had a detailed discussion with the patient and/or guardian regarding: the historical points, exam findings, and any diagnostic results supporting the discharge/admit diagnosis, lab results, radiology results, the need for further work-up and treatment in the hospital. ED course: I discussed the patient with Dr. Feliz whom accepted admission. . 01/31 14:07 Order name: Basic Metabolic Panel; Complete Time: 15:58 [facility] 01/31 14:07 Order name: CBC with Diff; Complete Time: 14:48 [facility] 01/31 14:07 Order name: LFT's; Complete Time: 15:58 [facility] 01/31 14:07 Order name: Magnesium; Complete Time: 15:58 [facility] 01/31 14:07 Order name: NT PRO-BNP; Complete Time: 15:58 [facility] 01/31 14:07 Order name: PT-INR; Complete Time: 14:48 [facility] 01/31 14:07 Order name: Troponin HS; Complete Time: 15:58 [facility] 01/31 14:07 Order name: XRAY Chest (1 view); Complete Time: 15:24 [facility] 01/31 14:07 Order name: CT Head Brain wo Cont; Complete Time: 14:37 [facility] 01/31 16:41 Order name: Urine Dipstick-Ancillary; Complete Time: 16:44 [facility] 01/31 17:31 Order name: COVID-19 SARS RT PCR (Document "Date of Onset" if Symptomatic); Complete bp Time: 18:57 01/31 21:25 Order name: Troponin High Sensitivity [facility] 01/31 14:07 Order name: EKG; Complete Time: 14:08 [facility] 01/31 14:07 Order name: Cardiac monitoring; Complete Time: 14:18 [facility] 01/31 14:07 Order name: EKG - Nurse/Tech; Complete Time: 14:17 [facility] 01/31 14:07 Order name: IV Saline Lock; Complete Time: 14:35 [facility] 01/31 14:07 Order name: Labs collected and sent; Complete Time: 14:35 [facility] 01/31 14:07 Order name: O2 Per Protocol; Complete Time: 14:17 [facility] 01/31 14:07 Order name: O2 Sat Monitoring; Complete Time: 14:17 [facility] 01/31 15:57 Order name: Urine Dipstick-Ancillary (obtain specimen); Complete Time: 16:41 [facility] 01/31 16:41 Order name: Straight Cath - Urine; Complete Time: 16:41 ss Administered Medications: 16:18 Drug: Aspirin Chewable Tablet 324 mg Route: PO; bp 17:06 Follow up: Response: No adverse reaction bp 17:19 Drug: Rocephin (cefTRIAXone) 1 grams Route: IV; Rate: calculated rate; Site: right bp antecubital; 18:12 Follow up: IV Status: Completed infusion; IV Intake: 100ml bp Disposition: 19:17 Co-signature as Attending Physician, Cheko Marroquin MD I agree with the assessment and kdr plan of care. Disposition Summary: 01/31/22 16:13 Hospitalization Ordered Hospitalization Status: Observation [facility] Provider: Asad Feliz Location: Telemetry/MedSurg (observation) jm Condition: Stable jmm Problem: an acute exacerbation jmm Symptoms: have improved jmm Bed/Room Type: Standard [facility] Room Assignment: 208(01/31/22 21:27) cg Diagnosis - Chest pain, unspecified jmm - Transient cerebral ischemic attack, unspecified jmm Forms: - Medication Reconciliation Form jmm - SBAR form [facility] Signatures: Dispatcher [employer] EDCheko Ramírez MD MD kdr Mickail, Joel, PA PA m Karyn Fernandez RN RN ss Kasey Brown RN RN cg Oziel Smith, JESÚS RN bp Corrections: (The following items were deleted from the chart) 21:27 16:13 jmm cg
[2022-01-31] MEDS ORDERED: ASPIRIN 81 MG CHEWABLE TABLET ONE (16:14)
[2022-01-31 16:41] LABS: Urine Blood Trace-intact (Negative); Urine Glucose Negative (Negative); Urine Protein 1+ (Negative); Urine pH 7.5 (5.0-7.0)
[2022-01-31] MEDS ORDERED: NA CHLORIDE 0.9% 100 ML IV ONE (17:18)
[2022-01-31] MEDS ORDERED: CEFTRIAXONE 1000 MG/VIAL ONE (17:18)
--- NOTE | 2022-01-31 18:14 | P.HP ---
Certification for Inpatient Patient admitted to: Observation With expected LOS: <2 Midnights Practitioner: I am a practitioner with admitting privileges, knowledge of patient current condition, hospital course, and medical plan of care. Services: Services provided to patient in accordance with Admission requirements found in Title 42 Section 412.3 of the Code of Federal Regulations Patient History Date of Service: 01/31/22 Reason for admission: Transient AMS History of Present Illness: 81-year-old woman with a history of atrial fibrillation on chronic anticoagulation, history of TIA in the past, detention resident was sent from detention to the emergency department due to sudden left facial droop which was witnessed by her daughter. Daughter stated the episode occurred within an hour after she fed her lunch though did not eat much. Symptoms associated with confusion. Patient also complained of chest pain and left jaw pain. Patient symptoms resolved in the ED. Head CT negative, EKG showed sinus bradycardia, initial troponin negative. UA suggest the presence of UTI. Patient is hospitalized for further evaluation and management. Allergies levofloxacin [From Levaquin] Allergy (Verified 04/26/21 23:07) Itching/Hives/Rash sulfamethoxazole [From Bactrim] Allergy (Verified 04/26/21 23:07) Unknown trimethoprim [From Bactrim] Allergy (Verified 04/26/21 23:07) Unknown nitrofurantoin macrocrystal [From Macrobid] Adverse Reaction (Intermediate, Verified 04/26/21 23:07) vomiting nitrofurantoin [From Macrobid] Adverse Reaction (Verified 04/26/21 23:07) vomiting Home Medications: Apixaban [Eliquis *] 1 tab PO DAILY 06/28/21 Atorvastatin Calcium [Lipitor*] 1 tab PO DAILY 06/28/21 Budesonide/Formoterol Fumarate [Symbicort 160-4.5 Mcg Inhaler] 2 puff SB BID 06/28/21 Cefuroxime [Ceftin] 250 mg PO BID #14 tab 06/28/21 Escitalopram Oxalate [Lexapro] 1 tab PO DAILY 06/28/21 Levalbuterol [Xopenex*] 1 puff NEB Q6H 06/28/21 Pantoprazole [Protonix Tab*] 1 tab PO DAILY 06/28/21 Potassium Gluconate [Potassium] 1 tab PO M,W,F 06/28/21 Sotalol HCl [Sotalol] 80 mg PO DAILY 06/28/21 clonazePAM [Clonazepam] 1 tab PO BEDTIME 06/28/21 - Past Medical/Surgical History Diabetic: No -: Brain aneurysm -: HTN -: History of Breast Cancer -: Hyperlipidemia -: Depression with anxiety -: Diverticulosis -: GERD with hiatal hernia -: History of back pain and possible DDD/DJD. -: History of TIAs -: SVT -: hemmorhoids -: lumpectomy Psychosocial/ Personal History: unknown - Family History Father -: Heart disease Mother -: Heart disease - Social History Alcohol use: No CD- Drugs: No Caffeine use: No Place of [facility]idence[facility] Review of Systems Other: Patient denies any fever, no nausea or vomiting. No problem with swallowing or vision. Except as documented, all other systems reviewed and negative. Physical Examination - Physical Exam General: Alert, In no apparent distress, Oriented x3 HEENT: Mucous membr. moist/pink, EOMI, Sclerae nonicteric Neck: Supple, JVD not distended Respiratory: Clear to auscultation bilaterally, Normal air movement Cardiovascular: Normal S1 S2, No murmurs, Other (Bradycardia), Edema (Bilateral pedal edema) Gastrointestinal: Normal bowel sounds, Soft and benign, Non-distended, No tenderness Musculoskeletal: No erythema, Swelling (Bilateral feet) Integumentary: No rashes, No cyanosis Neurological: Other (No focal motor deficit) Lymphatics: No axilla or inguinal lymphadenopathy - Studies Laboratory Data (last 24 hrs) 01/31/22 14:33: PT 16.0 H, INR 1.44 01/31/22 14:33: WBC 9.1, Hgb 12.3, Hct 36.8, Plt Count 211 01/31/22 14:33: Sodium 143, Potassium 3.5, BUN 11, Creatinine 0.80, Glucose 120 H, Magnesium 1.8, Total Bilirubin 0.4, AST 21, ALT 18, Alkaline Phosphatase 75 Assessment and Plan - Problems (Diagnosis) (1) TIA (transient ischemic attack) Current Visit: Yes Status: Acute (2) Chest pain Current Visit: Yes Status: Acute (3) Atrial fibrillation Current Visit: Yes Status: Acute (4) Chronic anticoagulation Current Visit: Yes Status: Acute (5) UTI (urinary tract infection) Current Visit: Yes Status: Acute (6) HTN (hypertension) Current Visit: No Status: Chronic - Plan Place patient under observation. Continue stroke protocol started in the ED. Obtain MRI of the brain, echocardiogram, carotid Doppler. Neurology consult. Aspirin and Lipitor. Continue Eliquis. Neurology consulted. Trend troponin Consulted cardiology for A. fib with recurrent TIA and chest pain. IV Rocephin for UTI. Follow urine culture. Reconcile and continue other home medications. - Advance Directives Does patient have a Living Will: Yes Does patient have a Durable POA for Healthcare: No
[2022-01-31] MEDS ORDERED: ALBUTEROL 2.5 MG/3 ML NEB SOL NEB PRN (20:38)
[2022-01-31] MEDS ORDERED: ACETAMINOPHEN 500 MG TAB PO PRN (20:38)
[2022-01-31] MEDS ORDERED: ONDANSETRON 4 MG/2 ML VIAL IV PRN (20:38)
[2022-01-31] MEDS ORDERED: ATORVASTATIN 20 MG TAB PO SCH (21:00)
[2022-01-31] MEDS ORDERED: ATORVASTATIN 20 MG TAB ONE (21:25)
[2022-02-01 04:46] LABS: Absolute Lymphocytes (CBC) 1.8 K/uL (0.7-4.9); Hematocrit 34.9 % (36.0-45.0); Lymphocytes % 19.9 % (15.3-44.8); MPV 9.1 fL (7.6-11.3); RBC Red Blood Cell Count 3.82 M/uL (3.86-4.86)
[2022-02-01 05:06] LABS: Magnesium 1.7 mg/dL (1.8-2.4); Phosphorus 3.3 mg/dL (2.5-4.9); Potassium 3.2 mmol/L (3.5-5.1); Thyroid Stimulating Hormone 0.979 uIU/mL (0.360-3.740)
[2022-02-01 05:29] VITALS: BMI 21.0
[2022-02-01] MEDS ORDERED: MAGNESIUM SULFATE 1 gm IVPB 1 GM/100 ML BAG IV ONE (05:37)
[2022-02-01] MEDS ORDERED: NA CHLORIDE 0.9% 500 ML ONE (06:16)
--- NOTE | 2022-02-01 07:47 | EKG ---
Test Date: 2022-01-31 Test Time: 14:05:47 [employer] [place]: BRADY MEASUREMENT RESULTS: Intervals: Rate: 57 VA: 170 QRSD: 80 QT: 476 QTc: 463 [place]: P: 77 VA: 170 QRS: 20 T: 28 INTERPRETIVE STATEMENTS: Sinus bradycardia Otherwise normal ECG Compared to ECG 11/02/2021 17:55:47 Sinus rhythm no longer present ST (T wave) deviation no longer present Electronically Signed On 02-01-22 07:46:02 CDT by Wally Wood
[2022-02-01] MEDS ORDERED: POTASSIUM 25 MEQ EFFERV TAB PO ONE (09:00)
[2022-02-01] MEDS ORDERED: KCL 20 MEQ/100 mL IVPB 20 MEQ/100 ML BAG IV SCH (09:00)
[2022-02-01] MEDS ORDERED: ASPIRIN EC 81 MG TAB PO SCH (09:00)
--- NOTE | 2022-02-01 09:09 | RAD REPORT ---
EXAM DESCRIPTION: - CP - 02/01/2022 5:53 am CLINICAL HISTORY: TIA Headache, drowsiness COMPARISON: CAROTID ARTERY BILATERAL dated 07/07/2015 TECHNIQUE: Real-time sonographic evaluation of both carotid systems was performed. Doppler interroga tion was performed with waveform tracing bilaterally. FINDINGS: Normal high resistance waveforms are noted in both external carotid arteries. The common c arotid arteries and internal carotid arteries show normal low resistance waveforms. Mild soft plaque is present in both carotid bulbs. Peak systolic and end diastolic velocity values an d the ICA/CCA ratios are in the non-hemodynamically significant range. Antegrade flow seen in both vertebral arteries. IMPRESSION: Mild soft plaque is present in both carotid bulbs. No evidence of a hemodynamically significant stenosis.
--- NOTE | 2022-02-01 09:40 | RAD REPORT ---
EXAM DESCRIPTION: MRI - Brain W/Wo Cont - 02/01/2022 9:05 am CLINICAL HISTORY: TIA Headache, drowsiness COMPARISON: MRA Head Wo Cont dated 02/01/2022; MRA Neck W/Wo Cont dated 02/01/2022 TECHNIQUE: Multi-sequence, multiplanar MR imaging of the brain was performed with contrast. FINDINGS: No intracranial hemorrhage, hydrocephalus, or extra-axial fluid collection.Moderate conflu ent T2/FLAIR hyperintensity in the periventricular and deep white matter is present compatible with c hronic microvascular ischemic changes. No edema or shift of midline structures. No intracranial mass. DWI is negative for acute CVA. The midline structures are normally formed. Mastoid air cells and paranasal sinuses are clear except for a small amount of left sphenoid opacification. . Post-contrast images show no abnormal enhancement to suggest tumor or infection. IMPRESSION: Negative for acute CVA or other acute intracranial process. No pathologic post-contrast enhancement suspected.
--- NOTE | 2022-02-01 09:43 | RAD REPORT ---
EXAM DESCRIPTION: MRI - MRA Head Wo Cont - 02/01/2022 9:04 am CLINICAL HISTORY: TIA CVA COMPARISON: Head Brain Wo Cont dated 01/31/2022 FINDINGS: 3D noncontrast [id number] MR angiography of the [place] was performed. No aneurysm, flow-limiting stenosis or vascular malformation is seen. Forward flow seen in codominant vertebral arteries. The visualized dural venous sinuses appear patent. IMPRESSION: No significant flow abnormality of the [place] is identified.
--- NOTE | 2022-02-01 09:49 | RAD REPORT ---
EXAM DESCRIPTION: MRI - MRA Neck W/Wo Cont - 02/01/2022 9:04 am CLINICAL HISTORY: TIA Headache, CVA COMPARISON: No comparisons FINDINGS: Contrast enhanced 2D [id number] MR angiography of the neck vessels was performed. A left aortic arch is noted with normal branching pattern of the great vessels. Both subclavian arteries and common carotid arteries are patent. No significant carotid stenosis is seen bilaterally. Antegrade flow is seen in both vertebral arterie s. IMPRESSION: No significant flow abnormality of the neck vessels identified.
--- NOTE | 2022-02-01 12:39 | ECHO ---
HEIGHT: 5 ft 8 in WEIGHT: 138 lb 6.4 oz DATE OF STUDY: 02/01/[address]: oscar curry 2-DIMENSIONAL: YES M.MODE: YES DOPPLER: YES COLOR FLOW: YES TDS: NO PORTABLE: YES DEFINITY: NO BUBBLE STUDY: NO DIAGNOSIS: STROKE CARDIAC HISTORY: CATHERIZATION: NO SURGERY: NO PROSTHETIC VALVE: NO PACEMAKER: NO MEASUREMENTS (cm) DIASTOLIC (NORMALS) SYSTOLIC (NORMALS) IVSd 0.9 (0.6-1.2) LA Diam 2.1 (1.9-4.0) LVEF 68% LVIDd 2.0 (3.5-5.7) LVIDs 1.3 (2.0-3.5) %FS 35% LVPWd 1.1 (0.6-1.2) Ao Diam (2.0-3.7) 2 DIMENSIONAL ASSESSMENT: RIGHT ATRIUM: NORMAL LEFT ATRIUM: NORMAL RIGHT VENTRICLE: NORMAL LEFT VENTRICLE: NORMAL TRICUSPID VALVE: NORMAL MITRAL VALVE: NORMAL PULMONIC VALVE: NORMAL AORTIC VALVE: NORMAL PERICARDIAL EFFUSION: NONE AORTIC ROOT: NORMAL LEFT VENTRICULAR WALL MOTION: NORMAL DOPPLER/COLOR FLOW: NORMAL COMMENTS: NORMAL LEFT VENTRICULAR SIZE AND FUNCTION. DECREASED LEFT VENTRICULAR COMPLIANCE. NO THROMBUS OR VEGETATION. TECHNOLOGIST: Stacey SIFUENTES
[2022-02-01] MEDS ORDERED: LEVALBUTEROL 1.25 MG/3 ML NEB IH PRN (14:01)
[2022-02-01] MEDS ORDERED: TRAMADOL HCL 50 MG TAB PO PRN (14:01)
--- NOTE | 2022-02-01 14:52 | P.DS ---
Admission Date: 01/31/22 Discharge Date: 02/01/22 Disposition: TRANSFER TO DETENTION Discharge Condition: FAIR Reason for Admission: Transient AMS - Problems (1) TIA (transient ischemic attack) Current Visit: Yes Status: Acute (2) Chest pain Current Visit: Yes Status: Acute (3) Atrial fibrillation Current Visit: Yes Status: Acute (4) Chronic anticoagulation Current Visit: Yes Status: Acute (5) UTI (urinary tract infection) Current Visit: Yes Status: Acute (6) HTN (hypertension) Current Visit: No Status: Chronic Brief History of Present Illness: 81-year-old woman with a history of atrial fibrillation on chronic anticoagulation, history of TIA in the past, intermediate resident was sent from intermediate to the emergency department due to sudden left facial droop which was witnessed by her daughter. Daughter stated the episode occurred within an hour after she fed her lunch though did not eat much. Symptoms associated with confusion. Patient also complained of chest pain and left jaw pain. Patient symptoms resolved in the ED. Head CT negative, EKG showed sinus bradycardia, initial troponin negative. UA suggest the presence of UTI. Patient hospitalized for further evaluation and management. Hospital Course: Patient placed under observation on the medical floor. Stroke work-up with MRI of the brain, carotid Doppler and echocardiogram were unremarkable. MRI of the brain showed no acute stroke. Patient might have experienced a TIA. No neurologic symptoms since examination in the ED. She is anticoagulated for A. fib with Eliquis. Patient is high risk for falls. Aspirin discontinued on discharge and Eliquis continued. Patient seen in consultation by neurology who gave no further recommendation. She is on multiple medications for depression and anxiety including BuSpar, Remeron and escitalopram. BuSpar and escitalopram discontinued on discharge. Patient is stable for discharge. Vital Signs/Physical Exam: Temp Pulse Resp BP Pulse Ox 97.9 F 57 14 180/75 H 100 02/01/22 12:00 02/01/22 12:00 02/01/22 12:00 02/01/22 12:02/01/22 12:00 General: Alert, In no apparent distress, Oriented x3 HEENT: Mucous membr. moist/pink Neck: JVD not distended Respiratory: Clear to auscultation bilaterally, Normal air movement Cardiovascular: Normal S1 S2, Edema (Bilateral pedal edema), Irregular heart rate/rhythm Gastrointestinal: Soft and benign, Non-distended, No tenderness Musculoskeletal: No tenderness Integumentary: No rashes Neurological: Normal strength at 5/5 x4 extr, Cranial nerves 3-12 intact Laboratory Data at Discharge: WBC 9.2 K/uL (4.3-10.9) 02/01/22 04:07 Hgb 11.6 g/dL (12.0-15.0) L 02/01/22 04:07 Hct 34.9 % (36.0-45.0) L 02/01/22 04:07 Plt Count 174 K/uL (152-406) 02/01/22 04:07 PT 16.0 SECONDS (9.5-12.5) H 01/31/22 14:33 INR 1.44 01/31/22 14:33 Sodium 143 mmol/L (136-145) 02/01/22 04:07 Potassium 3.2 mmol/L (3.5-5.1) L 02/01/22 04:07 BUN 9 mg/dL (7-18) 02/01/22 04:07 Creatinine 0.73 mg/dL (0.55-1.3) 02/01/22 04:07 Glucose 91 mg/dL (74-106) 02/01/22 04:07 Phosphorus 3.3 mg/dL (2.5-4.9) 02/01/22 04:07 Magnesium 1.7 mg/dL (1.8-2.4) L 02/01/22 04:07 Total Bilirubin 0.4 mg/dL (0.2-1.0) 01/31/22 14:33 AST 21 U/L (15-37) 01/31/22 14:33 ALT 18 U/L (12-78) 01/31/22 14:33 Alkaline Phosphatase 75 U/L (45-117) 01/31/22 14:33 Triglycerides 96 mg/dL (<150) 02/01/22 04:07 Cholesterol 103 mg/dL (<200) 02/01/22 04:07 HDL Cholesterol 43 mg/dL (40-60) 02/01/22 04:07 Cholesterol/HDL Ratio 2.40 02/01/22 04:07 Home Medications: Acetaminophen [Tylenol] 2 tab PO Q6HR PRN 02/01/22 Amlodipine Besylate 5 mg PO DAILY 02/01/22 Apixaban [Eliquis *] 2.5 mg PO BID 02/01/22 Atorvastatin Calcium [Lipitor*] 10 mg PO BEDTIME 02/01/22 Budesonide/Formoterol Fumarate [Symbicort 160-4.5 Mcg Inhaler] 2 puff IH BID 02/01/22 Donepezil HCl [Aricept] 10 mg PO DAILY 02/01/22 Levalbuterol HCl [Xopenex] 3 ml IH Q6H PRN 02/01/22 Melatonin 3 mg PO BEDTIME 02/01/22 Mirtazapine 15 mg PO BEDTIME 02/01/22 Pantoprazole [Protonix Tab*] 40 mg PO DAILY 02/01/22 Promethazine Inj [Phenergan -Inj*] 25 mg IM Q8HR PRN 02/01/22 Promethazine Tab [Phenergan*] 25 mg PO Q8HR PRN 02/01/22 Sotalol HCl [Betapace*] 80 mg PO BID 02/01/22 Vit C/E/Zn/Coppr/Lutein/Zeaxan [Preservision Areds 2 Softgel] 2 cap PO DAILY 0 02/01/22 Diet: AHA Activity: Fall precautions Followup: NONE,NONE [Primary Care Provider] - 1-2 Weeks
[2022-02-01] MEDS ORDERED: CEFTRIAXONE 1,000 MG in NA CHLORIDE 0.9% 50 ML IVPB SCH (15:00)
[2022-02-01 16:48] VITALS: BP 183/74; TEMP 97
--- NOTE | 2022-02-01 20:39 | CON ---
Reason For Consultation: Consultation called because of transient drooping of the face with slurred speech. History Of Present Illness: Ms. Pete is an 81-year-old right-handed patient with hypothyr oidism, dyslipidemia, and dementia, who was brought to [facility] from her local nursing [facility] e after her daughter noticed left facial drooping and she was unable to get more interaction as her b aseline and she could not eat properly. Her symptoms occurred, lasted perhaps 15 minutes while at community [facility] local senior care and the emergency services brought the patient to [facility]. Her head CT scan was negative for any acute ischemic or hemorrhagic change. There was, however, moderate atroph y due to small vessel ischemic disease. The patient is able to get an MRI done the following day, wh ich ruled out presence of acute ischemic or hemorrhagic stroke. The study was remarkable for moderat e confluent small vessel ischemic disease, possibly the reason for the patient's dementia is likely t o be vascular. MRA of her head showed no significant abnormalities in blood flow in the [place]. The MRA of her neck revealed no significant abnormalities in neck vessels. Carotid artery varsha dies showed no hemodynamically significant stenosis and the echocardiogram showed ejection fraction 5 8% and was normal. No vegetation identified. Her electrocardiogram showed sinus bradycardia, otherw ise normal study and her chest x-ray showed chronic left base opacification, which is not different June 2001, otherwise unremarkable. Her blood work showed a normal complete blood count with differential. INR 1.44. Chemistries showed slightly elevated glucose 120, carbon dioxide 36, creat inine 0.8. Her LDL cholesterol 41, HDL 43. TSH 0.97. Liver function studies are normal. Urinalysi s shows trace blood, 2+ esterase, 1+ protein, and COVID-19 test was negative. 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 Past Surgical History: Lumpectomy. Allergies: LEVOTHYROXINE, SULFAMETHOXAZOLE, TRIMETHOPRIM, NITROFURANTOIN. Medications At Home: Eliquis, Lipitor at night, Symbicort 2 puffs inhaled daily, Ceftin 250 mg twice daily. Lexapro 1 daily, Xopenex 1 puff every 6 hours as needed, Protonix 40 mg daily, potassium 20 mEq daily, sotalol 80 mg daily, clonazepam 1 mg at bedtime. Family History: Positive for heart disease in father and mother. Social History: No alcohol, tobacco, or IV drug use. She resides in local correction. Review of Systems: According to the patient's daughter, she has worsening cognitive impairment. She was placed in [facility] in October of this year and prior to that she lived at the daughter's home. She began having hallucinations, delusions, and paranoid thinking. She was put on multiple antipsychotic medications while at the senior care and those psychotic episodes have largely resolved. She would see things in her food and actually people not present and also things from her past, talking about the as if they were alive. Daughter notes an improvement in psychotic events. Physical Examination: Vital Signs: Blood pressure 180/75, pulse 67, respiratory rate 14, temperature 97.9, oxygen saturati on 100% on room air. General: Ms. Pete is resting in bed. She is drowsy, stimulated by verbal means. She batista s poor dentures. HEENT: She is otherwise normocephalic, atraumatic. Sclerae anicteric. Oropharynx is moist and pink . Neck: Supple. Chest: Clear. Heart: Regular. Extremities: No significant edema or cyanosis. She has some bruising of upper and lower extremities otherwise. Neurologic: Cranial nerves, she has a symmetric face with equal excursions bilaterally. Tongue is i n the midline. Motor examination, she is able to move the arms and legs equally well. There is mild diffuse weakness at 4+. Sensory exam, stocking-glove loss light touch, temperature. Reflexes are s ymmetric but depressed. Coordination slow and intact in the upper and lower extremities. The patien t is not ambulated. At that time she is somewhat sleepy, but the daughter said for the last perhaps 4-5 months she requires minimum to moderate assistance with transfers and she transfers on wheelchair or walker and since being in [place] began needing assistance to do simple transfers and mobilizat ion. Assessment: Ms. Pete is an 81-year-old patient with possible transient ischemic attack. It is uncl ear the etiology. Her urine suggests possibility of urinary tract infection. She did receive a gram of Rocephin. She has multiple comorbid conditions as noted. Plan: The patient and daughter were told of the importance of hydration, perhaps add cranberry 400 m g twice daily to decrease the risk of another urinary tract infection. Also modifying stroke risk fa ctors by addressing blood pressure aggressively. It is noted she may be discharged back to [place] and continue with physical and occupational and speech therapy as appropriate. SHILPI/BARB Voice ID: [id number] Report ID: [id number]
[2022-02-01 20:44] VITALS: O2SAT 100
[2022-02-01] MEDS ORDERED: MIRTAZAPINE 15 MG TAB PO SCH (21:00)
[2022-02-01] MEDS ORDERED: ATORVASTATIN 10 MG TAB PO SCH (21:00)
[2022-02-01] MEDS ORDERED: SOTALOL HCL 80 MG TAB PO SCH (21:00)
[2022-02-01] MEDS ORDERED: APIXABAN 2.5 MG TABLET PO SCH (21:00)
[2022-02-01] MEDS ORDERED: DONEPEZIL HCL 5 MG TAB PO SCH (21:00)
[2022-02-01] MEDS ORDERED: HOME MED 1 EA UNK (Budesonide/Formoterol Fumarate [Symbicort 160-4.5 Mcg Inhaler] 10.2 GM IH SCH (21:00)
[2022-02-01] MEDS ORDERED: HYDRALAZINE HCL 25 MG TABLET PO SCH (21:00)
[2022-02-01] MEDS ORDERED: MELATONIN 3 MG TABLET PO SCH (21:00)
[2022-02-02] MEDS ORDERED: PANTOPRAZOLE 40MG TABLET PO SCH (09:00)
[2022-02-02] MEDS ORDERED: HOME MED 1 EA UNK (Donepezil Hcl [Aricept] 10 MG Tablet) PO SCH (09:00)
[2022-02-02] MEDS ORDERED: AMLODIPINE 10 MG TAB PO SCH (09:00)
[2022-02-02] MEDS ORDERED: HOME MED 1 EA UNK (Vit C/E/Zn/Coppr/Lutein/Zeaxan [Preservision Areds 2 Softgel] Capsule) PO SCH (09:00)
[2022-02-02] MEDS ORDERED: AMLODIPINE 5 MG TAB PO SCH (09:00)
--- NOTE | 2022-02-03 00:09 | CON ---
Reason For Consultation: TIA. History Of Present Illness: Ms. Pete is 81, has a past medical history of atrial fibrillation, dysl ipidemia, hypertension, CVA, who came in with TIA, and I was consulted. No cardiac complaints except for the fact that her blood pressure has been very poorly controlled. She denied any nausea, vomiti ng, diaphoresis, PND, orthopnea, pedal edema, palpitations, or syncope, but she did have some chest p ain that radiated to the left jaw. Ms. Pete appears to be very depressed. Past Medical History: As stated above. Allergies: INCLUDE LEVAQUIN AND BACTRIM. Review of Systems: Positive for being a do not resuscitate. Social History: Negative. Family History: Noncontributory. Medications: At home include aspirin, Plavix, Lipitor, sotalol, and Norvasc 5 mg daily had just been added. Physical Examination: General: She appears to be very depressed. Vital Signs: She is in sinus rhythm. Blood pressure was 180/75. HEENT: Negative. Neck: Supple. No bruit. Chest: Clear. Cardiac: Exam revealed regular rhythm and rate with aortic sclerosis and murmur, positive S4. Abdomen: Benign. Extremities: Revealed no clubbing, cyanosis, or edema. Diagnostic Data: Unremarkable. There were no evidence of a stroke by MRI or CT scan. EKG showed LV H. Troponin is negative. Impression And Plan: Chest pain possibly angina. The patient is a do not resuscitate. I do not garrick n to do any invasive cardiac workup on her. I would rather treat her medically. I think we need to treat her blood pressure, which may be causing her TIA as well as the chest pain. I think she will n eed to continue aspirin and Plavix, Lipitor, and sotalol. I think we should add Norvasc to make at 1 0 mg daily. I think we should also add hydralazine to her regimen. We can see her in the office aft er she goes home in the near future. No cardiac workup recommended at this point. JAZLYN/BARB Voice ID: [id number] Report ID: [id number]
== END 2022-02-01 20:42 ==
LOC: ER 13:50 → ERHOLD 17:36 → 2ND 22:20
PROVIDERS: ADMIT Internal Medicine; ATTEND Internal Medicine
DX: G45.9 Transient cerebral ischemic attack, unspecified (principal); R07.9 Chest pain, unspecified; I10 Essential (primary) hypertension; I48.91 Unspecified atrial fibrillation; N39.0 Urinary tract infection, site not specified; E78.5 Hyperlipidemia, unspecified; E03.9 Hypothyroidism, unspecified; R68.84 Jaw pain; F03.90 Unspecified dementia, unspecified severity, without behavioral disturbance, psychotic disturbance, mood disturbance, and anxiety; F41.8 Other specified anxiety disorders; I47.1 Supraventricular tachycardia; J44.9 Chronic obstructive pulmonary disease, unspecified; K57.90 Diverticulosis of intestine, part unspecified, without perforation or abscess without bleeding; K21.9 Gastro-esophageal reflux disease without esophagitis; K44.9 Diaphragmatic hernia without obstruction or gangrene; M54.9 Dorsalgia, unspecified; G89.29 Other chronic pain; K64.9 Unspecified hemorrhoids; Z66 Do not resuscitate; Z86.73 Personal history of transient ischemic attack (TIA), and cerebral infarction without residual deficits; Z85.3 Personal history of malignant neoplasm of breast; Z91.81 History of falling; Z20.822 Contact with and (suspected) exposure to COVID-19; Z79.01 Long term (current) use of anticoagulants; Z79.02 Long term (current) use of antithrombotics/antiplatelets; Z79.82 Long term (current) use of aspirin; Z79.899 Other long term (current) drug therapy; Z88.2 Allergy status to sulfonamides; Z88.8 Allergy status to other drugs, medicaments and biological substances; Z82.49 Family history of ischemic heart disease and other diseases of the circulatory system
CPT/HCPCS: 96365; 93005; 93306; 85025 ×2; 80048 ×2; 36415; 83735 ×2; 84100; 85610; 80061; 80076; 85652; 84443; 81003; 84484 ×3; 83880; 70450; 71045; 93880; 70553; 70544; 70549; 92610; 94760 ×3; 99285; U0003; A9577; J3475; J7040; G0378 ×3; J3480

== ENCOUNTER 2022-05-01 19:29 | Emergency (ER) | payer OTHER ==
--- NOTE | 2022-05-01 21:10 | RAD REPORT ---
EXAM DESCRIPTION: CT - Head Brain Wo Cont - 05/01/2022 9:03 pm CLINICAL HISTORY: AMS Headache, drowsiness COMPARISON: Head Brain Wo Cont dated 01/31/2022; Head Brain Wo Cont dated 11/02/2021; MRA Neck W/Wo Cont dated 02/01/2022 TECHNIQUE: All CT scans are performed using dose optimization technique as appropriate and may inclu de automated exposure control or mA/KV adjustment according to patient size. FINDINGS: No intracranial hemorrhage, hydrocephalus or extra-axial fluid collection.Mild generalized brain atrophy is present with mild periventricular and deep white matter chronic microvascular ische lyly changes.No areas of brain edema or evidence of midline shift. The paranasal sinuses and mastoids are clear. The calvarium is intact. IMPRESSION: No acute intracranial abnormality.
[2022-05-01] MEDS ORDERED: NA CHLORIDE 0.9% 250 ML ONE (21:11)
--- NOTE | 2022-05-01 21:17 | RAD REPORT ---
EXAM DESCRIPTION: RAD - Chest Single View - 05/01/2022 9:10 pm CLINICAL HISTORY: possible COVID, weakness Chest pain. COMPARISON: Chest Single View dated 01/31/2022; Chest Single View dated 11/02/2021; Chest Single View da augustina 06/27/2021; Chest Single View dated 04/26/2021 FINDINGS: Portable technique limits examination quality. Left basilar lung opacities are again seen, slightly progressive since most recent comparative chest radiograph. The right lung is grossly clear. The heart is mildly enlarged in size.
--- NOTE | 2022-05-01 21:43 | RAD REPORT ---
EXAM DESCRIPTION: RAD - Hip Right 2 View - 05/01/2022 9:33 pm CLINICAL HISTORY: PAIN COMPARISON: Hip Right 2 View dated 01/11/2013 FINDINGS: Mild arthritic changes are present right hip. No acute fracture or dislocation seen.
--- NOTE | 2022-05-01 21:43 | RAD REPORT ---
EXAM DESCRIPTION: RAD - Pelvis - 05/01/2022 9:33 pm CLINICAL HISTORY: pain, unknown if trauma Right hip pain COMPARISON: No comparisons FINDINGS: No fracture, dislocation or radiographic evidence of AVN. IMPRESSION: Negative study.
[2022-05-01 22:27] LABS: ALT/SGPT < 10 U/L (12-78); AST/SGOT 11 U/L (15-37); Albumin 2.7 g/dL (3.4-5.0); Alkaline Phosphatase 54 U/L (45-117); BUN Blood Urea Nitrogen 19 mg/dL (7-18); Bicarbonate 34 mmol/L (21-32); Bilirubin Direct 0.2 mg/dL (0-0.2); Bilirubin Total 0.6 mg/dL (0.2-1.0); C-Reactive Protein 4.54 mg/L (<3.00); Ferritin 46.5 ng/mL (8-388); Glomerular Filtration Rate 77 ml/min (=/>90); Glucose Level 92 mg/dL (74-106); Lipase 153 U/L (73-393); Potassium 3.5 mmol/L (3.5-5.1); Protein, Total 5.9 g/dL (6.4-8.2); Sodium Level 143 mmol/L (136-145); Troponin High Sensitivity 12.7 pg/mL (<58.9)
[2022-05-01 23:08] LABS: Absolute Lymphocytes (CBC) 1.9 K/uL (0.7-4.9); Hematocrit 36.5 % (36.0-45.0); Lymphocytes % 30.8 % (15.3-44.8); MCV 92.9 fL (80-100); MPV 10.1 fL (7.6-11.3); RBC Red Blood Cell Count 3.93 M/uL (3.86-4.86)
[2022-05-01] MEDS ORDERED: ACETAMINOPHEN 500 MG TAB ONE (23:09)
[2022-05-01 23:24] LABS: Protime INR 1.07
[2022-05-01 23:41] LABS: Urine Blood Negative (Negative); Urine Glucose Negative (Negative); Urine Protein Negative (Negative); Urine Specific Gravity 1.025 (1.005-1.030)
[2022-05-01 23:44] LABS: Blood Morphology Comment NOT SEEN (NOT SEEN); Platelet Estimate DECR; White Blood Cell Scan OK (OK)
[2022-05-01 23:51] LABS: Urine Bacteria LOADED /HPF (<20)
[2022-05-01 23:52] LABS: Urine RBC NONE SEEN /HPF (NONE SEEN); Urine Urothelial Cells <5 /HPF (NONE SEEN)
--- NOTE | 2022-05-02 00:06 | ER ---
Nurse's Notes [facility] Name: Faiza Pete Age: 82 yrs Sex: Female : 1940 Arrival Date: 05/01/2022 Time: 19:32 Bed 13 Private MD: Diagnosis: UTI/ Urinary tract infection, site not specified;Dehydration Presentation: 05/01 19:40 Chief complaint: EMS states: "Called to [facility] for altered mental status." Upon EMS arrival, pt was reportedly A\\T\\O x4 to baseline." Pt c/o hip pain and generally not feeling well. Coronavirus screen: Client denies travel out of the [place] in the last 14 days. Ebola Screen: Patient denies exposure to infectious person. Patient denies travel to an Ebola-affected area in the 21 days before illness onset. Initial Sepsis Screen: Does the patient have a suspected source of infection? No. Patient's initial sepsis screen is negative. Onset of symptoms was May 01, 2022. 19:40 Method Of Arrival: EMS: [facility] 19:40 Acuity: KATHI 3 21:02 Initial Sepsis Screen: Does the patient meet any 2 criteria?. Risk Assessment: Do you ke1 want to hurt yourself or someone else? Patient reports no desire to harm self or others. Triage Assessment: 20:50 Neuro: Level of Consciousness is awake, alert, Oriented to person, place, time, ke1 situation. Respiratory: Airway is patent Respiratory effort is even, unlabored, Respiratory pattern is regular, symmetrical. GI: 20:59 General: Appears in no apparent distress. Behavior is calm, cooperative. Pain: ke1 Complains of pain in bilateral hips. Historical: - Allergies: 19:43 Bactrim; ss 19:43 Levaquin (Hives); swelling; ss 19:43 Macrobid; ss 19:43 Nitrofurantoin; ss - PMHx: 19:43 COPD; Dementia; Cancer, Breast; Aneurysm; hemmorhoids; Hyperlipidemia; Hypertension; ss SVT; TIA; - Family history:: not pertinent. - Social history:: Smoking status: Patient denies any tobacco usage or history of. - Hospitalizations: : No recent hospitalization is reported. Screenin:01 Abuse screen: Denies threats or abuse. Nutritional screening: No deficits noted. ke1 Tuberculosis screening: No symptoms or risk factors identified. Fall Risk Fall in past 12 months (25 points). No secondary diagnosis (0 pts). IV access (20 points). Ambulatory Aid- None/Bed Rest/Nurse Assist (0 pts). Gait- Normal/Bed Rest/Wheelchair (0 pts) Mental Status- Oriented to own ability (0 pts). 21:15 Patient has been NPO before screening. The patient is alert, able to follow commands. ke1 The patient does not exhibit slurred or garbled speech The patient is not exhibiting difficulty speaking. The patient does not exhibit difficulty understanding words. The patient is able to swallow own secretions with no drooling or need for suction. Patient tolerated one teaspoon of water. No drooling, immediate coughing, gurgling, or clearing of the throat was noted. The patient tolerated 90mL of water. No drooling, immediate coughing, gurgling, or clearing of the throat was noted. The patient passed the bedside swallow screening. Oral medications may be given as ordered. Contact Physician for further diet orders. Assessment: 20:56 Pain: Complains of pain in both hips. Neuro: [place] Agitation-Sedation Scale (RASS): ke1 0 - Alert and Calm Level of Consciousness is awake, alert, Oriented to person, place, time, situation, Institutional Research Coordinator are equal bilaterally Moves all extremities. Speech is normal, Facial symmetry appears normal, Pupils are PERRLA, Intact Reports. Respiratory: Reports shortness of breath Airway is patent Trachea midline Respiratory effort is even, unlabored, Respiratory pattern is regular, symmetrical. 23:40 Reassessment: Patient appears in no apparent distress at this time. Patient and/or ke1 family updated on plan of care and expected duration. Pain level reassessed. Patient is alert, oriented x 3, equal unlabored respirations, skin warm/dry/pink. Patient states symptoms have improved. 05/02 00:53 Reassessment: report called and given to Vonda busch at [facility]. ke1 Vital Signs: 05/01 23:41 BP 143 / 69; Pulse 62; Resp 18; Pulse Ox 95% on R/A; ke1 NIH Stroke Scale Scores: 20:59 NIHSS Score: 0 ke1 ED Course: 19:32 Patient arrived in ED. mw2 19:34 Jose J Love MD is Attending Physician. rn 19:43 Triage completed. ss 19:43 Arm band placed on left wrist. ss 20:40 Tyron Gamboa, JESÚS is Primary Nurse. ke1 21:02 Bed in low position. Call light in reach. Side rails up X 1. Side rails up X2. Adult w/ ke1 patient. 21:05 CT Head Brain wo Cont In Process Unspecified. EDMS 21:12 CXR XRAY In Process Unspecified. EDMS 21:15 Missed attempt(s): 22 gauge in right antecubital area. ke1 21:27 Inserted saline lock: 22 gauge in right forearm, using aseptic technique. ,using ke1 aseptic technique. unable to collect blood , very small vein and difficult stick , labs called to draw. 21:28 SARS-COV-2 RT PCR (Document "Date of Onset" if Symptomatic) Sent. ke1 21:35 XRAY Pelvis In Process Unspecified. EDMS 21:35 XRAY Hip RIGHT 2 view In Process Unspecified. EDMS Administered Medications: 21:28 Drug: NS 0.9% 250 ml Route: IV; Rate: 1 bolus; Site: right forearm; ke1 23:06 Drug: Tylenol 500 mg Route: PO; ke1 0707 00:20 Drug: NS 0.9% 250 ml Route: IV; Rate: 1 bolus; Site: right antecubital; ke1 00:24 Drug: Rocephin (cefTRIAXone) 1 grams Route: IV; Rate: calculated rate; Site: right ke1 antecubital; Outcome: 00:06 Discharge ordered by MD. rn 01:13 Patient left the ED. mw2 NIH Stroke Scale - NIH Stroke Score Date: 05/01/2022 Time: 20:59 Total Score = 0 1a. Level of Consciousness (LOC) - 0(Alert) 1b. Level of Consciousness (LOC) (Month \\T\\ Age) - 0(Both) 1c. LOC Commands (Open \\T\\ Closes Eyes/Cage Supervisor) - 0(Both) 2. Best Gaze (Lateral Gaze Paresis) - 0(Normal) 3. Visual Field Loss - 0(No visual loss) 4. Facial Palsy - 0(Normal) 5a. Left Arm: Motor (10-second hold) - 0(No drift) 5b. Right Arm: Motor (10-second hold) - 0(No drift) 6a. Left Leg: Motor (5-second hold - always test supine) - 0(No drift) 6b. Right Leg: Motor (5-second hold - always test supine) - 0(No drift) 7. Limb Ataxia (finger/nose \\T\\ heel/bonilla - test with eyes open) - 0(Absent) 8. Sensory Loss (pinprick arms/legs/face) - 0(Normal) 9. Best Language: Aphasia (description/naming/reading) - 0(No aphasia) 10. Dysarthria (speech clarity - read or repeat words) - 0(Normal) 11. Extinction and Inattention (visual/tactile/auditory/spatial/personal) - 0(No abnormality) Initials: ke1 Signatures: Dispatcher [employer] EDMS Jose J Love MD MD rn Smirch, Shelby, RN RN ss [place], MyKena 2 Tyron Gamboa RN RN ke1 Corrections: (The following items were deleted from the chart) 05/01 21:29 21:28 NS 0.9% 250 ml IV at 1 bolus in right femoral ke1 ke1
--- NOTE | 2022-05-02 00:06 | EDPHYS ---
Physician Documentation [facility] Name: Faiza Pete Age: 82 yrs Sex: Female : 1940 Arrival Date: 05/01/2022 Time: 19:32 Bed 13 Private MD: ED Physician Jose J Love HPI: 05/01 20:58 This 82 yrs old Female presents to ER via EMS with complaints of Altered Mental Status. rn 20:58 The patient presents with decreased mental status, decreased responsiveness. Onset: The rn symptoms/episode began/occurred at an unknown time. Possible causes: unknown. Associated signs and symptoms: Pertinent positives: confusion, lightheadedness, nausea, Pertinent negatives: blurred vision, chest pain, seizure, shortness of breath. Current symptoms: In the emergency department the patient's symptoms are unchanged from the initial presentation. It is unknown whether or not the patient has had similar symptoms in the past. The patient has not recently seen a physician. EMS reports called out for AMS, unknown onset, no known fever. Historical: - Allergies: 19:43 Bactrim; ss 19:43 Levaquin (Hives); swelling; ss 19:43 Macrobid; ss 19:43 Nitrofurantoin; ss - PMHx: 19:43 COPD; Dementia; Cancer, Breast; Aneurysm; hemmorhoids; Hyperlipidemia; Hypertension; ss SVT; TIA; - Family history:: not pertinent. - Social history:: Smoking status: Patient denies any tobacco usage or history of. - Hospitalizations: : No recent hospitalization is reported. ROS: 21:16 Constitutional: Negative for fever, chills Eyes: Negative for injury, pain, redness, rn and discharge, Cardiovascular: Negative for chest pain, palpitations, and edema, Respiratory: Negative for shortness of breath, cough, wheezing, and pleuritic chest pain, Abdomen/GI: + nausea Back: Negative for injury and pain, : Negative for injury, bleeding, discharge, and swelling, MS/Extremity: Negative for injury and deformity, Skin: Negative for injury, rash, and discoloration, Neuro: Negative for headache, numbness, tingling, and seizure. Exam: 21:16 Constitutional: This is a well developed, well nourished patient who is awake, alert, rn and in no acute distress. Head/Face: Normocephalic, atraumatic. Eyes: Periorbital areas with no swelling, redness, or edema. ENT: dry MM Cardiovascular: Regular rate and rhythm. No pulse deficits. Respiratory: No increased work of breathing, no retractions or nasal flaring. Abdomen/GI: Soft, non-tender Skin: Warm, dry MS/ Extremity: Pulses equal, no cyanosis. Neuro: Awake and alert, GCS 15, oriented to person, place, time, and situation. Cranial nerves II-XII grossly intact. Motor strength 4/5 in all extremities. Sensory grossly intact. Vital Signs: 23:41 BP 143 / 69; Pulse 62; Resp 18; Pulse Ox 95% on R/A; ke1 NIH Stroke Scale Scores: 20:59 NIHSS Score: 0 ke1 MDM: 19:34 Patient medically screened. rn 21:07 ED course: Nurse called code stroke on patient for old age and AMS, daughter in room, rn states mental status seems to be at baseline, patient is asking for food. Daughter states known cerebral aneurysm for years, and too deep to intervene. Also reports hx of UTIs.. 05/02 00:04 Differential Diagnosis: electrolyte abnormality, hypoglycemia, intracranial bleed, TIA, rn UTI, volume depletion. Data reviewed: vital signs, nurses notes, lab test result(s), EKG, radiologic studies, CT scan, plain films, and as a result, I will discharge patient. Counseling: I had a detailed discussion with the patient and/or guardian regarding: the historical points, exam findings, and any diagnostic results supporting the discharge/admit diagnosis, lab results, radiology results, the need for outpatient follow up, to return to the emergency department if symptoms worsen or persist or if there are any questions or concerns that arise at home. Response to treatment: the patient's symptoms have markedly improved after treatment, and as a result, I will discharge patient. Special discussion: I discussed with the patient/guardian in detail that at this point there is no indication for admission to the hospital. It is understood, however, that if the symptoms persist or worsen the patient needs to return immediately for re-evaluation. ED course: + UTI, but otherwise stable, no signs of sepsis, daughter states at baseline. Will dc home with abx and return precautions.. 05/01 19:40 Order name: JOSE F; Complete Time: 22:53 rn 05/01 19:40 Order name: Blood Culture Adult (2) rn 05/01 19:40 Order name: C-Reactive Protein; Complete Time: 22:53 rn 05/01 19:40 Order name: CBC with Diff; Complete Time: 23:55 rn 05/01 19:40 Order name: Ferritin; Complete Time: 22:53 rn 05/01 19:40 Order name: Flu; Complete Time: 22:53 rn 05/01 19:40 Order name: LFT's; Complete Time: 22:53 rn 05/01 19:40 Order name: Lactate; Complete Time: 23:55 rn 05/01 19:40 Order name: Lipase; Complete Time: 22:53 rn 05/01 19:40 Order name: PT-INR; Complete Time: 23:25 rn 05/01 19:40 Order name: Procalcitonin; Complete Time: 23:55 rn 05/01 19:40 Order name: Ptt, Activated; Complete Time: 23:25 rn 05/01 19:40 Order name: Troponin HS; Complete Time: 22:53 rn 05/01 19:40 Order name: Urine Microscopic Only; Complete Time: 23:55 rn 05/01 19:40 Order name: CXR XRAY; Complete Time: 21:45 rn 05/01 19:40 Order name: EKG; Complete Time: 19:41 rn 05/01 19:40 Order name: Cardiac monitoring; Complete Time: 22:54 rn 05/01 19:40 Order name: Droplet/Contact Precautions; Complete Time: 22:54 rn 05/01 19:40 Order name: Urine Culture rn 05/01 19:40 Order name: SARS-COV-2 RT PCR (Document "Date of Onset" if Symptomatic); Complete Time: rn 22:53 05/01 20:08 Order name: CT Head Brain wo Cont; Complete Time: 21:45 rn 05/01 20:58 Order name: XRAY Pelvis; Complete Time: 21:45 rn 05/01 20:58 Order name: XRAY Hip RIGHT 2 view; Complete Time: 21:45 rn 05/01 22:07 Order name: Glucose, Ancillary Testing; Complete Time: 22:53 EDMS 05/01 23:13 Order name: CBC Smear Scan; Complete Time: 23:55 EDNH 05/01 23:41 Order name: Urine Dipstick-Ancillary; Complete Time: 23:55 EDMS 05/01 19:40 Order name: EKG - Nurse/Tech; Complete Time: 22:54 rn 05/01 19:40 Order name: IV Start; Complete Time: 21:29 rn 05/01 19:40 Order name: Labs collected and sent; Complete Time: 22:54 rn 05/01 19:40 Order name: O2 Per Protocol; Complete Time: 22:54 rn 05/01 19:40 Order name: O2 Sat Monitoring; Complete Time: 22:54 rn 05/02 00:04 Order name: PO challenge: mechanical soft diet; Complete Time: 00:20 rn Administered Medications: 05/01 21:28 Drug: NS 0.9% 250 ml Route: IV; Rate: 1 bolus; Site: right forearm; ke1 23:06 Drug: Tylenol 500 mg Route: PO; ke1 05/02 00:20 Drug: NS 0.9% 250 ml Route: IV; Rate: 1 bolus; Site: right antecubital; ke1 00:24 Drug: Rocephin (cefTRIAXone) 1 grams Route: IV; Rate: calculated rate; Site: right ke1 antecubital; Disposition Summary: 05/02/22 00:06 Discharge Ordered Location: Home rn Problem: new rn Symptoms: have improved rn Condition: Stable rn Diagnosis - UTI/ Urinary tract infection, site not specified rn - Dehydration rn Followup: rn - With: Private Physician - When: As needed - Reason: Recheck today's complaints, Re-evaluation by your physician Discharge Instructions: - Discharge Summary Sheet rn - Urinary Tract Infection, Adult rn Forms: - Medication Reconciliation Form rn - Thank You Letter rn - Antibiotic internal review and audit compliance - Prescription Opioid Use rn - SBAR form mw2 Prescriptions: - cefpodoxime 100 mg Oral Tablet - take 2 tablets by ORAL route every 12 hours for 10 days take with food; 40 rn tablet; Refills: 0, Product Selection Permitted NIH Stroke Scale - NIH Stroke Score Date: 05/01/2022 Time: 20:59 Total Score = 0 1a. Level of Consciousness (LOC) - 0(Alert) 1b. Level of Consciousness (LOC) (Month \\T\\ Age) - 0(Both) 1c. LOC Commands (Open \\T\\ Closes Eyes/Director Of [employer] Services) - 0(Both) 2. Best Gaze (Lateral Gaze Paresis) - 0(Normal) 3. Visual Field Loss - 0(No visual loss) 4. Facial Palsy - 0(Normal) 5a. Left Arm: Motor (10-second hold) - 0(No drift) 5b. Right Arm: Motor (10-second hold) - 0(No drift) 6a. Left Leg: Motor (5-second hold - always test supine) - 0(No drift) 6b. Right Leg: Motor (5-second hold - always test supine) - 0(No drift) 7. Limb Ataxia (finger/nose \\T\\ heel/bonilla - test with eyes open) - 0(Absent) 8. Sensory Loss (pinprick arms/legs/face) - 0(Normal) 9. Best Language: Aphasia (description/naming/reading) - 0(No aphasia) 10. Dysarthria (speech clarity - read or repeat words) - 0(Normal) 11. Extinction and Inattention (visual/tactile/auditory/spatial/personal) - 0(No abnormality) Initials: ke1 Signatures: Dispatcher [employer] EDJose J Madrid MD MD rn Smirch, Shelby, RN RN ss Ebrottie, Kouassi, RN RN ke1
[2022-05-02] MEDS ORDERED: CEFTRIAXONE 1000 MG/VIAL ONE (00:17)
[2022-05-02] MEDS ORDERED: NA CHLORIDE 0.9% 250 ML ONE (00:18)
[2022-05-02 01:44] VITALS: BP 143/69; O2SAT 95
--- NOTE | 2022-05-02 13:52 | EKG ---
Test Date: 2022-05-01 Test Time: 22:05:43 Welt Cutter: DELFIN MEASUREMENT RESULTS: Intervals: Rate: 61 CT: 168 QRSD: 78 QT: 474 QTc: 477 [place]: P: 76 CT: 168 QRS: 11 T: 67 INTERPRETIVE STATEMENTS: Normal sinus rhythm Possible Anterior infarct, age undetermined Abnormal ECG Compared to ECG 01/31/2022 14:05:47 Myocardial infarct finding now present Sinus bradycardia no longer present Electronically Signed On 05-02-22 13:50:28 CDT by Rao Minor
--- NOTE | 2022-05-02 13:52 | EKG ---
Test Date: 2022-05-01 Test Time: 22:06:09 Emergency Care Attendant: DELFIN MEASUREMENT RESULTS: Intervals: Rate: 65 HI: 168 QRSD: 80 QT: 476 QTc: 495 [place]: P: 76 HI: 168 QRS: 9 T: 47 INTERPRETIVE STATEMENTS: Normal sinus rhythm with sinus arrhythmia Possible Anterior infarct, age undetermined Abnormal ECG Compared to ECG 05/01/2022 22:05:43 No significant changes Electronically Signed On 05-02-22 13:50:26 CDT by Rao Minor
== END 2022-05-02 01:13 | disposition home or self-care (01) ==
LOC: ER 19:29
DX: N39.0 Urinary tract infection, site not specified (principal); E86.0 Dehydration; I10 Essential (primary) hypertension; F03.90 Unspecified dementia, unspecified severity, without behavioral disturbance, psychotic disturbance, mood disturbance, and anxiety; J44.9 Chronic obstructive pulmonary disease, unspecified; Z88.1 Allergy status to other antibiotic agents; Z88.8 Allergy status to other drugs, medicaments and biological substances; Z20.822 Contact with and (suspected) exposure to COVID-19
CPT/HCPCS: 93005 ×2; 87040 ×2; 87088; 85025; 87086; 80048; 36415; 87205; 85610; 82947; 80076; 83605; 85730; 87077; 87186; 84484; 82728; 83690; 84145; 86140; 87804 ×2; 70450; 71045; 72170; 73502; U0003; J7050 ×2; 81003; 81015

== ENCOUNTER 2022-06-06 12:44 | Emergency (ER) | payer OTHER ==
--- OUTSIDE RECORDS SUMMARY | 2022-06-06 12:49 | XMS REPORT | Continuity of Care Document ---
:1940 Author Organization [facility] t Address [address] [place] [address] Care Team Providers Name Role Phone Debbie Bah Primary Care Physician Debbie Bah Attending Clinician Unavailable ADARSH HALL Attending Clinician Unavailable RAPHAEL CEJA Attending Clinician Unavailable RAPHAEL CEJA Attending Clinician Unavailable Doctor Unassigned, [place] Attending Clinician Unavailable Raphael Ceja DO Attending Clinician CHIDI GARRISON Attending Clinician Unavailable Bobbi ESPINOSA, Alfredo Bautista Attending Clinician Unavailable Adarsh Hall MD Attending Clinician ADARSH HALL Admitting Clinician Unavailable Adarsh Hall MD Admitting Clinician Payers Payer Name Policy Type Policy Number Effective Date Expiration Date S ource [employer] MEDICARE ADV [id number] 2019 00:00:00 Problems Condition Condition Condition Status [...] 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 Univers (supravent (supravent 11-07 it y of ricular ricular 00:00: [place] [...] Uni vers antoin ty to See comments - ity of Monohyd/ adverse 00:00: [place] M-Cryst reaction 00 Medical s Branch Nitrofur Propensi Active Unknown - 2019-10 Uni vers antoin ty to See comments -12 ity of adverse 00:00: [place] reaction 00 [...] Medical Branch Nitrofur Adverse Active Info Not Commo n antoin Reaction Available [facility] Macrobid Adverse Active Info Not Commo n Reaction Available [facility] Bactrim Adverse Active Info Not Common Reaction Available [facility] Levaquin Adverse Active Info Not Commo n Reaction Available [facility] Social History Social Habit Start Date Stop Date Quantity Comments Source Exposure to Not sure [facility] SARS-CoV-2 (event) Medica l Branch Tobacco use and 2020-11-24 2020-11-24 Never used [facility] [place] exposure 00:00:00 00:00:00 [facility] Sex Assigned At [birth year] [facility] 00:00:00 00:00:00 Medical Branch Smoking Status Start Date Stop Date Source Unknown if ever smoked [facility] Never smoker [facility] Medications Ordered Filled Start Stop Current Ordering Indication Dosage Frequency Signature Comments Components Source Medication Medication Date Date Medication? Clinician (SIG) Name Name budesonide/ Yes Inhale. Uni vers formoterol 4-29 ity of fumarate 15:56: [place] (SYMBICORT 16 Medical INHALE) [place] budesonide/ Yes Inhale. Uni vers formoterol 4-29 ity of fumarate 15:56: [place] (SYMBICORT 16 Medical INHALE) [place] budesonide/ Yes Inhale. Uni vers formoterol 4-29 ity of fumarate 15:56: [place] (SYMBICORT 16 Medical INHALE) [place] budesonide/ Yes Inhale. Uni vers formoterol 4-29 ity of fumarate 10:56: [place] (SYMBICORT 16 Medical INHALE) [place] ASPIRIN Yes 81mg Take 81 mg Univ ers ORAL 11-24 by mouth ity of 17:20: daily. [address] atorvastati Yes 10mg Take 10 mg Univers n calcium 11-24 by mouth ity of (ATORVASTAT 17:20: [place]. [place] [address] [place] [address] MULTIVITAMI Yes Take by Uni vers N ORAL 11-24 mouth ity of 17:20: daily. [address] POTASSIUM Yes 99mg Take 99 mg Un jessica ORAL - by mouth ity of 17:20: every [place] [address] Friday, Medical Friday Branch and Friday. cyclosporin Yes 2[drp] Place 2 U nivers e (RESTASIS 1- Drops in ity of OPHTHALMIC) 17:20: each eye 2 [place] [address] (two) Medical times Branch daily. calcium Yes 1{capsu Take 1 Unive rs carbonate/v 1- le} capsule by it y of itamin D3 17:20: mouth [place] (CALCIUM 56 daily. Medical 600 + D,3, Branch ORAL) ASPIRIN 0 Yes 81mg Take 81 mg Univ ers ORAL 1-29 by mouth ity of 17:20: daily. [address] Branch atorvastati 0 Yes 10mg Take 10 mg Univers n calcium 1-29 by mouth ity of (ATORVASTAT 17:20: [place]. [place] IN [place] [address] [place] [address] Branch MULTIVITAMI 0 Yes Take by Un jessica N ORAL 1-29 mouth ity of 17:20: daily. [address] POTASSIUM 0 Yes 99mg Take 99 mg Un jessica ORAL 1-29 by mouth ity of 17:20: every [place] [address] Friday, Medical Friday Branch and Friday. cyclosporin 0 Yes 2[drp] Place 2 U nivers e (RESTASIS 1-29 Drops in ity of OPHTHALMIC) 17:20: each eye 2 [place] [address] (two) Medical times Nora daily. calcium 0 Yes 1{capsu Take 1 Unive rs carbonate/v 1-29 le} capsule by it y of itamin D3 17:20: mouth [place] (CALCIUM 56 daily. Medical 600 + D,3, Branch ORAL) ASPIRIN 0 Yes 81mg Take 81 mg Univ ers ORAL 1-29 by mouth ity of 17:20: daily. [address] atorvastati 0 Yes 10mg Take 10 mg Univers n calcium 1-29 by mouth ity of (ATORVASTAT 17:20: [place]. [place] [address] [place] [address] MULTIVITAMI 0 Yes Take by Uni vers N ORAL 1-29 mouth ity of 17:20: daily. [address] POTASSIUM 0 Yes 99mg Take 99 mg Un jessica ORAL 1-29 by mouth ity of 17:20: every [place] [address] Friday, Medical Friday Branch and Friday. cyclosporin 0 Yes 2[drp] Place 2 U nivers e (RESTASIS 1-29 Drops in ity of OPHTHALMIC) 17:20: each eye 2 [place] 56 (two) Medical times Branch daily. calcium 2020-0 Yes 1{capsu Take 1 Unive rs carbonate/v 1-29 le} capsule by it y of itamin D3 17:20: mouth [place] (CALCIUM 56 daily. Medical 600 + D,3, Branch ORAL) ASPIRIN 0 Yes 81mg Take 81 mg Univ ers ORAL 1-29 by mouth ity of 17:20: daily. [address] Branch atorvastati 0 Yes 10mg Take 10 mg Univers n calcium 1-29 by mouth ity of (ATORVASTAT 17:20: daily. [place] IN [place] [address] [place] [address] MULTIVITAMI 0 Yes Take by Uni vers N ORAL 1-29 mouth ity of 17:20: daily. [address] POTASSIUM 0 Yes 99mg Take 99 mg Un jessica ORAL 1-29 by mouth ity of 17:20: every [place] [address] Friday, Medical Friday Branch and Friday. cyclosporin 0 Yes 2[drp] Place 2 U nivers e (RESTASIS 1-29 Drops in ity of OPHTHALMIC) 17:20: each eye 2 [place] [address] (two) Medical times Nora daily. calcium 0 Yes 1{capsu Take 1 Unive rs carbonate/v 1-29 le} capsule by it y of itamin D3 17:20: mouth [place] (CALCIUM 56 daily. Medical 600 + D,3, Branch ORAL) ASPIRIN 0 Yes 81mg Take 81 mg Univ ers ORAL 1-29 by mouth ity of 17:20: daily. [address] atorvastati Yes 10mg Take 10 mg Univers n calcium 1-29 by mouth ity of (ATORVASTAT 17:20: [place]. [place] [address] [place] [address] MULTIVITAMI Yes Take by Uni vers N ORAL 1-29 mouth ity of 17:20: daily. [address] POTASSIUM 0 Yes 99mg Take 99 mg Un jessica ORAL 1-29 by mouth ity of 17:20: every [place] [address] Friday, Medical Friday Branch and Friday. cyclosporin 0 Yes 2[drp] Place 2 U nivers e (RESTASIS 1-29 Drops in ity of OPHTHALMIC) 17:20: each eye 2 [place] 56 (two) Medical times Branch daily. calcium 2020-0 Yes 1{capsu Take 1 Unive rs carbonate/v 1-29 le} capsule by it y of itamin D3 17:20: mouth [place] (CALCIUM 56 daily. Medical 600 + D,3, Branch ORAL) escitalopra Yes 20mg Take 20 mg Univers m oxalate 1-29 by mouth ity of (LEXAPRO 17:20: daily. [place] ORAL) Medical Branch loratadine/ Yes 10mg Take 10 mg Univers pseudoephed 1-29 by mouth ity of rine 17:20: daily. [place] (LORATADINE Medical -D ORAL) Branch pantoprazol Yes [...] by mouth ity of rine 17:20: daily. [place] (LORATADINE Medical -D ORAL) Branch pantoprazol Yes [...] by mouth ity of rine 17:20: daily. [place] (LORATADINE Medical -D ORAL) Branch pantoprazol Yes [...] by mouth ity of rine 17:20: daily. [place] (LORATADINE Medical -D ORAL) Branch pantoprazol Yes [...] by mouth ity of rine 17:20: daily. [place] (LORATADINE Medical -D ORAL) Branch pantoprazol Yes 40mg Take 40 mg Univers e sodium 1-29 by mouth ity of (PANTOPRAZO 17:20: daily. [place] LE ORAL) 03 Medical Branch TRIMETHOPRI Yes 100mg Take 100 U nivers M ORAL 1-29 mg by ity of 17:20: mouth [place] 03 daily. Medical Takes 1/2 Branch tablet daily for frequent UTI's carvediloL Yes 25mg Take 25 mg U nivers 25 mg 11-24 by mouth 2 ity of tablet 17:20: (two) [place] 03 times Medical daily. Branch ASPIRIN 0 Yes 81mg Take 81 mg Univ ers ORAL 11-24 by mouth ity of 11:20: daily. [place] [address] Medical Branch atorvastati Yes 10mg Take 10 mg Univers n calcium 11-24 by mouth ity of (ATORVASTAT 11:20: daily. [place] IN ORAL) 56 Medical Branch MULTIVITAMI Yes Take by Uni vers N ORAL 11-24 mouth ity of 11:20: daily. [place] [address] Medical Branch POTASSIUM Yes 99mg Take 99 mg Un jessica ORAL 11-24 by mouth ity of 11:20: every [place] [address] Friday, Medical Friday Branch and Friday. cyclosporin Yes 2[drp] Place 2 U nivers e (RESTASIS 11-24 Drops in ity of OPHTHALMIC) 11:20: each eye 2 [place] [address] (two) Medical times Branch daily. calcium Yes 1{capsu Take 1 Unive rs carbonate/v 11-24 le} capsule by it y of itamin D3 11:20: mouth [place] (CALCIUM 56 daily. Medical 600 + D,3, Branch ORAL) escitalopra Yes 20mg Take 20 mg Univers m oxalate 11-24 by mouth ity of (LEXAPRO 11:20: daily. [place] ORAL) 03 Medical Branch loratadine/ Yes 10mg Take 10 mg Univers pseudoephed 11-24 by mouth ity of rine 11:20: daily. [place] (LORATADINE 03 Medical -D ORAL) Branch pantoprazol [...] per tablet Branch predniSONE 2019-10 2020- No [id number] 40mg Take 2 Univers 20 mg 1-14 11-20 tablets by ity of tablet 00:00: 05:59 mouth [place] 00 :00 daily for Medical 5 days. Branch predniSONE 2019-10 2020- No [id number] 40mg Take 2 Univers 20 mg 1-14 [...] by mouth ity of rine 22:36: daily. [place] (LORATADINE Medical -D ORAL) Branch MULTIVITAMI 2019-10 Yes Take by Uni vers N ORAL 1-13 mouth ity of 22:36: [...] by mouth ity of rine 22:36: daily. [place] (LORATADINE 01 Medical -D ORAL) Branch MULTIVITAMI 2019-10 Yes Take by Uni vers N ORAL 1-13 mouth ity of 22:36: [...] 1-13 by mouth ity of 22:36: daily. [place] Medical Branch atorvastati 2019-10 Yes 10mg Take [...] by mouth ity of rine 22:36: daily. [place] (LORATADINE Medical -D ORAL) Branch MULTIVITAMI 2019-10 Yes Take by Uni vers N ORAL 1-13 mouth ity of 22:36: daily. [place] Medical Branch pantoprazol 2019-10 Yes 40mg Take 40 mg Univers e sodium 1-13 by mouth ity of (PANTOPRAZO 22:36: daily. [place] LE ORAL) Medical Branch POTASSIUM 2019-10 Yes 99mg Take 99 mg Un jessica ORAL 1-13 by mouth ity of 22:36: every [place] Friday, Medical Friday Branch and Friday. cyclosporin 2019-10 Yes 2[drp] Place 2 U nivers e (RESTASIS 1-13 Drops in ity of OPHTHALMIC) 22:36: each eye 2 [place] (two) Medical times Branch daily. TRIMETHOPRI 2019-10 Yes 100mg Take 100 U nivers M ORAL 1-13 mg by ity of 22:36: mouth [place] daily. Medical Takes 1/2 [place] tablet daily for frequent UTI's calcium 2019-10 Yes 1{capsu Take 1 Unive rs carbonate/v 1- le} capsule by it y of itamin D3 22:36: mouth [place] (CALCIUM daily. Medical 600 + D,3, Branch ORAL) carvediloL 2019-10 Yes 25mg Take 25 mg U nivers 25 mg 1-13 by mouth 2 ity of tablet 22:36: (two) [place] times Medical daily. Branch ASPIRIN 2019-10 Yes 81mg Take 81 mg Univ ers ORAL 1-13 by mouth ity of 22:36: daily. [place] [facility] Branch levalbutero 2019-10 2020- No Inhale Uni vers l 1.25 mg/3 - 11-13 every 6 ity of mL 16:53: 00:00 (six) [place] nebulizer 14 :00 hours as Medica l solution needed Branch (SOB). acetaminoph 2019-10 Yes 650mg 650 mg, Un jessica en 1-13 Oral, ity of (TYLENOL) 05:27: Q4HPRN, [place] tablet 650 45 Starting Medic al mg Yesi Branch 09/07/20 at 2327, Until Discontinu ed, Routine, Pain (scale 1-3), or SANTOS atorvastati 2019-10 Yes 10mg 10 mg, Univ ers n (LIPITOR) 1-13 Oral, QHS, it y of tablet 10 03:00: First dose [place] mg 00 on [facility] Medical 09/07/20 Branch at 2100, Until Discontinu ed levalbutero 2019-10 Yes [id number] .63mg Inhale Univers l 1.25 mg/3 1-13 0.63 mg ity o f mL 00:00: every 4 [place] nebulizer 00 (four) Medical solution hours as Branch needed for Wheezing or Shortness of Breath (SOB). acidophilus 2019-10 Yes [id number] 1g Take 1 Univers 100 million 1-13 tablet by ity of cell tablet 00:00: mouth 2 [place] 00 (two) Medical times Branch daily. levalbutero 2019-10 Yes [id number] .63mg Inhale Univers l 1.25 mg/3 1-13 0.63 mg ity o f mL 00:00: every 4 [place] nebulizer 00 (four) Medical solution hours as Branch needed for Wheezing or Shortness of Breath (SOB). acidophilus 2019-10 Yes [id number] 1g Take 1 Univers 100 million 1-13 tablet by ity of cell tablet 00:00: mouth 2 [place] 00 (two) Medical times Branch daily. levalbutero 2019-10 Yes [id number] .63mg Inhale Univers l 1.25 mg/3 1-13 0.63 mg ity o f mL 00:00: every 4 [place] nebulizer 00 (four) Medical solution hours as Branch needed for Wheezing or Shortness of Breath (SOB). acidophilus 2019-10 Yes [id number] 1g Take 1 Univers 100 million 1-13 tablet by ity of cell tablet 00:00: mouth 2 [place] 00 (two) Medical times Branch daily. levalbutero 2019-10 Yes [id number] .63mg Inhale Univers l 1.25 mg/3 1-13 0.63 mg ity o f mL 00:00: every 4 [place] nebulizer 00 (four) Medical solution hours as Branch needed for Wheezing or Shortness of Breath (SOB). acidophilus 2019-10 Yes [id number] 1g Take 1 Univers 100 million 1-13 tablet by ity of cell tablet 00:00: mouth 2 [place] 00 (two) Medical times Branch daily. levalbutero 2019-10 Yes [id number] .63mg Inhale Univers l 1.25 mg/3 1-13 0.63 mg ity o f mL 00:00: every 4 [place] nebulizer 00 (four) Medical solution hours as Branch needed for Wheezing or Shortness of Breath (SOB). acidophilus 2019- Yes [id number] 1g Take 1 Univers 100 million 1-13 tablet by ity of cell tablet 00:00: mouth 2 [place] 00 (two) Medical times Branch daily. levalbutero 2019-10 Yes [id number] .63mg Inhale Univers l 1.25 mg/3 1-13 0.63 mg ity o f mL 00:00: every 4 [place] nebulizer 00 (four) Medical solution hours as Branch needed for Wheezing or Shortness of Breath (SOB). acidophilus 2019-10 Yes [id number] 1g Take 1 Univers 100 million 1-13 tablet by ity of cell tablet 00:00: mouth 2 [place] as 00 (two) Medical times Branch daily. levalbutero 2019-10 Yes [id number] .63mg Inhale Univers l 1.25 mg/3 1-13 0.63 mg ity o f mL 00:00: every 4 [place] nebulizer 00 (four) Medical solution hours as Branch needed for Wheezing or Shortness of Breath (SOB). acidophilus 2019-10 Yes [id number] 1g Take 1 Univers 100 million 1-13 tablet by ity of cell tablet 00:00: mouth 2 [place] as 00 (two) Medical times Branch daily. levalbutero 2019-10 Yes [id number] .63mg Inhale Univers l 1.25 mg/3 1-13 0.63 mg ity o f mL 00:00: every 4 [place] nebulizer 00 (four) Medical solution hours as Branch needed for Wheezing or Shortness of Breath (SOB). acidophilus 2019-10 Yes [id number] 1g Take 1 Univers 100 million 1-13 tablet by ity of cell tablet 00:00: mouth 2 [place] 00 (two) Medical times Branch daily. levalbutero 2019- Yes [id number] .63mg Inhale Univers l 1.25 mg/3 1-13 0.63 mg ity o f mL 00:00: every 4 [place] nebulizer 00 (four) Medical solution hours as Branch needed for Wheezing or Shortness of Breath (SOB). acidophilus 2019-10 Yes [id number] 1g Take 1 Univers 100 million 11-08 tablet by ity of cell tablet 00:00: mouth 2 [place] 00 (two) Medical times Branch daily. doxycycline 2019-10 2020- No [id number] 100mg Take 1 Univers hyclate 100 11-08 capsule by i ty of mg capsule 00:00: 05:59 mouth 2 [place] as 00 :00 (two) Medical times Branch daily for 5 days. doxycycline 2019-10- No [id number] 100mg Take 1 Univers hyclate 100 11-08 [...] 09/07/20 Bran ch mL at 1745, Routine
council member approving Restricted medication : TODD YEN [...] ed, Routine
Approved by: ADC PROVIDER iohexol 2019-10 2020- No 100mL 100 mL, Unive rs (OMNIPAQUE 11-07 Intravenou it y of 350 19:45: 19:36 s, ONCE, 1 [place] BULK-100 00 :00 dose, Yesi Medica l mL) 09/07/20 Branch injection at 1345, 100 mL Routine carvediloL 2019-10 Yes 25mg 25 mg, Unive rs (COREG) 1- Oral, BID, ity of tablet 25 15:15: First dose [place] mg 00 (after Medical last Branch modificati on) on [facility] 09/07/20 at 0915, Until Discontinu ed, Routine aspirin 2019-10 Yes 81mg 81 mg, Univers chewable 11-07 Oral, ity of tablet 81 15:00: DAILY, [place] mg 00 First dose Medical on [facility] Branch 09/07/20 at 0900, Until Discontinu ed pantoprazol 2019-10 Yes 40mg 40 mg, Univ ers e 11-07 Oral, ity of (PROTONIX) 15:00: DAILY, [place] EC tablet 00 First dose Medi mari 40 mg on [facility] Branch 09/07/20 at 0900, Until Discontinu ed escitalopra 2019-10 Yes 20mg 20 mg, Univ ers m oxalate 11-07 Oral, ity of (LEXAPRO) 15:00: DAILY, [place] tablet 20 00 First dose Medi mari mg on [facility] Branch 09/07/20 at 0900, Until Discontinu ed predniSONE 2019-10 Yes 50mg 50 mg, Unive rs (DELTASONE) 11-07 Oral, ity of tablet 50 15:00: DAILY, [place] mg 00 First dose Medical on [facility] Branch 09/07/20 at 0900, Until Discontinu ed, Routine cetirizine 2019-10 Yes 5mg 5 mg, Univer s (ZYRTEC) 11-07 Oral, ity of tablet 5 mg 15:00: DAILY, [place] 00 First dose Medical on [facility] Branch 09/07/20 at 0900, Until Discontinu ed, Routine CALCIUM 2019-10 2020- No Take by Univer s ORAL 11-07 mouth. ity of 14:17: 00:00 [place] 24 :00 Medical Branch ipratropium 2019-10 2020- No 3mL 3 mL, Univ ers -albuteroL -10 06-12 Inhalation it y of (DUONEB) 14:00: 22:40 , QID, [place] 0.5 mg-3 00 :35 First dose Medic al mg(2.5 mg on Yesi Branch base)/3 mL 09/07/20 nebulizer at 0800, solution 3 Until mL Discontinu ed, Routine methylpredn 2019-10 2020- No 40mg 40 mg, Uni vers isolone sod -12 11- Slow IV ity of succ 12:00: 14:15 Push, Q6H, [place] (SOLU-MEDRO 00 :43 First dose Me dical [...] 2019-10 Yes 1mg 1 mg, Univers (GLUCAGEN -12 Intramuscu ity of DIAGNOSTIC 10:43: lar, PRN, [place] KIT) 53 Starting Medical injection 1 Yesi Branch mg 09/07/20 at 0443, Until Discontinu ed, BASIM, Blood Glucose < or = 70 mg/dL and patient is unable to swallow or has mental changes. dextrose 50 2019-10 Yes 25mL 25 mL, Univ ers % in water -12 Slow IV ity of (D50W) 10:43: Push, PRN, [place] injection 53 Starting Medica l 25 mL Yesi Branch 09/07/20 at 0443, Until Discontinu ed, BASIM, Blood Glucose < or = 70 mg/dL and patient is unable to swallow or has mental status changes. Zofran Zofran 2019-0 Yes Lucie 1 tablet Comm on 03-29 [place] as needed [facility] 00:00: - [facility] Tobramycin Tobramycin 2019-0 Yes [place]ie 1 drop Common 8-21 [place] into Spirit 00:00: affected - [facility] [address] [facility] Singulair Singulair Yes [place] TAKE 1 Co mmon [place] TABLET BY Spirit MOUTH - [facility]I EVERY DAY [facility] Protonix Protonix Yes [place] TAKE 1 Comm on [place] TABLET BY Spirit MOUTH - [facility]I EVERY DAY [facility] Montelukast Montelukast Yes Lucie 1 tablet Common Sodium Sodium [place] in the Spiri t evening - [facility] Combivent Combivent Yes Lucie 1 puff Co mmon Respimat Respimat [place] Spi rit [facility] Levalbutero Levalbutero Yes Lucie 3 ml Common l HCl l HCl [facility] [facility] Aspir-81 Aspir-81 Yes Lucie 1 tablet Co mmon [place] [facility] Lipitor Lipitor Yes Lucie 1 tablet Comm on [place] [facility] Lexapro Lexapro Yes Lucie 1 tablet Comm on [place] [facility] Ativan Ativan Yes Lucie 1 tablet Common [place] as needed [facility] Loratadine Loratadine Yes Lucie 1 tablet Common [place] [facility] Symbicort Symbicort Yes Lucie 2 puffs C ommon [place] [facility] Coreg Coreg Yes Lucie 1 tablet Common [place] [facility] Escitalopra Escitalopra Yes Lucie TAKE 1 Common m Oxalate m Oxalate [place] TABLET BY Spirit MOUTH - CHI EVERY DAY [facility] Potassium Potassium Yes Lucie 1 tablet Common [place] [facility] Coreg Coreg Yes Lucie TAKE 1 Common [place] TABLET BY Spirit MOUTH - CHI TWICE A [facility] Folic Acid Folic Acid Yes Lucie 1 tablet Common [place] [facility] Pantoprazol Pantoprazol Yes Lucie TAKE 1 Common e Sodium e Sodium [place] TABLET BY Spirit MOUTH - CHI EVERY DAY [facility] Trimethopri Trimethopri Yes Lucie 1 tablet Common m m [place] [facility] Flonase Flonase Yes Lucie 2 spray in Co mmon [place] each Spirit nostril [facility] Amoxicillin Amoxicillin Yes Lucie 1 tablet Common -Pot -Pot [place] Spirit Clavulanate Clavulanate [facility] PredniSONE PredniSONE Yes Lucie 1 tablet Common [place] [facility] Spiriva Spiriva Yes Lucie 2 puffs Commo n Respimat Respimat [place] Spi rit - [facility] Losartan Losartan Yes Lucie TAKE 1 Comm on Potassium-H Potassium-H [place] TABLET BY [facility] CTZ MOUTH - CHI EVERY DAY [facility] Atorvastati Atorvastati Yes Lucie TAKE 1 Common n Calcium n Calcium [place] TABLET BY #[employer] MOUTH - CHI EVERY DAY [facility] Immunizations Ordered Filled Immunization Date Status Comments Sour e Immunization Name Name SARS-COV-2 COVID-19 2020-12-22 Completed Unive rsity of PFIZER VACCINE 00:00:00 [facility] SARS-COV-2 COVID-19 2020-12-22 Completed Unive rsity of PFIZER VACCINE 00:00:00 [facility] SARS-COV-2 COVID-19 2020-12-22 Completed Unive rsity of PFIZER VACCINE 00:00:00 [facility] [place] SARS-COV-2 COVID-19 2020-12-22 Completed Unive rsity of PFIZER VACCINE 00:00:00 [facility] [place] SARS-COV-2 COVID-19 2020-11-24 Completed Unive rsity of PFIZER VACCINE 00:00:00 [facility] [place] SARS-COV-2 COVID-19 2020-11-24 Completed Unive rsity of PFIZER VACCINE 00:00:00 [facility] [place] SARS-COV-2 COVID-19 2020-11-24 Completed Unive rsity of PFIZER VACCINE 00:00:00 [facility] [place] SARS-COV-2 COVID-19 2020-11-24 Completed Unive rsity of PFIZER VACCINE 00:00:00 [facility] Influenza High Dose 2020-07-31 Completed Unive rsity of 00:00:00 [facility] Influenza High Dose 2020-07-31 Completed Unive rsity of 00:00:00 [facility] Influenza High Dose 2020-07-31 Completed Unive rsity of 00:00:00 [facility] Influenza High Dose 2020-07-31 Completed Unive rsity of 00:00:00 [facility] Influenza High Dose 2020-07-31 Completed Unive rsity of 00:00:00 [facility] Influenza High Dose 2020-07-31 Completed Unive rsity of 00:00:00 [facility] Prevnar 13 Prevnar 13 2019-07-28 Completed [facility] - -Pneumonia Vaccine -Pneumonia Vaccine 00:00:00 [facility] FluAD FluAD 2019-07-28 Completed [facility] - 00:00:00 [facility] Vital Signs Vital Name Observation Time Observation Value Comments Source Systolic blood 2021-02-22 15:54:00 110 mm[Hg] Univer sity of pressure [facility] Diastolic blood 2021-02-22 15:54:00 70 mm[Hg] Unive rsity of [facility] Heart rate 2021-02-22 15:54:00 84 /min Universi ty of [facility] Body height 2021-02-22 15:54:00 172.7 cm Universi ty of [facility] Body weight 2021-02-22 15:54:00 78.926 kg Universi ty of [facility] BMI 2021-02-22 15:54:00 26.46 kg/m2 Universi ty of [facility] Oxygen saturation in 2021-02-22 15:54:00 97 /min 3 l o2 University of Arterial blood by [facility] Pulse oximetry Branch Systolic blood 2021-02-22 15:54:00 110 mm[Hg] Univer sity of pressure [facility] Diastolic blood 2021-02-22 15:54:00 70 mm[Hg] Unive rsity of pressure [facility] Heart rate 2021-02-22 15:54:00 84 /min Universi ty of [facility] Body height 2021-02-22 15:54:00 172.7 cm Universi ty of [facility] Body weight 2021-02-22 15:54:00 78.926 kg Universi ty of [facility] BMI 2021-02-22 15:54:00 26.46 kg/m2 Universi ty of [facility] Oxygen saturation in 2021-02-22 15:54:00 97 /min 3 l o2 University of Arterial blood by [facility] Pulse oximetry Branch Systolic blood 2020-11-24 17:19:00 117 mm[Hg] Univer sity of pressure [facility] Diastolic blood 2020-11-24 17:19:00 74 mm[Hg] Unive rsity of pressure [facility] Heart rate 2020-11-24 17:19:00 85 /min [facility] Respiratory rate 2020-11-24 17:19:00 21 /min Univ ersity of [facility] Body height 2020-11-24 17:19:00 175.3 cm [facility] [place] [facility] Body weight 2020-11-24 17:19:00 78.926 kg [facility] BMI 2020-11-24 17:19:00 25.70 kg/m2 [facility]i ty of [facility] Oxygen saturation in 2020-11-24 17:19:00 97 /min University of Arterial blood by [facility] Pulse oximetry Branch Systolic blood 2020-09-08 21:00:00 148 mm[Hg] Univer sity of pressure [facility] Diastolic blood 2020-09-08 21:00:00 69 mm[Hg] Unive rsity of pressure [facility] Heart rate 2020-09-08 21:00:00 72 /min [facility] Body temperature 2020-09-08 18:00:00 36.5 Laura Univ ersity of [facility] Respiratory rate 2020-09-08 18:00:00 21 /min Univ ersity of [facility] Oxygen saturation in 2020-09-08 18:00:00 92 /min University of Arterial blood by [facility] Pulse oximetry Branch Body height 2020-09-07 10:45:00 172.7 cm [facility] [place] [facility] Body weight 2020-09-07 07:00:00 82.555 kg [facility] BMI 2020-09-07 07:00:00 27.67 kg/m2 Universi ty of [facility] Branch Procedures Procedure Date / Time Performing Clinician Source Performed DME/SUPPLY JUSTIFICATION 2021-07-26 05:01:00 Doctor Unassigned, No [facility] ASSIGNMENT OF BENEFITS 2020-11-24 17:03:27 Doctor Unassigned, No [facility] [place] [facility] BASIC METABOLIC PANEL 2020-09-08 10:31:00 [facility] (NA, K, CL, CO2, Medical Branch GLUCOSE, BUN, CREATININE, CA) CBC WITH DIFF 2020-09-08 10:31:00 [facility] ECHO ROUTINE W/DOPPLER 2020-09-07 21:33:02 Dane Landeros [facility] COLOR [facility] CT CHEST PULMONARY 2020-09-07 19:39:15 Dane Landeros [facility] ANGIOGRAM [facility] XR CHEST 1 VW 2020-09-07 14:45:54 Tig[facility] TROPONIN I 2020-09-07 11:26:00 [facility] COMP. METABOLIC PANEL 2020-09-07 11:26:00 [facility] ([id number]) [facility] CBC WITH DIFF 2020-09-07 [facility]OGLOBIN 2020-09-07 11:26:00 Dane Landeros [facility] (A1C) [facility] N-TERMINAL PRO-BNP 2020-09-07 11:26:00 Dane Landeros [facility] Encounters Start End Encounter Admission Attending Care Care Encounter Source Date/Time Date/Time Type Type Clinicians Facility Department ID 2021-11-21 Outpatient Abh, Na STLMLC STLC [id number] Common 14:36:11 [facility] 2021-11-21 Outpatient Bah, Na STLMLC STLMLC [id number] Common 14:28:57 [id number] [facility] 2021-11-21 Outpatient Bah, Na STLMLC STLMLC [id number] Common 14:22:23 [id number] [facility] 2021-11-21 Outpatient Bah, Na STLMLC STLMLC [id number] Common 13:46:52 [id number] [facility] 2021-11-21 Outpatient Bah, Na STLMLC STLMLC [id number] Common 13:27:40 [id number] [facility] 2021-11-21 Outpatient Bah, Na STLMLC STLMLC [id number] Common 12:55:52 [id number] [facility] 2021-11-21 Outpatient Bah, Na STLMLC STLMLC [id number] Common 12:53:26 [id number] [facility] 2021-11-21 Outpatient Bah, Na STLMLC STLMLC [id number] Common 12:52:56 [id number] [facility] 2021-11-21 Outpatient Bah, Na STLMLC STLMLC [id number] Common 12:21:39 [id number] [facility] 2021-11-21 Outpatient Bah, Na STLMLC STLMLC [id number] Common 12:06:15 [id number] [facility] 2021-11-21 Outpatient Bah, Na STLMLC STLMLC [id number] Common 12:05:22 [id number] [facility] 2021-11-21 Outpatient Bah, Na STLMLC STLMLC [id number] Common 12:05:06 [id number] [facility] 2021-11-21 Outpatient Bah, Na STLMLC STLMLC [id number] Common 11:29:47 [id number] [facility] 2021-11-21 Outpatient Bah, Na STLMLC STLMLC [id number] Common 11:23:32 [id number] [facility] 2020-09-07 Inpatient [facility] [id number] Univers 00:52:00 [facility] 2021-11-14 2021-11-14 ambulatory STLMLC STLMLC [id number] Common 00:00:00 00:00:00 [facility] 2021-11-08 2021-11-08 ambulatory STLMLC STLMLC [id number] Common 00:00:00 00:00:00 [facility] 2021-10-08 2021-10-08 ambulatory STLMLC STLMLC [id number] Common 00:00:00 00:00:00 [facility] 2021-10-04 2021-10-04 ambulatory STLMLC STLMLC [id number] Common 00:00:00 00:00:00 [facility] 2021-10-04 2021-10-04 ambulatory STLMLC STLMLC [id number] Common 00:00:00 00:00:00 [facility] 2021-10-03 2021-10-03 ambulatory STLMLC STLMLC [id number] Common 00:00:00 00:00:00 [facility] 2021-09-27 2021-09-27 ambulatory STLMLC STLMLC [id number] Common 00:00:00 00:00:00 [facility] 2021-09-13 2021-09-13 ambulatory STLMLC STLMLC [id number] Common 00:00:00 00:00:00 [facility] 2021-09-05 2021-09-05 ambulatory STLMLC STLMLC [id number] Common 00:00:00 00:00:00 [facility] 2021-08-30 2021-08-30 Outpatient R RAPHAEL CEJA [facility] [id number] Univers 11:30:00 11:30:00 RAPHAEL CEJA [id number] i ty [facility] 2021-08-24 2021-08-24 Outpatient R RAPHAEL CEJA [facility] [id number] Univers 09:30:00 09:30:00 RAPHAEL CEJA [id number] i ty [facility] 2021-07-26 2021-07-26 Orders Doctor HOOD [id number] Univers 00:00:00 00:00:00 Only Unassigned, TUCKER [id number] [facility] [id number] Oneal as [phone] [address] 2021-07-13 2021-07-13 Outpatient STLMLC STLMLC [id number] Common 00:00:00 00:00:00 [facility] 2021-07-04 2021-07-04 Outpatient STLMLC STLMLC [id number] Common 00:00:00 00:00:00 [facility] 2021-06-29 2021-06-29 Outpatient STLMLC STLMLC [id number] Common 00:00:00 00:00:00 [facility] 2021-06-27 2021-06-27 Outpatient STLMLC STLMLC [id number] Common 00:00:00 00:00:00 [facility] 2021-06-12 2021-06-12 Outpatient STLMLC STLMLC [id number] Common 00:00:00 00:00:00 [facility] 2021-05-30 2021-05-30 Outpatient STLMLC STLMLC [id number] Common 00:00:00 00:00:00 [facility] 2021-05-24 2021-05-24 Outpatient STLMLC STLMLC [id number] Common 00:00:00 00:00:00 [facility] 2021-05-15 2021-05-15 Outpatient STLMLC STLMLC [id number] Common 00:00:00 00:00:00 [facility] 2021-05-03 2021-05-03 Telephone JOSE Ceja [id number] Univers 00:00:00 00:00:00 Raphael Vega [id number] i [id number] [phone] Nm dical nal 059 [facility] 2021-05-03 2021-05-03 Outpatient STLMLC STLMLC [id number] Common 00:00:00 00:00:00 [facility] 2021-02-22 2021-02-22 Office JOSE Ceja [id number] Univers 10:20:08 11:21:56 Visit Raphael Vega [id number] i [id number] Profess[place] [phone] Nm dical nal 085 [facility] 2021-02-22 2021-02-22 Office JOSE Ceja [id number] 10:20:08 11:21:56 Visit Raphael Vega [id number] [place] [id number] Radha [phone] [facility] Building 2021-02-22 2021-02-22 Outpatient R JOSEP CEJANJZoila [facility] [id number] Univers 10:30:00 10:30:00 RAPHAEL CEJA [id number] i ty of [facility] 2021-02-22 2021-02-22 Outpatient R JOSEP CEJANJZoila [facility] [id number] Univers 10:30:00 10:30:00 RAPHAEL CEJA i ty [facility] 2021-02-12 2021-02-12 Outpatient STLMLC STLMLC [id number] Common 00:00:00 00:00:00 [facility] 2021-01-26 2021-01-26 Outpatient STLMLC STLMLC [id number] Common 00:00:00 00:00:00 [facility] 2020-12-27 2020-12-27 Outpatient STLMLC STLMLC [id number] Common 00:00:00 00:00:00 [facility] 2020-12-22 2020-12-22 Outpatient R [facility] [id number] Univers 11:30:00 11:30:00 [id number] [facility] 2020-12-22 2020-12-22 Outpatient R BLADIMIR [facility] [id number] Univers 11:30:00 11:30:00 CHIDI [facility] 2020-12-15 2020-12-15 [facility] [id number] Univers 11:30:00 11:30:00 CHIDI [id number] [facility] 2020-12-15 2020-12-15 Outpatient R BLADIMIR [facility] [id number] Univers 11:30:00 11:30:00 CHIDI [facility] 2020-12-07 2020-12-07 Outpatient STLMLC STLMLC [id number] Common 00:00:00 00:00:00 [facility] 2020-11-24 2020-11-24 Outpatient R BLADIMIR [facility] [id number] Univers 12:50:00 12:50:00 CHIDI [id number] ity of [facility] 2020-11-24 2020-11-24 Office Jaison [facility] [id number] Univers 11:04:15 11:59:09 Visit Raphael Vega [id number] i ty [facility] [id number] [phone] Nm dical [facility] 085 [facility] 2020-11-24 2020-11-24 Outpatient R RAPHAEL CEJA [facility] [id number] Univers 11:00:00 11:00:00 RAPHAEL CEJA i ty of [facility] 2020-11-24 2020-11-24 Orders Doctor ERWIN [id number] Univers 00:00:00 00:00:00 Only Unassigned, TUCKER [id number] [place] [facility] [id number] Oneal as [phone] [facility] 009 Branch 2020-11-14 2020-11-14 Outpatient STLMLC STLMLC [id number] Common 00:00:00 00:00:00 [facility] 2020-10-06 2020-10-06 Outpatient STLMLC STLMLC [id number] Common 00:00:00 00:00:00 [facility] 2020-09-13 2020-09-13 Outpatient STLMLC STLMLC [id number] Common 00:00:00 00:00:00 [facility] 2020-09-11 2020-09-11 Transition Stan Martines [id number] Univers 00:00:00 00:00:00 of Care Alfredo Cox [id number] it[id number] [phone] [facility] 403 Branch 2020-09-07 2020-09-08 [facility] [id number] Univers 00:52:00 16:32:00 Encounter Adarsh Vega [id number] christy jj Sau[place] [id number] [facility] [phone] [place] [id number] Branch 2020-07-07 2020-07-07 [facility] [id number] Common 10:30:00 10:30:00 t Specialty/U Sp cat Specialty rology - [facility] 2020-05-02 2020-05-02 [facility] [id number] Common 15:08:00 15:08:[address] [facility] 2020-04-10 2020-04-10 [facility] [id number] Common 10:30:00 10:30:00 t Specialty/U Sp cat Specialty rology - [facility] 2020-04-04 2020-04-04 [facility] [id number] Common 14:03:00 14:03:[address] [facility] 2020-04-03 2020-04-03 [facility] [id number] Common 10:00:00 10:00:[address] [facility] 2020-03-29 2020-03-29 [facility] [id number] Common 10:30:00 10:30:00 t Specialty/U Sp cat Specialty rology - [facility] /[facility] 2020-03-27 2020-03-27 [facility] [id number] Common 15:47:00 15:47:[address] [facility] 2020-03-27 2020-03-27 [facility] [id number] Common 11:08:00 11:08:00 t Logan [employer] Spir it [address] [facility] 2020-03-22 2020-03-22 [facility] [id number] Common 14:20:00 14:20:[address] [facility] 2020-03-22 2020-03-22 [facility] [id number] Common 09:29:00 09:29:[address] [facility] 2020-02-14 2020-02-14 [facility] [id number] Common 08:52:00 08:52:[address] [facility] 2019-12-22 2019-12-22 [facility] [id number] Common 09:00:00 09:00:00 t Specialty/U Sp cat Specialty rology - [facility] 2019-12-01 2019-12-01 [facility] [id number] Common 10:00:00 10:00:[address] [facility] 2019-09-20 2019-09-20 [facility] [id number] Common 15:55:00 15:55:[address] [facility] 2019-09-08 2019-09-08 [facility] [id number] Common 09:00:00 09:00:[address] [facility] 2019-08-23 2019-08-23 [facility] [id number] Common 09:28:00 09:28:00 t Specialty/U Sp cat Specialty rology - [facility] 2019-07-28 2019-07-28 [facility] [id number] Common 09:00:00 09:00:[address] [facility] 2019-06-22 2019-06-22 [facility] [id number] Common 08:45:00 08:45:00 t Specialty/U Sp cat Specialty rology - [facility] 2019-06-16 2019-06-16 [facility] [id number] Common 09:00:00 09:00:[address] [facility] 2019-06-15 2019-06-15 [facility] [id number] Common 10:34:00 10:34:[address] [facility] 2019-03-24 2019-03-24 [facility] [id number] Common 10:40:00 10:40:[address] [facility] 2019-03-09 2019-03-09 [facility] [id number] Common 10:08:00 10:08:00 t Specialty/U Sp cat Specialty rology - [facility] 2018-12-24 2018-12-24 [facility] [id number] Common 09:45:00 09:45:00 t Specialty/U Sp cat Specialty rology [facility] /[facility]rology Clinic [facility] 2018-12-17 2018-12-17 [facility] [id number] Common 08:30:00 08:30:[address] [facility] 2018-11-17 2018-11-17 [facility] [id number] Common 11:32:00 11:32:[address] [facility] 2018-10-14 2018-10-14 [facility] [id number] Common 09:44:00 09:44:[address] [facility] 2018-09-10 2018-09-10 [facility] [id number] Common 08:30:00 08:30:[address] [facility] 2018-08-04 2018-08-04 [facility] [id number] Common 09:30:00 09:30:00 t Specialty/U Sp cat Specialty rology - [facility] /[facility] 2018-07-30 2018-07-30 [facility] [id number] Common 09:15:00 09:15:00 t Specialty/U Sp cat Specialty rology - [facility] 2018-07-01 2018-07-01 Outpatient Renetta Gomezrisat [id number] Common 09:45:00 09:45:00 t Specialty/U Sp cat Specialty rology [facility] /[facility] 2018-06-18 2018-06-18 Outpatient Renetta Gomezrisat [id number] Common 09:00:00 09:00:[address] [facility] 2018-06-17 2018-06-17 Outpatient [facility] [id number] Common 08:15:00 08:15:[address] [facility] 2018-05-28 2018-05-28 Outpatient Renetta Renettat [id number] Common 09:46:00 09:46:[address] [facility] 2018-03-17 2018-03-17 Outpatient Renetta Renettat [id number] Common 09:30:00 09:30:[address] [facility] Results Test Description Test Time Test Comments Results Result Comments Source BASIC METABOLIC PANEL (NA, K, CL, CO2, GLUCOSE, BUN, 2020-08 12:16:00 CREATININE, CA) Test Item Value Reference Range Interpretation Comme nts NA (test code = 5373291007) 138 mmol/L 135-145 K (test code = 4107233051) 4.0 mmol/L 3.5-5 CL (test code = 2279776948) 99 mmol/L 98-108 CO2 TOTAL (test code = 7193253720) 34 mmol/L 23-31 H AGAP (test code = 2238491913) 2-16 BUN (test code = 3253634812) 25 mg/dL 7-23 H GLUCOSE (test code = 2189686902) 117 mg/dL 70-110 H CREATININE (test code = 1.20 mg/dL 0.5-1.04 H 7764266678) CALCIUM (test code = 4078490076) 9.1 mg/dL 8.6-10.6 eGFR Calculation (Non- mL/min/1.73m2 [place]er) (test code = 2443250424) eGFR Calculation ( mL/min/1.73m2 [place]) (test code = 7228154786) PATRICIO (test code = PATRICIO) Association of [...] tests). Lab Interpretation (test code = Abnormal 09256-9) [facility] WITH [id number] 11:18:00 Test Item Value Reference Range Interpretation Comments WBC (test code = See_Comment H [Automated 90-2) message] The system which generated this result transmit augustina reference range : 4.30 - 11.10 10*3/?L. The reference range was not used to interpret this result as normal/abnormal . RBC (test code = See_Comment L [Automated 029-8) message] The system which generated this result [...] RDW-SD (test code = 43.0 fL 39-49.9 84617-1) RDW-CV (test code = 12.8 % 12-15.5 788-0) PLT (test code = See_Comment [Automated 777-3) message] The system which generated this result transmit augustina reference range : 166 - 358 10*3/ ?L. The reference range was not u sed to interpret th is result as normal/abnormal . MPV (test code = 10.7 fL 9.5-12.9 26853-5) NRBC/100 WBC (test See_Comment [Automat ed code = 5026088627) message] The system which generated this result transmit augustina reference range : 0.0 - 10.0 /100 WBCs. The reference range was not used to interpret this result as normal/abnormal . NRBC x10^3 (test code <0.01 See_Comment [Auto mated = 7515263873) message] The system which generated this result transmit augustina reference range : 10*3/?L. The reference range was not used to interpret this result as normal/abnormal . GRAN MAT (NEUT) % 83.2 % (test code = 770-8) IMM GRAN % (test code 0.50 % = 5704222939) LYMPH % (test code = 7.7 % 736-9) MONO % (test code = 8.5 % 5905-5) EOS % (test code = 0.0 % 713-8) BASO % (test code = 0.1 % 706-2) GRAN MAT x10^3(ANC) 10.82 10*3/uL 1.88-7.09 H (test code = 2765277363) IMM GRAN x10^3 (test 0.07 10*3/uL 0-0.06 H code = 5858495279) LYMPH x10^3 (test code 1.00 10*3/uL 1.32-3.29 L = 731-0) MONO x10^3 (test code 1.11 10*3/uL 0.33-0.92 H = 742-7) EOS x10^3 (test code = <0.03 0.03-0.39 L 711-2) BASO x10^3 (test code <0.03 0.01-0.07 = 704-7) Lab Interpretation Abnormal (test code = 79558-0) [facility] [id number] 20:20:03HISTORY: Positive d-dimer, rule out P.E. TECHNIQUE: Contrast-enhanced 64-mutidetector CT scan of thechest wascompleted with intravenous injection of ?non ionic [...] can be obtained as nonemergent outpatient studies. [facility], Radiant Results Inft User - 09/07/2020 2:21 PM CSTHISTORY: Positive d- dimer, rule out P.E.TECHNIQUE: Contrast-enhanced 64-mutidetector CT scan of the chest wascompleted with intravenous injection of non ionic contrast medium.Subsequently numerous sagittal, coronal and MIP reformations weregenera augustina.FINDINGS: No focal lesions appreciated in the thyroid [...] left posterior basal lower lung. Noleft pleural effu arianna.Minimal focal atherosclerosis noted in LAD coronary artery and its diagonalbranch as well as inmid segment of right coronary artery.Lower thoracic and upper lumbar multilevel degenerative disc disease withkyphosis and levoscoliosis noted.CONCLUSIONS:1. No acute pulmonary thromboembolism.2. 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 Minimal congestion in the right middle lobe.4. Asymmetrical soft tissue changes are seen in the upper outer leftbreast. Diagnostic mammography with left breast ultrasound recommendedwhich can be obtained as nonemergent outpatient studies.[facility] [id number] 14:55:22HISTORY: Dyspnea. TECHNIQUE: Portable AP erect view [...] changes are seen in the left lung base.[facility], Radiant Results Inft User - 09/07/2020 8:56 AM CSTHISTORY: Dyspnea.TECHNIQUE: Portable AP erect view of the chest is obtained. No prior cheststudy available for comparison.FINDINGS: Left hemidiaphragm is moderately elevated into the chestresulting into congestion/atelectatic changes in the left lung base.Right lung is clear. Left upper lung is clear. Mild cardiomegalysuspected.Incidental note of angular thoracolumbar dextroscoliosis.CONCLUSIONS: Moderately elevated left hemidiaphragm without any apparentcause. Congestion/atelectatic changes are seen in the left lung base. [facility] (A1C)2020-09-07 14:45:00 Test Item Value Reference Range Interpretation Comments HGB A1C (test code = 5.6 % 4-6 4548-4) PATRICIO (test code = PATRICIO) %A1C (NGSP) Interpretation (ADA)4.8-5.6 ? ? Normal or (Non-Diabetic Range)5.7-6.4 ? ? Increased Risk (Pre-Diabetic)>6.5 ?Diabetes Indicated Lab Interpretation Normal (test code = 36478-6) [facility] [id number] 14:44:00 Test Item Value Reference Range Interpretation Comments NT-proBNP (test code 1180 pg/mL See_Comment H [Autom ated = 4967835812) message] The system which generated this result transmitted reference range : <=450. The reference range was not used to interpret this result as normal/abnormal . PATRICIO (test code = PATRICIO) Biotin has been reported to cause a negative bias, interpret results relative to patient's use of biotin. Lab Interpretation Abnormal (test code = 85454-4) [facility] [id number] 12:14:00 Test Item Value Reference Range Interpretation Comments TROPONIN I (test <0.012 See_Comment [Automated code = 2812418046) message] The system which generated this result [...] ? Lab Interpretation Normal (test code = 42215-2) [facility] WITH [id number] 12:11:00 Test Item Value Reference Range Interpretation Comments WBC (test code = See_Comment [Automated 3890-2) message] The sy stem which generated this result transmitted reference range : 4.30 - 11.10 10*3/?L. The reference range was not used to interpret this result as normal/abnormal . RBC (test code = See_Comment [Automated 409-8) message] The sy stem which generated this [...] RDW-SD (test code = 43.8 fL 39-49.9 99541-1) RDW-CV (test code = 12.7 % 12-15.5 788-0) PLT (test code = See_Comment [Automated 177-3) message] The sy stem which generated this result transmitted reference range : 166 - 358 10*3/ ?L. The reference r aprish was not used to interpret this result as normal/abnormal . MPV (test code = 10.5 fL 9.5-12.9 01038-3) NRBC/100 WBC (test See_Comment [Automat ed code = [id number]) message] The system which generated this result transmitted reference range : 0.0 - 10.0 /100 WBCs. The refer ence range was not u sed to interpret th is result as normal/abnormal . NRBC x10^3 (test code <0.01 See_Comment [Auto mated = [id number]) message] The s ystem which generated this result transmitted reference range : 10*3/?L. The reference range was not used to interpret this result as normal/abnormal . GRAN MAT (NEUT) % 89.8 % (test code = 770-8) IMM GRAN % (test code 0.30 % = 6931078560) LYMPH % (test code = 9.1 % 736-9) MONO % (test code = 0.7 % 5905-5) EOS % (test code = 0.0 % 713-8) BASO % (test code = 0.1 % 706-2) GRAN MAT x10^3(ANC) 6.01 10*3/uL 1.88-7.09 (test code = 7293651720) IMM GRAN x10^3 (test <0.03 0-0.06 code = 1135248487) LYMPH x10^3 (test code 0.61 10*3/uL 1.32-3.29 L = 731-0) MONO x10^3 (test code 0.05 10*3/uL 0.33-0.92 L = 742-7) EOS x10^3 (test code = <0.03 0.03-0.39 L 711-2) BASO x10^3 (test code <0.03 0.01-0.07 = 704-7) Lab Interpretation Abnormal (test code = 58814-7) [facility] ([id number])2020-09-07 12:08:00 Test Item Value Reference Range Interpretation Comments NA (test code = 140 mmol/L 135-145 4142633967) K (test code = 4.0 mmol/L 3.5-5 4035329426) CL (test code = 103 mmol/L 98-108 4833499441) CO2 TOTAL (test code = 32 mmol/L 23-31 H 3601713811) AGAP (test code = 2-16 3350347052) BUN (test code = 15 mg/dL 7-23 4003363181) GLUCOSE (test code = 146 mg/dL 70-110 H 8120524556) CREATININE (test code = 1.11 mg/dL 0.5-1.04 H 8948206484) TOTAL BILI (test code = 0.5 mg/dL 0.1-1.0 7747501347) CALCIUM (test code = 9.4 mg/dL 8.6-10.6 2321344930) T PROTEIN (test code = 6.9 g/dL 6.3-8.2 6831381370) ALBUMIN (test code = 3.9 g/dL 3.5-5 7626336934) ALK PHOS (test code = 60 U/L 34-122 4310839229) ALTv (test code = 15 U/L 5-35 1742-6) AST(SGOT) (test code = 23 U/L 13-40 5488907414) eGFR Calculation mL/min/1.73m2 (Non-) (test code = 5904068397) eGFR Calculation mL/min/1.73m2 () (test code = 3369463032) PATRICIO (test code = PATRICIO) Association of [...] tests). Lab Interpretation Abnormal (test code = 40206-1) [facility]"
--- NOTE | 2022-06-06 13:39 | RAD REPORT ---
EXAM DESCRIPTION: CT - CTHCSPWOC - 06/06/2022 1:20 pm CLINICAL HISTORY: Trauma, head and neck injury. fall COMPARISON: No comparisons TECHNIQUE: Axial 5 mm thick images of the head were obtained. Axial 2 mm thick images of the cervical spine were obtained with sagittal and coronal reconstruction images generated and reviewed. All CT scans are performed using dose optimization technique as appropriate and may include automated exposure control or mA/KV adjustment according to patient size. FINDINGS: CT HEAD WITHOUT CONTRAST: No acute hemorrhage, hydrocephalus or extra-axial collection is identified.Moderate chronic microvasc ular ischemic changes are present.No areas of brain edema or midline shift. The paranasal sinuses and mastoids are clear.The calvarium is intact. CT CERVICAL SPINE WITHOUT CONTRAST: No fracture or subluxation.Moderate multilevel mid cervical degenerative changes are present.No preve rtebral soft tissues swelling is identified. IMPRESSION: No acute intracranial or cervical spine findings. Moderate midcervical degenerative spondylosis.
--- NOTE | 2022-06-06 13:44 | RAD REPORT ---
EXAM DESCRIPTION: CT - Pelvis Wo Cont - 06/06/2022 1:23 pm CLINICAL HISTORY: pelvis Fall, trauma, pelvic pain COMPARISON: No comparisons TECHNIQUE: All CT scans are performed using dose optimization technique as appropriate and may inclu de automated exposure control or mA/KV adjustment according to patient size. FINDINGS: Symmetric sacroiliac joints are present. Mild to moderate lumbar degenerative changes are present. No acute fracture or subluxation is present. Prominent diverticulosis coli is seen in the si gmoid colon without diverticulitis. No soft tissue mass or hematoma. IMPRESSION: No acute trauma related abnormality detected.
[2022-06-06] MEDS ORDERED: DERMABOND SKIN ADHESIVE TOP ONE (14:04)
--- NOTE | 2022-06-06 14:14 | ER ---
Nurse's Notes [facility] Name: Faiza Pete Age: 82 yrs Sex: Female : 1940 Arrival Date: 06/06/2022 Time: 12:47 Bed 20 Private MD: Diagnosis: Fall (on)(from) incline;Unspecified injury of head, initial encounter;left eyelid laceration without foreign body Presentation: 06/06 12:50 Chief complaint: EMS states: they were called to [facility] for a patient who fell out ap3 of her wheelchair. fall was witnessed. it is reported patient fell and hit her head, no LOC but patient is on blood thinners. Coronavirus screen: At this time, the client does not indicate any symptoms associated with coronavirus-19. Ebola Screen: No symptoms or risks identified at this time. Initial Sepsis Screen: Does the patient meet any 2 criteria? No. Patient's initial sepsis screen is negative. Does the patient have a suspected source of infection? No. Patient's initial sepsis screen is negative. Risk Assessment: Do you want to hurt yourself or someone else? Patient reports no desire to harm self or others. Onset of symptoms was June 06, 2022. 12:50 Method Of Arrival: EMS: [facility] ap3 12:50 Acuity: KATHI 2 ap3 12:57 Care prior to arrival: None. Mechanism of Injury: Fall out of chair fall from ap3 wheelchair. Trauma event details: Injury occurred in the [facility], Injury occurred: assisted Injury occurred: June 06, 2022. 14:29 Note report called to [facility]. awaiting transport for patient to return ap3 to assisted facility. Triage Assessment: 12:53 General: Appears uncomfortable, Behavior is calm. Pain: Complains of pain in forehead. ap3 Neuro: Level of Consciousness is awake, Oriented to person, pt has hx of dementia. it is reported pt is at baseline. Cardiovascular: Patient's skin is warm and dry. Respiratory: Airway is patent Respiratory effort is even, unlabored, Respiratory pattern is regular, symmetrical. Derm: Wound noted forehead. Trauma Activation: Alert Physician: ED Physician; Name: ; Notified At: 12:49; Arrived At: Physician: General Surgeon; Name: ; Notified At: 12:49; Arrived At: Physician: Radiology; Name: ; Notified At: 12:49; Arrived At: Physician: Respiratory; Name: ; Notified At: 12:49; Arrived At: Physician: Lab; Name: ; Notified At: 12:49; Arrived At: Historical: - Allergies: 12:52 Bactrim; ap3 12:52 Levaquin (Hives); swelling; ap3 12:52 Macrobid; ap3 12:52 Nitrofurantoin; ap3 - PMHx: 12:52 Aneurysm; Cancer, Breast; SVT; TIA; hemmorhoids; Hyperlipidemia; Dementia; COPD; ap3 Hypertension; - Immunization history:: Client reports receiving the 2nd dose of the Covid vaccine. - Social history:: Smoking status: Patient denies any tobacco usage or history of. - Immunization history: Last tetanus immunization: - up to date. Screenin:54 Abuse screen: Denies threats or abuse. Abuse screen: Denies threats or abuse. ap3 Nutritional screening: No deficits noted. Tuberculosis screening: No symptoms or risk factors identified. Fall Risk Fall in past 12 months (25 points). Secondary diagnosis (15 points) dementia, impaired mobility, No IV (0 pts). Ambulatory Aid- Crutches/Cane/Walker (15 pts). Gait- Impaired (20 pts.). Mental Status- Overestimates/Forgets Limitations (15 pts.). Total Quintana Fall Scale indicates High Risk Score (45 or more points). Fall prevention measures have been instituted. Side Rails Up X 2 Placed Close to Nursing Station Frequent Obs/Assessments Occuring As available patient and family educated on Fall Prevention Program and Strategies. Primary Survey: 12:55 NO uncontrolled hemorrhage observed. A: The client is awake and alert. The airway is ap3 patent. Airway: patent, No supplemental oxygen in use on arrival. Breathing/Chest: Spontaneous respiratory effort, equal unlabored respirations, breath sounds clear bilaterally, regular pattern, symmetrical chest rise and fall. Circulation: No external hemorrhage present. Regular and strong central pulse, skin warm/dry/normal color. Disability Client is alert. Exposure/Environment: A warming method has been applied: A warm blanket has been provided to the patient. 13:54 Reassessment Alertness and Airway: Awake and alert. The airway is patent. Breathing: ap3 Spontaneous respiratory effort, equal unlabored respirations, breath sounds clear bilaterally, regular pattern with symmetrical chest rise and fall. Circulation: No external hemorrhage noted. Regular and strong central pulse, skin warm/dry/normal color. Disability: Alert. Vital Signs: 12:50 BP 129 / 70; Pulse 64; Temp 97.6; Pulse Ox 94% ; Weight 56.7 kg; Height 5 ft. 6 in. ap3 (167.64 cm); 13:54 BP 140 / 72; Pulse 66; Pulse Ox 94% on R/A; ap3 12:50 Body Mass Index 20.18 (56.70 kg, 167.64 cm) ap3 Nino Coma Score: 12:56 Eye Response: spontaneous(4). Verbal Response: oriented(5). Motor Response: obeys ap3 commands(6). Total: 15. Trauma Score (Adult): 12:56 Eye Response: spontaneous(1); Verbal Response: oriented(1); Motor Response: obeys ap3 commands(2); Systolic BP: > 89 mm Hg(4); Respiratory Rate: 10 to 29 per min(4); Nino Score: 15; Trauma Score: 12 ED Course: 12:47 Patient arrived in ED. eb 12:47 Renetta Arroyo FNP-C is [facility]. snw 12:47 Matt Ling DO is Attending Physician. snw 12:50 Michaela Griffin, JESÚS is Primary Nurse. ap3 12:52 Triage completed. ap3 12:55 Arm band placed on right wrist. ap3 12:55 Patient has correct armband on for positive identification. Bed in low position. Call ap3 light in reach. Side rails up X2. Pulse ox on. NIBP on. Warm blanket given. 12:58 Patient maintains SpO2 saturation greater than 95% on room air. ap3 12:58 Thermoregulation: warm blanket given to patient. ap3 13:22 CT Head C Spine In Process Unspecified. EDMS 13:25 CT Pelvis wo Cont In Process Unspecified. EDMS 14:30 No provider procedures requiring assistance completed. ap3 Administered Medications: 14:24 Drug: Lortab (HYDROcodone-acetaminophen) Liquid 10 ml Route: PO; ap3 Medication: 14:30 VIS not applicable for this client. ap3 Intake: 14:30 PO: 0ml; Total: 0ml. ap3 Output: 14:30 Urine: 0ml; Total: 0ml. ap3 Outcome: 14:13 Discharge ordered by . darrion 14:30 Discharged to assisted. ap3 14:30 Condition: good 14:30 Discharge instructions given to patient, family, assisted, Instructed on discharge instructions, follow up and referral plans. Demonstrated understanding of instructions, follow-up care. 17:45 Patient left the ED. iw Signatures: Dispatcher [employer] EDMS Renetta Arroyo, JANITORIAL TECH-C JANITORIAL TECH-Csnw Mitzi Thacker, Michaela Whiteside RN, RN RN cathy3 Lenore Marcos
--- NOTE | 2022-06-06 14:14 | EDPHYS ---
Physician Documentation [facility] Name: Faiza Pete Age: 82 yrs Sex: Female : 1940 Arrival Date: 06/06/2022 Time: 12:47 Bed 20 Private MD: ED Physician Matt Ling HPI: 06/06 13:14 This 82 yrs old Female presents to ER via EMS with complaints of Fall Injury. snw 13:14 Trauma demographics: County: The injury occurred in [place] Location of Injury: The snw injury occurred at a residential, Date: June 06, 2022. Mechanism of injury: Fall: the patient fell wheelchair. Associated injuries: The patient sustained injury to the head, laceration, 3 cm(s), of the left eye. Onset: The symptoms/episode began/occurred suddenly, just prior to arrival. Details of fall: The patient fell from seated position, out of a wheelchair. 13:15 It is unknown whether or not the patient has had similar symptoms in the past. It is snw unknown whether or not the patient has recently seen a physician. hx dementia, decreased communication skills. Historical: - Allergies: 12:52 Bactrim; ap3 12:52 Levaquin (Hives); swelling; ap3 12:52 Macrobid; ap3 12:52 Nitrofurantoin; ap3 - PMHx: 12:52 Aneurysm; Cancer, Breast; SVT; TIA; hemmorhoids; Hyperlipidemia; Dementia; COPD; ap3 Hypertension; - Immunization history:: Client reports receiving the 2nd dose of the Covid vaccine. - Social history:: Smoking status: Patient denies any tobacco usage or history of. - Immunization history: Last tetanus immunization: - up to date. ROS: 13:24 Constitutional: Negative for fever, chills, and weight loss, Eyes: Negative for injury, snw pain, redness, and discharge, ENT: Negative for injury, pain, and discharge, Neck: Negative for injury, pain, and swelling, Cardiovascular: Negative for chest pain, palpitations, and edema, Respiratory: Negative for shortness of breath, cough, wheezing, and pleuritic chest pain, Abdomen/GI: Negative for abdominal pain, nausea, vomiting, diarrhea, and constipation, Back: Negative for injury and pain, : Negative for injury, bleeding, discharge, and swelling, MS/Extremity: Negative for injury and deformity, Skin: Negative for injury, rash, and discoloration, Neuro: Negative for weakness, numbness, tingling, and seizure, positive for headache Psych: Negative for depression, anxiety, suicide ideation, homicidal ideation, and hallucinations. Exam: 13:16 Constitutional: This is a well developed, well nourished patient who is awake, alert, snw and in no acute distress. Eyes: Pupils equal round and reactive to light, extra-ocular motions intact. Lids and lashes normal. Conjunctiva and sclera are non-icteric and not injected. Cornea within normal limits. Periorbital areas with no swelling, redness, or edema. ENT: Nares patent. No nasal discharge, no septal abnormalities noted. Tympanic membranes are normal and external auditory canals are clear. Oropharynx with no redness, swelling, or masses, exudates, or evidence of obstruction, uvula midline. Mucous membranes moist. Neck: Trachea midline, no thyromegaly or masses palpated, and no cervical lymphadenopathy. Supple, full range of motion without nuchal rigidity, or vertebral point tenderness. No Meningismus. Chest/axilla: Normal chest wall appearance and motion. Nontender with no deformity. No lesions are appreciated. Cardiovascular: Regular rate and rhythm with a normal S1 and S2. No gallops, murmurs, or rubs. Normal PMI, no JVD. No pulse deficits. Respiratory: Lungs have equal breath sounds bilaterally, clear to auscultation and percussion. No rales, rhonchi or wheezes noted. No increased work of breathing, no retractions or nasal flaring. Abdomen/GI: Soft, non-tender, with normal bowel sounds. No distension or tympany. No guarding or rebound. No evidence of tenderness throughout. Back: No spinal tenderness. No costovertebral tenderness. Full range of motion. Skin: Warm, dry with normal turgor. Normal color with no rashes, no lesions, and no evidence of cellulitis. MS/ Extremity: Pulses equal, no cyanosis. Neurovascular intact. Full, normal range of motion. Pt without complaint of hip pain on movement from floor to stretcher or from stretcher to stretcher. Left hip with increasing flexion on the way to CT for head. Pt now with left hip pain on movement. Neuro: Awake and alert, GCS 15, oriented to person, place, time, and situation. Movement in all extremities. Sensory grossly intact. Cerebellar exam normal. Vital Signs: 12:50 BP 129 / 70; Pulse 64; Temp 97.6; Pulse Ox 94% ; Weight 56.7 kg; Height 5 ft. 6 in. ap3 (167.64 cm); 13:54 BP 140 / 72; Pulse 66; Pulse Ox 94% on R/A; ap3 12:50 Body Mass Index 20.18 (56.70 kg, 167.64 cm) ap3 Nino Coma Score: 12:56 Eye Response: spontaneous(4). Verbal Response: oriented(5). Motor Response: obeys ap3 commands(6). Total: 15. Trauma Score (Adult): 12:56 Eye Response: spontaneous(1); Verbal Response: oriented(1); Motor Response: obeys ap3 commands(2); Systolic BP: > 89 mm Hg(4); Respiratory Rate: 10 to 29 per min(4); [place] Score: 15; Trauma Score: 12 MDM: 12:49 Patient medically screened. snw 14:19 Data reviewed: vital signs, nurses notes. Data interpreted: Pulse oximetry: on room air snw is 94 %. Interpretation: acceptable. Counseling: I had a detailed discussion with the patient and/or guardian regarding: the historical points, exam findings, and any diagnostic results supporting the discharge/admit diagnosis, the presence of at least one elevated blood pressure reading (>120/80) during this emergency department visit, radiology results, the need for outpatient follow up, to return to the emergency department if symptoms worsen or persist or if there are any questions or concerns that arise at home. Response to treatment: the patient's symptoms have markedly improved after treatment. Special discussion: Based on the patient's history, exam and DX evaluation, there is no indication for emergent intervention or inpatient TX. It is understood by the patient/guardian that if the SXs persist or worsen they need to return immediately for re-evaluation. 06/06 12:50 Order name: CT Head C Spine; Complete Time: 13:43 snw 06/06 13:06 Order name: CT Pelvis wo Cont; Complete Time: 13:51 snw 06/06 12:50 Order name: Wound Care; Complete Time: 14:24 snw Administered Medications: 14:24 Drug: Lortab (HYDROcodone-acetaminophen) Liquid 10 ml Route: PO; ap3 Disposition: 21:10 Co-signature as Attending Physician, Matt Ling DO I was immediately available on-site ms3 in the Emergency Department for consultation in the care of the patient. . Disposition Summary: 06/06/22 14:13 Discharge Ordered Location: Home snw Condition: Stable snw Diagnosis - Fall (on)(from) incline snw - Unspecified injury of head, initial encounter snw - left eyelid laceration without foreign body snw Followup: snw - With: Emergency Department - When: As needed - Reason: Worsening of condition Followup: snw - With: Private Physician - When: 1 - 2 days - Reason: Recheck today's complaints, Continuance of care, Re-evaluation by your physician Discharge Instructions: - Discharge Summary Sheet snw - Tissue Adhesive Wound Care snw - Head Injury, Adult snw - RICE Therapy for Routine Care of Injuries snw - Fall Prevention in the Home, Adult snw Forms: - Medication Reconciliation Form snw - Thank You Letter snw - Antibiotic Education snw - Prescription Opioid Use snw - SBAR form ap3 Signatures: Dispatcher [employer] EDMS Renetta Arroyo, SCHOOL AGE LEAD TEACHER-C SCHOOL AGE LEAD TEACHER-Csnw Michaela Griffin, JESÚS RN ap3 Matt Ling DO DO ms3
[2022-06-06] MEDS ORDERED: HYDROCOD 2.5mg-ACETAMIN 108mg/5mL Soln ONE (14:22)
[2022-06-06 19:10] VITALS: TEMP 97.6; O2SAT 94
[2022-06-06 19:13] VITALS: BP 140/72
== END 2022-06-06 17:45 | disposition home or self-care (01) ==
LOC: ER 12:44
DX: S01.112A Laceration without foreign body of left eyelid and periocular area, initial encounter (principal); S09.90XA Unspecified injury of head, initial encounter; M25.552 Pain in left hip; W10.2XXA Fall (on)(from) incline, initial encounter; I10 Essential (primary) hypertension; J44.9 Chronic obstructive pulmonary disease, unspecified; F03.90 Unspecified dementia, unspecified severity, without behavioral disturbance, psychotic disturbance, mood disturbance, and anxiety; Z88.1 Allergy status to other antibiotic agents; Z88.8 Allergy status to other drugs, medicaments and biological substances
CPT/HCPCS: 70450; 72125; 72192; 99284